=== PATIENT | female | born 1950 | race Hispanic/Latino ===

== ENCOUNTER 2018-03-16 09:41 | Inpatient (IN) | payer OTHER ==
[2018-03-16] MEDS ORDERED: NA CHLORIDE 0.9% 1,000 ML ONE (11:27)
--- NOTE | 2018-03-16 11:36 | RAD REPORT ---
EXAM DESCRIPTION: RAD - Chest Single View - 03/16/2018 11:25 am CLINICAL HISTORY: Chest pain. COMPARISON: 03/10/2017 FINDINGS: Portable technique limits examination quality. The lungs are grossly clear. The heart is upper limit of normal in size. No displaced fractures. IMPRESSION: No acute intrathoracic process suspected.
--- NOTE | 2018-03-16 11:49 | RAD REPORT ---
EXAM DESCRIPTION: SID - MAUREEN - 03/16/2018 11:39 am CLINICAL HISTORY: Headaches, bruit, possible stenosis COMPARISON: None. TECHNIQUE: Real-time sonographic evaluation of both carotid systems was performed. Doppler interroga tion was performed with waveform tracing bilaterally. FINDINGS: Normal high resistance waveforms are noted in both external carotid arteries. The common c arotid arteries and internal carotid arteries show normal low resistance waveforms. Plaquing changes are identifiable in the bilateral carotid bulb and proximal ICA regions. On visual i nspection the plaquing does not significantly narrow vessel lumen. Internal carotid tortuosity is not ed. Peak systolic and end diastolic velocity values and the ICA/CCA ratios are in the non-hemodynamic ally significant range. Antegrade flow seen in both vertebral arteries. Velocity values and ratios were recorded and are retained in the patient's imaging records. IMPRESSION: Calcified and noncalcified plaquing changes are present in the bilateral carotid bulb an d ICA regions. Currently no hemodynamically significant stenosis identifiable.
[2018-03-16 12:07] LABS: Potassium 4.5 mEq/L (3.6-5.0)
[2018-03-16 12:12] LABS: Urine Blood TRACE (NEG); Urine Glucose NEGATIVE (NEG); Urine Protein NEGATIVE (NEG)
[2018-03-16 12:13] LABS: Absolute Lymphocytes (CBC) 1.8 K/uL (0.7-4.9); Absolute Monocytes 0.8 K/uL (0.1-1.3); Absolute Neutrophil 8.6 K/uL (1.8-8.0); Albumin 4.4 g/dL (3.2-5.5); Basophils % 0.3 % (0-1.3); Bilirubin Direct 0.1 mg/dL (0-0.2); Bilirubin Total 0.6 mg/dL (0.3-1.2); Eosinophils % 0.2 % (0-4.4); Hematocrit 43.6 % (36.0-45.0); Lymphocytes % 15.8 % (15.3-44.8); MCH 27.6 pg (27.0-35.0); MCV 85.7 fL (80-100); MPV 10.1 fL (7.6-11.3); Magnesium 1.9 mg/dL (1.8-2.5); RBC Red Blood Cell Count 5.09 M/uL (3.86-4.86)
[2018-03-16 12:17] LABS: CKMB Creatine Kinase MB 0.9 ng/ml (0.3-4.0)
[2018-03-16] MEDS ORDERED: CEFTRIAXONE/SWI 1gm 1 GM/10 ML SYR ONE (12:40)
--- NOTE | 2018-03-16 12:48 | EDPHYS ---
Physician Documentation [facility] Name: Mary Healy Age: 68 yrs Sex: Female : 1950 Arrival Date: 03/16/2018 Time: 09:44 Bed 23 Private MD: ED Physician Will Lockhart HPI: 03/16 10:38 This 68 yrs old Female presents to ER via Ambulatory with complaints of arron Headache, Jaw Pain. 10:38 The patient complains of pain to the forehead, left ear, left buddhism and left jaw. The arron patient describes the headache as constant. Onset: The symptoms/episode began/occurred just prior to arrival, this morning. Associated signs and symptoms: The patient has no apparent associated signs or symptoms. Severity of symptoms: At its worst the pain was mild, moderate, in the emergency department the pain is unchanged. Headache History: Denies prior headaches. The symptoms are alleviated by nothing. the symptoms are aggravated by nothing. The patient has not experienced similar symptoms in the past. Historical: - Allergies: 09:53 PENICILLINS; - Home Meds: 09:53 tramadol 50 mg Oral tab 1 tab every 6 hours [Active]; amlodipine-benazepril 10-20 mg ch oral cap 1 cap once daily [Active]; metoprolol tartrate 50 mg Oral tab 1 tab once daily [Active]; - PMHx: 09:53 High Cholesterol; Hypertension; inflammatory polyarthropy; Osteoporosis; Rheumatoid ch Arthritis; 09:54 "i bleed easily, thin skin"; ch - PSHx: 09:53 ; Tubal ligation; cyst removal; 09:54 possible heart cath; - Immunization history:: Adult Immunizations up to date. - Social history:: Smoking status: Patient/guardian denies using tobacco. - Family history:: not pertinent. ROS: 10:38 Constitutional: Negative for fever, chills, and weight loss, ENT: Negative for injury, arron pain, and discharge, Neck: Negative for injury, pain, and swelling, Cardiovascular: Negative for chest pain, palpitations, and edema, Respiratory: Negative for shortness of breath, cough, wheezing, and pleuritic chest pain, Abdomen/GI: Negative for abdominal pain, nausea, vomiting, diarrhea, and constipation, Back: Negative for injury and pain, : Negative for injury, bleeding, discharge, and swelling, MS/Extremity: Negative for injury and deformity, Skin: Negative for injury, rash, and discoloration, Psych: Negative for depression, anxiety, suicide ideation, homicidal ideation, and hallucinations, Allergy/Immunology: Negative for hives, rash, and allergies, Endocrine: Negative for neck swelling, polydipsia, polyuria, polyphagia, and marked weight changes, Hematologic/Lymphatic: Negative for swollen nodes, abnormal bleeding, and unusual bruising. 10:38 Eyes: Positive for blurry vision, visual disturbance, of the iris of left eye. Exam: 10:38 Constitutional: This is a well developed, well nourished patient who is awake, alert, arron and in no acute distress. Head/Face: Normocephalic, atraumatic. Eyes: Pupils equal round and reactive to light, extra-ocular motions intact. Lids and lashes normal. Conjunctiva and sclera are non-icteric and not injected. Cornea within normal limits. Periorbital areas with no swelling, redness, or edema. ENT: Nares patent. No nasal discharge, no septal abnormalities noted. Tympanic membranes are normal and external auditory canals are clear. Oropharynx with no redness, swelling, or masses, exudates, or evidence of obstruction, uvula midline. Mucous membranes moist. Neck: Trachea midline, no thyromegaly or masses palpated, and no cervical lymphadenopathy. Supple, full range of motion without nuchal rigidity, or vertebral point tenderness. No Meningismus. Chest/axilla: Normal chest wall appearance and motion. Nontender with no deformity. No lesions are appreciated. Cardiovascular: Regular rate and rhythm with a normal S1 and S2. No gallops, murmurs, or rubs. Normal PMI, no JVD. No pulse deficits. Respiratory: Lungs have equal breath sounds bilaterally, clear to auscultation and percussion. No rales, rhonchi or wheezes noted. No increased work of breathing, no retractions or nasal flaring. Abdomen/GI: Soft, non-tender, with normal bowel sounds. No distension or tympany. No guarding or rebound. No evidence of tenderness throughout. Back: No spinal tenderness. No costovertebral tenderness. Full range of motion. Skin: Warm, dry with normal turgor. Normal color with no rashes, no lesions, and no evidence of cellulitis. MS/ Extremity: Pulses equal, no cyanosis. Neurovascular intact. Full, normal range of motion. Neuro: Awake and alert, GCS 15, oriented to person, place, time, and situation. Cranial nerves II-XII grossly intact. Motor strength 5/5 in all extremities. Sensory grossly intact. Cerebellar exam normal. Normal gait. Psych: Awake, alert, with orientation to person, place and time. Behavior, mood, and affect are within normal limits. Vital Signs: 09:54 BP 147 / 68; Pulse 78; Resp 18; Temp 98.1; Pulse Ox 99% on R/A; Weight 45.81 kg; Height ch 4 ft. 10 in. (147.32 cm); Pain 0/10; 12:04 BP 129 / 58; Pulse 61; Resp 18; Pulse Ox 95% on R/A; aj1 13:00 BP 149 / 74; Pulse 65; Resp 18; Pulse Ox 99% ; aj1 14:00 BP 137 / 65; Pulse 65; Resp 18; Pulse Ox 100% ; aj1 16:19 BP 164 / 77; Pulse 68; Resp 14; Temp 98.0; Pulse Ox 97% on R/A; aj1 09:54 Body Mass Index 21.11 (45.81 kg, 147.32 cm) MDM: 10:22 Patient medically screened. arron 10:23 Patient medically screened. [facility] 10:39 Data reviewed: vital signs, nurses notes, lab test result(s), EKG, radiologic studies, [facility] CT scan, plain films. 03/16 10:36 Order name: Urine Dipstick--Ancillary (enter results); Complete Time: 12:34 ag 03/16 10:37 Order name: Basic Metabolic Panel; Complete Time: 12:34 arron 03/16 10:37 Order name: BNP arron 03/16 10:37 Order name: CBC with Diff; Complete Time: 12:34 arron 03/16 10:37 Order name: Ckmb; Complete Time: 12:34 arron 03/16 10:37 Order name: CPK; Complete Time: 12:34 arron 03/16 10:37 Order name: LFT's; Complete Time: 12:34 arron 03/16 10:37 Order name: Magnesium; Complete Time: 12:34 arron 03/16 10:37 Order name: PT-INR; Complete Time: 12:34 arron 03/16 10:37 Order name: Ptt, Activated; Complete Time: 12:34 [facility] 03/16 10:37 Order name: Troponin (emerg Dept Use Only); Complete Time: 12:34 [facility] 03/16 10:37 Order name: Urine Culture [facility] 03/16 11:21 Order name: Sed Rate [facility] 03/16 11:21 Order name: CRP [facility] 03/16 10:37 Order name: XRAY Chest (1 view); Complete Time: 12:00 [facility] 03/16 10:37 Order name: EKG; Complete Time: 10:38 [facility] 03/16 10:37 Order name: Cardiac monitoring; Complete Time: 10:48 [facility] 03/16 10:37 Order name: EKG - Nurse/Tech; Complete Time: 10:49 [facility] 03/16 10:37 Order name: IV Saline Lock; Complete Time: 14:04 [facility] 03/16 10:37 Order name: US Carotid Artery Bilateral; Complete Time: 12:00 [facility] 03/16 10:47 Order name: Head angio [facility] 03/16 11:22 Order name: Sedimentation Rate, Westergren; Complete Time: 12:48 [facility] 03/16 11:22 Order name: C-Reactive Protein; Complete Time: 12:34 [facility] 03/16 12:53 Order name: CONS Physician Consult [facility] 03/16 12:53 Order name: Echo with Doppler [facility] 03/16 10:37 Order name: Labs collected and sent; Complete Time: 14:04 [facility] 03/16 10:37 Order name: O2 Per Protocol; Complete Time: 10:48 [facility] 03/16 10:37 Order name: O2 Sat Monitoring; Complete Time: 10:48 [facility] 03/16 10:37 Order name: Urine Dipstick-Ancillary (obtain specimen); Complete Time: 10:48 [facility] Administered Medications: 11:58 Drug: NS 0.9% 1000 ml Route: IV; Rate: 1 bolus; Site: left antecubital; aj1 17:31 Follow up: IV Status: Completed infusion; IV Intake: 1000ml aj1 13:16 Drug: Rocephin - (cefTRIAXone) 1 grams Route: IVPB; Infused Over: 30 mins; Site: right aj1 antecubital; 17:31 Follow up: IV Status: Completed infusion aj1 14:45 Drug: Aspirin Chewable Tablet 324 mg Route: PO; aj1 17:30 Follow up: Response: No adverse reaction aj1 14:45 Drug: Lovenox 1 mg/kg Route: Sub-Q; Site: right lower abdomen; aj1 17:30 Follow up: Response: No adverse reaction aj1 Disposition: 03/16/18 12:47 Hospitalization ordered by Roc Thomas for Inpatient Admission. Preliminary diagnosis are Non-ST elevation (NSTEMI) myocardial infarction, Headache, Cystitis, Unspecified kidney failure - insufficency. - Bed requested for Telemetry/MedSurg (Inpatient). - Status is Inpatient Admission. aj1 - Condition is Stable. - Problem is new. - Symptoms have improved. UTI on Admission? Yes Signatures: Dispatcher [employer] EDYane Beck, RN RN Laly Guido RN RN aj1 Lorrie Delcid RN RN dw Anderson, Corey, MD MD cha Corrections: (The following items were deleted from the chart) 10:51 10:38 Head Brain Wo Cont+CT.RAD.BRZ ordered. EDMS EDMS
--- NOTE | 2018-03-16 12:48 | ER ---
Nurse's Notes [facility] Name: Mary Healy Age: 68 yrs Sex: Female : 1950 Arrival Date: 03/16/2018 Time: 09:44 Bed 23 Private MD: Diagnosis: Non-ST elevation (NSTEMI) myocardial infarction;Headache;Cystitis;Unspecified kidney failure-insufficency Presentation: 03/16 09:49 Presenting complaint: Patient states: for the past two-three weeks I have been getting ch pain in my chest, and it feels very hot when I wake up in the morning. then at 0900 I got a sharp pain in my L forehead that radiating down into my jaw and into my L ear. then it went numb, and it still feels tingling and odd on the L side of my head and my face. Transition of care: patient was not received from another setting of care. Onset of symptoms was March 16, 2018 at 09:00. Initial Sepsis Screen: Does the patient meet any 2 criteria? No. Patient's initial sepsis screen is negative. Does the patient have a suspected source of infection? No. Patient's initial sepsis screen is negative. Care prior to arrival: None. 09:49 Method Of Arrival: Ambulatory 09:49 Acuity: AASHISH 3 Triage Assessment: 17:29 Headache History: Denies prior headaches. General: Appears in no apparent distress. aj1 comfortable, Behavior is calm, cooperative, appropriate for age. Pain: Also complains of no other associated symptoms. Pain: Pain began today. Historical: - Allergies: 09:53 PENICILLINS; - Home Meds: 09:53 tramadol 50 mg Oral tab 1 tab every 6 hours [Active]; amlodipine-benazepril 10-20 mg ch oral cap 1 cap once daily [Active]; metoprolol tartrate 50 mg Oral tab 1 tab once daily [Active]; - PMHx: 09:53 High Cholesterol; Hypertension; inflammatory polyarthropy; Osteoporosis; Rheumatoid ch Arthritis; 09:54 "i bleed easily, thin skin"; ch - PSHx: 09:53 ; Tubal ligation; cyst removal; 09:54 possible heart cath; - Immunization history:: Adult Immunizations up to date. - Social history:: Smoking status: Patient/guardian denies using tobacco. - Family history:: not pertinent. Screenin:40 Abuse screen: Denies threats or abuse. Denies injuries from another. Nutritional aj1 screening: No deficits noted. Tuberculosis screening: No symptoms or risk factors identified. 17:30 Fall Risk None identified. aj1 Assessment: 10:40 General: Appears in no apparent distress. comfortable, Behavior is calm, cooperative, aj1 appropriate for age. Pain: Complains of pain in forehead Pain radiates to left jaw and left ear Pain currently is 3 out of 10 on a pain scale. at worst was 10 out of 10 on a pain scale. Quality of pain is described as sharp, Is intermittent. Neuro: Level of Consciousness is awake, alert, obeys commands, Oriented to person, place, time, situation, Telehealth Case Manager are equal bilaterally Moves all extremities. Full function Speech is normal, Facial symmetry appears normal, Pupils are PERRLA, Intact Reports blurred vision headache Denies dizziness, paresthesias. Cardiovascular: Reports chest pain, for the past 2 to 3 weeks, that happens mainly at night and feels like heat in her chest Heart tones S1 S2 present Patient's skin is warm and dry. Rhythm is sinus rhythm. Respiratory: Airway is patent Respiratory effort is even, unlabored, Respiratory pattern is regular, symmetrical, Breath sounds are clear bilaterally. GI: No signs and/or symptoms were reported involving the gastrointestinal system. : No signs and/or symptoms were reported regarding the genitourinary system. EENT: No signs and/or symptoms were reported regarding the EENT system. Derm: No signs and/or symptoms reported regarding the dermatologic system. Skin is pink, warm \\T\\ dry. normal. Musculoskeletal: No signs and/or symptoms reported regarding the musculoskeletal system. Circulation, motion, and sensation intact. 10:45 Reassessment: US at bedside. aj1 11:13 Reassessment: Xray at bedside. aj1 11:45 Reassessment: Patient appears in no apparent distress at this time. No changes from aj1 previously documented assessment. Patient and/or family updated on plan of care and expected duration. Pain level reassessed. Patient is alert, oriented x 3, equal unlabored respirations, skin warm/dry/pink. 12:45 Reassessment: Patient appears in no apparent distress at this time. No changes from aj1 previously documented assessment. Patient and/or family updated on plan of care and expected duration. Pain level reassessed. Patient is alert, oriented x 3, equal unlabored respirations, skin warm/dry/pink. 13:45 Reassessment: Patient appears in no apparent distress at this time. No changes from aj1 previously documented assessment. Patient and/or family updated on plan of care and expected duration. Pain level reassessed. Patient is alert, oriented x 3, equal unlabored respirations, skin warm/dry/pink. 14:45 Reassessment: Patient appears in no apparent distress at this time. No changes from aj1 previously documented assessment. Patient and/or family updated on plan of care and expected duration. Pain level reassessed. Patient is alert, oriented x 3, equal unlabored respirations, skin warm/dry/pink. 15:45 General: Appears in no apparent distress. comfortable, Behavior is calm, cooperative, aj1 appropriate for age. Neuro: Level of Consciousness is awake, alert, obeys commands, Oriented to person, place, time, situation, Moves all extremities. Full function Speech is normal, Facial symmetry appears normal. Cardiovascular: Heart tones S1 S2 present Patient's skin is warm and dry. Rhythm is sinus rhythm. Respiratory: Airway is patent Respiratory effort is even, unlabored, Respiratory pattern is regular, symmetrical, Breath sounds are clear bilaterally. Derm: No signs and/or symptoms reported regarding the dermatologic system. Skin is pink, warm \\T\\ dry. normal. Musculoskeletal: No signs and/or symptoms reported regarding the musculoskeletal system. Circulation, motion, and sensation intact. 16:30 Reassessment: Patient appears in no apparent distress at this time. No changes from aj1 previously documented assessment. Patient and/or family updated on plan of care and expected duration. Pain level reassessed. Patient is alert, oriented x 3, equal unlabored respirations, skin warm/dry/pink. Vital Signs: 09:54 BP 147 / 68; Pulse 78; Resp 18; Temp 98.1; Pulse Ox 99% on R/A; Weight 45.81 kg; Height ch 4 ft. 10 in. (147.32 cm); Pain 0/10; 12:04 BP 129 / 58; Pulse 61; Resp 18; Pulse Ox 95% on R/A; aj1 13:00 BP 149 / 74; Pulse 65; Resp 18; Pulse Ox 99% ; aj1 14:00 BP 137 / 65; Pulse 65; Resp 18; Pulse Ox 100% ; aj1 16:19 BP 164 / 77; Pulse 68; Resp 14; Temp 98.0; Pulse Ox 97% on R/A; aj1 09:54 Body Mass Index 21.11 (45.81 kg, 147.32 cm) ED Course: 09:44 Patient arrived in ED. sb2 09:51 Triage completed. 09:54 Arm band placed on left wrist. 10:22 Will Lockhart MD is Attending Physician. arron 10:33 Laly Pate, KARLEE is Primary Nurse. aj1 10:40 Patient has correct armband on for positive identification. Bed in low position. Call aj1 light in reach. Side rails up X 1. monitor technician on. Pulse ox on. NIBP on. 10:40 No provider procedures requiring assistance completed. aj1 11:12 X-ray completed. Portable x-ray completed in exam room. Patient tolerated procedure jb2 well. 11:18 US Carotid Artery Bilateral In Process Unspecified. EDMS 11:19 Ultrasound completed. Patient tolerated well. Note: us done bedside in er/portable. lc3 11:19 EKG done, by instrumentation and controls technician. reviewed by Will Lockhart MD. vh 11:24 XRAY Chest (1 view) In Process Unspecified. EDMS 11:55 Inserted saline lock: 22 gauge in left antecubital area, using aseptic technique. Blood aj1 collected. 12:22 CT completed. Patient tolerated procedure well. Patient moved to CT via wheelchair. sj Patient moved back from CT. 12:32 Head angio In Process Unspecified. EDMS 12:47 Roc Thomas DO is Hospitalizing Provider. arron 17:29 Patient admitted, IV remains in place. aj1 Administered Medications: 11:58 Drug: NS 0.9% 1000 ml Route: IV; Rate: 1 bolus; Site: left antecubital; aj1 17:31 Follow up: IV Status: Completed infusion; IV Intake: 1000ml aj1 13:16 Drug: Rocephin - (cefTRIAXone) 1 grams Route: IVPB; Infused Over: 30 mins; Site: right aj1 antecubital; 17:31 Follow up: IV Status: Completed infusion aj1 14:45 Drug: Aspirin Chewable Tablet 324 mg Route: PO; aj1 17:30 Follow up: Response: No adverse reaction aj1 14:45 Drug: Lovenox 1 mg/kg Route: Sub-Q; Site: right lower abdomen; aj1 17:30 Follow up: Response: No adverse reaction aj1 Intake: 17:31 IV: 1000ml; Total: 1000ml. aj1 Outcome: 12:47 Decision to Hospitalize by Provider. [facility] 17:30 Admitted to Tele accompanied by tech, via wheelchair. aj 17:30 Condition: good 17:30 Discharge instructions given to patient, Instructed on the need for admit, Demonstrated understanding of instructions. 17:31 Patient left the ED. aj1 Signatures: Dispatcher [employer] Yane Zimmerman, Laly Castro RN, ch, RN RN aj1 Will Lockhart MD MD cha Buechter, Jax Javier, Angy Kim, Rivera Sweeney, Maribell guillen2
--- NOTE | 2018-03-16 12:51 | RAD REPORT ---
EXAM DESCRIPTION: CT - Head angio - 03/16/2018 12:31 pm CLINICAL HISTORY: Acute onset head pain, headache COMPARISON: None. TECHNIQUE: During dynamic enhancement using nonionic IV contrast, axial 1 millimeter thick images of the head were obtained. Coronal and sagittal reformatted images were generated and reviewed. FINDINGS: No aneurysm or vascular malformation identifiable. Atherosclerotic calcifications are pres ent within the cavernous portions of each internal carotid artery. No significant luminal narrowing t hrough this region. There is no significant atherosclerotic change identifiable. No major vessel occl usion, vasculitis or other suspicious vascular finding. Major venous sinuses opacified normally. Vert ebrobasilar tortuosity is present without additional abnormality seen. Whole brain 5 millimeter thick images of the head show moderate severity atrophy and chronic ischemic change. No hemorrhage, mass or acute cortical based infarction. No midline shift. Ventricles are in proportion to volume loss. IMPRESSION: No aneurysm or vascular malformation. No vasculitis or significant atherosclerotic change identifiable.
[2018-03-16] MEDS ORDERED: ASPIRIN 81 MG CHEWABLE TABLET ONE ×2 (14:12→14:13)
[2018-03-16] MEDS ORDERED: ENOXAPARIN 40 MG/0.4 ML SQ ONE (14:13)
--- NOTE | 2018-03-16 14:36 | EKG ---
Test Date: 2018-03-16 Test Time: 10:50:21 Configurator: ARABELLA MEASUREMENT RESULTS: Intervals: Rate: 73 [place]: 142 QRSD: 78 QT: 396 QTc: 436 [place]: P: 69 [place]: 142 QRS: 53 T: 72 INTERPRETIVE STATEMENTS: Normal sinus rhythm Cannot rule out Anterior infarct, age undetermined Abnormal ECG Compared to ECG 02/13/2017 07:05:05 No significant changes Electronically Signed On 03-16-18 14:33:49 CDT by José Luis Palmer
[2018-03-16] MEDS ORDERED: TRAMADOL HCL 50 MG TAB PO PRN (15:07)
[2018-03-16] MEDS ORDERED: ACETAMINOPHEN 500 MG TAB PO PRN (15:09)
[2018-03-16] MEDS ORDERED: MORPHINE 4 MG/ML SYR IV PRN (15:09)
[2018-03-16] MEDS ORDERED: NITROGLYCERIN 0.4 MG/TAB SL PRN (15:09)
[2018-03-16] MEDS ORDERED: Morphine 2 MG/2 ML SYR IV PRN (15:31)
--- NOTE | 2018-03-16 18:17 | P.HP ---
Certification for Inpatient With expected LOS: >2 Midnights Patient will require the following post-hospital care: None Practitioner: I am a practitioner with admitting privileges, knowledge of patient current condition, hospital course, and medical plan of care. Services: Services provided to patient in accordance with Admission requirements found in Title 42 Section 412.3 of the Code of Federal Regulations Patient History Date of Service: 03/16/18 Reason for admission: chest pain History of Present Illness: 68 year old female with history of hypertension,RA who presented with acute onset of right sided headache radiating to her right jaw.Pain said to have started around mid day, lasted a few seconds and then went away.No known abrogating or relieving factor.Denies having such pain in the past.She however mentioned that she had some slight chest discomfort last night which she attributed to her RA. otherwise she denies any SOB, cough, diaphoresis, nausea or vomiting. Allergies Penicillins Allergy (Verified 01/11/16 01:09) Itching Home medications list reviewed: Yes Home Medications: Amlodipine Besylate/Benazepril [Amlodipine-Benazepril 10-20 mg] 1 cap PO DAILY 01/11/16 traMADol HCL [Ultram*] 50 mg PO DAILY 01/11/16 Metoprolol Succinate [Toprol Xl] 100 mg PO DAILY #30 tab.er.24h 02/13/17 - Past Medical/Surgical History Has patient received pneumonia vaccine in the past: Yes Diabetic: No -: RA -: HTN -: hyperlipidemia -: osteoporosis -: hysterectomy -: TUBAL LIGATION -: CYST REMOVED - Family History Mother -: Heart disease, Hypertension Notes: alzheimers Father -: Hypertension, Cancer Brother -: Other (see notes) Notes: PARKINSONS SON -: Diabetes DAUGHTER -: Other (see notes) Notes: LUPUS - Social History Smoking Status: Former smoker Alcohol use: No CD- Drugs: No Caffeine use: Yes Place of Residence: Home Review of Systems 10-point ROS is otherwise unremarkable Physical Examination - Vital Signs Temperature: 98.0 F Blood Pressure: 164/77 Pulse: 68 Respirations: 14 Pulse Ox (%): 98 - Physical Exam General: Alert, In no apparent distress, Oriented x3 HEENT: Atraumatic, Normocephalic, PERRLA Neck: Supple, JVD not distended, No Thyromegaly, No LAD Respiratory: Clear to auscultation bilaterally, Normal air movement Cardiovascular: No edema, Normal pulses, Regular rate/rhythm, Normal S1 S2, No gallops, No rubs, No murmurs Gastrointestinal: Normal bowel sounds, Soft and benign, Non-distended, W/out hepatosplenomegaly, No ascites, No tenderness, No masses, No rebound, No guarding Musculoskeletal: No clubbing, No swelling, No contractures, No erythema, No tenderness, No warmth - Studies Laboratory Data (last 24 hrs) 03/16/18 11:40: PT 11.8, INR 1.00, APTT 27.1 03/16/18 11:40: WBC 11.3 H, Hgb 14.0, Hct 43.6, Plt Count 289 03/16/18 11:40: B-Natriuretic Peptide 34 03/16/18 11:40: Sodium 135, Potassium 4.5, BUN 11, Creatinine 1.10 H, Glucose 104, Magnesium 1.9, Total Bilirubin 0.6, AST 22, ALT 17, Alkaline Phosphatase 67 Assessment and Plan - Problems (Diagnosis) (1) Chest pain Onset Date: 02/13/17 Current Visit: No Status: Acute Plan: will admit on telemetry serial enzymes and EKG Start ASA daily nitro,morphine prn Cardiology Dr Vasquez consulted by ED start lovenox Qualifiers: (2) Hypertension Onset Date: 01/11/16 Current Visit: No Status: Acute Plan: restart home medications Qualifiers: (3) Rheumatoid arthritis Current Visit: No Status: Acute Plan: on plaquenil, will continue Qualifiers: Discharge Plan: Home Plan to discharge in: 48 Hours - Advance Directives Does patient have a Living Will: No Does patient have a Durable POA for Healthcare: No Physician Review: Patient Assessed, Agree with Above Assessment and Plan Time Spent Managing Pts Care (In Minutes): 45
[2018-03-16 20:16] LABS: Potassium 3.9 mEq/L (3.6-5.0)
[2018-03-16] MEDS: HYDROXYCHLOROQUINE 200MG TAB PO SCH (21:00)
[2018-03-16] MEDS ORDERED: ENOXAPARIN 60 MG/0.6 ML SQ SCH (21:00)
[2018-03-16] MEDS: FOLIC ACID 1 MG TABLET PO SCH (21:18)
[2018-03-17] MEDS: ENOXAPARIN 60 MG/0.6 ML SQ SCH ×2 (01:15→15:17)
--- NOTE | 2018-03-17 08:00 | ECHO ---
HEIGHT: 4 ft 10 in WEIGHT: 125 lb 3.2 oz DATE OF STUDY: 03/16/[address]: 2-DIMENSIONAL: YES M.MODE: NO DOPPLER: NO COLOR FLOW: NO TDS: NO PORTABLE: NO DEFINITY: NO BUBBLE STUDY: NO DIAGNOSIS: CHEST PAIN CARDIAC HISTORY: CATHERIZATION: YES SURGERY: NO PROSTHETIC VALVE: NO PACEMAKER: NO MEASUREMENTS (cm) DIASTOLIC (NORMALS) SYSTOLIC (NORMALS) IVSd 1.2 (0.6-1.2) LA Diam 2.8 (1.9-4.0) LVEF 64% LVIDd 4.6 (3.5-5.7) LVIDs 3.0 (2.0-3.5) %FS 35% LVPWd 1.1 (0.6-1.2) Ao Diam 2.7 (2.0-3.7) 2 DIMENSIONAL ASSESSMENT: RIGHT ATRIUM: NORMAL LEFT ATRIUM: NORMAL RIGHT VENTRICLE: NORMAL LEFT VENTRICLE: NORMAL TRICUSPID VALVE: NORMAL MITRAL VALVE: NORMAL PULMONIC VALVE: NORMAL AORTIC VALVE: NORMAL PERICARDIAL EFFUSION: NONE AORTIC ROOT: NORMAL LEFT VENTRICULAR WALL MOTION: NORMAL DOPPLER/COLOR FLOW: TRACE MITRAL AND TRICUSPID REGURGITATION. NORMAL RIGHT VENTRICULAR SYSTOLIC PRESSURE. COMMENTS: NORMAL 2D ECHOCARDIOGRAM. TRACE MITRAL AND TRICUSPID REGURGITATION. TECHNOLOGIST: AUDREY CARRENO RDCS
[2018-03-17] MEDS ORDERED: HOME MED 1 EA UNK (Amlodipine Besylate/Benazepril [Amlodipine-Benazepril 10-20 Mg] 1 EACH) PO SCH (09:00)
[2018-03-17] MEDS: METOPROLOL XL 100 MG TAB PO SCH (09:00)
[2018-03-17] MEDS: HYDROXYCHLOROQUINE 200MG TAB PO SCH ×2 (09:00→21:05)
[2018-03-17] MEDS ORDERED: REGADENOSON 0.4 MG/5 ML SYR IV ONE (10:38)
[2018-03-17] MEDS: BENAZEPRIL 20 MG TAB PO SCH (10:45)
[2018-03-17] MEDS: AMLODIPINE 10 MG TAB PO SCH (10:46)
[2018-03-17] MEDS: FOLIC ACID 1 MG TABLET PO SCH ×2 (10:46→21:06)
[2018-03-17] MEDS: ASPIRIN EC 81 MG TAB PO SCH (10:46)
[2018-03-17 12:51] LABS: CKMB Creatine Kinase MB 0.9 ng/ml (0.3-4.0)
--- NOTE | 2018-03-17 15:09 | CON ---
History Of Present Illness: Ms. Healy is 68. She has rheumatoid arthritis. She had numerous hospi talizations for chest pain. She often has elevated troponins, but we have never found any coronary h eart disease. She has never required stents or bypass surgery. She did not actually come to the [facility] with chest pain. She came to the hospital because the left side of her head suddenly hurt and then got better after about 2 or 3 minutes. In order to evaluate that she has had a CT angio of the head CAT scan of the head. There were no significant abnormalities. Her carotid ultrasound is raul l. An echocardiogram is normal. No evidence of a mass or hemorrhage or anything wrong in her brain. She has had rheumatoid arthritis since a very young adult. Her last cardiac cath was 10 years ago. Her last stress test was 2 years ago. They have all been normal. Physical Examination: Vital Signs: 4 feet 10 inches, 125 pounds. Neck: No carotid bruit. Lungs: Clear. Heart: Does not reveal a friction rub. Abdomen: Soft. Extremities: Palpable, but diminished distal pulses. Medications: Outpatient medications are tramadol, amlodipine, metoprolol, but I do not think that is the complete list. I am quite certain she takes some more medications for rheumatoid arthritis. Laboratory Data: Her troponins are all 0.31, 0.30, 0.28, not a pattern that would suggest acute CA. CKs and CK-MBs are normal. Impression: The patient is not having an acute coronary syndrome. There is no chest pain. No EKG c hanges. I will recommend we do a nuclear stress test, pharmacologic, see if there are any signs of i schemia, but I think the thing that brought her to the hospital was pain from cervical nerve root imp ingement causing the left-sided headache. An MRI of the C-spine might make a diagnosis, might provid e some way to get some relief to the pain if it recurs, but she is not having pain now, so we are goi ng to spend the rest of the hospitalization trying to document that the elevated troponins are not a sign of an acute coronary syndrome. I do not think they are. SCOTT/MICHAELA Voice ID: [id number] Report ID: [id number]
--- NOTE | 2018-03-17 16:37 | P.PN ---
Subjective Date of Service: 03/17/18 Chief Complaint: chest pain Subjective: Doing well Review of Systems 10-point ROS is otherwise unremarkable Physical Examination - Vital Signs Temperature: 97.2 F Blood Pressure: 135/66 Pulse: 69 Respirations: 18 Pulse Ox (%): 98 - Physical Exam General: Alert, In no apparent distress, Oriented x3 HEENT: Atraumatic, Normocephalic, PERRLA Neck: Supple, JVD not distended, No Thyromegaly, No LAD Respiratory: Clear to auscultation bilaterally, Normal air movement Cardiovascular: No edema, Normal pulses, Regular rate/rhythm, Normal S1 S2, No gallops, No rubs, No murmurs Gastrointestinal: Normal bowel sounds, Soft and benign, Non-distended, W/out hepatosplenomegaly, No ascites, No tenderness, No masses, No rebound, No guarding Musculoskeletal: No clubbing, No swelling, No contractures, No erythema, No tenderness - Studies Medications List Reviewed: Yes Assessment And Plan - Current Problems (Diagnosis) (1) Chest pain Onset Date: 02/13/17 Current Visit: No Status: Acute Plan: continue on telemetry serial enzymes and EKG negative so far continue ASA daily nitro,morphine prn seen Cardiology Dr Vasquez recommended stress test for am Qualifiers: (2) Hypertension Onset Date: 01/11/16 Current Visit: No Status: Acute Plan: continue home medications Qualifiers: (3) Rheumatoid arthritis Onset Date: 03/17/18 Current Visit: Yes Status: Acute Plan: on plaquenil, will continue Qualifiers: Discharge Plan: Home Plan to discharge in: 24 Hours Physician Review: Patient Assessed, Agree with Above Assessment and Plan Time Spent Managing PTS Care (In Minutes): 25
[2018-03-18] MEDS: ENOXAPARIN 60 MG/0.6 ML SQ SCH ×2 (01:24→14:05)
[2018-03-18] MEDS: FOLIC ACID 1 MG TABLET PO SCH (09:25)
[2018-03-18] MEDS: AMLODIPINE 10 MG TAB PO SCH (09:26)
[2018-03-18] MEDS: METOPROLOL XL 100 MG TAB PO SCH (09:26)
[2018-03-18] MEDS: HYDROXYCHLOROQUINE 200MG TAB PO SCH (09:27)
[2018-03-18] MEDS: ASPIRIN EC 81 MG TAB PO SCH (09:27)
--- NOTE | 2018-03-18 09:43 | RAD REPORT ---
EXAM DESCRIPTION: NM - Rest Stress Cardiac Imaging - 03/18/2018 9:24 am CLINICAL HISTORY: Chest pain. COMPARISON: None. TECHNIQUE: The patient was administered approximately 10mCi of Tc 99m Sestamibi prior to resting SPE CT imaging of the heart. The patient was then administered approximately 30 mCi of Tc 99m Sestamibi f ollowing exercise or pharmacologic stress. Multiplanar SPECT images were reviewed. FINDINGS: No stress induced ischemic defect is seen to suggest stress induced ischemia. No fixed def ect is seen to suggest hibernating myocardium or scarred myocardium. The end diastolic volume is 39 ml, the end systolic volume is 5 ml, and the ejection fraction is 86 % . IMPRESSION: No stress induced ischemia.
[2018-03-18] MEDS: BENAZEPRIL 20 MG TAB PO SCH (09:48)
--- NOTE | 2018-03-18 10:03 | EKG ---
Test Date: 2018-03-18 Test Time: 01:23:32 Quarry Worker: RT Michael MEASUREMENT RESULTS: Intervals: Rate: 93 HI: 138 QRSD: 70 QT: 370 QTc: 460 [employer] [employer]: P: 56 HI: 138 QRS: 11 T: 35 INTERPRETIVE STATEMENTS: Normal sinus rhythm Normal ECG Compared to ECG 03/16/2018 10:50:21 Myocardial infarct finding no longer present Electronically Signed On 03-18-18 10:02:55 CDT by José Luis Palmer
--- NOTE | 2018-03-18 10:57 | TREADPHA ---
DX: CHEST PAIN Date of Study: 03/18/2018 Ht: 4 10 Wt: 125 lb 3.2 oz Consulting Physician: ANCELMO MEDICATIONS: TYLENOL, NORVASC, ASPIRIN, LOTENSIN, LOVENOX, PLAQUENIL, TOPOL XL, NITROSTAT, ULTRAM HISTORY: 68 YEAR OLD FEMALE WITH COMPLAINTS OF CHEST PAIN. MEDICAL HISTORY: HIGH CHOLESTEROL, HYPERTENSION, RHEUMATOID ARTHRITIS, OSTERPOROSSI, INFLAMMATORY POLY ARTHRITIS PHYSICIAL EXAMINATION: RESTING B.P.: 163/72 RESTING H.R.: 90 RESTING EKG: NORMAL PROTOCOL: LEXISCAN EXERCISE TIME: 3:30 B.P. AT PEAK STRESS: 150/68 IMPRESSION: LEXISCAN INJECTED. CARDIOLITE INJECTED PER PROTOCOL. SEE NUCLEAR MEDICINE REPORT. NO SUPRAVENTRICULAR TACHYCARDIA. NO VENTRICULAR TACHYCARDIA. ONE PREMATURE COMPLEX. NINE OUT OF TEN ON PAIN SCALE FOR CHEST TIGHTNESS AFTER ADMINISTATION OF LEXISCAN. IT EASED UP IN RECOVERY.
--- NOTE | 2018-03-18 12:16 | PN ---
The patient was seen by Dr. Vasquez yesterday for elevated troponin. An echocardiogram was done today is normal. Lexiscan is pending. We do not really believe that the troponin elevation is cardiac in nature, but we will see what the Lexiscan shows before the final decisions. ORLANDO/MICHAELA Voice ID: [id number] Report ID: [id number]
--- NOTE | 2018-03-18 15:54 | P.DS ---
Admission Date: 03/16/18 Discharge Date: 03/18/18 Disposition: ROUTINE DISCHARGE Discharge Condition: GOOD Reason for Admission: chest pain Consultations: cardiology Procedures: stress test - Problems (1) Chest pain Onset Date: 02/13/17 Current Visit: No Status: Acute Qualifiers: (2) Hypertension Onset Date: 01/11/16 Current Visit: No Status: Acute Qualifiers: (3) Rheumatoid arthritis Onset Date: 03/17/18 Current Visit: Yes Status: Acute Qualifiers: Brief History of Present Illness: 68 year old female with history of hypertension,RA who presented with acute onset of right sided headache radiating to her right jaw.Pain said to have started around mid day, lasted a few seconds and then went away.No known abrogating or relieving factor.Denies having such pain in the past.She however mentioned that she had some slight chest discomfort last night which she attributed to her RA. otherwise she denies any SOB, cough, diaphoresis, nausea or vomiting. Hospital Course: Patient was placed on telemetry.Serial enzymes were obtained and noted to be down trending.She denied any repeat chest pain or headache while in the hospital.She was evaluated by cardiology and had a stress test done which came back negative.BP medications were adjusted.She was discharged home in a stable condition. Vital Signs/Physical Exam: Temp Pulse Resp BP Pulse Ox 98.4 F 67 16 131/60 95 03/18/18 12:00 03/18/18 12:00 03/18/18 12:00 03/18/18 12:00 03/18/18 12:00 General: Alert, In no apparent distress, Oriented x3 HEENT: Atraumatic, Normocephalic, PERRLA Neck: Supple, JVD not distended, No Thyromegaly, No LAD Respiratory: Clear to auscultation bilaterally, Normal air movement Cardiovascular: No edema, Normal pulses, Regular rate/rhythm Gastrointestinal: Normal bowel sounds, Soft and benign, Non-distended, W/out hepatosplenomegaly Musculoskeletal: No swelling Neurological: Normal strength at 5/5 x4 extr Laboratory Data at Discharge: WBC 11.3 K/uL (4.3-10.9) H 03/16/18 11:40 Hgb 14.0 g/dL (12.0-15.0) 03/16/18 11:40 Hct 43.6 % (36.0-45.0) 03/16/18 11:40 Plt Count 289 K/uL (152-406) 03/16/18 11:40 PT 11.8 SECONDS (9.5-12.5) 03/16/18 11:40 INR 1.00 03/16/18 11:40 APTT 27.1 SECONDS (24.3-36.9) 03/16/18 11:40 Sodium 136 mEq/L (135-145) 03/16/18 19:43 Potassium 3.9 mEq/L (3.6-5.0) 03/16/18 19:43 BUN 10 mg/dL (6-20) 03/16/18 19:43 Creatinine 0.72 mg/dL (0.44-1.00) 03/16/18 19:43 Glucose 126 mg/dL (65-120) H 03/16/18 19:43 Magnesium 1.9 mg/dL (1.8-2.5) 03/16/18 11:40 Total Bilirubin 0.6 mg/dL (0.3-1.2) 03/16/18 11:40 AST 22 IU/L (10-42) 03/16/18 11:40 ALT 17 IU/L (10-60) 03/16/18 11:40 Alkaline Phosphatase 67 IU/L (42-121) 03/16/18 11:40 Troponin I 0.32 ng/mL (<0.03) H 03/17/18 12:00 B-Natriuretic Peptide 34 pg/ml (<=100) 03/16/18 11:40 Triglycerides 145 mg/dL (35-160) 03/17/18 03:36 Cholesterol 203 mg/dL (<200) H 03/17/18 03:36 HDL Cholesterol 43 mg/dL (29-89) 03/17/18 03:36 Cholesterol/HDL Ratio 4.72 03/17/18 03:36 Home Medications: Amlodipine Besylate/Benazepril [Amlodipine-Benazepril 10-20 mg] 1 cap PO DAILY 01/11/16 traMADol HCL [Ultram*] 50 mg PO DAILY 01/11/16 Metoprolol Succinate [Toprol Xl] 100 mg PO DAILY #30 tab.er.24h 02/13/17 Amlodipine [Norvasc*] 10 mg PO DAILY tab 03/18/18 Benazepril HCl [Lotensin*] 20 mg PO DAILY 60 Days #60 tab 03/18/18 Hydroxychloroquine [Plaquenil*] 200 mg PO BID tab 03/18/18 New Medications: Benazepril HCl [Lotensin*] 20 mg PO DAILY 60 Days #60 tab Patient Discharge Instructions: follow up with PCP in 1-2 weeks. Return to ED with new or worsening symptoms Diet: AHA Activity: Ad rito Physician Review: Patient Assessed, Agree with Above Assessment and Plan Time spent managing pt's care (in minutes): 30
== END 2018-03-18 16:32 | disposition home or self-care (01) | DRG 313 ==
LOC: ER 09:41 → ERHOLD 13:01 → 4TH 16:47
PROVIDERS: ADMIT Internal Medicine; ATTEND Internal Medicine
DX: R07.9 Chest pain, unspecified (principal); I10 Essential (primary) hypertension; M06.9 Rheumatoid arthritis, unspecified; R51 Headache; Z88.0 Allergy status to penicillin; Z87.891 Personal history of nicotine dependence
CPT/HCPCS: 36415; 70496; 71045; 78452; 80048; 80061; 80076; 81003; 82550; 82553; 83735; 83880; 84484; 85025; 85610; 85652; 85730; 86140; 87086; 87088; 93005; 93017; 93306; 93880; 94760; 96361; 96365; 96366; 96372; 99285; A9500; J0696; J1650; J2785; J7030; Q9967

== ENCOUNTER 2019-09-13 07:02 | Day surgery (SDC) | payer OTHER ==
--- NOTE | 2019-09-12 10:37 | RAD REPORT ---
EXAM DESCRIPTION: Cristy Rm (2 Views)09/12/2019 10:04 am CLINICAL HISTORY: Preop cardiac catheterization COMPARISON: 2018 FINDINGS: The lungs appear clear of acute infiltrate. The heart is normal size IMPRESSION: No acute abnormalities displayed
[2019-09-12 10:44] LABS: Basophils % 0.7 % (0-1.3); Hematocrit 36.4 % (36.0-45.0); Lymphocytes % 28.1 % (15.3-44.8); MPV 10.3 fL (7.6-11.3); RBC Red Blood Cell Count 4.03 M/uL (3.86-4.86)
[2019-09-12 10:48] LABS: Protime INR 0.95
[2019-09-12 10:59] LABS: BUN Blood Urea Nitrogen 10 mg/dL (7-18); Bicarbonate 29 mmol/L (21-32); Glucose Level 90 mg/dL (74-106); Potassium 4.3 mmol/L (3.5-5.1); Sodium Level 140 mmol/L (136-145)
--- NOTE | 2019-09-12 11:36 | EKG ---
Test Date: 2019-09-12 Test Time: 09:49:11 [employer]: ASHLEY MEASUREMENT RESULTS: Intervals: Rate: 62 RI: 154 QRSD: 76 QT: 414 QTc: 420 [place]: P: 67 RI: 154 QRS: 39 T: 62 INTERPRETIVE STATEMENTS: Normal sinus rhythm Normal ECG Compared to ECG 03/18/2018 01:23:32 No significant changes Electronically Signed On 09-12-19 11:36:07 CDT by Valentin Vasquez
[2019-09-13] MEDS ORDERED: NA CHLORIDE 0.9% 500 ML ONE (07:39)
[2019-09-13] MEDS ORDERED: HEPA 1000U/500MLS 1,000 UNIT/500 ML BAG IV ONE (08:18)
[2019-09-13] MEDS ORDERED: FENTANYL CITR 100 MCG/2 ML ONE ×2 (08:21→13:50)
[2019-09-13] MEDS ORDERED: MIDAZOLAM HCL 2 MG/2 ML INJ ONE ×2 (08:21→09:15)
[2019-09-13] MEDS ORDERED: ATROPINE SULF 1 MG/10 ML SYR IV ONE (08:22)
[2019-09-13] MEDS ORDERED: NA CHLORIDE 0.9% 0 ML ONE (08:22)
[2019-09-13 15:50] VITALS: BP 130/53; TEMP 98.7; O2SAT 98
--- NOTE | 2019-09-13 21:27 | OP ---
Surgeon: José Luis Palmer MD Line Operator: Brie Steele. Patient will have bedrest for 6 hours prior to discharge. I will see her in the office in about 2 we eks. Reason For Admission: Left heart catheterization and selective coronary arteriogram. Procedure: Left heart catheterization, selective coronary arteriogram. Indication: CAD and unstable angina. Description Of Procedure: A 6-Turkmen sheath was introduced in the right common femoral artery succes sfully. We held pressure for hemostasis because of the small blood vessel in the right common femora l artery. The patient had been prepped and draped in the routine sterile fashion, given 2 mg of Vers ed for sedation. Wilman catheter was used to do the diagnostic catheterization. She had a normal l eft main. Her LAD was patent with minimal plaquing. Circumflex was nondominant with minimal plaquin g. There were no focal stenosis in the left system. The RCA had about 40% to 50% mid RCA stenosis a nd was right dominant. Complications: There were no complications. Blood Loss: 5 mL. Postoperative Diagnosis: Moderate coronary artery disease. Plan: Plan is for medical therapy. Total conscious sedation was 30 minutes. [place]LANDO/MICHAELA Voice ID: [id number] Report ID: [id number]
== END 2019-09-13 15:41 | disposition home health service (06) ==
LOC: CCL 07:02
DX: I25.110 Atherosclerotic heart disease of native coronary artery with unstable angina pectoris (principal); I34.0 Nonrheumatic mitral (valve) insufficiency; I65.23 Occlusion and stenosis of bilateral carotid arteries; I10 Essential (primary) hypertension; M06.9 Rheumatoid arthritis, unspecified; Z88.0 Allergy status to penicillin
CPT/HCPCS: 93005; 85025; 80048; 36415; 85610; 85730; 71046; 93454; C1893; J2250; J3010 ×2; J7040; J0583

== ENCOUNTER 2019-10-01 11:14 | Emergency (ER) | payer OTHER ==
--- OUTSIDE RECORDS SUMMARY | 2019-10-01 11:17 | XMS REPORT | Continuity of Care Document ---
:1950 Author Organization [facility] HCIS Care Team Providers Name Role Phone PCP, NO Primary Care Physician Unavailable Allergies, Adverse Reactions, Alerts Allergen Type Severity Reaction Last Updated Verified Status Penicillin Allergy Moderate HIVES (I) August 29, 2019 No Active Medications No known medications. Problems No problem information available. Procedures Procedure Date Performed Status ECG (electrocardiogram) August 29, 2019 active X-ray of chest, single view August 29, 2019 completed Relevant Diagnostic Tests and/or Laboratory Data Laboratory Results Test Date/Time Result Interpretation Reference Result Comment Performing Range Site White Blood August 7.9 4.5-10.0 AJIT Nguyen, Moraima4 Dr Alan Hughes Count 2018 11:32am [place] [id number] Red Blood Count August 4.31 4.20-5.40 AJIT Nguyen, Moraima4 Dr Alan Hughes 2018 11:32am [place] [id number] Hemoglobin August 12.5 12.0-16.0 AJIT Nguyen, Moraima4 Dr Alan Hughes 2018 11:32am [place] [id number] Hematocrit August 39.1 37.0-47.0 AJIT Nguyen, Moraima4 Dr Alan Hughes 2018 11:32am [place] [id number] Mean August 90.7 80.0-99.[address] Corpuscular 2018 Volume 11:32am [place] [id number] Mean August 29.0 27.0-32.0 AJIT Nguyen, [address] Corpuscular 2018 Hemoglobin 11:32[place] [id number] Mean August 32.0 32.0-36.0 CHEUS Chandler Lennon [place], [address] Corpuscular 2018 Hemoglobin 11:32am [place] [address] Concent Red Cell August 13.5 0.0-15.5 AJIT Zarinaluis [facility], [address] Distribution 2018 Width 11:32am [place] [address] Platelet Count August 264 130-400 CHEUS Vitalejuli [place], [address] Hughes 2018 11:32am [place] [address] Mean Platelet August 11.1 9.2-12.2 [facility] [address] Volume 2018 11:32[place] [address] Neutrophils (%) August 68.2 50-80 CHEUS Zarinaluis [facility], [address] Dr Alan Hughes (Auto) 2018 11:32am [place] [address] Immature August 0.30 0.0-0.43 CHEUS Zarinaluis [facility], [address] Granulocyte % 2018 (Auto) 11:32am [place] [address] Lymphocytes (%) August 23.0 20.0-45.0 CHEUS Srinivasanluis [facility], [address] Dr Alan Hughes (Auto) 2018 11:32am [place] [address] Monocytes (%) August 7.1 2-[address] [place], [address] (Auto) 2018 11:32am [place] [address] Eosinophils (%) August 1.0 0-[address] [place], [address] (Auto) 2018 11:32am [place] [address] Basophils (%) August 0.4 0-[address] [place], [address] Dr Alan Hughes (Auto) 2018 11:32am [place] [id number] Nucleated Red August 0.0 0-0.[address] [place], [address] Blood Cells % 2018 11:32am [place] [address] Neutrophils # August 5.4 1.4-7.[address] [place], [address] (Auto) 2018 11:32am [place] [address] Immature October 0.0200 0.0-0.[address] [place], [address] Granulocyte # 2018 (Auto) 11:32am [place] [address] Lymphocytes # October 1.8 1.2-4.[address] [place], [address] (Auto) 2018 11:32am [place] [address] Monocytes # August 0.6 0.1-0.[address] [place], [address] (Auto) 2018 11:32am [place] [address] Eosinophils # August 0.1 0.0-0.[address] [place], [address] (Auto) 2018 11:32am [place] [address] Basophils # October 0.0 0.0-0.[address] [place], [address] (Auto) 2018 11:32am [place] [address] Nucleated Red August 0.000 0-0.[address] [place], [address] Blood Cells # 2018 11:32am [place] [address] Prothrombin August 10.6 10.2-12.[address] [place], [address] Time 2018 11:32am [place] [address] Prothromb Time August 0.9 0.9-1.[address] [place], [address] International 2018 Ratio 11:32[place] [address] Activated August 31.7 25.1-36.5 PTT Critical AJIT Nguyen, Moraima4 Dr Alan Hughes Partial 2018 Values: Thromboplast 11:32am [place] [address] Time : +/> 90 secondstherapeu tic: +/> 180 secondsCONTACT CLINICAL PHARMACIST FOR ASSISTANCE WITH HEPARIN PROTOCOLS. Urine Color October Yellow Yellow [facility] [facility], [address] Hughes 2018 12:45pm [place] [address] Urine October CLEAR Clear [facility], [address] Appearance 2018 12:45pm [place] [address] Urine pH October 6.0 5.0-8.[address] [place], [address] Hughes 2018 12:45pm [place] [address] Urine Specific October <=1.005 1.005-1.[address] [place], [address] Hopkins 2018 0 12:45pm [place] [address] Urine Protein October Negative Negative [facility], [address] Hughes 2018 12:45pm [place] [address] Urine Glucose October Negative Negative [facility], [address] (UA) 2018 12:45pm [place] [address] Urine Ketones October Negative Negative [facility], [address] 2018 12:45pm [place] [address] Urine Occult October Negative Negative [facility], [address] Blood 2018 12:45pm [place] [address] Urine Nitrite October Negative Negative [facility], [address] 2018 12:45pm [place] [address] Urine Bilirubin October Negative Negative [facility], [address] 2018 12:45pm [place] [address] Urine October Normal Normal [facility], [address] Urobilinogen 2018 12:45pm [place] [address] Urine Leukocyte October Trace Negative [facility], [address] Esterase 2018 12:45pm [place] [address] Sodium Level October 142 131-[address] [place], [address] 2018 11:32am [place] [address] Potassium Level August 4.1 3.5-5.[address] [place], [address] 2018 11:32am [place] [address] Chloride Level August 110 98-107 [facility] [address] 2018 11:32am [place] [address] Carbon Dioxide September 10-[address] [place], [address] Level 2018 11:32am [place] [address] Anion Gap August 6.0 3.0-11.[address] [place], [address] 2018 11:32am [place] [address] Blood Urea August 14.0 7.0-18.0 [facility] [address] Nitrogen 2018 11:32am [place] [address] Creatinine August 0.719 0.550-1.[address] [place], [address] 2018 11:32am [place] [address] Estimat August > 60 >[address] [place], [address] Glomerular 2018 Filtration Rate 11:32am [place] [address] Glucose Level August 98 74-106 [facility] [address] 2018 11:32am [place] [address] Calcium Level August 9.2 8.5-10.[address] [place], [address] 2018 11:32am [place] [address] Total Bilirubin August 0.7 0.2-1.0 CHEUS Zarinaluis [facility]on [place], [address] 2018 11:32am [place] [address] Aspartate Amino August 44 15-37 AJIT Lennon [place], [address] Transf 2018 (AST/SGOT) 11:32am [place] [address] Alanine August 53 13-56 [facility] Vitalejuli Lennon [place], [address] Aminotransferas 2018 e (ALT/SGPT) 11:32am [place] [address] Total Protein August 7.8 6.4-8.2 AJIT Arteaga [place], [address] 2018 11:32am [place] [address] Albumin August 4.1 3.4-5.0 AJIT Nguyen, Moraima4 Dr Alan Hughes 2018 11:32am [place] [address] Alkaline August 73 45-[address] [place], Moraima4 Dr Alan Hughes Phosphatase 2018 11:32am [place] [address] Total Creatine August 67 26-192 CHEUS Vtialejuli Lennon [place], Moraima4 Dr Alan Hughes Kinase 2018 11:32am [place] [address] Creatine Kinase October < 1.0 0.3-3.6 DO NOT UTILIZE [facility] MB 2018 MB INDEX IF CK 11:32am IS LESS THAN [facility] [address] 100. Creatine Kinase August 1.5 0-4 AJIT Nguyen, Moraima4 Dr Alan Hughes MB Relative 2018 Index 11:32am [place] [id number] Troponin I August < 0.015 0.00-0.[address] 2018 methodology for 11:32am Troponin has [facility] [address] changed. Please review reference ranges for new methods.Troponi n I Interpretation: 0.00 - 0.045 ng/mL Negative for Myocardial Injury >0.045 ng/mL Consistent with Myocardial Injury B-Type August 43 0.0-100 [facility], Dewey Hughes Natriuretic 2018 Peptide 11:32am [place] [address] Diagnostic Imaging Reports Report Dictated Date/Time Dictated By Status Chest X-Ray August 29, 2019 11:13am SUMMER KAUFMAN MD completed 1 VIEW CHEST HISTORY: Chest pain COMPARISON: There are no prior similar studies available for comparison at this institution. FINDINGS: The lungs are clear without focal consolidation, pulmonary edema or pleural effusions. No pneumothorax. Cardiomediastinal silhouette is unremarkable. No aggressive appearing osseous lesions. IMPRESSION: No acute cardiopulmonary abnormality. DICTATING PHYSICIAN: SUMMER KAUFMAN MD Date Dictated: 08/29/191112 Signed By: SUMMER KAUFMAN MD <Electronically signed by SUMMER KAUFMAN MD in OV> Date Signed: 08/29/19 111 Health Concerns No known health concerns documented Advance Directives Advance Directive Response Recorded Date/Time Does the Patient have an Advance Directive? No August 29, 2019 10:43am Chief Complaint and Reason for Visit Chief Complaint Chest Pain Reason for Visit [id number] Encounters Encounter Location(s) Arrival/Admit Date Discharge/Depart Date Provider(s) Departed [facility] August 29, 2019 August 29, 2019 ENDER GARDNER Emergency Room [facility] 10:43am 1:07pm M Assessments No Assessments Information Available Functional Status No Functional Status information available Goals No Goals Information Available Immunizations No Immunization Information Available Mental Status No Mental Status Information Available Medical Equipment No Medical Equipment Information available Insurance Providers Guarantor Delaney Lroa Address [address] [place] [phone] Contact Info. Home Phone: Payer Policy Id Coverage Id Subscriber's Subscriber Id Effective Expiration Name Date Date Medicare [id number] Lora, [id number] Delaney [employer] Mm [id number] Lora, [id number] Delaney Plan of Treatment Continue your medications as prescribed. Tylenol/Motrin as needed for pain/fever per recommended dosage on bottle Call your doctor to arrange a follow-up appointment in the next 1-3 days for further evaluation of your symptoms. Ask your doctor to review the findings of this ER visit and to assist you in management of your medical concerns. Return to the ER if your condition worsens or if you have new concerns. Future Tests Future scheduled test information is unavailable Pending Tests Test Name Date ordered Urine RBC August 29, 2019 12:45pm Urine WBC August 29, 2019 12:45pm Urine Squamous Epithelial Cells August 29, 2019 12:45pm Urine Bacteria August 29, 2019 12:45pm Urine Culture Indicated August 29, 2019 12:45pm Future Visits Future appointment information is unavailable Referrals to Other Providers Reason for Referral Referral Start Date Provider Provider Contact Provider Address Information PCP, NO Future Procedures Future procedure information is unavailable Future Medications Future medication information is unavailable Patient Instructions Chest Pain (DC) Social History Observation Status Observation Response Date of Response Hx Tobacco Use No August 29, 2019 10:43am Assigned Sex Female Vital Signs Vital Reading Result Reference Range Collection Date/Time Heart Rate 60 /min (60 - 100) August 29, 2019 12:12pm Heart Rate 60 /min August 29, 2019 1:07pm Respiratory rate 18 /min (12 - 24) August 29, 2019 12:12pm Respiratory rate 18 /min August 29, 2019 1:07pm BP Systolic 143 mm[Hg] (100 - 140) August 29, 2019 12:12pm BP Systolic 143 mm[Hg] August 29, 2019 1:07pm BP Diastolic 66 mm[Hg] (60 - 90) August 29, 2019 12:12pm BP Diastolic 66 mm[Hg] August 29, 2019 1:07pm Weight 110 [lb_av] August 29, 2019 10:43am BMI (Body Mass Index) 23.0 kg/m2 August 29, 2019 10:43am
[2019-10-01] MEDS ORDERED: NA CHLORIDE 0.9% 1,000 ML ONE (12:25)
[2019-10-01 12:32] LABS: Absolute Lymphocytes (CBC) 1.3 K/uL (0.7-4.9); Basophils % 0.6 % (0-1.3); Lymphocytes % 14.7 % (15.3-44.8); MPV 9.9 fL (7.6-11.3); RBC Red Blood Cell Count 3.84 M/uL (3.86-4.86)
[2019-10-01 12:49] LABS: Albumin 3.6 g/dL (3.4-5.0); Bilirubin Total 0.8 mg/dL (0.2-1.0); Potassium 3.4 mmol/L (3.5-5.1); Protein, Total 8.1 g/dL (6.4-8.2)
[2019-10-01 13:03] LABS: Urine Bacteria 20-50 /HPF (<20); Urine Culture Reflex Order REFLEXED; Urine RBC <5 /HPF (NONE SEEN)
--- NOTE | 2019-10-01 13:03 | RAD REPORT ---
EXAM DESCRIPTION: RAD - Sacrum And Coccyx - 10/01/2019 12:41 pm CLINICAL HISTORY: PAIN Fall, pain COMPARISON: <Comparisons> FINDINGS: Diffuse osteopenia is seen. A fracture is not identified.
--- NOTE | 2019-10-01 13:06 | RAD REPORT ---
EXAM DESCRIPTION: CT - CTHCSPWOC - 10/01/2019 12:59 pm CLINICAL HISTORY: Trauma, head and neck injury. PAIN COMPARISON: No comparisons TECHNIQUE: Axial 5 mm thick images of the head were obtained. Axial 2 mm thick images of the cervical spine were obtained with sagittal and coronal reconstruction images generated and reviewed. All CT scans are performed using dose optimization technique as appropriate and may include automated exposure control or mA/KV adjustment according to patient size. FINDINGS: CT HEAD WITHOUT CONTRAST: No acute hemorrhage, hydrocephalus or extra-axial collection is identified.Moderate generalized brain atrophy is present with mild periventricular and deep white matter chronic microvascular ischemic ch anges.No areas of brain edema or midline shift. The paranasal sinuses and mastoids are clear.The calvarium is intact. CT CERVICAL SPINE WITHOUT CONTRAST: No fracture or subluxation.No prevertebral soft tissues swelling is identified. IMPRESSION: No acute intracranial or cervical spine findings.
[2019-10-01 13:25] LABS: Urine Blood NEGATIVE (NEG); Urine Glucose NEGATIVE (NEG); Urine Protein NEGATIVE (NEG); Urine pH 5.5 (5.0-7.0)
--- NOTE | 2019-10-01 14:14 | EDPHYS ---
Physician Documentation [facility] Name: Mary Healy Age: 69 yrs Sex: Female : 1950 Arrival Date: 10/01/2019 Time: 11:16 Bed 7 Private MD: Rey Valenzuela ED Physician Will Lockhart HPI: 10/01 12:19 This 69 yrs old Female presents to ER via Ambulatory with complaints of Fall pm1 Injury, Headache, Back Pain. 12:19 Details of fall: The patient fell from an upright position, stepping down from [facility]. pm1 Onset: The symptoms/episode began/occurred 1 week(s) ago. Associated injuries: The patient sustained injury to the head, coccyx. Severity of symptoms: in the emergency department the symptoms are actually worse. The patient has been recently seen by a physician: the patient's primary care provider, Dr. Valenzuela with similar presenting complaints, X-rays were performed, T-spine and C-spine were ordered and negative. Patient presenting today with some altered mental status as defined by hallucinations of her mother and uncle in her house. She has urinary frequency with small amounts for the past few days.. Patient was stepping down from the [facility] 1 week ago and foot slipped on the running board and then hit the middle other back against the running board. No head injury or LOC. Positive for headache. Historical: - Allergies: 11:44 PENICILLINS; aj1 - Home Meds: 11:44 aspirin 81 mg Oral chew 1 tab once daily [Active]; tramadol 50 mg Oral tab 1 tab every aj1 6 hours [Active]; amlodipine-benazepril 10-20 mg Oral cap 1 cap once daily [Active]; metoprolol tartrate 50 mg Oral tab 1 tab once daily [Active]; Methotrexate (Anti-Rheumatic) Oral 25 mg 8 tabs once weekly [Active]; meloxicam 15 mg oral tab 1 tab once daily [Active]; - PMHx: 11:44 "i bleed easily, thin skin"; High Cholesterol; Hypertension; inflammatory polyarthropy; aj1 Osteoporosis; Rheumatoid Arthritis; - Immunization history:: Flu vaccine is up to date. - Social history:: Smoking status: Patient/guardian denies using tobacco. - Ebola Screening: : Patient denies travel to an Ebola-affected area in the 21 days before illness onset. ROS: 12:19 Constitutional: Negative for fever, chills, and weight loss, Eyes: Negative for injury, pm1 pain, redness, and discharge, ENT: Negative for injury, pain, and discharge, Neck: Negative for injury, pain, and swelling, Cardiovascular: Negative for chest pain, palpitations, and edema, Respiratory: Negative for shortness of breath, cough, wheezing, and pleuritic chest pain. 12:19 Abdomen/GI: Negative for abdominal pain, nausea, vomiting, diarrhea, and constipation. 12:19 MS/Extremity: Negative for injury and deformity, Skin: Negative for injury, rash, and discoloration. 12:19 Back: Positive for of the sacrum, pain, Negative for decreased range of motion. 12:19 : Positive for urinary frequency, burning with urination. 12:19 Neuro: Positive for altered mental status, headache, Negative for dizziness, numbness, seizure activity, tingling, visual changes. Exam: 12:19 Constitutional: This is a well developed, well nourished patient who is awake, alert, pm1 and in no acute distress. Head/Face: Normocephalic, atraumatic. Neck: Trachea midline, no thyromegaly or masses palpated, and no cervical lymphadenopathy. Supple, full range of motion without nuchal rigidity, or vertebral point tenderness. No Meningismus. Chest/axilla: Normal chest wall appearance and motion. Nontender with no deformity. No lesions are appreciated. Cardiovascular: Regular rate and rhythm with a normal S1 and S2. No gallops, murmurs, or rubs. Normal PMI, no JVD. No pulse deficits. Respiratory: Lungs have equal breath sounds bilaterally, clear to auscultation and percussion. No rales, rhonchi or wheezes noted. No increased work of breathing, no retractions or nasal flaring. Abdomen/GI: Soft, non-tender, with normal bowel sounds. No distension or tympany. No guarding or rebound. No evidence of tenderness throughout. 12:19 Skin: Warm, dry with normal turgor. Normal color with no rashes, no lesions, and no evidence of cellulitis. MS/ Extremity: Pulses equal, no cyanosis. Neurovascular intact. Full, normal range of motion. 12:19 Back: ROM is normal, painless, vertebral tenderness, is appreciated at sacrum and coccyx. 12:19 Neuro: Orientation: is normal, Motor: is normal, moves all fours. Vital Signs: 11:44 BP 122 / 68; Pulse 64; Resp 18; Temp 97.4; Pulse Ox 100% on R/A; Weight 44.91 kg (R); aj1 Height 4 ft. 9 in. (144.78 cm) (R); Pain 9/10; 11:44 Body Mass Index 21.42 (44.91 kg, 144.78 cm) aj1 MDM: 11:50 Patient medically screened. pm1 12:04 Data reviewed: vital signs. Data interpreted: Pulse oximetry: on room air is 100 %. pm1 Interpretation: normal. 14:09 Counseling: I had a detailed discussion with the patient and/or guardian regarding: the pm1 historical points, exam findings, and any diagnostic results supporting the discharge/admit diagnosis, lab results, radiology results, the need for outpatient follow up, to return to the emergency department if symptoms worsen or persist or if there are any questions or concerns that arise at home. 10/01 12:13 Order name: CBC with Diff; Complete Time: 13:02 pm1 10/01 12:13 Order name: CMP; Complete Time: 13:02 pm1 10/01 12:13 Order name: CT Head C Spine; Complete Time: 13:07 pm1 10/01 12:13 Order name: Urine Microscopic Only; Complete Time: 13:07 pm1 10/01 12:29 Order name: Urine Dipstick--Ancillary (enter results); Complete Time: 13:36 eb 10/01 13:05 Order name: Urine Culture EDMS 10/01 12:13 Order name: Sacrum And Coccyx XRAY; Complete Time: 13:07 pm1 10/01 12:13 Order name: Urine Dipstick-Ancillary (obtain specimen); Complete Time: 12:27 pm1 Administered Medications: 12:27 Drug: NS 0.9% 1000 ml Route: IV; Rate: 1000 ml; Site: right forearm; sv 13:30 Follow up: Response: No adverse reaction; IV Intake: 500ml sv Disposition: 10/01/19 14:12 Discharged to Home. Impression: Urinary tract infection, site not specified, Contusion of lower back and pelvis - sacrum and coccyx , Unspecified injury of head, Fall on and from stairs and steps. - Condition is Stable. - Discharge Instructions: Contusion, Head Injury, Adult, Tailbone Injury, Urinary Tract Infection, Adult, Antibiotic Medicine, Adult. - Prescriptions for Macrobid 100 mg Oral Capsule - take 1 capsule by ORAL route every 12 hours for 7 days; 14 capsule. Tramadol 50 mg Oral Tablet - take 1 tablet by ORAL route every 8 hours as needed; 12 tablet. - Medication Reconciliation Form, Thank You Letter, Antibiotic Education, Prescription Opioid Use form. - Follow up: Emergency Department; When: As needed; Reason: Worsening of condition. Follow up: Private Physician; When: 2 - 3 days; Reason: Recheck today's complaints, Continuance of care, Re-evaluation by your physician. - Problem is new. - Symptoms have improved. Addendum: 10/04/2019 07:12 Co-signature as Attending Physician, Will Lockhart MD I agree with the assessment and c escobedo plan of care. Signatures: Dispatcher [employer] EDLaly Parr RN RN aj1 Ying Pepper RN RN sv Anderson, Corey, MD MD cha Marinas, Patrick, JERRY INTEGRITY DIRECTOR pm1 Corrections: (The following items were deleted from the chart) 10/01 14:49 14:12 10/01/2019 14:12 Discharged to Home. Impression: Urinary tract infection, site sv not specified; Contusion of lower back and pelvis - sacrum and coccyx ; Unspecified injury of head; Fall on and from stairs and steps. Condition is Stable. Forms are Medication Reconciliation Form, Thank You Letter, Antibiotic Education, Prescription Opioid Use. Follow up: Emergency Department; When: As needed; Reason: Worsening of condition. Follow up: Private Physician; When: 2 - 3 days; Reason: Recheck today's complaints, Continuance of care, Re-evaluation by your physician. Problem is new. Symptoms have improved. pm1
--- NOTE | 2019-10-01 14:14 | ER ---
Nurse's Notes [facility] Name: Mary Healy Age: 69 yrs Sex: Female : 1950 Arrival Date: 10/01/2019 Time: 11:16 Bed 7 Private MD: Rey Valenzuela Diagnosis: Urinary tract infection, site not specified;Contusion of lower back and pelvis-sacrum and coccyx ;Unspecified injury of head;Fall on and from stairs and steps Presentation: 10/01 11:37 Presenting complaint: Patient states: "Last week I fell off the couch and hit my back aj1 on the side board, and I bumped my head. Today I had an episode where the pain got worse" Family reports that she seemed confused to them this morning at around 0900, didn't remember her house but she was back to normal by 10:30. Last week she was seeing things that weren't there. Care prior to arrival: None. Mechanism of Injury: Fall sitting position. Trauma event details: Injury occurred in the [facility]. 11:37 Acuity: AASHISH 3 aj1 11:37 Method Of Arrival: Ambulatory aj1 11:42 Transition of care: patient was not received from another setting of care. Onset of aj1 symptoms was October 01, 2019 at 09:00. Risk Assessment: Do you want to hurt yourself or someone else? Patient reports no desire to harm self or others. Initial Sepsis Screen: Does the patient meet any 2 criteria? No. Patient's initial sepsis screen is negative. Does the patient have a suspected source of infection? No. Patient's initial sepsis screen is negative. Triage Assessment: 11:44 General: Appears in no apparent distress. comfortable, Behavior is calm, cooperative, aj1 appropriate for age. Pain: Pain currently is 9 out of 10 on a pain scale. Neuro: Level of Consciousness is awake, alert, obeys commands. Cardiovascular: Patient's skin is warm and dry. Respiratory: Airway is patent Respiratory effort is even, unlabored, Respiratory pattern is regular, symmetrical. Trauma Activation: Not Applicable Physician: ED Physician; Name: ; Notified At: ; Arrived At: Physician: General Surgeon; Name: ; Notified At: ; Arrived At: Physician: Radiology; Name: ; Notified At: ; Arrived At: Physician: Respiratory; Name: ; Notified At: ; Arrived At: Physician: Lab; Name: ; Notified At: ; Arrived At: Historical: - Allergies: 11:44 PENICILLINS; aj1 - Home Meds: 11:44 aspirin 81 mg Oral chew 1 tab once daily [Active]; tramadol 50 mg Oral tab 1 tab every aj1 6 hours [Active]; amlodipine-benazepril 10-20 mg Oral cap 1 cap once daily [Active]; metoprolol tartrate 50 mg Oral tab 1 tab once daily [Active]; Methotrexate (Anti-Rheumatic) Oral 25 mg 8 tabs once weekly [Active]; meloxicam 15 mg oral tab 1 tab once daily [Active]; - PMHx: 11:44 "i bleed easily, thin skin"; High Cholesterol; Hypertension; inflammatory polyarthropy; aj1 Osteoporosis; Rheumatoid Arthritis; - Immunization history:: Flu vaccine is up to date. - Social history:: Smoking status: Patient/guardian denies using tobacco. - Ebola Screening: : Patient denies travel to an Ebola-affected area in the 21 days before illness onset. Screenin:28 Abuse screen: Denies threats or abuse. Denies injuries from another. Nutritional sv screening: No deficits noted. Tuberculosis screening: No symptoms or risk factors identified. Fall Risk No fall in past 12 months (0 pts). No secondary diagnosis (0 pts). IV access (20 points). Ambulatory Aid- None/Bed Rest/Nurse Assist (0 pts). Gait- Normal/Bed Rest/Wheelchair (0 pts) Mental Status- Oriented to own ability (0 pts). Total Malhotra Fall Scale indicates No Risk (0-24 pts). Assessment: 12:15 General: Appears in no apparent distress. comfortable, slender, Behavior is calm, sv cooperative, appropriate for age. Pain: Denies pain. Neuro: Level of Consciousness is awake, alert, obeys commands, Oriented to person, place, time, situation, Moves all extremities. Full function Gait is steady, Speech is normal. Respiratory: Respiratory effort is even, unlabored, Respiratory pattern is regular, symmetrical. Derm: Skin is fragile, is thin, with poor turgor Skin is pink, warm \\T\\ dry. Vital Signs: 11:44 BP 122 / 68; Pulse 64; Resp 18; Temp 97.4; Pulse Ox 100% on R/A; Weight 44.91 kg (R); aj1 Height 4 ft. 9 in. (144.78 cm) (R); Pain 9/10; 11:44 Body Mass Index 21.42 (44.91 kg, 144.78 cm) aj1 ED Course: 11:16 Patient arrived in ED. as 11:16 Rey Valenzuela MD is Private Physician. as 11:42 Triage completed. aj1 11:44 Arm band placed on Patient placed in an exam room. aj1 11:50 Addison Price NP is PHCP. pm1 11:50 Will Lockhart MD is Attending Physician. pm1 12:02 Ying Pepper, KARLEE is Primary Nurse. sv 12:03 Nurse Practitioner and/or Physician Career And Transition Teacher to see patient. sv 12:03 Patient has correct armband on for positive identification. Bed in low position. Call sv light in reach. 12:20 Inserted saline lock: 22 gauge in right forearm, using aseptic technique. ,using sv aseptic technique. diffusics Blood collected. Flushed right forearm with 5 ml normal saline. 12:29 Urine collected: clean catch specimen, cloudy, cuco colored. jb1 12:41 Sacrum And Coccyx XRAY In Process Unspecified. EDMS 12:51 Awaiting radiology results. Awaiting re-evaluation by ER provider. sv 12:58 CT completed. Patient tolerated procedure well. Patient moved back from CT. mw3 13:04 CT Head C Spine In Process Unspecified. EDMS 13:12 Urine Culture Sent. sv 14:49 No provider procedures requiring assistance completed. IV discontinued, intact, sv bleeding controlled, No redness/swelling at site. Pressure dressing applied. Administered Medications: 12:27 Drug: NS 0.9% 1000 ml Route: IV; Rate: 1000 ml; Site: right forearm; sv 13:30 Follow up: Response: No adverse reaction; IV Intake: 500ml sv Intake: 13:30 IV: 500ml; Total: 500ml. sv Outcome: 14:12 Discharge ordered by . pm1 14:49 Patient left the ED. sv 14:49 Discharged to home ambulatory, with family. sv 14:49 Condition: stable 14:49 Discharge instructions given to patient, family, Instructed on discharge instructions, follow up and referral plans. medication usage, Demonstrated understanding of instructions, follow-up care, medications, Prescriptions given X 2. Addendum: 10/04/2019 07:54 Addendum: Culture Results: Positive urine culture. No further action required. Bacteria i w sensitive to prescribed antibiotic. Signatures: Dispatcher [employer] Priyank Holguin jb1 Laly Pate RN RN aj1 Ying Pepper RN RN sv Martinez, Amelia as Williams, Irene, RN RN iw Marinas, Patrick, NP REFRIGERATION SPECIALIST pm1 Rosie Pettit mw3
[2019-10-01 16:51] VITALS: BP 122/68; TEMP 97.4; O2SAT 100
== END 2019-10-01 14:49 | disposition home or self-care (01) ==
LOC: ER 11:14
DX: S30.0XXA Contusion of lower back and pelvis, initial encounter (principal); N39.0 Urinary tract infection, site not specified; W10.8XXA Fall (on) (from) other stairs and steps, initial encounter; Y93.89 Activity, other specified; Y92.9 Unspecified place or not applicable; I10 Essential (primary) hypertension; E78.00 Pure hypercholesterolemia, unspecified; Z79.82 Long term (current) use of aspirin; Z88.0 Allergy status to penicillin
CPT/HCPCS: 87088; 85025; 87086; 36415; 87077; 87186; 80053; 70450; 72125; 72220; 99284; J7030; 81003; 81015

== ENCOUNTER 2020-01-24 04:50 | Emergency (ER) | payer OTHER ==
--- OUTSIDE RECORDS SUMMARY | 2020-01-24 04:52 | XMS REPORT ---
:1950 Author Organization [facility] Address [address] [place] [address] Dr. Peña [address] [place] [address] Care Team Providers Name Role Phone Unavailable Unavailable Unavailable Problems This patient has no known problems. Allergies, Adverse Reactions, Alerts This patient has no known allergies or adverse reactions. Medications This patient has no known medications.
--- OUTSIDE RECORDS SUMMARY | 2020-01-24 04:53 | XMS REPORT | Summary of Care ---
:1950 Author Organization [address] [address] Care Team Providers Name Role Phone Rey Valenzuela Primary Care Provider Reason for Visit Reason Comments Notification Encounter Details Date Type Department Care Team Description 12/16/2019 Telephone [facility] Andrea Wallace MD Notification Neurology-[address] [place] [phone] [address] [address] [place] [address] [phone] Allergies No Known Allergiesdocumented as of this encounter (statuses as of 12/20/2019) Medications Medication Sig Dispensed Refills Start Date End Date Status amlodipine-benazepril TAKE 1 CAPSULE BY 3 09/28/2019 Active 10-20 mg per capsule MOUTH ONCE DAILY methotrexate 2.5 mg Take 2.5 mg by 0 07/28/2019 Active tablet mouth weekly metoprolol succinate XL Take 100 mg by 0 Active 50 mg 24 hr tablet mouth daily. meloxicam 15 mg tablet Take 15 mg by 0 Active mouth once daily as needed for Pain. traMADol 50 mg tablet Take 50 mg by 0 Active mouth every 8 (eight) hours as needed. rivastigmine 9.5 mg/24 Apply 1 Patch to 30 Patch 6 12/12/2019 Active hr patchIndications: skin daily. Late onset Alzheimer's disease without behavioral disturbance documented as of this encounter (statuses as of 12/20/2019) Active Problems Not on filedocumented as of this encounter (statuses as of 12/20/2019) Social History Tobacco Use Types Packs/Day Years Used Date Former Smoker Quit: 1999 Smokeless Tobacco: Never Used Alcohol Use Drinks/Week oz/Week Comments Not Currently Sex Assigned at Date Recorded Not on file Job Start Date Occupation Industry Not on file Not on file Not on file Travel History Travel Start Travel End No recent travel history available. documented as of this encounter Last Filed Vital Signs Not on filedocumented in this encounter Plan of Treatment Date Type Specialty Care Team Description 01/13/2020 Office Visit Neurology Andrea Wallace MD [address] [place] [phone] Health Maintenance Due Date Last Done Comments HEPATITIS C (HCV) SCREEN 1950 DTaP,Tdap,and Td Vaccines (1 - Tdap) 02/23/1959 Breast Cancer Screening (MAMMOGRAM) 1988 COLONOSCOPY 02/23/1998 Zoster Recombinant Vaccine (SHINGRIX) (1 of 2) 02/23/1998 Medicare Wellness Visit 02/23/2013 Osteoporosis Screening 02/23/2013 PNEUMOCOCCAL VACCINES 65+ (1 of 2 - PCV13) 02/23/2013 INFLUENZA VACCINE (#1) 2019 documented as of this encounter Results Not on filedocumented in this encounter Insurance Payer Benefit Plan / Subscriber ID Effective Dates Phone Address Type Group MEDICARE MEDICARE PART A xxxxxxxxxxx 2016-Debra [id number] [place] [address] AETNA AETNA INDEMNITY [id number] 2017-Debra mccray documented as of this encounter
--- OUTSIDE RECORDS SUMMARY | 2020-01-24 04:53 | XMS REPORT | Summary of Care ---
:1950 Author Organization [facility] Address [address] [place] [address] Care Team Providers Name Role Phone Rey Valenzuela Fernanda Primary Care Provider Reason for Visit Reason Comments Follow-up Late onset Alzheimer's disease without behavioral disturbance Encounter Details Date Type Department Care Team Description 12/12/2019 Office Visit [facility] Andrea Wallace Late onset Neurology-Deyanira Nolan MD Alzheimer's disease [address] [place] [address] [place], [place] disturbance ([place] [address] Dx) [phone] Allergies No Known Allergiesdocumented as of this encounter (statuses as of 12/15/2019) Medications Medication Sig Dispensed Refills Start Date End Date Status amlodipine-benazep TAKE 1 3 09/28/2019 Active ril 10-20 mg per CAPSULE BY capsule MOUTH ONCE DAILY methotrexate 2.5 Take 2.5 mg 0 07/28/2019 Active mg tablet by mouth weekly metoprolol Take 100 mg 0 Active succinate XL 50 mg by mouth 24 hr tablet daily. meloxicam 15 mg Take 15 mg by 0 Active tablet mouth once daily as needed for Pain. traMADol 50 mg Take 50 mg by 0 Active tablet mouth every 8 (eight) hours as needed. rivastigmine 9.5 Apply 1 Patch 30 Patch 6 12/12/2019 Active mg/24 hr to skin patchIndications: daily. Late onset Alzheimer's disease without behavioral disturbance rivastigmine 4.6 Apply 1 Patch 30 Patch 1 10/11/2019 Discontinued mg/24 hr patch to skin 0 (Dose adjustment) daily. documented as of this encounter (statuses as of 12/15/2019) Active Problems Not on filedocumented as of this encounter (statuses as of 12/15/2019) Social History Tobacco Use Types Packs/Day Years [...] of this encounter Last Filed Vital Signs Vital Sign Reading Time Taken Comments Blood Pressure 137/72 12/12/2019 9:28 AM AUDIOMETRIC TECHNICIAN Pulse 68 12/12/2019 9:27 AM AUDIOMETRIC TECHNICIAN Temperature - - Respiratory Rate 19 12/12/2019 9:27 AM AUDIOMETRIC TECHNICIAN Oxygen Saturation 99% 12/12/2019 9:27 AM AUDIOMETRIC TECHNICIAN Inhaled Oxygen Concentration - - Weight 47.6 kg (105 lb) 12/12/2019 9:27 AM AUDIOMETRIC TECHNICIAN Height 147.3 cm (4' 10") 12/12/2019 9:27 AM AUDIOMETRIC TECHNICIAN Body Mass Index 21.95 12/12/2019 9:27 AM AUDIOMETRIC TECHNICIAN documented in this encounter Progress Notes Andrea Wallace MD - 12/12/2019 9:20 AM CST HISTORY OF PRESENT ILLNESS: Mary Healy is a 69 year old female. Chief Complaint: Alzheimer's disease , question about medications. History: I had previously seen the patient back in September, and at that time a prescription was made for the Exelon patches 4.6 mg. She has been able to tolerate this medication, but family members have been concerned about her mistaking some family members for other family members and that she doesn't sleep at night. She will for example seem to be more irritated at night, and may. Family members are wondering if she might be able to use a mild sedative agent for treatment. PMH: hypertension, RA. Current Outpatient Medications: rivastigmine 9.5 mg/24 hr patch, Apply 1 Patch to skin daily., Disp: 30 Patch, Rfl: 6 amlodipine-benazepril 10-20 mg per capsule, TAKE 1 CAPSULE BY MOUTH ONCE DAILY, Disp: , Rfl: 3 meloxicam 15 mg tablet, Take 15 mg by mouth once daily as needed for Pain. , Disp: , Rfl: methotrexate 2.5 mg tablet, Take 2.5 mg by mouth weekly , Disp: , Rfl: metoprolol succinate XL 50 mg 24 hr tablet, Take 100 mg by mouth daily., Disp: , Rfl: traMADol 50 mg tablet, Take 50 mg by mouth every 8 (eight) hours as needed. , Disp: , Rfl: Social History Socioeconomic History Marital status: Spouse name: Not on file Number of children: Not on file Years of education: Not on file Highest education level: Not on file Occupational History Not on file Social Needs Financial resource strain: Not on file Food insecurity: Worry: Not on file Inability: Not on file Transportation needs: Medical: Not on file Non-medical: Not on file Tobacco Use Smoking status: Former Smoker Last attempt to quit: 2000 Years since quittin.0 Smokeless tobacco: Never Used Substance and Sexual Activity Alcohol use: Not Currently Drug use: Never Sexual activity: Not on file Lifestyle Physical activity: Days per week: Not on file Minutes per session: Not on file Stress: Not on file Relationships Social connections: Talks on phone: Not on file Gets together: Not on file Attends lutheran service: Not on file Active member of club or organization: Not on file Attends meetings of clubs or organizations: Not on file Relationship status: Not on file Intimate partner violence: Fear of current or ex partner: Not on file Emotionally abused: Not on file Physically abused: Not on file Forced sexual activity: Not on file Other Topics Concern Not on file Social History Narrative Not on file Vital signs: BP 137/72 | Pulse 68 | Resp 19 | Ht 4' 10" (1.473 m) | Wt 105 lb (47.6 kg) | SpO2 99% | BMI 21.95 kg/m Examination: General findings: EOMI/VFFTC/PERRL, no facial asymmetry, no new focal weakness of arms, UE tone unchanged, no new focal weakness of legs, LE tone unchanged, no tremors, normal gait. Patient was alert and will follow 2 step commands, but global memory impaired, and judgement and also insight also impaired. ASSESSMENT AND RECOMMENDATIONS: ICD-10-CM ICD-9-CM 1. Late onset Alzheimer's disease without behavioral disturbance G30.1 331.0 F02.80 294.10 Impression: They did not want to say this information in front of the patient because the patient can become easily irritable and also suspicious. I had suggested at 1st that the increase to the full 9.5 clinical strength of Exelon patches be made, if that does not help, then there are some other medications that could be tried that might help her settle at night, for example mirtazapine would be a good agent. They will otherwise keep me posted concerning her progress. Creation of the note was aided by utilizing a cut/paste operation of text from a Microsoft Word template created with [employer]. The text was dictated into the template via Dragon Naturally Speaking. documented in this encounter Plan of Treatment Date Type Specialty Care Team Description 01/13/2020 Office Visit Neurology Andrea Wallace MD [address] [place] [phone] Health Maintenance Due Date Last Done [...] Results Not on filedocumented in this encounter Visit Diagnoses Diagnosis Late onset Alzheimer's disease without behavioral disturbance - Primary documented in this encounter Insurance Payer Benefit Plan / Subscriber ID Effective Dates Phone Address Type Group MEDICARE MEDICARE PART A xxxxxxxxxxx 2016-Debra [id number] [place] [address] AETNA AETNA INDEMNITY [id number] 2017-Debra Muniz t documented as of this encounter
--- OUTSIDE RECORDS SUMMARY | 2020-01-24 04:53 | XMS REPORT | Summary of Care ---
:1950 Author Organization [facility] Address [address] [place] [address] Care Team Providers Name Role Phone Rey Valenzuela Primary Care Provider Reason for Visit Reason Comments Follow-up patch Encounter Details Date Type Department Care Team Description 01/13/2020 Office Visit [facility] Andrea Wallace Late onset Alzheimer's disease without behavioral disturbance (Primary Dx); Neurology-Deyanira Nolan MD Skin rash [address], [address] [place] [phone] Allergies No Known Allergiesdocumented as of this encounter (statuses as of 01/16/2020) Medications Medication Sig Dispensed Refills Start Date [...] as of this encounter (statuses as of 01/16/2020) Active Problems Not on filedocumented as of this encounter (statuses as of 01/16/2020) Social History Tobacco Use Types Packs/Day Years [...] Sign Reading Time Taken Comments Blood Pressure 137/71 01/13/2020 9:38 AM CREAM BEATER Pulse 69 01/13/2020 9:38 AM CREAM BEATER Temperature 37.2 C (99 F) 01/13/2020 9:38 AM CREAM BEATER Respiratory Rate 14 01/13/2020 9:38 AM CREAM BEATER Oxygen Saturation - - Inhaled Oxygen Concentration - - Weight 47.7 kg (105 lb 2 oz) 01/13/2020 9:38 AM CREAM BEATER Height 147.3 cm (4' 10") 01/13/2020 9:38 AM CREAM BEATER Body Mass Index 21.97 01/13/2020 9:38 AM CREAM BEATER documented in this encounter Progress Notes Andrea Wallace MD - 01/13/2020 9:20 AM CST HISTORY OF PRESENT ILLNESS: Mary Healy is a 69 year old female. History: Patient had been taking the 4.6 mg transdermal patch without any problems, but the family had been concerned because patient had gotten a round erythematous skin irritation at the patch site. This was on her right upper extremity, and they did show it to me. There question is what could be done next about this issue. PMH: Hypertension, and not other medical problems. Current Outpatient Medications: rivastigmine 9.5 mg/24 hr [...] Last attempt to quit: 2000 Years since quittin.1 Smokeless tobacco: Never Used Substance and Sexual Activity Alcohol use: Not Currently Drug use: Never Sexual activity: Not on file Lifestyle Physical activity: Days per week: Not on file Minutes per session: Not on file Stress: Not on file Relationships Social connections: Talks on phone: Not on file Gets together: Not on file Attends yarsanism service: Not on file Active member of [...] Narrative Not on file Vital signs: BP 137/71 | Pulse 69 | Temp 37.2 C (99 F) (Oral) | Resp 14 | Ht 4' 10" ( 1.473 m) | Wt 105 lb 2 oz (47.7 kg) | BMI 21.97 kg/m General findings: EOMI/VFFTC/PERRL, no facial asymmetry, no new focal weakness of arms, UE tone unchanged, no new focal weakness of legs, LE tone unchanged, no tremors, normal gait. Patient was alert and will follow 2 step commands, but global memory impaired, and judgement and also insight also impaired. There was an area of erythema noted right upper arm, blanched. Previous patch location. ASSESSMENT AND RECOMMENDATIONS: ICD-10-CM ICD-9-CM 1. Late onset Alzheimer's disease without behavioral disturbance G30.1 331.0 F02.80 294.10 2. Skin rash R21 782.1 Impression: I did tell them that in the side of the irritation that patient could be utilizing either a diaper rash cream or even preparation H topically. This might really help those areas but if not,then we could consider switching to the pill form although there is an increased likelihood of nausea with this medication. Family will otherwise keep the office posted concerning her progress. Creation of the note was aided by utilizing a cut/paste operation of text from a Microsoft Word template created with [employer]. The text was dictated into the template via Dragon Naturally Speaking. documented in this encounter Plan of Treatment Date Type Specialty Care Team Description 07/16/2020 Office Visit Neurology Rory-Bonnie Trevino, ANP [address] [place] [phone] Health Maintenance Due Date Last Done Comments [...] Alzheimer's disease without behavioral disturbance - Primary Skin rash Rash and other nonspecific skin eruption documented in this encounter Insurance Payer Benefit Plan / Subscriber ID Effective Dates Phone Address Type Group MEDICARE MEDICARE PART A xxxxxxxxxxx 2016-Debra [id number] [place] [address] AETNA AETNA INDEMNITY [id number] 2017-Debra Muniz t documented as of this encounter
--- OUTSIDE RECORDS SUMMARY | 2020-01-24 04:53 | XMS REPORT | Summary of Care ---
:1950 Author Organization [facility] Address [address] [place] [address] Care Team Providers Name Role Phone Rey Valenzuela Fernanda Primary Care Provider Reason for Visit Reason Comments Follow-up Late onset Alzheimer's disease without behavioral disturbance Encounter Details Date Type Department Care Team Description 12/12/2019 Office Visit [facility] [place] [facility] Andrea Wallace Late onset Neurology-Deyanira Nolan MD Alzheimer's disease [address] [place] [address], [address] [place], [place] disturbance ([place] [address] Dx) [phone] Allergies No Known Allergiesdocumented as of this [...] Comments Blood Pressure 137/72 12/12/2019 9:28 AM FORENSIC CHEMIST Pulse 68 12/12/2019 9:27 AM FORENSIC CHEMIST Temperature - - Respiratory Rate 19 12/12/2019 9:27 AM FORENSIC CHEMIST Oxygen Saturation 99% 12/12/2019 9:27 AM FORENSIC CHEMIST Inhaled Oxygen Concentration - - Weight 47.6 kg (105 lb) 12/12/2019 9:27 AM FORENSIC CHEMIST Height 147.3 cm (4' 10") 12/12/2019 9:27 AM FORENSIC CHEMIST Body Mass Index 21.95 12/12/2019 9:27 AM FORENSIC CHEMIST documented in this encounter Progress Notes Andrea [...] file Gets together: Not on file Attends religion service: Not on file Active member of [...] from a Microsoft Word template created with [employer]ai. The text was dictated into the template via Dragon Naturally Speaking. documented in this encounter Plan of Treatment Date Type Specialty Care Team Description 01/13/2020 Office Visit Neurology Andrea Wallace MD [address] [place] [phone] Health Maintenance Due Date Last Done [...] [address] Medicare [id number] [place] [address] A[employer]NA AETNA INDEMNITY [id number] 2017-Debra Muniz t documented as of this encounter
--- OUTSIDE RECORDS SUMMARY | 2020-01-24 04:54 | XMS REPORT | Summary of Care ---
:1950 Author Organization [facility] Address [address] [place] [id number] Care Team Providers Name Role Phone Rey Valenzuela Primary Care Provider Reason for Visit Reason Comments Follow-up patch Encounter Details Date Type Department Care Team Description 01/13/2020 Office Visit [facility] Andrea Wallace Late onset Alzheimer's disease without behavioral disturbance (Primary Dx); Neurology-Deyanira Nolan MD Skin rash [address], [address] [place] [phone] Allergies No Known Allergiesdocumented as of this [...] Comments Blood Pressure 137/71 01/13/2020 9:38 AM ELECTRICAL SYSTEMS ENGINEER Pulse 69 01/13/2020 9:38 AM ELECTRICAL SYSTEMS ENGINEER Temperature 37.2 C (99 F) 01/13/2020 9:38 AM ELECTRICAL SYSTEMS ENGINEER Respiratory Rate 14 01/13/2020 9:38 AM ELECTRICAL SYSTEMS ENGINEER Oxygen Saturation - - Inhaled Oxygen Concentration - - Weight 47.7 kg (105 lb 2 oz) 01/13/2020 9:38 AM ELECTRICAL SYSTEMS ENGINEER Height 147.3 cm (4' 10") 01/13/2020 9:38 AM ELECTRICAL SYSTEMS ENGINEER Body Mass Index 21.97 01/13/2020 9:38 AM ELECTRICAL SYSTEMS ENGINEER documented in this encounter Progress Notes Andrea [...] file Gets together: Not on file Attends gnosticist service: Not on file Active member of [...] from a Microsoft Word template created with [employer]. The text was dictated into the template via Dragon Naturally Speaking. documented in this encounter Plan of Treatment Date Type Specialty Care Team Description 07/16/2020 Office Visit Neurology Rory-Bonnie Trevino, ANP [address] [place] [id number] Health Maintenance Due Date Last Done [...] O. B[address] Medicare & B t 82 [id number] GE[place] [address] [employer] INDEMNITY [id number] 2017-Debra Muniz t documented as of this encounter
[2020-01-24] MEDS ORDERED: TRAMADOL HCL 50 MG TAB ONE (06:00)
--- NOTE | 2020-01-24 07:09 | ER ---
Nurse's Notes [facility] Name: Mary Healy Age: 69 yrs Sex: Female : 1950 Arrival Date: 01/24/2020 Time: 04:54 Bed 20 Private MD: Diagnosis: Contusion of left back wall of thorax;Other fall from one level to another Presentation: 01/23 05:09 Chief complaint: Patient states: Patient was sleeping and turn over falling off the ao bed. Patient denies LOC and and hitting head. Patient hit her back and now has back pain. Patient is not taking any blood thinners. Care prior to arrival: None. Mechanism of Injury: Fall off bed. Trauma event details: Injury occurred in the [facility]. 05:09 Acuity: AASHISH 3 ao 05:09 Method Of Arrival: Ambulatory ao 05:13 Coronavirus screen: The patient has NOT traveled to a country currently being monitored ao by the [facility] within the last 14 days. Proceed with normal triage procedures. The patient has NOT had contact with any known and/or suspected case of coronavirus. Proceed with normal triage procedures. Ebola Screen: Patient negative for fever greater than or equal to 101.5 degrees Fahrenheit, and additional compatible Ebola Virus Disease symptoms Patient denies exposure to infectious person. Patient denies travel to an Ebola-affected area in the 21 days before illness onset. Initial Sepsis Screen: Does the patient meet any 2 criteria? No. Patient's initial sepsis screen is negative. Does the patient have a suspected source of infection? Yes: Skin breakdown/wound. Risk Assessment: Do you want to hurt yourself or someone else? Patient reports no desire to harm self or others. 05:19 Onset of symptoms is unknown. ao Triage Assessment: 05:14 General: Appears in no apparent distress. Behavior is calm, cooperative, appropriate ao for age. Pain: Complains of pain in back Pain does not radiate. Pain currently is 0 out of 10 on a pain scale. at worst was 5 out of 10 on a pain scale. EENT: No signs and/or symptoms were reported regarding the EENT system. Neuro: Level of Consciousness is awake, alert, obeys commands, Oriented to person, place, time, situation, Appropriate for age Moves all extremities. Full function Facial symmetry appears normal. Cardiovascular: Heart tones S1 S2 Capillary refill < 3 seconds Patient's skin is warm and dry. Respiratory: Airway is patent Respiratory effort is even, unlabored, Respiratory pattern is regular, symmetrical. GI: No signs and/or symptoms were reported involving the gastrointestinal system. : No signs and/or symptoms were reported regarding the genitourinary system. Derm: No signs and/or symptoms reported regarding the dermatologic system. Musculoskeletal: Reports pain in back. Trauma Activation: Physician: ED Physician; Name: Nader; Notified At: ; Arrived At: Physician: General Surgeon; Name: ; Notified At: ; Arrived At: Physician: Radiology; Name: ; Notified At: ; Arrived At: Physician: Respiratory; Name: ; Notified At: ; Arrived At: Physician: Lab; Name: ; Notified At: ; Arrived At: Historical: - Allergies: 05:18 PENICILLINS; ao - Home Meds: 05:18 amlodipine-benazepril 10-20 mg Oral cap 1 cap once daily [Active]; metoprolol tartrate ao 50 mg Oral tab 1 tab once daily [Active]; rivastigmine tartrate oral oral [Active]; escitalopram oxalate 10 mg oral tab [Active]; meloxicam 15 mg Oral tab 1 tab once daily [Active]; tramadol 50 mg Oral tab 1 tab every 6 hours [Active]; Folic Acid Oral [Active]; - PMHx: 05:18 "i bleed easily, thin skin"; High Cholesterol; Hypertension; inflammatory polyarthropy; ao Osteoporosis; Rheumatoid Arthritis; - PSHx: 05:18 None; ao - Immunization history:: Adult Immunizations up to date. - Social history:: Smoking status: Patient denies any tobacco usage or history of. Patient/guardian denies using alcohol, street drugs, IV drugs. - Immunization history: Last tetanus immunization: - up to date. Screenin:12 Abuse screen: Denies threats or abuse. Denies injuries from another. Nutritional ao screening: No deficits noted. Tuberculosis screening: No symptoms or risk factors identified. Fall Risk None identified. Primary Survey: 05:12 NO uncontrolled hemorrhage observed. A: The patient is alert. Airway: patent. ao Breathing/Chest: Respiratory pattern: regular, Respiratory effort: spontaneous. Circulation: Cardiac rhythm: sinus rhythm. Disability Alert. Exposure/Environment: There is no evidence of uncontrolled external bleeding. 05:20 Reassessment Airway Airway Patent Breathing/Chest Respiratory pattern Regular ao Circulation Heart rhythm Sinus rhythm Disability Alert. Assessment: 05:20 General: See triage assessment. ao 06:25 Reassessment: Patient appears in no apparent distress at this time. Patient and/or ao family updated on plan of care and expected duration. Pain level reassessed. Patient is alert, oriented x 3, equal unlabored respirations, skin warm/dry/pink. waiting on dispo orders. 07:40 Reassessment: Patient is alert, oriented x 3, equal unlabored respirations, skin aa5 warm/dry/pink. Vital Signs: 05:08 BP 163 / 71 LA Sitting (auto/reg); Pulse 74; Resp 17; Temp 97.7(O); Pulse Ox 100% on oe R/A; Weight 45.36 kg; Height 5 ft. (152.40 cm); Pain 0/10; 06:10 BP 154 / 69; Pulse 64; Resp 16; Pulse Ox 100% ; ao 05:08 Body Mass Index 19.53 (45.36 kg, 152.40 cm) oe Judson Coma Score: 05:13 Eye Response: spontaneous(4). Verbal Response: oriented(5). Motor Response: obeys ao commands(6). Total: 15. Trauma Score (Adult): 05:13 Eye Response: spontaneous(1); Verbal Response: oriented(1); Motor Response: obeys ao commands(2); Systolic BP: > 89 mm Hg(4); Respiratory Rate: 10 to 29 per min(4); Judson Score: 15; Trauma Score: 12 ED Course: 04:54 Patient arrived in ED. cl3 05:03 Pritesh Shields, RN is Primary Nurse. ao 05:12 Triage completed. ao 05:19 Arm band placed on right wrist. Patient placed in an exam room, on a stretcher, on ao pulse oximetry, Patient notified of wait time. 05:19 Patient has correct armband on for positive identification. Pulse ox on. NIBP on. ao 05:19 Patient maintains SpO2 saturation greater than 95% on room air. ao 05:19 Thermoregulation: warm blanket given to patient. ao 05:21 Charles Doe MD is Attending Physician. tw4 06:36 CXR XRAY In Process Unspecified. EDMS 06:36 Lumbar Spine (3 Views) XRAY In Process Unspecified. EDMS 07:06 Report given to KARLEE Sanchez. ao 07:43 No provider procedures requiring assistance completed. Patient did not have IV access aa5 during this emergency room visit. Administered Medications: 05:57 Drug: traMADol 50 mg Route: PO; ao 07:04 Follow up: Response: No adverse reaction; Pain is unchanged, physician notified ao Intake: 07:40 PO: 30ml (Water); Total: 30ml. aa5 Outcome: 07:09 Discharge ordered by . tw4 07:09 Patient's length of stay was not longer than 2 hours. aa5 07:40 Discharged to home via wheelchair, with family. aa5 07:40 Condition: stable 07:40 Discharge instructions given to patient, Instructed on discharge instructions, follow up and referral plans. medication usage, Demonstrated understanding of instructions, follow-up care, medications, Prescriptions given X 1. 07:45 Patient left the ED. aa5 Signatures: Dispatcher [employer] Lesvia Miller RN RN aa5 Pritesh Shields RN RN ao Espinosa, Orlando oe Wadley, Terrence, MD MD tw4 Fermin Quispe cl3
--- NOTE | 2020-01-24 07:09 | EDPHYS ---
Physician Documentation [facility] Name: Mary Healy Age: 69 yrs Sex: Female : 1950 Arrival Date: 01/24/2020 Time: 04:54 Bed 20 Private MD: ED Physician Charles Deo HPI: 01/23 05:48 This 69 yrs old Female presents to ER via Ambulatory with complaints of Fall tw4 Injury. 05:48 Details of fall: The patient fell from seated position, off the edge of a bed. Onset: tw4 The symptoms/episode began/occurred just prior to arrival, today. Associated injuries: The patient sustained injury to the low back, contusion, decreased range of motion, pain, pain with movement. Severity of symptoms: At their worst the symptoms were moderate. The patient has not experienced similar symptoms in the past. Historical: - Allergies: 05:18 PENICILLINS; ao - Home Meds: 05:18 amlodipine-benazepril 10-20 mg Oral cap 1 cap once daily [Active]; metoprolol tartrate ao 50 mg Oral tab 1 tab once daily [Active]; rivastigmine tartrate oral oral [Active]; escitalopram oxalate 10 mg oral tab [Active]; meloxicam 15 mg Oral tab 1 tab once daily [Active]; tramadol 50 mg Oral tab 1 tab every 6 hours [Active]; Folic Acid Oral [Active]; - PMHx: 05:18 "i bleed easily, thin skin"; High Cholesterol; Hypertension; inflammatory polyarthropy; ao Osteoporosis; Rheumatoid Arthritis; - PSHx: 05:18 None; ao - Immunization history:: Adult Immunizations up to date. - Social history:: Smoking status: Patient denies any tobacco usage or history of. Patient/guardian denies using alcohol, street drugs, IV drugs. - Immunization history: Last tetanus immunization: - up to date. ROS: 05:48 Constitutional: Negative for fever, chills, and weight loss, Eyes: Negative for injury, tw4 pain, redness, and discharge, Cardiovascular: Negative for chest pain, palpitations, and edema, Respiratory: Negative for shortness of breath, cough, wheezing, and pleuritic chest pain, Abdomen/GI: Negative for abdominal pain, nausea, vomiting, diarrhea, and constipation, MS/Extremity: Negative for injury and deformity, Skin: Negative for injury, rash, and discoloration, Neuro: Negative for headache, weakness, numbness, tingling, and seizure. 05:48 Back: Positive for injury or acute deformity, decreased range of motion, pain at rest, pain with movement, Negative for radiated pain. Exam: 05:48 Constitutional: This is a well developed, well nourished patient who is awake, alert, tw4 and in no acute distress. Head/Face: Normocephalic, atraumatic. 05:48 Cardiovascular: Regular rate and rhythm with a normal S1 and S2. No gallops, murmurs, or rubs. Normal PMI, no JVD. No pulse deficits. Respiratory: Lungs have equal breath sounds bilaterally, clear to auscultation and percussion. No rales, rhonchi or wheezes noted. No increased work of breathing, no retractions or nasal flaring. Abdomen/GI: Soft, non-tender, with normal bowel sounds. No distension or tympany. No guarding or rebound. No evidence of tenderness throughout. Back: No spinal tenderness. No costovertebral tenderness. Full range of motion. MS/ Extremity: Pulses equal, no cyanosis. Neurovascular intact. Full, normal range of motion. Neuro: Awake and alert, GCS 15, oriented to person, place, time, and situation. Cranial nerves II-XII grossly intact. Motor strength 5/5 in all extremities. Sensory grossly intact. Cerebellar exam normal. Normal gait. 05:48 Chest/axilla: Inspection: normal, Palpation: tenderness, of the right breast, that partially reproduces the patient's complaints. Vital Signs: 05:08 BP 163 / 71 LA Sitting (auto/reg); Pulse 74; Resp 17; Temp 97.7(O); Pulse Ox 100% on oe R/A; Weight 45.36 kg; Height 5 ft. (152.40 cm); Pain 0/10; 06:10 BP 154 / 69; Pulse 64; Resp 16; Pulse Ox 100% ; ao 05:08 Body Mass Index 19.53 (45.36 kg, 152.40 cm) oe Judson Coma Score: 05:13 Eye Response: spontaneous(4). Verbal Response: oriented(5). Motor Response: obeys ao commands(6). Total: 15. Trauma Score (Adult): 05:13 Eye Response: spontaneous(1); Verbal Response: oriented(1); Motor Response: obeys ao commands(2); Systolic BP: > 89 mm Hg(4); Respiratory Rate: 10 to 29 per min(4); Judson Score: 15; Trauma Score: 12 MDM: 05:21 Patient medically screened. tw4 05:48 Differential diagnosis: closed head injury, contusion. Data reviewed: vital signs, tw4 nurses notes. 01/23 05:51 Order name: CXR XRAY tw4 01/23 05:51 Order name: Lumbar Spine (3 Views) XRAY tw4 Administered Medications: 05:57 Drug: traMADol 50 mg Route: PO; ao 07:04 Follow up: Response: No adverse reaction; Pain is unchanged, physician notified ao Disposition: 01/24/20 07:09 Discharged to Home. Impression: Contusion of left back wall of thorax, Other fall from one level to another. - Condition is Stable. - Discharge Instructions: Contusion, Fall Prevention in the Home. - Prescriptions for Tramadol 50 mg Oral Tablet - take 1 tablet by ORAL route every 8 hours as needed; 12 tablet. - Medication Reconciliation Form, Thank You Letter, Antibiotic Education, Prescription Opioid Use form. - Follow up: Private Physician; When: Upon discharge from the Emergency Department; Reason: Recheck today's complaints, Continuance of care, Re-evaluation by your physician. - Problem is new. - Symptoms have improved. Signatures: Dispatcher [employer] EDLesvia Mclaughlin RN RN aa5 Pritesh Shields RN RN ao Wadley, Terrence, MD MD tw4 Corrections: (The following items were deleted from the chart) 07:45 07:09 01/24/2020 07:09 Discharged to Home. Impression: Contusion of left back wall of aa5 thorax; Other fall from one level to another. Condition is Stable. Forms are Medication Reconciliation Form, Thank You Letter, Antibiotic Education, Prescription Opioid Use. Follow up: Private Physician; When: Upon discharge from the Emergency Department; Reason: Recheck today's complaints, Continuance of care, Re-evaluation by your physician. Problem is new. Symptoms have improved. tw4
[2020-01-24 07:51] VITALS: TEMP 97.7; O2SAT 100
[2020-01-24 07:53] VITALS: BP 154/69
--- NOTE | 2020-01-24 08:02 | RAD REPORT ---
EXAM DESCRIPTION: Cristy Single View01/24/2020 6:35 am CLINICAL HISTORY: Chest pain COMPARISON: 2019 FINDINGS: The lungs appear clear of acute infiltrate. The heart is normal size IMPRESSION: No acute abnormalities displayed
--- NOTE | 2020-01-24 08:02 | RAD REPORT ---
EXAM DESCRIPTION: RAD - Lumbar Spine 3 Views - 01/24/2020 6:36 am CLINICAL HISTORY: Back pain FINDINGS: The alignment of the lumbar spine is satisfactory. No fracture or dislocation is seen. The bones are osteoporotic Mild spondylosis involves the lumbar spine
== END 2020-01-24 07:45 | disposition home or self-care (01) ==
LOC: ER 04:50
DX: S20.222A Contusion of left back wall of thorax, initial encounter (principal); W06.XXXA Fall from bed, initial encounter; Y93.89 Activity, other specified; Y92.013 Bedroom of single-family (private) house as the place of occurrence of the external cause; Z88.0 Allergy status to penicillin; I10 Essential (primary) hypertension; E78.5 Hyperlipidemia, unspecified
CPT/HCPCS: 71045; 72100; 99284

== ENCOUNTER 2020-02-16 04:32 | Emergency (ER) | payer OTHER ==
--- OUTSIDE RECORDS SUMMARY | 2020-02-16 04:34 | XMS REPORT ---
:1950 Author [facility] Address [address] [place] [address] [address] [place] [address] Care Team Providers Name Role Phone Unavailable Unavailable Unavailable Problems This patient has no known problems. Allergies, Adverse Reactions, Alerts This patient has no known allergies or adverse reactions. Medications This patient has no known medications.
--- OUTSIDE RECORDS SUMMARY | 2020-02-16 04:35 | XMS REPORT | Summary of Care ---
:1950 Author Organization [address] [address] Care Team Providers Name Role Phone Rey Valenzuela Fernanda Primary Care Provider Reason for Visit Reason Comments Refill Request Encounter Details Date Type Department Care Team Description 02/13/2020 Refill [facility] Andrea Wallace MD Refill Request Neurology-[address] [place] [phone] [facility] [address] [place] [address] [phone] Allergies No Known Allergiesdocumented as of this encounter (statuses as of 02/13/2020) Medications Medication Sig Dispensed Refills Start Date [...] as of this encounter (statuses as of 02/13/2020) Active Problems Not on filedocumented as of this encounter (statuses as of 02/13/2020) Social History Tobacco Use Types Packs/Day Years [...] Care Team Description 07/16/2020 Office Visit Neurology Bonnie Cuellar, TRACIE [address] [place] [phone] Health Maintenance Due Date Last Done [...] [address] Medicare & B t 82 [id number] [place] [phone] [employer] INDEMNITY [id number] 2017-Debra mccray documented as of this encounter
[2020-02-16 05:46] LABS: Absolute Lymphocytes (CBC) 2.4 K/uL (0.7-4.9); Basophils % 0.3 % (0-1.3); Hematocrit 39.4 % (36.0-45.0); MPV 9.3 fL (7.6-11.3); RBC Red Blood Cell Count 4.44 M/uL (3.86-4.86)
[2020-02-16 05:55] LABS: ALT/SGPT 22 U/L (12-78); AST/SGOT 22 U/L (15-37); Albumin 3.7 g/dL (3.4-5.0); Alkaline Phosphatase 83 U/L (45-117); BUN Blood Urea Nitrogen 15 mg/dL (7-18); Bicarbonate 27 mmol/L (21-32); Bilirubin Direct 0.1 mg/dL (0-0.2); Bilirubin Total 0.7 mg/dL (0.2-1.0); Glucose Level 92 mg/dL (74-106); NT PRO-BNP 113 pg/mL (<125); Protein, Total 7.7 g/dL (6.4-8.2); Sodium Level 138 mmol/L (136-145); Troponin (Emerg Dept Use Only) < 0.02 ng/mL (0.0-0.045)
--- NOTE | 2020-02-16 07:06 | ER ---
Nurse's Notes [facility] Name: Mary Healy Age: 69 yrs Sex: Female : 1950 Arrival Date: 02/16/2020 Time: 04:35 Bed 14 Private MD: Diagnosis: Other chest pain;chest wall pain Presentation: 02/15 05:05 Chief complaint: Patient states: pt states " I am having chest pain, in the middle of jv1 my chest which started about 04:00am. My family has been fighting with me.". Coronavirus screen: Patient denies fever greater than 100.4F, cough, shortness of breath, or difficulty breathing. Proceed with normal triage process. Ebola Screen: Patient negative for fever greater than or equal to 101.5 degrees Fahrenheit, and additional compatible Ebola Virus Disease symptoms Patient denies exposure to infectious person. Patient denies travel to an Ebola-affected area in the 21 days before illness onset. No symptoms or risks identified at this time. Initial Sepsis Screen: Does the patient meet any 2 criteria? No. Patient's initial sepsis screen is negative. Does the patient have a suspected source of infection? No. Patient's initial sepsis screen is negative. Risk Assessment: Do you want to hurt yourself or someone else? Patient reports no desire to harm self or others. Onset of symptoms was February 16, 2020 at 04:00. Care prior to arrival: None. 05:05 Method Of Arrival: Ambulatory jv1 05:05 Acuity: AASHISH 3 jv1 Triage Assessment: 05:11 General: Appears in no apparent distress. comfortable, Behavior is calm, cooperative, jv1 appropriate for age. Pain: Complains of pain in chest Pain does not radiate. Pain currently is 3 out of 10 on a pain scale. Quality of pain is described as sharp, Pain began 1 hour ago. Is intermittent. EENT: No signs and/or symptoms were reported regarding the EENT system. Neuro: Level of Consciousness is awake, alert, obeys commands, Oriented to person, place, time, situation, Appropriate for age Manager Of Program are equal bilaterally Moves all extremities. Full function. Cardiovascular: Reports chest pain, Heart tones S1 S2 present Capillary refill < 3 seconds Patient's skin is warm and dry. Pulses are all present. Edema is absent. Rhythm is regular Chest pain quality is sharp. Respiratory: Airway is patent Respiratory effort is even, unlabored, Respiratory pattern is regular, symmetrical, Breath sounds are clear bilaterally. GI: Abdomen is round non-distended, Bowel sounds present X 4 quads. : No signs and/or symptoms were reported regarding the genitourinary system. Derm: No signs and/or symptoms reported regarding the dermatologic system. Musculoskeletal: No signs and/or symptoms reported regarding the musculoskeletal system. Historical: - Home Meds: 05:34 amlodipine-benazepril 10-20 mg Oral cap 1 cap once daily [Active]; metoprolol tartrate jv1 50 mg Oral tab 1 tab 2 times per day [Active]; - PSHx: 05:36 ; jv1 - Immunization history:: Adult Immunizations up to date. - Social history:: Smoking status: Patient/guardian denies using tobacco products. Screenin:09 Abuse screen: Denies threats or abuse. Nutritional screening: No deficits noted. jv1 Tuberculosis screening: No symptoms or risk factors identified. Fall Risk None identified. No fall in past 12 months (0 pts). Assessment: 05:24 General: Appears in no apparent distress. comfortable, well groomed, Behavior is calm, jv1 cooperative. Pain: Complains of pain in chest Pain does not radiate. Pain currently is 3 out of 10 on a pain scale. Quality of pain is described as sharp, Pain began 04:00. Neuro: Level of Consciousness is awake, alert, obeys commands, Oriented to person, place, time, situation, Manager Of Program are equal bilaterally Moves all extremities. Full function. Cardiovascular: Reports chest pain, since 04:00 this morning February. Respiratory: Airway is patent Respiratory effort is even, unlabored, Respiratory pattern is regular, symmetrical, Breath sounds are clear bilaterally. GI: Abdomen is round non-distended, Bowel sounds present X 4 quads. Abd is soft and non tender X 4 quads. : No signs and/or symptoms were reported regarding the genitourinary system. EENT: No signs and/or symptoms were reported regarding the EENT system. Derm: Skin is intact, is healthy with good turgor. 05:28 Reassessment: police came saying they received a call for a missing person and they jv1 went inside and verified it was her. Family members were notified by the police as well. 06:26 Reassessment: Patient appears in no apparent distress at this time. No changes from jv1 previously documented assessment. Patient and/or family updated on plan of care and expected duration. Pain level reassessed. Patient is alert, oriented x 3, equal unlabored respirations, skin warm/dry/pink. Patient denies pain at this time. Patient states feeling better. 06:46 Reassessment: called pt's daughter Ms. Boone Linares and updated her about the pt's jv1 situation. She requested that the pt's urine be checked. Provider informed and instructed pt about th e urine sample. lab called and said the blue tube hemolized and they need a new sample. 07:50 Reassessment: Patient appears in no apparent distress at this time. No changes from tw2 previously documented assessment. Patient and/or family updated on plan of care and expected duration. Pain level reassessed. Patient is alert, oriented x 3, equal unlabored respirations, skin warm/dry/pink. 08:10 Reassessment: called pts antonio at #[phone] to update on POC and discharge at tw2 this time, pts daughter wanted me to ask who she wanted to pick her up, pt states "nik" to pick him up, daughter will let him know and will call when he gets here to pick him up. 08:23 Reassessment: Patient appears in no apparent distress at this time. No changes from tw2 previously documented assessment. Patient and/or family updated on plan of care and expected duration. Pain level reassessed. Patient is alert, oriented x 3, equal unlabored respirations, skin warm/dry/pink. Vital Signs: 05:00 BP 148 / 65; Pulse 77; Resp 18; Temp 98.2; Pulse Ox 99% on R/A; Weight 46.72 kg; Height jv1 4 ft. 10 in. (147.32 cm); Pain 3/10; 05:05 BP 148 / 65; Pulse 77; Resp 18; Temp 98.2; Pulse Ox 99% ; Weight 46.72 kg; Height 4 ft. jv1 11 in. (149.86 cm); Pain 2/10; 06:27 BP 160 / 65; Pulse 64; Resp 18; Temp 98; Pulse Ox 99% ; Pain 0/10; jv1 07:30 BP 131 / 49; Pulse 59; Resp 17; Pulse Ox 98% on R/A; tw2 05:05 Body Mass Index 20.80 (46.72 kg, 149.86 cm) jv1 ED Course: 04:35 Patient arrived in ED. cl3 04:48 Charles Doe MD is Attending Physician. tw4 05:00 Inserted saline lock: 22 gauge in right forearm, using aseptic technique. Blood jv1 collected. 05:00 Arm band placed on right wrist. Patient placed in an exam room, Patient notified of jv1 wait time Patient's private physician notified. EKG completed in triage. Results shown to MD. 05:09 Triage completed. jv1 05:20 XRAY Chest (1 view) In Process Unspecified. EDMS 05:37 Patient has correct armband on for positive identification. Placed in gown. Bed in low jv1 position. Call light in reach. Side rails up X 1. alarm security or surveillance monitor on. Pulse ox on. NIBP on. 06:06 Patient maintains SpO2 saturation greater than 95% on room air. jv1 07:15 Dulce Herrera, RN is Primary Nurse. tw2 08:23 No provider procedures requiring assistance completed. IV discontinued, intact, tw2 bleeding controlled, No redness/swelling at site. Pressure dressing applied. Administered Medications: No medications were administered Outcome: 07:06 Discharge ordered by . tw4 08:23 Patient left the ED. ms 08:23 Discharged to home via wheelchair, with family. tw2 08:23 Condition: stable 08:23 Discharge instructions given to patient, Instructed on discharge instructions, follow up and referral plans. Demonstrated understanding of instructions, follow-up care. Signatures: Dispatcher [employer] EDNE Dulce Herrera, RN KARLEE tw2 [facility] Lavell Fu RN Charles Abraham MD MD tw4 Bhavani Diehl RN RN jv1 Fermin Quispe cl3 Corrections: (The following items were deleted from the chart) 05:40 05:34 Home Meds: tramadol 50 mg Oral tab 1 tab every 6 hours [Inactive]; jv1 fu 05:40 05:34 Home Meds: meloxicam 15 mg Oral tab 1 tab once daily [Inactive]; jv1 fu 05:40 05:34 Home Meds: rivastigmine tartrate oral Oral [Inactive]; 05:40 05:34 Home Meds: escitalopram oxalate 10 mg Oral tab [Inactive]; 05:40 05:34 Home Meds: Folic Acid Oral [Inactive]; 05:40 05:34 PMHx: "i bleed easily, thin skin" [Inactive];
--- NOTE | 2020-02-16 07:06 | EDPHYS ---
Physician Documentation [facility] Name: Mary Healy Age: 69 yrs Sex: Female : 1950 Arrival Date: 02/16/2020 Time: 04:35 Bed 14 Private MD: ED Physician Charles Doe HPI: 02/15 05:04 This 69 yrs old Female presents to ER via Unassigned with complaints of Chest tw4 Pain, High Blood Pressure. 05:04 The patient or guardian reports chest pain that is located primarily in the anterior tw4 chest wall. Onset: just prior to arrival, this morning. The pain does not radiate. Associated signs and symptoms: The patient has no apparent associated signs or symptoms, Pertinent positives: None. Pertinent negatives: None. The chest pain is described as sharp. Duration: The patient or guardian reports a single episode. Severity of pain: At its worst the pain was moderate in the emergency department the pain is unchanged. Historical: - Home Meds: 05:34 amlodipine-benazepril 10-20 mg Oral cap 1 cap once daily [Active]; metoprolol tartrate jv1 50 mg Oral tab 1 tab 2 times per day [Active]; - PSHx: 05:36 ; jv1 - Immunization history:: Adult Immunizations up to date. - Social history:: Smoking status: Patient/guardian denies using tobacco products. ROS: 05:04 Constitutional: Negative for fever, chills, and weight loss, Eyes: Negative for injury, tw4 pain, redness, and discharge, Respiratory: Negative for shortness of breath, cough, wheezing, and pleuritic chest pain, Abdomen/GI: Negative for abdominal pain, nausea, vomiting, diarrhea, and constipation, Back: Negative for injury and pain, MS/Extremity: Negative for injury and deformity, Skin: Negative for injury, rash, and discoloration, Neuro: Negative for headache, weakness, numbness, tingling, and seizure. 05:04 Cardiovascular: Positive for chest pain, Negative for edema, orthopnea, palpitations. Exam: 05:04 Constitutional: This is a well developed, well nourished patient who is awake, alert, tw4 and in no acute distress. Head/Face: Normocephalic, atraumatic. Chest/axilla: Normal chest wall appearance and motion. Nontender with no deformity. No lesions are appreciated. Cardiovascular: Regular rate and rhythm with a normal S1 and S2. No gallops, murmurs, or rubs. Normal PMI, no JVD. No pulse deficits. Respiratory: Lungs have equal breath sounds bilaterally, clear to auscultation and percussion. No rales, rhonchi or wheezes noted. No increased work of breathing, no retractions or nasal flaring. Abdomen/GI: Soft, non-tender, with normal bowel sounds. No distension or tympany. No guarding or rebound. No evidence of tenderness throughout. Back: No spinal tenderness. No costovertebral tenderness. Full range of motion. MS/ Extremity: Pulses equal, no cyanosis. Neurovascular intact. Full, normal range of motion. Neuro: Awake and alert, GCS 15, oriented to person, place, time, and situation. Cranial nerves II-XII grossly intact. Motor strength 5/5 in all extremities. Sensory grossly intact. Cerebellar exam normal. Normal gait. Psych: Awake, alert, with orientation to person, place and time. Behavior, mood, and affect are within normal limits. 06:47 Chest/axilla: Inspection: normal, Palpation: tenderness, that is moderate, that totally tw4 reproduces the patient's complaints. Vital Signs: 05:00 BP 148 / 65; Pulse 77; Resp 18; Temp 98.2; Pulse Ox 99% on R/A; Weight 46.72 kg; Height jv1 4 ft. 10 in. (147.32 cm); Pain 3/10; 05:05 BP 148 / 65; Pulse 77; Resp 18; Temp 98.2; Pulse Ox 99% ; Weight 46.72 kg; Height 4 ft. jv1 11 in. (149.86 cm); Pain 2/10; 06:27 BP 160 / 65; Pulse 64; Resp 18; Temp 98; Pulse Ox 99% ; Pain 0/10; jv1 07:30 BP 131 / 49; Pulse 59; Resp 17; Pulse Ox 98% on R/A; tw2 05:05 Body Mass Index 20.80 (46.72 kg, 149.86 cm) jv1 MDM: 04:48 Patient medically screened. tw4 06:44 Differential diagnosis: acute myocardial infarction, pulmonary embolus, thoracic aortic tw4 disection. The patient was given aspirin in the Emergency Department. Data reviewed: vital signs, nurses notes. Data interpreted: Pulse oximetry: Interpretation: normal. Counseling: I had a detailed discussion with the patient and/or guardian regarding: the historical points, exam findings, and any diagnostic results supporting the discharge/admit diagnosis. ED course: Upon further history from the police that arrived at the hospital, it was found that pt had eloped from her house. Pt has history of dementia and was found wandering the streets in [place]. Pt complained of chest wall pain. 02/15 04:40 Order name: Basic Metabolic Panel; Complete Time: 06:42 02/15 06:43 Interpretation: Normal except: GFR 75. 02/15 04:40 Order name: CBC with Diff; Complete Time: 06:42 02/15 06:43 Interpretation: Normal except: MN% 12.8. 02/15 04:40 Order name: LFT's; Complete Time: 06:42 02/15 06:43 Interpretation: Normal except: GLOB 4.0; A/G 0.9. 02/15 04:40 Order name: Magnesium; Complete Time: 06:42 02/15 06:43 Interpretation: Within normal limits: MG 2.0. 02/15 04:40 Order name: NT PRO-BNP; Complete Time: 06:42 02/15 06:43 Interpretation: Within normal limits: NT PRO-BNP 113. 02/15 04:40 Order name: PT-INR 02/15 04:40 Order name: Troponin (emerg Dept Use Only); Complete Time: 06:42 02/15 06:43 Interpretation: Within normal limits: TROPED < 0.02. 02/15 04:40 Order name: XRAY Chest (1 view) 02/15 04:40 Order name: EKG; Complete Time: 04:41 02/15 04:40 Order name: Cardiac monitoring; Complete Time: 05:23 02/15 04:40 Order name: EKG - Nurse/Tech; Complete Time: 05:23 02/15 04:40 Order name: IV Saline Lock; Complete Time: 05:23 02/15 04:40 Order name: Labs collected and sent; Complete Time: 05:23 tw4 02/15 07:01 Order name: Urine Dipstick--Ancillary (enter results) ar5 02/15 04:40 Order name: O2 Per Protocol; Complete Time: 05:24 tw4 02/15 04:40 Order name: O2 Sat Monitoring; Complete Time: 05:24 tw4 EC:04 Rate is 70 beats/min. Rhythm is regular, Normal Sinus Rhythm. QRS [place] is Normal. [place] tw4 interval is normal. QRS interval is normal. QT interval is normal. No Q waves. T waves are Normal. No ST changes noted. Clinical impression: Normal ECG. Interpreted by me. Reviewed by me. Administered Medications: No medications were administered Disposition: 02/16/20 07:06 Discharged to Home. Impression: Other chest pain, chest wall pain. - Condition is Stable. - Discharge Instructions: Nonspecific Chest Pain, Costochondritis. - Medication Reconciliation Form, Thank You Letter, Antibiotic Education, Prescription Opioid Use form. - Follow up: Private Physician; When: Upon discharge from the Emergency Department; Reason: Recheck today's complaints, Continuance of care, Re-evaluation by your physician. - Problem is new. - Symptoms have improved. Signatures: Dispatcher [employer] EDMS Tiffanie Boyd mt, Felix RN Charles Abraham MD MD tw4 Bhavani Diehl RN RN jv1 Corrections: (The following items were deleted from the chart) 05:40 05:34 Home Meds: tramadol 50 mg Oral tab 1 tab every 6 hours [Inactive]; jv1 05:40 05:34 Home Meds: meloxicam 15 mg Oral tab 1 tab once daily [Inactive]; jv1 05:40 05:34 Home Meds: rivastigmine tartrate oral Oral [Inactive]; jv1 05:40 05:34 Home Meds: escitalopram oxalate 10 mg Oral tab [Inactive]; jv1 05:40 05:34 Home Meds: Folic Acid Oral [Inactive]; jv1 05:40 05:34 PMHx: "i bleed easily, thin skin" [Inactive]; jv1 fu 08:23 07:06 02/16/2020 07:06 Discharged to Home. Impression: Other chest pain; chest wall mt pain. Condition is Stable. Forms are Medication Reconciliation Form, Thank You Letter, Antibiotic Education, Prescription Opioid Use. Follow up: Private Physician; When: Upon discharge from the Emergency Department; Reason: Recheck today's complaints, Continuance of care, Re-evaluation by your physician. Problem is new. Symptoms have improved. tw4
[2020-02-16 07:08] LABS: Protime INR 0.97
--- NOTE | 2020-02-16 07:09 | RAD REPORT ---
EXAM DESCRIPTION: RAD - Chest Single View - 02/16/2020 5:20 am CLINICAL HISTORY: CHEST PAIN COMPARISON: Portable January 24, 2020 TECHNIQUE: AP portable chest image was obtained 02/16/2020 5:20 am . FINDINGS: No focal lung parenchymal process seen. Interstitial pattern is mildly prominent, similar to comparison. Heart and vasculature are normal. No measurable pleural effusion and no pneumothorax. No acute bony abnormality seen. No acute aortic findings suspected. IMPRESSION: No acute cardiopulmonary process. No significant change from comparison.
[2020-02-16 08:33] VITALS: TEMP 98
[2020-02-16 08:34] VITALS: BP 131/49; O2SAT 98
[2020-02-16 08:36] LABS: Urine Blood TRACE (NEG); Urine Glucose NEGATIVE (NEG); Urine Protein NEGATIVE (NEG)
--- NOTE | 2020-02-16 10:59 | EKG ---
Test Date: 2020-02-16 Test Time: 04:57:46 Chief Communications Officer: SASHA MEASUREMENT RESULTS: Intervals: Rate: 70 VA: 140 QRSD: 78 QT: 388 QTc: 419 [place]: P: 67 VA: 140 QRS: 32 T: 63 INTERPRETIVE STATEMENTS: Normal sinus rhythm Normal ECG Compared to ECG 12/18/2019 20:44:07 No significant changes Electronically Signed On 02-16-20 10:58:49 CDT by José Luis Palmer
== END 2020-02-16 08:23 | disposition home or self-care (01) ==
LOC: ER 04:32
DX: R07.89 Other chest pain (principal); F03.90 Unspecified dementia, unspecified severity, without behavioral disturbance, psychotic disturbance, mood disturbance, and anxiety
CPT/HCPCS: 36415; 71045; 80048; 80076; 81003; 83735; 83880; 84484; 85025; 85610; 93005; 99285

== ENCOUNTER 2020-03-08 14:42 | Emergency (ER) | payer OTHER ==
--- OUTSIDE RECORDS SUMMARY | 2020-03-08 14:44 | XMS REPORT ---
:1950 Author Organization [facility] t Address [address] [place] [address] Care Team Providers Name Role Phone Unavailable Unavailable Unavailable Problems This patient has no known problems. Allergies, Adverse Reactions, Alerts This patient has no known allergies or adverse reactions. Medications This patient has no known medications.
[2020-03-08 15:26] LABS: Urine Blood 1+ (NEG); Urine Glucose NEGATIVE (NEG); Urine Protein NEGATIVE (NEG); Urine Specific Gravity >1.030 (1.005-1.030); Urine pH 5.5 (5.0-7.0)
[2020-03-08 15:32] LABS: Urine Bacteria >50 /HPF (<20); Urine Culture Reflex Order REFLEXED; Urine Mucus 1+ /HPF (NONE SEEN); Urine Urothelial Cells <5 /HPF (NONE SEEN)
--- NOTE | 2020-03-08 15:42 | ER ---
Nurse's Notes [facility] Name: Mary Healy Age: 70 yrs Sex: Female : 1950 Arrival Date: 03/08/2020 Time: 14:45 Bed 17 Private MD: Rey Valenzuela Diagnosis: Urinary tract infection, site not specified Presentation: 03/08 14:55 Chief complaint: Patient states: Pt. daughter thinks she has a UTI because she is rb1 having hallucinations and is arguing with people. Coronavirus screen: Proceed with normal triage. Patient denies a cough. Patient denies shortness of breath or difficulty breathing. Patient denies measured and/or subjective temperature greater than 100.4F prior to today's visit. Patient denies travel on a cruise ship or to a country the [facility] currently lists as an affected area. Patient denies contact with known and/or suspected case of COVID-19. Ebola Screen: Patient negative for fever greater than or equal to 101.5 degrees Fahrenheit, and additional compatible Ebola Virus Disease symptoms Patient denies exposure to infectious person. Initial Sepsis Screen: Does the patient meet any 2 criteria? No. Patient's initial sepsis screen is negative. Does the patient have a suspected source of infection? Yes: Dysuria/Frequency/Urgency/UTI. Risk Assessment: Do you want to hurt yourself or someone else? Patient reports no desire to harm self or others. Onset of symptoms is unknown. 14:55 Method Of Arrival: Ambulatory rb1 14:55 Acuity: AASHISH 3 rb1 Triage Assessment: 14:55 General: Appears in no apparent distress. comfortable, Behavior is calm, cooperative, rb1 Denies fever. Pain: Denies pain. Neuro: Level of Consciousness is awake, alert, obeys commands, Oriented to person, place, time, situation. Cardiovascular: Capillary refill < 3 seconds is brisk in bilateral fingers. Respiratory: Airway is patent Respiratory effort is even, unlabored, Respiratory pattern is regular, symmetrical. GI: No signs and/or symptoms were reported involving the gastrointestinal system. : No signs and/or symptoms were reported regarding the genitourinary system. Derm: Skin is pink, warm \T\ dry. Musculoskeletal: Range of motion: intact in all extremities. Historical: - Allergies: 14:55 PENICILLINS; rb1 - Home Meds: 14:55 amlodipine-benazepril 10-20 mg Oral cap 1 cap once daily [Active]; metoprolol tartrate rb1 50 mg Oral tab 1 tab 2 times per day [Active]; - PMHx: 14:55 Hypertension; Alzheimers; rb1 - PSHx: 14:55 ; Hysterectomy; rb1 - Immunization history:: Adult Immunizations up to date. - Social history:: Smoking status: Patient/guardian denies using. Screenin:55 Abuse screen: Denies threats or abuse. Nutritional screening: No deficits noted. rb1 Tuberculosis screening: No symptoms or risk factors identified. Fall Risk None identified. Assessment: 14:55 General: See triage assessment. rb1 15:50 Reassessment: Patient appears in no apparent distress at this time. Patient and/or rb1 family updated on plan of care and expected duration. Pain level reassessed. Patient is alert, oriented x 3, equal unlabored respirations, skin warm/dry/pink. Vital Signs: 14:55 BP 128 / 54; Pulse 68; Resp 16; Temp 98.8(TE); Pulse Ox 99% on R/A; Weight 47.63 kg rb1 (R); Height 4 ft. 10 in. (147.32 cm) (R); Pain 0/10; 15:40 BP 125 / 60; Pulse 60; Resp 18; Pulse Ox 97% on R/A; rb1 16:00 BP 129 / 58; Pulse 60; Resp 16; Pulse Ox 98% ; rb1 14:55 Body Mass Index 21.94 (47.63 kg, 147.32 cm) rb1 ED Course: 14:45 Patient arrived in ED. ag5 14:45 Rey Valenzuela MD is Private Physician. ag5 14:55 Hanna Posada FNP-C is [facility]. kb 14:55 Arm band placed on right wrist. rb1 14:55 Patient has correct armband on for positive identification. Bed in low position. Call rb1 light in reach. Side rails up X 1. Pulse ox on. NIBP on. 14:56 Elia Hess MD is Attending Physician. kb 14:57 Soha Davila, RN is Primary Nurse. rb1 15:06 Triage completed. rb1 16:02 No provider procedures requiring assistance completed. Patient did not have IV access rb1 during this emergency room visit. Administered Medications: 15:40 CANCELLED (Physician Discretion): Macrobid 100 mg PO once; administer with food kb 15:50 Drug: Bactrim (160 mg-800 mg (DS) 1 tablet Route: PO; rb1 15:50 Follow up: Response: Medication administered at discharge. rb1 Outcome: 15:41 Discharge ordered by MD. kb 16:02 Patient left the ED. rb1 16:02 Discharged to home ambulatory. rb1 16:02 Condition: stable 16:02 Discharge instructions given to patient, Instructed on discharge instructions, follow up and referral plans. medication usage, Demonstrated understanding of instructions, follow-up care, medications, Prescriptions given X 1. Signatures: Hanna Posada, SERVICES EXECUTIVE-C SERVICES EXECUTIVE-Soha Landa, RN RN rb1 Ramone Reed ag5
--- NOTE | 2020-03-08 15:42 | EDPHYS ---
Physician Documentation [facility] Name: Mary Healy Age: 70 yrs Sex: Female : 1950 Arrival Date: 03/08/2020 Time: 14:45 Bed 17 Private MD: Rey Valenzuela ED Physician Elia Hess HPI: 03/08 15:13 This 70 yrs old Female presents to ER via Ambulatory with complaints of kb Possible UTI. 15:11 The patient has not experienced similar symptoms in the past. The patient has not kb recently seen a physician. 15:13 The patient presents with wants to be checked for UTI. Onset: The symptoms/episode kb began/occurred 3 day(s) ago. Modifying factors: The symptoms are alleviated by nothing, the symptoms are aggravated by nothing. Associated signs and symptoms: Pertinent positives: confusion. Severity of symptoms: At their worst the symptoms were mild, in the emergency department the symptoms are unchanged. Pt states her daughter made her come get checked for a UTI. Pt is awake, alert and oriented x4. Pt denies any pain or urinary symptoms. Daughter reports pt has been thinking her father is someone else and believes it is due to a UTI. Pt also has a history of alzheimers. . Historical: - Allergies: 14:55 PENICILLINS; rb1 - Home Meds: 14:55 amlodipine-benazepril 10-20 mg Oral cap 1 cap once daily [Active]; metoprolol tartrate rb1 50 mg Oral tab 1 tab 2 times per day [Active]; - PMHx: 14:55 Hypertension; Alzheimers; rb1 - PSHx: 14:55 ; Hysterectomy; rb1 - Immunization history:: Adult Immunizations up to date. - Social history:: Smoking status: Patient/guardian denies using. ROS: 15:12 Constitutional: Negative for fever, chills, and weight loss, ENT: Negative for injury, kb pain, and discharge, Neck: Negative for injury, pain, and swelling, Cardiovascular: Negative for chest pain, palpitations, and edema, Respiratory: Negative for shortness of breath, cough, wheezing, and pleuritic chest pain, Abdomen/GI: Negative for abdominal pain, nausea, vomiting, diarrhea, and constipation, Back: Negative for injury and pain, : Negative for injury, bleeding, discharge, and swelling, MS/Extremity: Negative for injury and deformity, Skin: Negative for injury, rash, and discoloration. 15:12 Neuro: Positive for altered mental status. Exam: 15:13 Constitutional: This is a well developed, well nourished patient who is awake, alert, kb and in no acute distress. Head/Face: Normocephalic, atraumatic. Eyes: Pupils equal round and reactive to light, extra-ocular motions intact. Lids and lashes normal. Conjunctiva and sclera are non-icteric and not injected. Cornea within normal limits. Periorbital areas with no swelling, redness, or edema. ENT: Nares patent. No nasal discharge, no septal abnormalities noted. Tympanic membranes are normal and external auditory canals are clear. Oropharynx with no redness, swelling, or masses, exudates, or evidence of obstruction, uvula midline. Mucous membranes moist. Neck: Trachea midline, no thyromegaly or masses palpated, and no cervical lymphadenopathy. Supple, full range of motion without nuchal rigidity, or vertebral point tenderness. No Meningismus. Chest/axilla: Normal chest wall appearance and motion. Nontender with no deformity. No lesions are appreciated. Cardiovascular: Regular rate and rhythm with a normal S1 and S2. No gallops, murmurs, or rubs. Normal PMI, no JVD. No pulse deficits. Respiratory: Lungs have equal breath sounds bilaterally, clear to auscultation and percussion. No rales, rhonchi or wheezes noted. No increased work of breathing, no retractions or nasal flaring. Abdomen/GI: Soft, non-tender, with normal bowel sounds. No distension or tympany. No guarding or rebound. No evidence of tenderness throughout. Skin: Warm, dry with normal turgor. Normal color with no rashes, no lesions, and no evidence of cellulitis. MS/ Extremity: Pulses equal, no cyanosis. Neurovascular intact. Full, normal range of motion. Neuro: Awake and alert, GCS 15, oriented to person, place, time, and situation. Cranial nerves II-XII grossly intact. Motor strength 5/5 in all extremities. Sensory grossly intact. Cerebellar exam normal. Normal gait. Vital Signs: 14:55 BP 128 / 54; Pulse 68; Resp 16; Temp 98.8(TE); Pulse Ox 99% on R/A; Weight 47.63 kg rb1 (R); Height 4 ft. 10 in. (147.32 cm) (R); Pain 0/10; 15:40 BP 125 / 60; Pulse 60; Resp 18; Pulse Ox 97% on R/A; rb1 16:00 BP 129 / 58; Pulse 60; Resp 16; Pulse Ox 98% ; rb1 14:55 Body Mass Index 21.94 (47.63 kg, 147.32 cm) rb1 MDM: 14:56 Patient medically screened. kb 15:13 Data reviewed: vital signs, nurses notes. Data interpreted: Pulse oximetry: on room air kb is 99 %. Interpretation: normal. 15:38 Counseling: I had a detailed discussion with the patient and/or guardian regarding: the kb historical points, exam findings, and any diagnostic results supporting the discharge/admit diagnosis, lab results, the need for outpatient follow up, a family practitioner, to return to the emergency department if symptoms worsen or persist or if there are any questions or concerns that arise at home. 03/08 14:56 Order name: Urine Microscopic Only; Complete Time: 15:38 kb 03/08 15:07 Order name: Urine Dipstick--Ancillary (enter results) em1 03/08 14:56 Order name: Urine Dipstick-Ancillary (obtain specimen); Complete Time: 15:06 kb 03/08 15:33 Order name: Urine Culture EDMS Administered Medications: 15:40 CANCELLED (Physician Discretion): Macrobid 100 mg PO once; administer with food kb 15:50 Drug: Bactrim (160 mg-800 mg (DS) 1 tablet Route: PO; rb1 15:50 Follow up: Response: Medication administered at discharge. rb1 Disposition: 16:39 Co-signature as Attending Physician, Elia Hess MD I agree with the assessment and kdr plan of care. Disposition: 03/08/20 15:41 Discharged to Home. Impression: Urinary tract infection, site not specified. - Condition is Stable. - Discharge Instructions: Urinary Tract Infection, Adult, [id number]. - Prescriptions for Bactrim DS 800- 160 mg Oral Tablet - take 1 tablet by ORAL route every 12 hours for 7 days; 14 tablet. - Medication Reconciliation Form, Thank You Letter, Antibiotic Education, Prescription Opioid Use form. - Follow up: Emergency Department; When: As needed; Reason: Worsening of condition. Follow up: Private Physician; When: 2 - 3 days; Reason: Recheck today's complaints, Continuance of care, Re-evaluation by your physician. Signatures: Dispatcher [employer] EDHanna Roth, RANCH COOK-C RANCH COOK-CkElia Kwong MD MD kdr Barber, Rebecca, RN RN rb1 Corrections: (The following items were deleted from the chart) 15:40 15:40 Macrobid 100 mg PO once; administer with food ordered. kb kb 16:02 15:41 03/08/2020 15:41 Discharged to Home. Impression: Urinary tract infection, site rb1 not specified. Condition is Stable. Forms are Medication Reconciliation Form, Thank You Letter, Antibiotic Education, Prescription Opioid Use. Follow up: Emergency Department; When: As needed; Reason: Worsening of condition. Follow up: Private Physician; When: 2 - 3 days; Reason: Recheck today's complaints, Continuance of care, Re-evaluation by your physician. kb
[2020-03-08] MEDS ORDERED: SMZ./TMP. 800/160 MG TABLET ONE (15:53)
[2020-03-08 16:21] VITALS: BP 128/54; TEMP 98.8; O2SAT 99
== END 2020-03-08 16:02 | disposition home or self-care (01) ==
LOC: ER 14:42
DX: N39.0 Urinary tract infection, site not specified (principal); I10 Essential (primary) hypertension; G30.9 Alzheimer's disease, unspecified; F02.80 Dementia in other diseases classified elsewhere, unspecified severity, without behavioral disturbance, psychotic disturbance, mood disturbance, and anxiety; Z88.0 Allergy status to penicillin
CPT/HCPCS: 81003; 81015; 87077; 87086; 87088; 87186; 99283

== ENCOUNTER 2020-03-11 07:36 | Emergency (ER) | payer OTHER ==
--- OUTSIDE RECORDS SUMMARY | 2020-03-11 07:40 | XMS REPORT ---
:1950 [address] [facility] t Address [address] [place] [address] Care Team Providers Name Role Phone Unavailable Unavailable Unavailable Problems This patient has no known problems. Allergies, Adverse Reactions, Alerts This patient has no known allergies or adverse reactions. Medications This patient has no known medications.
[2020-03-11 09:14] LABS: Absolute Lymphocytes (CBC) 1.6 K/uL (0.7-4.9); Basophils % 0.6 % (0-1.3); Lymphocytes % 21.4 % (15.3-44.8); MPV 9.5 fL (7.6-11.3); RBC Red Blood Cell Count 4.66 M/uL (3.86-4.86)
--- NOTE | 2020-03-11 09:14 | RAD REPORT ---
EXAM DESCRIPTION: CT - Head Brain Wo Cont - 03/11/2020 8:48 am CLINICAL HISTORY: Weakness;Dizziness COMPARISON: Head angio dated 03/16/2018 TECHNIQUE: Axial 5 mm thick images of the head were obtained without IV contrast. All CT scans are performed using dose optimization technique as appropriate and may include automated exposure control or mA/KV adjustment according to patient size. FINDINGS: No intracranial hemorrhage, mass, edema or shift of mid-line structures. No acute infarcti on changes seen. No cortical edema or sulcal effacement. Mild to moderate atrophy changes are present . Moderate severity chronic ischemic change present as well. Intracranial findings are similar to the 2018 study. Ventricles are in proportion to the volume loss. Mastoid air cells and visualized portions of the paranasal sinuses are clear. No acute bony findings. IMPRESSION: Negative noncontrast CT head examination for acute findings. Atrophy and chronic ischemic changes are present matching 2018. Chronic ischemic changes can mask nonhemorrhagic acute infarction. MR brain followup can be obtained if there is ongoing concern for acute ischemia.
[2020-03-11 09:35] LABS: ALT/SGPT 31 U/L (12-78); AST/SGOT 35 U/L (15-37); Alkaline Phosphatase 77 U/L (45-117); BUN Blood Urea Nitrogen 21 mg/dL (7-18); Bicarbonate 27 mmol/L (21-32); Bilirubin Direct 0.3 mg/dL (0-0.2); Bilirubin Total 1.6 mg/dL (0.2-1.0); Glucose Level 102 mg/dL (74-106); Magnesium 2.2 mg/dL (1.8-2.4); NT PRO-BNP 71 pg/mL (<125); Potassium 4.3 mmol/L (3.5-5.1); Sodium Level 138 mmol/L (136-145); Troponin (Emerg Dept Use Only) < 0.02 ng/mL (0.0-0.045)
--- NOTE | 2020-03-11 09:42 | RAD REPORT ---
EXAM DESCRIPTION: RAD - Chest Single View - 03/11/2020 8:49 am CLINICAL HISTORY: CHEST PAIN COMPARISON: Portable February 15 TECHNIQUE: AP portable chest image was obtained 03/11/2020 8:49 am . FINDINGS: No focal mass or consolidation. Interstitial pattern is prominent but not different from c omparison. Heart and vasculature are normal. No measurable pleural effusion and no pneumothorax. No a cute bony abnormality seen. No acute aortic findings suspected. IMPRESSION: No acute cardiopulmonary process. Chest findings similar to February 15 study.
[2020-03-11 10:33] LABS: Urine Blood NEGATIVE (NEG); Urine Glucose NEGATIVE (NEG); Urine Protein NEGATIVE (NEG)
--- NOTE | 2020-03-11 11:18 | RAD REPORT ---
EXAM DESCRIPTION: CT - Chest For Pe Angio - 03/11/2020 11:04 am CLINICAL HISTORY: DYSPNEA COMPARISON: THORAX W CONTRAST dated 08/05/2006; Chest Single View dated 03/11/2020 TECHNIQUE: Dynamically enhanced 3 mm thick images of the chest were obtained during administration o f approximately 150mL Isovue 370 IV contrast. Coronal and oblique MIP reconstruction images were gene rated and reviewed. Exam utilizes a protocol to evaluate the pulmonary arterial tree. All CT scans are performed using dose optimization technique as appropriate and may include automated exposure control or mA/KV adjustment according to patient size. FINDINGS: No pulmonary emboli are identified. The aorta as imaged shows no acute or suspicious finding. No pericardial thickening or effusion. Lef t vertebral artery arises from the aortic arch is a normal anatomic variant. Minimal emphysema changes are seen in the upper lung vann. No acute lung parenchymal process. Motio n degradation is present. No pleural effusion or pleural thickening. No mediastinal or hilar suspicious masses. No chest wall masses or abnormal axillary lymphadenopathy. IMPRESSION: No pulmonary emboli identified. Prominent interstitial pattern matching prior imaging. No acute findings evident.
--- NOTE | 2020-03-11 11:21 | EDPHYS ---
Physician Documentation [facility] Name: Mary Healy Age: 70 yrs Sex: Female : 1950 Arrival Date: 03/11/2020 Time: 07:40 Bed 7 Private MD: Rey Valenzuela ED Physician Will Lockhart HPI: 03/11 08:32 This 70 yrs old Female presents to ER via Ambulatory with complaints of arron Trouble Walking. 08:33 The patient or guardian reports chest pain that is located primarily in the anterior arron chest wall, right. Onset: 1 day(s) ago. The patient presents with generalized weakness, feeling off balance. Onset: The symptoms/episode began/occurred this morning, today. Context: occurred outdoors, occurred while the patient was walking. Modifying factors: The symptoms are alleviated by nothing, the symptoms are aggravated by nothing. Associated signs and symptoms: The patient has no apparent associated signs or symptoms. Severity of symptoms: At their worst the symptoms were mild in the emergency department the symptoms have improved mildly. Associated signs and symptoms: The patient has no apparent associated signs or symptoms. Historical: - Allergies: 07:59 PENICILLINS; hb - Home Meds: 07:59 amlodipine-benazepril 10-20 mg Oral cap 1 cap once daily [Active]; metoprolol tartrate hb 50 mg Oral tab 1 tab 2 times per day [Active]; - PMHx: 07:59 Alzheimers; Hypertension; hb - PSHx: 07:59 Hysterectomy; ; hb - Immunization history:: Adult Immunizations up to date. - Social history:: Smoking status: Patient denies any tobacco usage or history of. - Family history:: not pertinent. ROS: 08:33 Constitutional: Negative for fever, chills, and weight loss, Eyes: Negative for injury, arron pain, redness, and discharge, ENT: Negative for injury, pain, and discharge, Neck: Negative for injury, pain, and swelling, Respiratory: Negative for shortness of breath, cough, wheezing, and pleuritic chest pain, Abdomen/GI: Negative for abdominal pain, nausea, vomiting, diarrhea, and constipation, Back: Negative for injury and pain, : Negative for injury, bleeding, discharge, and swelling, MS/Extremity: Negative for injury and deformity, Skin: Negative for injury, rash, and discoloration, Psych: Negative for depression, anxiety, suicide ideation, homicidal ideation, and hallucinations, Allergy/Immunology: Negative for hives, rash, and allergies, Endocrine: Negative for neck swelling, polydipsia, polyuria, polyphagia, and marked weight changes, Hematologic/Lymphatic: Negative for swollen nodes, abnormal bleeding, and unusual bruising. 08:33 Cardiovascular: Positive for chest pain, of the anterior aspect of right upper chest and right breast. 08:33 Neuro: Positive for dizziness, gait disturbance. Exam: 08:33 Constitutional: This is a well developed, well nourished patient who is awake, alert, arron and in no acute distress. Head/Face: Normocephalic, atraumatic. Eyes: Pupils equal round and reactive to light, extra-ocular motions intact. Lids and lashes normal. Conjunctiva and sclera are non-icteric and not injected. Cornea within normal limits. Periorbital areas with no swelling, redness, or edema. ENT: Nares patent. No nasal discharge, no septal abnormalities noted. Tympanic membranes are normal and external auditory canals are clear. Oropharynx with no redness, swelling, or masses, exudates, or evidence of obstruction, uvula midline. Mucous membranes moist. Neck: Trachea midline, no thyromegaly or masses palpated, and no cervical lymphadenopathy. Supple, full range of motion without nuchal rigidity, or vertebral point tenderness. No Meningismus. Chest/axilla: Normal chest wall appearance and motion. Nontender with no deformity. No lesions are appreciated. Cardiovascular: Regular rate and rhythm with a normal S1 and S2. No gallops, murmurs, or rubs. Normal PMI, no JVD. No pulse deficits. Respiratory: Lungs have equal breath sounds bilaterally, clear to auscultation and percussion. No rales, rhonchi or wheezes noted. No increased work of breathing, no retractions or nasal flaring. Abdomen/GI: Soft, non-tender, with normal bowel sounds. No distension or tympany. No guarding or rebound. No evidence of tenderness throughout. Back: No spinal tenderness. No costovertebral tenderness. Full range of motion. Skin: Warm, dry with normal turgor. Normal color with no rashes, no lesions, and no evidence of cellulitis. MS/ Extremity: Pulses equal, no cyanosis. Neurovascular intact. Full, normal range of motion. Neuro: Awake and alert, GCS 15, oriented to person, place, time, and situation. Cranial nerves II-XII grossly intact. Motor strength 5/5 in all extremities. Sensory grossly intact. Cerebellar exam normal. Normal gait. Psych: Awake, alert, with orientation to person, place and time. Behavior, mood, and affect are within normal limits. 08:36 Musculoskeletal/extremity: DVT Exam: No signs of deep vein thrombosis. no pain, no arron swelling, no tenderness, negative Homans' sign noted on exam, no appreciated bluish discoloration, no erythema, no increased warmth. 08:39 Neck: External neck: is normal, no acute changes, ROM/movement: is normal, no acute arron changes, Meningeal signs: are not present, Kernig's sign is negative, Brudzinski's sign is negative. 08:39 Cardiovascular: JVD: is not appreciated. 09:17 ECG was reviewed by the Attending Physician. arron 09:19 Chest/axilla: Inspection: normal, Palpation: is normal, no acute changes, Axilla: are arron normal, no acute changes, lymphadenopathy, is not appreciated, Breasts: are normal, no acute changes, Lymph nodes: lymphadenopathy is not appreciated. 09:19 Cardiovascular: no carotid bruits. Vital Signs: 07:55 BP 115 / 56; Pulse 79; Resp 16; Temp 97.9; Pulse Ox 100% ; Weight 53.52 kg; Height 5 hb ft. 3 in. (160.02 cm); Pain 0/10; 10:00 BP 122 / 62; Pulse 76; Resp 18; Pulse Ox 98% on R/A; ph 11:30 BP 118 / 70; Pulse 75; Resp 16; Temp 97.5; Pulse Ox 99% on R/A; ph 07:55 Body Mass Index 20.90 (53.52 kg, 160.02 cm) hb NIH Stroke Scale Scores: 08:33 NIHSS Score: 0 arron 09:08 NIHSS Score: 0 ph MDM: 08:16 Patient medically screened. arron 08:36 Data reviewed: vital signs, nurses notes, lab test result(s), EKG, radiologic studies, arron CT scan, plain films. 08:37 Differential diagnosis: abnormal EKG, acute myocardial infarction, coronary artery arron disease chest wall pain, pulmonary embolus, unstable angina. HEART Score: History: Slightly Suspicious (0), Age: > or = 65 years (2), Risk Factors: 1 or 2 risk factors (1). Differential diagnosis: cardiac arrhythmia, generalized weakness. The patient's deep vein thrombosis risk score was calculated as follows: Total Score: 0. This patient was found to be at low risk for a deep vein thrombosis by using the Well's assessment criteria. The patient's pulmonary embolism risk score was calculated as follows: Total Score: 0-2 points. This patient was found to be at low risk for a pulmonary embolism by using the Well's assessment criteria. 09:04 ED course: pt complaint of right sided cp. [facility] 03/11 08:32 Order name: Basic Metabolic Panel; Complete Time: 09:40 [facility] 03/11 08:32 Order name: CBC with Diff; Complete Time: 09:21 [facility] 03/11 08:32 Order name: LFT's; Complete Time: 09:40 [facility] 03/11 08:32 Order name: Magnesium; Complete Time: 09:40 [facility] 03/11 08:32 Order name: NT PRO-BNP; Complete Time: 09:40 [facility] 03/11 08:32 Order name: Troponin (emerg Dept Use Only); Complete Time: 09:40 [facility] 03/11 08:32 Order name: XRAY Chest (1 view); Complete Time: 09:56 [facility] 03/11 08:32 Order name: EKG; Complete Time: 08:33 [facility] 03/11 08:32 Order name: CT Head Brain wo Cont: dizzy, difficulty walking; Complete Time: 09:19 [facility] 03/11 08:39 Order name: D-Dimer; Complete Time: 09:40 [facility] 03/11 09:41 Order name: CT Chest For PE Angio: elevated d-dimer, right side chst pain, ro dvt; [facility] Complete Time: 11:21 03/11 10:13 Order name: Urine Dipstick--Ancillary (enter results); Complete Time: 10:45 03/11 08:32 Order name: Cardiac monitoring; Complete Time: 09:08 [facility] 03/11 08:32 Order name: EKG - Nurse/Tech; Complete Time: 09:08 [facility] 03/11 08:32 Order name: IV Saline Lock; Complete Time: 09:08 [facility] 03/11 08:32 Order name: Labs collected and sent; Complete Time: 09:08 [facility] 03/11 08:32 Order name: O2 Per Protocol; Complete Time: 09:08 [facility] 03/11 08:32 Order name: O2 Sat Monitoring; Complete Time: 09: [facility] 03/11 08:32 Order name: Urine Dipstick-Ancillary (obtain specimen); Complete Time: 10:05 [facility] EC:17 Rate is 60 beats/min. Rhythm is regular. QRS [place] is Normal. [place] interval is normal. QRS arron interval is normal. QT interval is normal. No Q waves. T waves are Normal. No ST changes noted. Clinical impression: Normal ECG. Administered Medications: 11:59 Not Given (Patient Refused): NS 0.9% 500 ml IV at bolus once ph 11:59 Not Given (Other Intervention Used): Aspirin Chewable Tablet 162 mg PO once ph Disposition: 03/11/20 11:21 Discharged to Home. Impression: Dementia in other diseases classified elsewhere, Chest pain, unspecified - right sided, non cardiac, Dizziness and giddiness, Alzheimer's disease, Chronic obstructive pulmonary disease, unspecified. - Condition is Stable. - Discharge Instructions: Nonspecific Chest Pain, Chronic Obstructive Pulmonary Disease, Dizziness, Fall Prevention in the Home, Chronic Obstructive Pulmonary Disease, [id number]-[id number], Nonspecific Chest Pain, [id number], Fall Prevention in the Home, [id number], Aspirin and Your Heart, Dizziness, Izux-fl-Abro. - Medication Reconciliation Form, Thank You Letter, Antibiotic Education, Prescription Opioid Use form. - Follow up: Rey Valenzuela; When: 2 - 3 days; Reason: Recheck today's complaints, Continuance of care, Re-evaluation by your physician. - Problem is new. - Symptoms have improved. NIH Stroke Scale - NIH Stroke Score Date: 03/11/2020 Time: 08:33 Total Score = 0 1a. Level of Consciousness (LOC) - 0(Alert) 1b. Level of Consciousness (LOC) (Year \T\ Age) - 0(Both) 1c. LOC Commands (Open \T\ Closes Eyes/Automotive Professional) - 0(Both) 2. Best Gaze (Lateral Gaze Paresis) - 0(Normal) 3. Visual Field Loss - 0(No visual loss) 4. Facial Palsy - 0(Normal) 5a. Left Arm: Motor (10-second hold) - 0(No drift) 5b. Right Arm: Motor (10-second hold) - 0(No drift) 6a. Left Leg: Motor (5-second hold - always test supine) - 0(No drift) 6b. Right Leg: Motor (5-second hold - always test supine) - 0(No drift) 7. Limb Ataxia (finger/nose \T\ heel/serna - test with eyes open) - 0(Absent) 8. Sensory Loss (pinprick arms/legs/face) - 0(Normal) 9. Best Language: Aphasia (description/naming/reading) - 0(No aphasia) 10. Dysarthria (speech clarity - read or repeat words) - 0(Normal) 11. Extinction and Inattention (visual/tactile/auditory/spatial/personal) - 0(No abnormality) Initials: [facility] NIH Stroke Scale - NIH Stroke Score Date: 03/11/2020 Time: 09:08 Total Score = 0 1a. Level of Consciousness (LOC) - 0(Alert) 1b. Level of Consciousness (LOC) (Year \T\ Age) - 0(Both) 1c. LOC Commands (Open \T\ Closes Eyes/Automotive Professional) - 0(Both) 2. Best Gaze (Lateral Gaze Paresis) - 0(Normal) 3. Visual Field Loss - 0(No visual loss) 4. Facial Palsy - 0(Normal) 5a. Left Arm: Motor (10-second hold) - 0(No drift) 5b. Right Arm: Motor (10-second hold) - 0(No drift) 6a. Left Leg: Motor (5-second hold - always test supine) - 0(No drift) 6b. Right Leg: Motor (5-second hold - always test supine) - 0(No drift) 7. Limb Ataxia (finger/nose \T\ heel/serna - test with eyes open) - 0(Absent) 8. Sensory Loss (pinprick arms/legs/face) - 0(Normal) 9. Best Language: Aphasia (description/naming/reading) - 0(No aphasia) 10. Dysarthria (speech clarity - read or repeat words) - 0(Normal) 11. Extinction and Inattention (visual/tactile/auditory/spatial/personal) - 0(No abnormality) Initials: ph Signatures: Dispatcher [employer] Will Greer MD MD cha Hall, Patricia, KARLEE RN Bonnie Sarabia RN RN Corrections: (The following items were deleted from the chart) 12:00 11:21 03/11/2020 11:21 Discharged to Home. Impression: Dementia in other ph diseases classified elsewhere; Chest pain, unspecified - right sided, non cardiac; Dizziness and giddiness; Alzheimer's disease; Chronic obstructive pulmonary disease, unspecified. Condition is Stable. Discharge Instructions: Nonspecific Chest Pain, Nonspecific Chest Pain, Wxsy-pr-Iime, Dizziness, Fall Prevention in the Home, Fall Prevention in the Home, [id number], Aspirin and Your Heart, Dizziness, [id number]. Forms are Medication Reconciliation Form, Thank You Letter, Antibiotic Education, Prescription Opioid Use. Follow up: Rey Valenzuela; When: 2 - 3 days; Reason: Recheck today's complaints, Continuance of care, Re-evaluation by your physician. Problem is new. Symptoms have improved. arron
--- NOTE | 2020-03-11 11:21 | ER ---
Nurse's Notes [facility] Name: Mary Healy Age: 70 yrs Sex: Female : 1950 Arrival Date: 03/11/2020 Time: 07:40 Bed 7 Private MD: Rey Valenzuela Diagnosis: Dementia in other diseases classified elsewhere;Chest pain, unspecified-right sided, non cardiac;Dizziness and giddiness;Alzheimer's disease;Chronic obstructive pulmonary disease, unspecified Presentation: 03/11 07:55 Chief complaint: "I walked here from my house because I did not have a ride, and I am hb feeling like I am unsteady on my feet." Ambulated to triage with steady gait. VAN Negative. reports last known normal was 10pm last night. Coronavirus screen: Proceed with normal triage. Ebola Screen: No symptoms or risks identified at this time. Initial Sepsis Screen: Does the patient meet any 2 criteria? No. Patient's initial sepsis screen is negative. Does the patient have a suspected source of infection? No. Patient's initial sepsis screen is negative. Risk Assessment: Do you want to hurt yourself or someone else? Patient reports no desire to harm self or others. Onset of symptoms was March 11, 2020. 07:55 Method Of Arrival: Ambulatory hb 07:55 Acuity: AASHISH 3 hb 09:11 No acute neurological deficit is noted. Pre-hospital glucose is not applicable to this ph patient. Stroke Activation: Symptom onset > 6 hours Physician: Stroke Attending; Name: ; Notified At: ; Arrived At: Physician: Chief Stroke Resident; Name: ; Notified At: ; Arrived At: Physician: Stroke Resident; Name: ; Notified At: ; Arrived At: Physician: ED Attending; Name: ; Notified At: ; Arrived At: Physician: ED Resident; Name: ; Notified At: ; Arrived At: Historical: - Allergies: 07:59 PENICILLINS; hb - Home Meds: 07:59 amlodipine-benazepril 10-20 mg Oral cap 1 cap once daily [Active]; metoprolol tartrate hb 50 mg Oral tab 1 tab 2 times per day [Active]; - PMHx: 07:59 Alzheimers; Hypertension; hb - PSHx: 07:59 Hysterectomy; ; hb - Immunization history:: Adult Immunizations up to date. - Social history:: Smoking status: Patient denies any tobacco usage or history of. - Family history:: not pertinent. Screenin:10 Abuse screen: Denies threats or abuse. Denies injuries from another. Nutritional ph screening: No deficits noted. Tuberculosis screening: No symptoms or risk factors identified. Fall Risk None identified. Assessment: 09:08 VAN Scoring: Arm Drift: Patients demonstrates NO arm weakness. Patient is VAN Negative. ph Patient has been NPO before screening. The patient is alert, and able to follow commands. The patient does not exhibit slurred or garbled speech. The patient is not exhibiting difficulty speaking. The patient does not exhibit difficulty understanding words. The patient is able to swallow own secretions with no drooling or need for suction. Patient tolerated one teaspoon of water. No drooling, immediate coughing, gurgling, or clearing of the throat was noted. The patient tolerated 90mL of water. No drooling, immediate coughing, gurgling, or clearing of the throat was noted. The patient passed the bedside swallow screening. Oral medications may be given as ordered. Contact Physician for further diet orders. Provider notified of bedside swallow screening results: Will Lockhart MD. General: Appears in no apparent distress. comfortable, slender, well groomed, Behavior is calm, cooperative, appropriate for age, Denies fever, feeling ill. Pain: Complains of pain in anterior aspect of right upper chest. Neuro: Level of Consciousness is awake, alert, obeys commands, Oriented to person, place, time, situation. Cardiovascular: Reports chest pain, fatigue, Denies nausea, shortness of breath, Capillary refill < 3 seconds in bilateral fingers Patient's skin is warm and dry. Rhythm is sinus rhythm. Respiratory: Airway is patent Respiratory effort is even, unlabored. GI: No signs and/or symptoms were reported involving the gastrointestinal system. : No signs and/or symptoms were reported regarding the genitourinary system. Derm: Skin is intact, Skin is pink, warm \\T\\ dry. Musculoskeletal: Circulation, motion, and sensation intact. Range of motion: intact in all extremities. 10:23 Reassessment: Patient appears in no apparent distress at this time. Pt taken to CT for ph scan, c/o pain to IV, IV flushes well and has good blood return, offered to start a new IV for CT, pt refused, states, " I don't want to do this if it is going to hurt." Explained to pt the importance of the CT scan to check for blood clot in lungs, pt continues to refuse scan, states, " I'm going to call my and see what he wants me to do" ERP notified of refusal. 10:30 Reassessment: Spoke w/ daughter on phone who reports that pt has been "off the past few ph days" states, " My step dad and I have had to sleep out in the car because she doesn't recognize us, she called the police a few days ago and told them that someone had stolen all of her clothes." States that pt was seen recently in ED and dx w/ UTI, reports that pt has been taking antibiotics as prescribed. 11:00 Reassessment: Patient appears in no apparent distress at this time. Patient and/or ph family updated on plan of care and expected duration. Pain level reassessed. Pt's allowed to join pt in room, spoke w/ pt and encouraged her to have CT scan done, pt agrees, taken to CT via wheelchair. Vital Signs: 07:55 BP 115 / 56; Pulse 79; Resp 16; Temp 97.9; Pulse Ox 100% ; Weight 53.52 kg; Height 5 hb ft. 3 in. (160.02 cm); Pain 0/10; 10:00 BP 122 / 62; Pulse 76; Resp 18; Pulse Ox 98% on R/A; ph 11:30 BP 118 / 70; Pulse 75; Resp 16; Temp 97.5; Pulse Ox 99% on R/A; ph 07:55 Body Mass Index 20.90 (53.52 kg, 160.02 cm) hb NIH Stroke Scale Scores: 08:33 NIHSS Score: 0 arron 09:08 NIHSS Score: 0 ph ED Course: 07:40 Patient arrived in ED. mr 07:40 Rey Valenzuela MD is Private Physician. mr 07:45 Will Lockhart MD is Attending Physician. arron 07:58 Triage completed. hb 08:00 Arm band placed on. hb 08:48 CT completed. Patient tolerated procedure well. Patient moved back from CT. bq 08:48 CT Head Brain wo Cont: dizzy, difficulty walking In Process Unspecified. EDMS 08:49 XRAY Chest (1 view) In Process Unspecified. EDMS 08:51 [place] Abel, RN is Primary Nurse. ph 09:06 Inserted saline lock: 22 gauge in right forearm, using aseptic technique. Blood ph collected. 09:11 Patient has correct armband on for positive identification. Placed in gown. Bed in low ph position. Call light in reach. Side rails up X2. box stamper on. Pulse ox on. NIBP on. Door closed. Noise minimized. Warm blanket given. 11:01 CT completed. pts with pt during ct scan. Patient moved back from CT. bq 11:05 CT Chest For PE Angio: elevated d-dimer, right side chst pain, ro dvt In Process EDMS Unspecified. 11:20 Rey Valenzuela MD is Referral Physician. arron 12:00 No provider procedures requiring assistance completed. IV discontinued, intact, ph bleeding controlled, No redness/swelling at site. Pressure dressing applied. Administered Medications: 11:59 Not Given (Patient Refused): NS 0.9% 500 ml IV at bolus once ph 11:59 Not Given (Other Intervention Used): Aspirin Chewable Tablet 162 mg PO once ph Outcome: 11:21 Discharge ordered by . arron 12:00 Patient left the ED. ph 12:00 Discharged to home ambulatory, with significant other. ph 12:00 Condition: good 12:00 Discharge instructions given to patient, significant other, Instructed on discharge instructions, follow up and referral plans. Demonstrated understanding of instructions, follow-up care. NIH Stroke Scale - NIH Stroke Score Date: 03/11/2020 Time: 08:33 Total Score = 0 1a. Level of Consciousness (LOC) - 0(Alert) 1b. Level of Consciousness (LOC) (Year \\T\\ Age) - 0(Both) 1c. LOC Commands (Open \\T\\ Closes Eyes/[employer]) - 0(Both) 2. Best Gaze (Lateral Gaze Paresis) - 0(Normal) 3. Visual Field Loss - 0(No visual loss) 4. Facial Palsy - 0(Normal) 5a. Left Arm: Motor (10-second hold) - 0(No drift) 5b. Right Arm: Motor (10-second hold) - 0(No drift) 6a. Left Leg: Motor (5-second hold - always test supine) - 0(No drift) 6b. Right Leg: Motor (5-second hold - always test supine) - 0(No drift) 7. Limb Ataxia (finger/nose \\T\\ heel/serna - test with eyes open) - 0(Absent) 8. Sensory Loss (pinprick arms/legs/face) - 0(Normal) 9. Best Language: Aphasia (description/naming/reading) - 0(No aphasia) 10. Dysarthria (speech clarity - read or repeat words) - 0(Normal) 11. Extinction and Inattention (visual/tactile/auditory/spatial/personal) - 0(No abnormality) Initials: [facility] NIH Stroke Scale - NIH Stroke Score Date: 03/11/2020 Time: 09:08 Total Score = 0 1a. Level of Consciousness (LOC) - 0(Alert) 1b. Level of Consciousness (LOC) (Year \\T\\ Age) - 0(Both) 1c. LOC Commands (Open \\T\\ Closes Eyes/[employer]) - 0(Both) 2. Best Gaze (Lateral Gaze Paresis) - 0(Normal) 3. Visual Field Loss - 0(No visual loss) 4. Facial Palsy - 0(Normal) 5a. Left Arm: Motor (10-second hold) - 0(No drift) 5b. Right Arm: Motor (10-second hold) - 0(No drift) 6a. Left Leg: Motor (5-second hold - always test supine) - 0(No drift) 6b. Right Leg: Motor (5-second hold - always test supine) - 0(No drift) 7. Limb Ataxia (finger/nose \\T\\ heel/serna - test with eyes open) - 0(Absent) 8. Sensory Loss (pinprick arms/legs/face) - 0(Normal) 9. Best Language: Aphasia (description/naming/reading) - 0(No aphasia) 10. Dysarthria (speech clarity - read or repeat words) - 0(Normal) 11. Extinction and Inattention (visual/tactile/auditory/spatial/personal) - 0(No abnormality) Initials: ph Signatures: Dispatcher [employer] Will Greer MD MD cha Rivera, Patti mr Zaira Jordan Patricia, RN RN ph Baxter, Heather, RN RN
[2020-03-11 12:07] VITALS: BP 115/56; TEMP 97.9; O2SAT 100
--- NOTE | 2020-03-12 20:15 | EKG ---
Test Date: 2020-03-11 Test Time: 09:02:36 Overlock Sewing Machine Operator: REED MEASUREMENT RESULTS: Intervals: Rate: 60 NE: 138 QRSD: 70 QT: 428 QTc: 428 [place]: P: 61 NE: 138 QRS: 47 T: 68 INTERPRETIVE STATEMENTS: Normal sinus rhythm Normal ECG Compared to ECG 02/16/2020 04:57:46 No significant changes Electronically Signed On 03-12-20 20:11:19 CDT by José Luis Palmer
== END 2020-03-11 12:00 | disposition home or self-care (01) ==
LOC: ER 07:36
DX: J44.9 Chronic obstructive pulmonary disease, unspecified (principal); R42 Dizziness and giddiness; G30.9 Alzheimer's disease, unspecified; F02.80 Dementia in other diseases classified elsewhere, unspecified severity, without behavioral disturbance, psychotic disturbance, mood disturbance, and anxiety; I10 Essential (primary) hypertension; Z88.0 Allergy status to penicillin
CPT/HCPCS: 93005; 85025; 80048; 36415; 83735; 85379; 80076; 81003; 84484; 83880; 70450; 71275; 71045; 99285; Q9967

== ENCOUNTER 2020-03-19 13:52 | Emergency (ER) | payer OTHER ==
--- OUTSIDE RECORDS SUMMARY | 2020-03-19 13:53 | XMS REPORT ---
:1950 Author Organization [facility] t Address [address] [place] [address] Care Team Providers Name Role Phone Unavailable Unavailable Unavailable Problems This patient has no known problems. Allergies, Adverse Reactions, Alerts This patient has no known allergies or adverse reactions. Medications This patient has no known medications.
--- NOTE | 2020-03-19 14:35 | ER ---
Nurse's Notes [facility] Name: Mary Healy Age: 70 yrs Sex: Female : 1950 Arrival Date: 03/19/2020 Time: 13:54 Bed 25 Private MD: Rey Valenzuela Diagnosis: vaginitis Presentation: 03/19 14:04 Chief complaint: Patient states: Rash to vaginal/perineal area since yesterday morning ll1 after using pamper wipes. Reports pain with wiping. States skin is sloughing off and its painful. Coronavirus screen: Proceed with normal triage. Patient denies a cough. Patient denies shortness of breath or difficulty breathing. Patient denies measured and/or subjective temperature greater than 100.4F prior to today's visit. Patient denies travel on a cruise ship or to a country the [facility] currently lists as an affected area. Patient denies contact with known and/or suspected case of COVID-19. Ebola Screen: Patient denies travel to an Ebola-affected area in the 21 days before illness onset. Initial Sepsis Screen: Does the patient meet any 2 criteria? No. Patient's initial sepsis screen is negative. Does the patient have a suspected source of infection? No. Patient's initial sepsis screen is negative. Risk Assessment: Do you want to hurt yourself or someone else? Patient reports no desire to harm self or others. 14:04 Method Of Arrival: Ambulatory [facility] 14:04 Acuity: AASHISH 4 ll1 14:06 Onset of symptoms was March 18, 2020. 1 Triage Assessment: 14:15 General: Appears in no apparent distress. Behavior is cooperative, restless. Pain: vc Complains of pain in left labia minora and right labia minora and left labia majora and right labia majora Pain does not radiate. Historical: - Allergies: 14:06 PENICILLINS; ll1 - PMHx: 14:06 Alzheimers; Hypertension; ll1 - PSHx: 14:06 Hysterectomy; ; ll1 - Immunization history:: Adult Immunizations up to date. - Social history:: Smoking status: Patient denies any tobacco usage or history of. Patient/guardian denies using alcohol, street drugs, tobacco products. Screenin:15 Abuse screen: Denies threats or abuse. Nutritional screening: No deficits noted. vc Tuberculosis screening: No symptoms or risk factors identified. Fall Risk None identified. Assessment: 14:15 General: Appears in no apparent distress. uncomfortable, Behavior is calm, cooperative, vc appropriate for age. Pain: Complains of pain in left labia minora and right labia minora and left labia majora and right labia majora Quality of pain is described as burning, tender, Pain began 1 day ago. Is intermittent, Aggravated by wiping. Neuro: Level of Consciousness is awake, alert, obeys commands, Oriented to person, place, time, situation. Cardiovascular: Patient's skin is warm and dry. Respiratory: Respiratory effort is even, unlabored, Respiratory pattern is regular, symmetrical. : Reports pain when wiping. Derm: No deficits noted. 15:00 Reassessment: Patient appears in no apparent distress at this time. Patient and/or vc family updated on plan of care and expected duration. Pain level reassessed. Patient states symptoms have not improved. Vital Signs: 14:04 BP 132 / 63; Pulse 68; Resp 18; Temp 97.7; Pulse Ox 96% ; Pain 9/10; ll1 ED Course: 13:54 Patient arrived in ED. mr 13:55 Rey Valenzuela MD is Private Physician. mr 14:06 Triage completed. ll1 14:07 Arm band placed on Patient placed in an exam room, on a stretcher. ll1 14:10 Sherine Malave FNP-C is [facility]. snw 14:10 Andrae Jimenez MD is Attending Physician. snw 14:15 Patient has correct armband on for positive identification. Bed in low position. Call vc light in reach. 14:34 Rey Valenzuela MD is Referral Physician. snw 15:10 No provider procedures requiring assistance completed. Patient did not have IV access vc during this emergency room visit. 15:12 Christina Nowak RN is Primary Nurse. vc Administered Medications: 15:11 Drug: DiFLUcan 200 mg Route: PO; vc 15:11 Follow up: Response: No adverse reaction; Medication administered at discharge. vc Outcome: 14:35 Discharge ordered by MD. snw 15:10 Discharged to home ambulatory. vc 15:10 Condition: good 15:10 Discharge instructions given to patient, Instructed on discharge instructions, follow up and referral plans. medication usage, Demonstrated understanding of instructions, follow-up care, medications, Prescriptions given X 1. 15:12 Patient left the ED. vc Signatures: Sherine Malave, FABIOLA NOTCH MACHINE OPERATOR-Patti Stephens mr Christina Nowak, RN RN vc Rhina Quispe RN RN ll1
--- NOTE | 2020-03-19 14:35 | EDPHYS ---
Physician Documentation [facility] Name: Mary Healy Age: 70 yrs Sex: Female : 1950 Arrival Date: 03/19/2020 Time: 13:54 Bed 25 Private MD: Rey Valenzuela ED Physician Andrae Jimenez HPI: 03/19 15:02 This 70 yrs old Female presents to ER via Ambulatory with complaints of Rash. snw 15:02 The patient's rash thought to be caused by Dermatitis. The rash is located on the right snw labia majora, left labia majora, right labia minora and left labia minora. The rash can be described as minimally red, mild excoriation. Onset: The symptoms/episode began/occurred suddenly, post using pampers wipes. Associated signs and symptoms: Pertinent positives: burning sensation, Pain. Severity of symptoms: At their worst the symptoms were very mild in the emergency department the symptoms are unchanged. The patient has not experienced similar symptoms in the past. The patient has not recently seen a physician. Historical: - Allergies: 14:06 PENICILLINS; ll1 - PMHx: 14:06 Alzheimers; Hypertension; ll1 - PSHx: 14:06 Hysterectomy; ; ll1 - Immunization history:: Adult Immunizations up to date. - Social history:: Smoking status: Patient denies any tobacco usage or history of. Patient/guardian denies using alcohol, street drugs, tobacco products. ROS: 14:58 Constitutional: Negative for fever, chills, and weight loss, Eyes: Negative for injury, snw pain, redness, and discharge, ENT: Negative for injury, pain, and discharge, Neck: Negative for injury, pain, and swelling, Cardiovascular: Negative for chest pain, palpitations, and edema, Respiratory: Negative for shortness of breath, cough, wheezing, and pleuritic chest pain, Abdomen/GI: Negative for abdominal pain, nausea, vomiting, diarrhea, and constipation, Back: Negative for injury and pain, MS/Extremity: Negative for injury and deformity, Skin: Negative for injury, rash, and discoloration, Neuro: Negative for headache, weakness, numbness, tingling, and seizure, Psych: Negative for depression, anxiety, suicide ideation, homicidal ideation, and hallucinations. 14:58 : Positive for vaginal itching, burning pain post using pampers wipes. Exam: 14:57 Constitutional: This is a well developed, well nourished patient who is awake, alert, snw and in no acute distress. Head/Face: Normocephalic, atraumatic. Eyes: Pupils equal round and reactive to light, extra-ocular motions intact. Lids and lashes normal. Conjunctiva and sclera are non-icteric and not injected. Cornea within normal limits. Periorbital areas with no swelling, redness, or edema. ENT: Nares patent. No nasal discharge, no septal abnormalities noted. Tympanic membranes are normal and external auditory canals are clear. Oropharynx with no redness, swelling, or masses, exudates, or evidence of obstruction, uvula midline. Mucous membranes moist. Neck: Trachea midline, no thyromegaly or masses palpated, and no cervical lymphadenopathy. Supple, full range of motion without nuchal rigidity, or vertebral point tenderness. No Meningismus. Chest/axilla: Normal chest wall appearance and motion. Nontender with no deformity. No lesions are appreciated. Cardiovascular: Regular rate and rhythm with a normal S1 and S2. No gallops, murmurs, or rubs. Normal PMI, no JVD. No pulse deficits. Respiratory: Lungs have equal breath sounds bilaterally, clear to auscultation and percussion. No rales, rhonchi or wheezes noted. No increased work of breathing, no retractions or nasal flaring. Abdomen/GI: Soft, non-tender, with normal bowel sounds. No distension or tympany. No guarding or rebound. No evidence of tenderness throughout. Back: No spinal tenderness. No costovertebral tenderness. Full range of motion. Skin: Warm, dry with normal turgor. Normal color with no rashes, no lesions, and no evidence of cellulitis. MS/ Extremity: Pulses equal, no cyanosis. Neurovascular intact. Full, normal range of motion. Neuro: Awake and alert, GCS 15, oriented to person, place, time, and situation. Cranial nerves II-XII grossly intact. Motor strength 5/5 in all extremities. Sensory grossly intact. Cerebellar exam normal. Normal gait. Psych: Awake, alert, with orientation to person, place and time. Behavior, mood, and affect are within normal limits. 14:57 : CVA tenderness, that is mild, Pelvic Exam: External exam: erythema is noted, mild, the nurse was present for the exam. Vital Signs: 14:04 BP 132 / 63; Pulse 68; Resp 18; Temp 97.7; Pulse Ox 96% ; Pain 9/10; ll1 MDM: 14:24 Patient medically screened. snw 15:01 Data reviewed: vital signs, nurses notes. Data interpreted: Pulse oximetry: on room air snw is 96 %. Interpretation: normal. Counseling: I had a detailed discussion with the patient and/or guardian regarding: the historical points, exam findings, and any diagnostic results supporting the discharge/admit diagnosis, lab results, the need for outpatient follow up, for definitive care, to return to the emergency department if symptoms worsen or persist or if there are any questions or concerns that arise at home. Special discussion: Based on the history and exam findings, there is no indication for further emergent testing or inpatient evaluation. I discussed with the patient/guardian the need to see the OB Gyne specialist for further evaluation of the symptoms. I discussed with the patient/guardian the need to see the primary care provider for further evaluation of the symptoms. 03/19 14:38 Order name: Urine Dipstick--Ancillary (enter results) ss 03/19 14:34 Order name: Urine Dipstick-Ancillary (obtain specimen); Complete Time: 14:36 snw Administered Medications: 15:11 Drug: DiFLUcan 200 mg Route: PO; vc 15:11 Follow up: Response: No adverse reaction; Medication administered at discharge. vc Disposition: 15:29 Co-signature as Attending Physician, Andrae Jimenez MD. rn Disposition: 03/19/20 14:35 Discharged to Home. Impression: vaginitis. - Condition is Stable. - Discharge Instructions: Rash, How to Take a Sitz Bath, Vaginal Yeast Infection, Adult, Vulvar Pain. - Prescriptions for Lotrimin AF 1 % Topical cream - apply 1 application by TOPICAL route 2 times per day apply to external vaginal area as directed; 50 gram. - Medication Reconciliation Form, Thank You Letter, Antibiotic Education, Prescription Opioid Use form. - Follow up: Rey Valenzuela MD; When: 1 week; Reason: Recheck today's complaints, Continuance of care, Re-evaluation by your physician. Follow up: Emergency Department; When: As needed; Reason: Worsening of condition. Signatures: Dispatcher [employer] EDMS Sherine Malave, CITY SUPERVISOR-C CITY SUPERVISOR-Csnw Andrae Jimenez MD MD rn Calcote, Vanessa, RN RN vc Lewis, Lynsay, RN RN ll1 Corrections: (The following items were deleted from the chart) 15:12 14:35 03/19/2020 14:35 Discharged to Home. Impression: vaginitis. Condition is Stable. vc Forms are Medication Reconciliation Form, Thank You Letter, Antibiotic Education, Prescription Opioid Use. Follow up: Rey Valenzuela; When: 1 week; Reason: Recheck today's complaints, Continuance of care, Re-evaluation by your physician. Follow up: Emergency Department; When: As needed; Reason: Worsening of condition. snw
[2020-03-19] MEDS ORDERED: FLUCONAZOLE 100 MG TAB ONE (15:12)
[2020-03-19 15:14] LABS: Urine Blood 1+ (NEG); Urine Glucose NEGATIVE (NEG); Urine Protein TRACE (NEG); Urine Specific Gravity >1.030 (1.005-1.030); Urine pH 5.5 (5.0-7.0)
[2020-03-19 15:35] VITALS: BP 132/63; TEMP 97.7; O2SAT 96
== END 2020-03-19 15:12 | disposition home or self-care (01) ==
LOC: ER 13:52
DX: N76.0 Acute vaginitis (principal); I10 Essential (primary) hypertension; G30.9 Alzheimer's disease, unspecified; F02.80 Dementia in other diseases classified elsewhere, unspecified severity, without behavioral disturbance, psychotic disturbance, mood disturbance, and anxiety; Z88.0 Allergy status to penicillin
CPT/HCPCS: 81003; 99283

== ENCOUNTER 2020-04-14 00:45 | Emergency (ER) | payer OTHER ==
--- OUTSIDE RECORDS SUMMARY | 2020-04-14 00:51 | XMS REPORT ---
:1950 Author Organization [facility] t Address [address] [place] [address] [address] [place] [address] Care Team Providers Name Role Phone PCP Primary Care Physician Unavailable Rodrigo VENTURA, Gene Attending Clinician Advance Directives Directive Decision Effective Date Termination Date Comments Sour ce Yes N/A [facility] Problems Condition Condition Condition Status Onset Resolution Last Treating Co mments Source Name Details Category Date Date Treatment Clinician Date Problem Condition [facility] Allergies, Adverse Reactions, Alerts Allergy Allergy Status Severity Reaction(s) Onset Inactive Treating Comm ents Source Name Type Date Date Clinician Penicill Allergy Active Hives 2018-11 [facility] Social History Social Habit Start Date Stop Date Quantity Comments Source Sex Assigned At 1950 [address] [facility] Smoking Status Start Date Stop Date Source Unknown if ever smoked [facility] Medications This patient has no known medications. Vital Signs Vital Name Observation Time Observation Value Comments Source Heart Rate 2019-08-29 13:07:00 60 /min [facility] Respiratory rate 2019-08-29 13:07:00 18 /min [facility] BP Systolic 2019-08-29 13:07:00 143 mm[Hg] [facility] BP Diastolic 2019-08-29 13:07:00 66 mm[Hg] [facility] Heart Rate 2019-08-29 12:12:00 60 /min [facility] Respiratory rate 2019-08-29 12:12:00 18 /min [facility] BP Systolic 2019-08-29 12:12:00 143 mm[Hg] [facility] l BP Diastolic 2019-08-29 12:12:00 66 mm[Hg] [facility] Weight 2019-08-29 10:43:00 110 [lb_av] [facility] BMI (Body Mass Index) 2019-08-29 10:43:00 23.0 kg/m2 [facility] Procedures Procedure Date / Time Performed Performing Clinician [facility] e ECG 2019-08-29 00:00:00 [facility] (electrocardiogram) [facility] X-ray of chest, single 2019-08-29 00:00:[address] [facility] Plan of Care Planned Activity Planned Date Details Comments Source Future Scheduled Test Urine sediment [facility] erythrocyte count by [facility] microscopy (number/high power field) [code = 89655-1] Future Scheduled Test Urine sediment [facility] leukocyte count by [facility] (number/high power field) [code = 5821-4] Future Scheduled Test Urine sediment [facility] squamous epithelial [facility] cell count by microscopy (number/lowpower field) [code = 30897-6] Future Scheduled Test Urine sediment [facility] bacteria count by [facility] microscopy (number/high power field) [code = 5769-5] Future Scheduled Test Service comment [address] [facility] [address] [code = 8264-4] [facility] ital Goal Patient referral [code [facility] = [id number] ] [facility] Instructions Chest Pain (DC) [facility] Encounters Start End Encounter Admission Attending Care Care Encounter Source Date/Time Date/Time Type Type Clinicians Facility Department ID 2020-02-13 2020-02-13 LYNDON Koo [id number] 00:00:00 00:00:00 Andrea Mcmillan [id number] [place] [id number] Professio [id number] nal 092 [facility] 2020-01-13 2020-01-13 Office LYNDON Wallace [id number] 09:09:08 10:04:39 Visit Andrea Mcmillan [id number] [place] [id number] Professio [id number] nal 092 [facility] 2019-08-29 2019-08-29 Departed BERNADETTE FONG [id number] CHRISTU 10:43:00 13:07:00 Emergency TPAT [facility] [address] [facility] Results Test Description Test Time Test Comments Results Result Comments Source Urine color determination 2019-08-29 12:45:00 Test Item Value Reference Range Interpretation Comme nts Urine Color (test code = 5778-6) Yellow [facility] appearance [id number] 12:45:00 Test Item Value Reference Range Interpretation Comments Urine Appearance (test code = 5767-9) CLEAR [facility] pH measurement by test [id number] 12:45:00 Test Item Value Reference Range Interpretation Comments Urine pH (test code = 5803-2) 6.0 [facility] Test [id number] 12:45:00 Test Item Value Reference Range Interpretation Comments Urine Specific Tracy (test code = <= 1.005 5811-5) [facility] protein assay by test strip, itwn-[id number] 12:45:00 Test Item Value Reference Range Interpretation Comments Urine Protein (test code = 31951-0) Negative [facility] glucose measurement by test strip (mass/volume)2019-08-29 12:45:00 Test Item Value Reference Range Interpretation Comments Urine Glucose (UA) (test code = Negative 5792-7) [facility] ketones detection by test [id number] 12:45:00 Test Item Value Reference Range Interpretation Comments Urine Ketones (test code = 2514-8) Negative [facility] erythrocytes count by test strip (number/volume)2019-08-29 12:45:00 Test Item Value Reference Range Interpretation Comments Urine Occult Blood (test code = Negative 53097-9) [facility] nitrite detection by automated test strip 2019-08-29 12:45:00 Test Item Value Reference Range Interpretation Comments Urine Nitrite (test code = 08819-3) Negative [facility] total bilirubin detection by test strip 2019-08-29 12:45:00 Test Item Value Reference Range Interpretation Comments Urine Bilirubin (test code = 5770-3) Negative [facility] urobilinogen measurement by automated test strip (mass/volume)2019-08-29 12:45:00 Test Item Value Reference Range Interpretation Comments Urine Urobilinogen (test code = Normal 89527-9) [facility] leukocyte esterase detection by dipstick 2019-08-29 12:45:00 Test Item Value Reference Range Interpretation Comments Urine Leukocyte Esterase (test code = Trace 5799-2) [facility] leukocyte count (number/volume) 2019-08-29 11:32:00 Test Item Value Reference Range Interpretation Comments White Blood Count (test code = 6690-2) 7.9 [facility] erythrocytes automated count (number/volume) 2019-08-29 11:32:00 Test Item Value Reference Range Interpretation Comments Red Blood Count (test code = 789-8) 4.31 [facility] hemoglobin measurement (mass/volume) 2019-08-29 11:32:00 Test Item Value Reference Range Interpretation Comments Hemoglobin (test code = 718-7) 12.5 [facility] hematocrit (volume fraction) 2019-08-29 11:32:00 Test Item Value Reference Range Interpretation Comments Hematocrit (test code = 4544-3) 39.1 [facility] mean corpuscular volume (MCV) [id number] 11:32:00 Test Item Value Reference Range Interpretation Comments Mean Corpuscular Volume (test code = 90.7 787-2) [facility] mean corpuscular hemoglobin (mass per erythrocyte)2019-08-29 11:32:00 Test Item Value Reference Range Interpretation Comments Mean Corpuscular Hemoglobin (test code 29.0 = 785-6) [facility] mean corpuscular hemoglobin concentration (MCHC) measurement ([id number] 11:32:00 Test Item Value Reference Range Interpretation Comments Mean Corpuscular Hemoglobin Concent 32.0 (test code = 786-4) [facility] distribution width ratio 2019-08-29 11:32:00 Test Item Value Reference Range Interpretation Comments Red Cell Distribution Width (test code 13.5 = 788-0) [facility] platelet count (count/volume) 2019-08-29 11:32:00 Test Item Value Reference Range Interpretation Comments Platelet Count (test code = 777-3) 264 [facility] platelet mean volume measurement 2019-08-29 11:32:00 Test Item Value Reference Range Interpretation Comments Mean Platelet Volume (test code = 11.1 48619-0) [facility] neutrophil count as percentage of total pelesagyxw4984-64-04 11:32:00 Test Item Value Reference Range Interpretation Comments Neutrophils (%) (Auto) (test code = 68.2 770-8) [facility] immature granulocyte count as percentage of total debchlpzei2097-18-30 11:32:00 Test Item Value Reference Range Interpretation Comments Immature Granulocyte % (Auto) (test 0.30 code = 94873-1) [facility] lymphocyte count as percentage of total feslbdhrhu7644-74-06 11:32:00 Test Item Value Reference Range Interpretation Comments Lymphocytes (%) (Auto) (test code = 23.0 736-9) [facility] monocyte count as percentage of total pubihofhxc6677-13-98 11:32:00 Test Item Value Reference Range Interpretation Comments Monocytes (%) (Auto) (test code = 7.1 5905-5) [facility] eosinophil count as percentage of total gzdjygflwk3775-51-34 11:32:00 Test Item Value Reference Range Interpretation Comments Eosinophils (%) (Auto) (test code = 1.0 713-8) [facility] basophil count as percentage of total mshqafuilq1310-47-03 11:32:00 Test Item Value Reference Range Interpretation Comments Basophils (%) (Auto) (test code = 0.4 706-2) [facility] erythrocyte count as percentage of total qkvwkfgnfe2459-47-27 11:32:00 Test Item Value Reference Range Interpretation Comments Nucleated Red Blood Cells % (test code 0.0 = 80276-2) [facility] neutrophil count (number/volume) 2019-08-29 11:32:00 Test Item Value Reference Range Interpretation Comments Neutrophils # (Auto) (test code = 5.4 751-8) [facility] immature granulocyte count as percentage of total xfgiyddqak0009-73-05 11:32:00 Test Item Value Reference Range Interpretation Comments Immature Granulocyte # (Auto) (test 0.0200 code = 07459-5) [facility] lymphocyte count (number/volume) 2019-08-29 11:32:00 Test Item Value Reference Range Interpretation Comments Lymphocytes # (Auto) (test code = 1.8 731-0) [facility] monocytes automated count (number/volume) 2019-08-29 11:32:00 Test Item Value Reference Range Interpretation Comments Monocytes # (Auto) (test code = 742-7) 0.6 [facility] eosinophil [id number] 11:32:00 Test Item Value Reference Range Interpretation Comments Eosinophils # (Auto) (test code = 0.1 711-2) [facility] basophil count (number/volume) 2019-08-29 11:32:00 Test Item Value Reference Range Interpretation Comments Basophils # (Auto) (test code = 704-7) 0.0 [facility] count corrected for nucleated svygwahxccxb9282-67-34 11:32:00 Test Item Value Reference Range Interpretation Comments Nucleated Red Blood Cells # (test code 0.000 = 91697-4) [facility] blood prothrombin [id number] 11:32:00 Test Item Value Reference Range Interpretation Comments Prothrombin Time (test code = 5964-2) 10.6 [facility] Plate[facility] poor plasma by Coagulation assay 2019-08-29 11:32:00 Test Item Value Reference Range Interpretation Comments Prothromb Time International Ratio 0.9 (test code = 6301-6) [facility] (PTT) in platelet poor ysoqag7389-92-74 11:32:00 Test Item Value Reference Range Interpretation Comments Activated Partial Thromboplast Time 31.7 (test code = 18476-8) [facility] (moles/volume)2019-08-29 11:32:00 Test Item Value Reference Range Interpretation Comments Sodium Level (test code = 45838-0) 142 [facility] or plasma potassium measurement (moles/volume)2019-08-29 11:32:00 Test Item Value Reference Range Interpretation Comments Potassium Level (test code = 2823-3) 4.1 [facility] plasma chloride measurement (moles/volume) 2019-08-29 11:32:00 Test Item Value Reference Range Interpretation Comments Chloride Level (test code = 2075-0) 110 [facility] plasma carbon dioxide measurement (moles/volume)2019-08-29 11:32:00 Test Item Value Reference Range Interpretation Comments Carbon Dioxide Level (test code = 26 2028-9) [facility] or plasma anion [id number] 11:32:00 Test Item Value Reference Range Interpretation Comments Anion Gap (test code = 48615-1) 6.0 [facility] plasma urea nitrogen measurement (mass/volume)2019-08-29 11:32:00 Test Item Value Reference Range Interpretation Comments Blood Urea Nitrogen (test code = 14.0 3094-0) [facility] or plasma creatinine measurement (mass/volume)2019-08-29 11:32:00 Test Item Value Reference Range Interpretation Comments Creatinine (test code = 2160-0) 0.719 [facility] estimate [id number] 11:32:00 Test Item Value Reference Range Interpretation Comments Estimat Glomerular Filtration Rate > 60 (test code = 15433-4) [facility] plasma glucose measurement (mass/volume) 2019-08-29 11:32:00 Test Item Value Reference Range Interpretation Comments Glucose Level (test code = 2345-7) 98 [facility] plasma calcium measurement (mass/volume) 2019-08-29 11:32:00 Test Item Value Reference Range Interpretation Comments Calcium Level (test code = 46483-0) 9.2 [facility] plasma total bilirubin measurement (mass/volume)2019-08-29 11:32:00 Test Item Value Reference Range Interpretation Comments Total Bilirubin (test code = 1975-2) 0.7 [facility] or plasma aspartate aminotransferase measurement (enzymatic activity/volume)2019-08-29 11:32:00 Test Item Value Reference Range Interpretation Comments Aspartate Amino Transf (AST/SGOT) (test 44 code = 1920-8) [facility] plasma alanine aminotransferase measurement (enzymatic activity/volume)2019-08-29 11:32:00 Test Item Value Reference Range Interpretation Comments Alanine Aminotransferase (ALT/SGPT) 53 (test code = 1742-6) [facility] plasma protein measurement (mass/volume) 2019-08-29 11:32:00 Test Item Value Reference Range Interpretation Comments Total Protein (test code = 2885-2) 7.8 [facility] plasma albumin measurement (mass/volume) 2019-08-29 11:32:00 Test Item Value Reference Range Interpretation Comments Albumin (test code = 1751-7) 4.1 [facility] plasma alkaline phosphatase measurement (enzymatic activity/volume)2019-08-29 11:32:00 Test Item Value Reference Range Interpretation Comments Alkaline Phosphatase (test code = 73 6768-6) [facility] or plasma creatine kinase measurement (enzymatic activity/volume)2019-08-29 11:32:00 Test Item Value Reference Range Interpretation Comments Total Creatine Kinase (test code = 67 2157-6) [facility] or plasma creatine kinase MB measurement (mass/volume)2019-08-29 11:32:00 Test Item Value Reference Range Interpretation Comments Creatine Kinase MB (test code = < 1.0 83846-1) [facility] or plasma total creatine kinase/creatine kinase MB isoenzyme activity [id number] 11:32:00 Test Item Value Reference Range Interpretation Comments Creatine Kinase MB Relative Index (test 1.5 code = 2158-4) [facility] Center[facility]onin I [id number] 11:32:00 Test Item Value Reference Range Interpretation Comments Troponin I (test code = 72661-7) < 0.015 [facility] or plasma brain natriuretic peptide (BNP) yfvvecxptnn1718-07-68 11:32:00 Test Item Value Reference Range Interpretation Comments B-Type Natriuretic Peptide (test code = 43 36824-9) [facility]
[2020-04-14 01:43] LABS: Urine Blood TRACE (NEG); Urine Glucose NEGATIVE (NEG); Urine Protein NEGATIVE (NEG); Urine Specific Gravity 1.015 (1.005-1.030)
[2020-04-14 01:46] LABS: Barbiturates NEGATIVE (NEGATIVE); Benzodiazepines NEGATIVE (NEGATIVE); Cocaine NEGATIVE (NEGATIVE); METHAMPHETAM NEGATIVE (NEGATIVE); Methadone NEGATIVE (NEGATIVE); Opiates NEGATIVE (NEGATIVE); Phencyclidine NEGATIVE (NEGATIVE); THC Cannibis NEGATIVE (NEGATIVE)
[2020-04-14 01:49] LABS: Urine Bacteria <20 /HPF (<20); Urine Culture Reflex Order NOT NEEDED
[2020-04-14 02:00] LABS: Absolute Lymphocytes (CBC) 2.3 K/uL (0.7-4.9); Basophils % 1.1 % (0-1.3); Hematocrit 36.1 % (36.0-45.0); Lymphocytes % 28.9 % (15.3-44.8); MPV 9.9 fL (7.6-11.3); RBC Red Blood Cell Count 4.09 M/uL (3.86-4.86)
[2020-04-14 02:18] LABS: ALT/SGPT 19 U/L (12-78); AST/SGOT 25 U/L (15-37); Albumin 3.4 g/dL (3.4-5.0); Alkaline Phosphatase 64 U/L (45-117); BUN Blood Urea Nitrogen 11 mg/dL (7-18); Bicarbonate 25 mmol/L (21-32); Bilirubin Direct 0.1 mg/dL (0-0.2); Bilirubin Total 0.5 mg/dL (0.2-1.0); Glucose Level 92 mg/dL (74-106); Sodium Level 140 mmol/L (136-145); Troponin (Emerg Dept Use Only) < 0.02 ng/mL (0.0-0.045)
[2020-04-14] MEDS ORDERED: NITROFURAN MACRO 100 MG CAP PO ONE (04:07)
[2020-04-14 04:21] VITALS: TEMP 98.1
[2020-04-14 04:26] VITALS: BP 128/64; O2SAT 98
--- NOTE | 2020-04-14 12:09 | RAD REPORT ---
EXAM DESCRIPTION: RAD - Chest Single View - 04/14/2020 1:34 am CLINICAL HISTORY: AMS Chest pain. COMPARISON: Chest Single View dated 03/11/2020; Chest Single View dated 02/16/2020; Chest Single View d ated 01/24/2020; Chest Pa And Lat (2 Views) dated 09/12/2019 FINDINGS: Portable technique limits examination quality. The lungs are grossly clear. The heart is normal in size. No displaced fractures. IMPRESSION: No acute intrathoracic process suspected.
--- NOTE | 2020-04-14 15:57 | RAD REPORT ---
EXAM DESCRIPTION: CT HEAD WITHOUT CONTRAST CLINICAL HISTORY: Altered mental status, anxiety. COMPARISON: CT head without contrast 03/11/2020 TECHNIQUE: Axial unenhanced CT imaging of the brain. Reformatted coronal and sagittal images obtaine d. This examination was performed according to our departmental dose optimization program, which include s automated exposure control, adjustment of the mA and/or kV according to patient size and/or use of iterative reconstruction technique. FINDINGS: Mild generalized cortical atrophy. There is moderate decreased white matter attenuation du e to chronic microvascular ischemic change. There is no acute major territorial infarction, edema, he morrhage, mass or midline shift. Normal cerebellum. Normal vermis. Fourth ventricle is midline. Prepo ntine cisterns are not effaced. Normal sella contents. Intraorbital contents appear normal. Clear paranasal sinuses. Mastoid air cells are well aerated. Int act skull base and calvarium. Unremarkable scalp soft tissues. IMPRESSION: 1. Mild to moderate senescent brain changes. No intracranial acute finding. Electronically signed by: Carmen Yost DO 04/14/2020 2:55 AM CDT Due to temporary technical issues with the PACS/Fluency reporting system, reports are being signed by the in house radiologist without review asa courtesy to ensure prompt reporting. The interpreting ra diologist is fully responsible for the content of the report.
--- NOTE | 2020-04-16 17:36 | EDPHYS ---
Physician Documentation [facility] Name: Mary Healy Age: 70 yrs Sex: Female : 1950 Arrival Date: 04/14/2020 Time: 00:57 Bed 4 Private MD: ED Physician Davon Valle HPI: 04/14 01:19 This 70 yrs old Female presents to ER via EMS with complaints of Altered mh7 Mental Status. 01:19 The patient presents with confusion. Onset: The symptoms/episode began/occurred just mh7 prior to arrival, today. Possible causes: unknown. Associated signs and symptoms: Pertinent positives: confusion, Pertinent negatives: abdominal pain, agitation, ataxia, blurred vision, chest pain, combativeness, diaphoresis, diarrhea, dizziness, headache, lightheadedness, nausea, numbness, palpitations, seizure, shortness of breath, tingling, vertigo, vomiting, weakness. Current symptoms: In the emergency department the patient's symptoms have resolved, the patient is alert and fully oriented, has normal speech, has normal responsiveness, has no confusion. Patient's baseline: The patient has a previous history of Dementia. According to patient's , she did not recognize him and thought he was someone else. She became anxious and went to sit in her car.. Historical: - Allergies: 01:03 PENICILLINS; lp1 - Home Meds: 01:03 amlodipine-benazepril 10-20 mg Oral cap 1 cap once daily [Active]; metoprolol tartrate lp1 50 mg Oral tab 1 tab 2 times per day [Active]; tramadol 50 mg Oral tab every 8 hours [Active]; clonazepam 0.5 mg Oral tab 1 tab 2 times per day [Active]; rivastigmine 9.5 mg/24 hr transdermal pt24 1 patch once daily [Active]; methocarbamol 500 mg Oral tab 1 tabs twice a day [Active]; methotrexate sodium 2.5 mg Oral tab 1 tab once wkly [Active]; escitalopram oxalate 10 mg oral tab 1 tab once daily [Active]; meloxicam 15 mg oral tab 1 tab once daily [Active]; folic acid 1 mg Oral tab 1 tab once daily [Active]; hydroxychloroquine 200 mg oral tab 1 tab once daily [Active]; - PMHx: 01:03 Alzheimers; Hypertension; lp1 - PSHx: 01:03 ; lp1 - Immunization history:: Adult Immunizations up to date. - Social history:: Smoking status: Patient/guardian denies using tobacco, the patient reports quitting approximately 20 years ago. ROS: 01:19 Constitutional: Negative for fever, chills, and weight loss, Eyes: Negative for injury, mh7 pain, redness, and discharge, ENT: Negative for injury, pain, and discharge, Neck: Negative for injury, pain, and swelling, Cardiovascular: Negative for chest pain, palpitations, and edema, Respiratory: Negative for shortness of breath, cough, wheezing, and pleuritic chest pain, Abdomen/GI: Negative for abdominal pain, nausea, vomiting, diarrhea, and constipation, Back: Negative for injury and pain, : Negative for injury, bleeding, discharge, and swelling, MS/Extremity: Negative for injury and deformity, Skin: Negative for injury, rash, and discoloration, Neuro: Negative for headache, weakness, numbness, tingling, and seizure, Allergy/Immunology: Negative for hives, rash, and allergies, Endocrine: Negative for neck swelling, polydipsia, polyuria, polyphagia, and marked weight changes, Hematologic/Lymphatic: Negative for swollen nodes, abnormal bleeding, and unusual bruising. Exam: :19 Constitutional: This is a well developed, well nourished patient who is awake, alert, mh7 and in no acute distress. Head/Face: Normocephalic, atraumatic. Eyes: Pupils equal round and reactive to light, extra-ocular motions intact. Lids and lashes normal. Conjunctiva and sclera are non-icteric and not injected. Cornea within normal limits. Periorbital areas with no swelling, redness, or edema. Neck: Trachea midline, no thyromegaly or masses palpated, and no cervical lymphadenopathy. Supple, full range of motion without nuchal rigidity, or vertebral point tenderness. No Meningismus. Chest/axilla: Normal chest wall appearance and motion. Nontender with no deformity. No lesions are appreciated. Cardiovascular: Regular rate and rhythm with a normal S1 and S2. No gallops, murmurs, or rubs. Normal PMI, no JVD. No pulse deficits. Respiratory: Lungs have equal breath sounds bilaterally, clear to auscultation and percussion. No rales, rhonchi or wheezes noted. No increased work of breathing, no retractions or nasal flaring. Abdomen/GI: Soft, non-tender, with normal bowel sounds. No distension or tympany. No guarding or rebound. No evidence of tenderness throughout. Back: No spinal tenderness. No costovertebral tenderness. Full range of motion. Skin: Warm, dry with normal turgor. Normal color with no rashes, no lesions, and no evidence of cellulitis. MS/ Extremity: Pulses equal, no cyanosis. Neurovascular intact. Full, normal range of motion. Neuro: Awake and alert, GCS 15, oriented to person, place, time, and situation. Cranial nerves II-XII grossly intact. Motor strength 5/5 in all extremities. Sensory grossly intact. Cerebellar exam normal. Normal gait. Psych: Awake, alert, with orientation to person, place and time. Behavior, mood, and affect are within normal limits. 01:53 ECG was reviewed by the Attending Physician. [facility] Vital Signs: 00:57 BP 139 / 63; Pulse 68; Resp 18; Temp 98.1(O); Pulse Ox 99% on R/A; Weight 58.97 kg (R); lp1 Pain 0/10; 01:30 BP 151 / 68; Pulse 67; Resp 18; Pulse Ox 99% on R/A; lp1 02:15 BP 147 / 69; Pulse 57; Resp 16; Pulse Ox 98% on R/A; lp1 03:15 BP 134 / 73; Pulse 55; Resp 16; Pulse Ox 96% on R/A; lp1 04:12 BP 128 / 64; Pulse 52; Resp 16; Pulse Ox 98% on R/A; Pain 0/10; lp1 MDM: 01:09 Patient medically screened. [facility] 03:56 Differential Diagnosis: electrolyte abnormality, alcohol intoxication, hypoglycemia, 7 intracranial bleed, pneumonia, sepsis, UTI, volume depletion. Data reviewed: vital signs, nurses notes, EMS record, lab test result(s), CBC, electrolytes, urinalysis, EKG, radiologic studies, CT scan, plain films. Data interpreted: technical systems architect: rate is 61 beats/min, rhythm is normal sinus rhythm, regular, Interpretation: normal rate, normal rhythm, Pulse oximetry: on room air is 98 %. Interpretation: normal. Counseling: I had a detailed discussion with the patient and/or guardian regarding: the historical points, exam findings, and any diagnostic results supporting the discharge/admit diagnosis, the presence of at least one elevated blood pressure reading (>120/80) during this emergency department visit, lab results, radiology results, the need for outpatient follow up, to return to the emergency department if symptoms worsen or persist or if there are any questions or concerns that arise at home. 04/14 01:19 Order name: CBC with Diff [facility] 04/14 01:19 Order name: Basic Metabolic Panel [facility] 04/14 01:19 Order name: LFT's [facility] 04/14 01:19 Order name: Alcohol Level; Complete Time: 02:43 [facility] 04/14 01:19 Order name: Urine Drug Screen; Complete Time: 02:43 [facility] 04/14 01:19 Order name: Urine Microscopic Only; Complete Time: 02:43 [facility] 04/14 01:19 Order name: Troponin (emerg Dept Use Only); Complete Time: 02:43 [facility] 04/14 01:19 Order name: Chest Single View XRAY [facility] 04/14 01:19 Order name: CT Head Brain wo Cont [facility] 04/14 01:21 Order name: CBC with Automated Diff; Complete Time: 02:43 [facility] 04/14 01:21 Order name: Basic Metabolic Panel; Complete Time: 02:43 [facility] 04/14 01:21 Order name: Liver (Hepatic) Function; Complete Time: 02:43 [facility] 04/14 01:33 Order name: Urine Dipstick--Ancillary (enter results); Complete Time: 02:43 tx 04/14 01:19 Order name: Urine Dipstick-Ancillary (obtain specimen); Complete Time: 01:25 [facility] 04/14 01:19 Order name: EKG - Nurse/Tech; Complete Time: :58 [facility] 04/14 01:19 Order name: Saline Lock; Complete Time: :58 EC:53 Rate is 61 beats/min. Rhythm is regular. QRS [place] is Normal. MS interval is normal. QRS mh7 interval is normal. QT interval is normal. No Q waves. T waves are Normal. No ST changes noted. Clinical impression: Normal ECG. Administered Medications: 04:11 Drug: Macrobid 100 mg Route: PO; lp1 04:11 Follow up: Response: Medication administered at discharge. lp1 Disposition: 04/14/20 03:59 Discharged to Home. Impression: Dementia, Anxiety disorder, unspecified, Urinary tract infection, site not specified. - Condition is Stable. - Discharge Instructions: Urinary Tract Infection, Adult, Generalized Anxiety Disorder, Dementia, [id number]. - Prescriptions for Macrobid 100 mg Oral Capsule - take 1 capsule by ORAL route every 12 hours for 7 days; 14 capsule. - Medication Reconciliation Form, Thank You Letter, Antibiotic Education, Prescription Opioid Use form. - Follow up: Private Physician; When: 1 - 2 days; Reason: Worsening of condition, Re-evaluation by your physician. - Problem is an acute exacerbation. - Symptoms have improved. Signatures: Dispatcher [employer] [facility] Radha Dueñas RN RN lp1 Davon Valle MD MD mh7 Corrections: (The following items were deleted from the chart) 04:14 03:59 04/14/2020 03:59 Discharged to Home. Impression: Dementia; Anxiety disorder, lp1 unspecified; Urinary tract infection, site not specified. Condition is Stable. Forms are Medication Reconciliation Form, Thank You Letter, Antibiotic Education, Prescription Opioid Use. Follow up: Private Physician; When: 1 - 2 days; Reason: Worsening of condition, Re-evaluation by your physician. Problem is an acute exacerbation. Symptoms have improved. mh7
--- NOTE | 2020-04-16 17:36 | ER ---
Nurse's Notes [facility] Name: Mary Healy Age: 70 yrs Sex: Female : 1950 Arrival Date: 04/14/2020 Time: 00:57 Bed 4 Private MD: Diagnosis: Dementia;Anxiety disorder, unspecified;Urinary tract infection, site not specified Presentation: 04/14 00:57 Chief complaint: EMS states: Called for patient having anxiety related to forgetting lp1 her 's name; Per EMS, patient's states this happens sometimes; Patient calm, oriented on arrival to ED. Coronavirus screen: Proceed with normal triage. Ebola Screen: No symptoms or risks identified at this time. Initial Sepsis Screen: Does the patient meet any 2 criteria? No. Patient's initial sepsis screen is negative. Does the patient have a suspected source of infection? No. Patient's initial sepsis screen is negative. Risk Assessment: Do you want to hurt yourself or someone else? Patient reports no desire to harm self or others. Onset of symptoms was April 14, 2020. 00:57 Method Of Arrival: EMS: [facility] lp1 00:57 Acuity: AASHISH 3 lp1 Historical: - Allergies: 01:03 PENICILLINS; lp1 - Home Meds: 01:03 amlodipine-benazepril 10-20 mg Oral cap 1 cap once daily [Active]; metoprolol tartrate lp1 50 mg Oral tab 1 tab 2 times per day [Active]; tramadol 50 mg Oral tab every 8 hours [Active]; clonazepam 0.5 mg Oral tab 1 tab 2 times per day [Active]; rivastigmine 9.5 mg/24 hr transdermal pt24 1 patch once daily [Active]; methocarbamol 500 mg Oral tab 1 tabs twice a day [Active]; methotrexate sodium 2.5 mg Oral tab 1 tab once wkly [Active]; escitalopram oxalate 10 mg oral tab 1 tab once daily [Active]; meloxicam 15 mg oral tab 1 tab once daily [Active]; folic acid 1 mg Oral tab 1 tab once daily [Active]; hydroxychloroquine 200 mg oral tab 1 tab once daily [Active]; - PMHx: 01:03 Alzheimers; Hypertension; lp1 - PSHx: 01:03 ; lp1 - Immunization history:: Adult Immunizations up to date. - Social history:: Smoking status: Patient/guardian denies using tobacco, the patient reports quitting approximately 20 years ago. Screenin:03 Abuse screen: Denies threats or abuse. Denies injuries from another. Nutritional lp1 screening: No deficits noted. Tuberculosis screening: No symptoms or risk factors identified. Fall Risk None identified. Assessment: 01:03 General: Appears in no apparent distress. Behavior is calm, cooperative, appropriate lp1 for age. Pain: Denies pain. Neuro: Level of Consciousness is awake, alert, obeys commands, Oriented to person, place. Cardiovascular: Patient's skin is warm and dry. Respiratory: Respiratory effort is even, unlabored. GI: No signs and/or symptoms were reported involving the gastrointestinal system. : No signs and/or symptoms were reported regarding the genitourinary system. EENT: No signs and/or symptoms were reported regarding the EENT system. Derm: Skin is pink, warm \\T\\ dry. Musculoskeletal: No deficits noted. 01:04 Reassessment: Patient states "there are people that get into my home and try on clothes lp1 and shoes and leave them all over the place". 01:10 Reassessment: Spoke with patient's , Parth, and states patient couldn't lp1 recognize him and became upset thinking he was a stranger; juvenile justice officer showed up to talk with patient and called EMS for evaluation of patient; states similar episodes when patient has has UTI in the past; Phone number [phone]. 02:00 Reassessment: Patient is alert, oriented x 3, equal unlabored respirations, skin lp1 warm/dry/pink. Assisted patient to bathroom at this time via . 02:46 Reassessment: Spoke with patient's , updated on patient status and waiting for lp1 CT results; states patient sees Dr. Green, recently had MRI and EEG for episodes of memory loss and unable to recognize . 03:30 Reassessment: Patient appears in no apparent distress at this time. Patient resting, lp1 eyes closed, respirations unlabored. 04:13 Reassessment: Discussed discharge instructions with patient's , demonstrates lp1 understanding; Patient A/O x3. Vital Signs: 00:57 BP 139 / 63; Pulse 68; Resp 18; Temp 98.1(O); Pulse Ox 99% on R/A; Weight 58.97 kg (R); lp1 Pain 0/10; 01:30 BP 151 / 68; Pulse 67; Resp 18; Pulse Ox 99% on R/A; lp1 02:15 BP 147 / 69; Pulse 57; Resp 16; Pulse Ox 98% on R/A; lp1 03:15 BP 134 / 73; Pulse 55; Resp 16; Pulse Ox 96% on R/A; lp1 04:12 BP 128 / 64; Pulse 52; Resp 16; Pulse Ox 98% on R/A; Pain 0/10; lp1 ED Course: 00:57 Patient arrived in ED. lp1 01:00 Triage completed. lp1 01:00 Arm band placed on. lp1 01:01 Davon Valle MD is Attending Physician. mh7 01:03 Patient has correct armband on for positive identification. lp1 01:21 Pritesh Shields, RN is Primary Nurse. ao 01:33 Radiology exam delayed due to Having IV started and labs drawn at this time. Will kw1 advise when patient is ready to come to CT for exam. 01:35 Chest Single View XRAY In Process Unspecified. EDMS 01:52 Inserted saline lock: 20 gauge in right forearm, using aseptic technique. Missed tt3 attempt(s): 20 gauge in right forearm. 02:07 Radiology exam delayed due to Checked on patient. Not ready to go to CT for exam. kw1 02:14 Primary Nurse role handed off by Pritesh Shields, RN lp1 02:14 Radha Dueñas, KARLEE is Primary Nurse. lp1 02:38 CT Head Brain wo Cont In Process Unspecified. EDMS 04:12 No provider procedures requiring assistance completed. IV discontinued, No lp1 redness/swelling at site. Pressure dressing applied. Administered Medications: 04:11 Drug: Macrobid 100 mg Route: PO; lp1 04:11 Follow up: Response: Medication administered at discharge. lp1 Outcome: 03:59 Discharge ordered by . mh7 04:13 Discharged to home via wheelchair, with family. lp1 04:13 Condition: good 04:13 Discharge instructions given to patient, significant other, Instructed on discharge instructions, follow up and referral plans. medication usage, Demonstrated understanding of instructions, follow-up care, medications, Prescriptions given X 1. 04:14 Patient left the ED. lp1 Signatures: Dispatcher [employer] EDMS Radha Dueñas RN RN lp1 Pritesh Shields RN RN ao Wilhelm, Kimberly 1 Davon Valle MD MD mh7 [place] 3
== END 2020-04-14 04:14 | disposition home or self-care (01) ==
LOC: ER 00:45
DX: F41.9 Anxiety disorder, unspecified (principal); N39.0 Urinary tract infection, site not specified; I10 Essential (primary) hypertension; G30.9 Alzheimer's disease, unspecified; F02.80 Dementia in other diseases classified elsewhere, unspecified severity, without behavioral disturbance, psychotic disturbance, mood disturbance, and anxiety
CPT/HCPCS: 36415; 70450; 71045; 80048; 80076; 80307; 80320; 81003; 81015; 84484; 85025; 93005; 99284

== ENCOUNTER 2020-04-19 23:01 | Emergency (ER) | payer OTHER ==
--- OUTSIDE RECORDS SUMMARY | 2020-04-19 23:04 | XMS REPORT | Continuity of Care Document ---
:1950 Author Organization [facility] t Address [address] [place] [address] Care Team Providers Name Role Phone PCP Primary Care Physician Unavailable Rodrigo VENTURA, Gene Attending Clinician Advance Directives Directive Decision Effective Date Termination Date Comments Sour ce Yes N/A [facility] Problems Condition Condition Condition Status Onset Resolution Last Treating Co mments Source Name Details Category Date Date Treatment Clinician Date Problem Condition [facility] Allergies, Adverse Reactions, Alerts Allergy Allergy Status Severity Reaction(s) Onset Inactive Treating Comm ents Source Name Type Date Date Clinician Penicill Allergy Active Hives 2018-11 [facility] Social History Social Habit Start Date Stop Date Quantity Comments Source Sex Assigned At 1950 [address] 00:[facility]00 [facility] Smoking Status Start Date Stop Date Source Unknown if ever smoked [facility] Medications This patient has no known medications. Vital Signs Vital Name Observation Time Observation Value Comments Source Heart Rate 2019-08-29 13:07:00 60 /min [facility] Respiratory rate 2019-08-29 13:07:00 18 /min [facility] BP Systolic 2019-08-29 13:07:00 143 mm[Hg] [facility] BP Diastolic 2019-08-29 13:07:00 66 mm[Hg] [facility] Heart Rate 2019-08-29 12:12:00 60 /min [facility] Respiratory rate 2019-08-29 12:12:00 18 /min MOLLYI JEN [facility] l BP Systolic 2019-08-29 12:12:00 143 mm[Hg] [facility] BP Diastolic 2019-08-29 12:12:00 66 mm[Hg] [facility] Weight 2019-08-29 10:43:00 110 [lb_av] [facility] BMI (Body Mass Index) 2019-08-29 10:43:00 23.0 kg/m2 [facility] Procedures Procedure Date / Time Performed Performing Clinician [facility] e ECG 2019-08-29 00:00:[address] [facility] (electrocardiogram) [facility] X-ray of chest, single 2019-08-29 00:00:00 [facility] Plan of Care Planned Activity Planned Date Details Comments Source Future Scheduled Test Urine sediment [facility] erythrocyte count by [facility] microscopy (number/high power field) [code = 45049-3] Future Scheduled Test Urine sediment [facility] leukocyte count by [facility] ospital microscopy (number/high power field) [code = 5821-4] Future Scheduled Test Urine sediment [facility] squamous epithelial [facility] cell count by microscopy (number/lowpower field) [code = 76811-6] Future Scheduled Test Urine sediment [facility] bacteria count by [facility] microscopy (number/high power field) [code = 5769-5] Future Scheduled Test Service comment [address] [facility] [address] [code = 8264-4] [facility] ital Goal Patient referral [code [facility] = [id number] ] [facility] Instructions Chest Pain (DC) [facility] Encounters Start End Encounter Admission Attending Care Care Encounter Source Date/Time Date/Time Type Type Clinicians Facility Department ID 2020-02-13 2020-02-13 LYNDON Koo [id number] 00:00:00 00:00:00 Andrea Mcmillan [id number] [place] [id number] Professio [id number] nal 092 [facility] 2020-01-13 2020-01-13 Office LYNDON Wallace [id number] 09:09:08 10:04:39 Visit Andrea Mcmillan [id number] [place] [id number] Professio [id number] nal 092 [facility] 2019-08-29 2019-08-29 Departed BERNADETTE FONG [id number] CHRISTU 10:43:00 13:07:00 Emergency TPAT [facility] [address] [facility] Results Test Description Test Time Test Comments Results Result Comments Source Urine color determination 2019-08-29 12:45:00 Test Item Value Reference Range Interpretation Comme nts Urine Color (test code = 5778-6) Yellow [facility] appearance [id number] 12:45:00 Test Item Value Reference Range Interpretation Comments Urine Appearance (test code = 5767-9) CLEAR [facility] pH measurement by test [id number] 12:45:00 Test Item Value Reference Range Interpretation Comments Urine pH (test code = 5803-2) 6.0 [facility] by Test [id number] 12:45:00 Test Item Value Reference Range Interpretation Comments Urine Specific [place] (test code = <= 1.005 5811-5) [facility] protein assay by test strip, [id number] 12:45:00 Test Item Value Reference Range Interpretation Comments Urine Protein (test code = 07417-3) Negative [facility] glucose measurement by test strip (mass/volume)2019-08-29 12:45:00 Test Item Value Reference Range Interpretation Comments Urine Glucose (UA) (test code = Negative 5792-7) [facility] ketones detection by test [id number] 12:45:00 Test Item Value Reference Range Interpretation Comments Urine Ketones (test code = 2514-8) Negative [facility] erythrocytes count by test strip (number/volume)2019-08-29 12:45:00 Test Item Value Reference Range Interpretation Comments Urine Occult Blood (test code = Negative 72396-8) [facility] nitrite detection by automated test strip 2019-08-29 12:45:00 Test Item Value Reference Range Interpretation Comments Urine Nitrite (test code = 97229-6) Negative [facility] total bilirubin detection by test strip 2019-08-29 12:45:00 Test Item Value Reference Range Interpretation Comments Urine Bilirubin (test code = 5770-3) Negative [facility] urobilinogen measurement by automated test strip (mass/volume)2019-08-29 12:45:00 Test Item Value Reference Range Interpretation Comments Urine Urobilinogen (test code = Normal 08902-7) [facility] leukocyte esterase detection by dipstick 2019-08-29 12:45:00 Test Item Value Reference Range Interpretation Comments Urine Leukocyte Esterase (test code = Trace 5799-2) [facility] count (number/volume) 2019-08-29 11:32:00 Test Item Value Reference Range Interpretation Comments White Blood Count (test code = 6690-2) 7.9 [facility] erythrocytes automated count (number/volume) 2019-08-29 11:32:00 Test Item Value Reference Range Interpretation Comments Red Blood Count (test code = 789-8) 4.31 [facility] hemoglobin measurement (mass/volume) 2019-08-29 11:32:00 Test Item Value Reference Range Interpretation Comments Hemoglobin (test code = 718-7) 12.5 [facility] hematocrit (volume fraction) 2019-08-29 11:32:00 Test Item Value Reference Range Interpretation Comments Hematocrit (test code = 4544-3) 39.[address] [facility] [address] [facility] mean corpuscular volume (MCV) [id number] 11:32:00 Test Item Value Reference Range Interpretation Comments Mean Corpuscular Volume (test code = 90.7 787-2) [facility] mean corpuscular hemoglobin (mass per erythrocyte)2019-08-29 11:32:00 Test Item Value Reference Range Interpretation Comments Mean Corpuscular Hemoglobin (test code 29.0 = 785-6) [facility] mean corpuscular hemoglobin concentration (MCHC) measurement ([id number] 11:32:00 Test Item Value Reference Range Interpretation Comments Mean Corpuscular Hemoglobin Concent 32.0 (test code = 786-4) [facility] distribution width ratio 2019-08-29 11:32:00 Test Item Value Reference Range Interpretation Comments Red Cell Distribution Width (test code 13.5 = 788-0) [facility] platelet count (count/volume) 2019-08-29 11:32:00 Test Item Value Reference Range Interpretation Comments Platelet Count (test code = 777-3) 264 [facility] platelet mean volume measurement 2019-08-29 11:32:00 Test Item Value Reference Range Interpretation Comments Mean Platelet Volume (test code = 11.1 81243-0) [facility] neutrophil count as percentage of total [id number] 11:32:00 Test Item Value Reference Range Interpretation Comments Neutrophils (%) (Auto) (test code = 68.2 770-8) [facility] immature granulocyte count as percentage of total [id number] 11:32:00 Test Item Value Reference Range Interpretation Comments Immature Granulocyte % (Auto) (test 0.30 code = 06102-9) [facility] lymphocyte count as percentage of total [id number] 11:32:00 Test Item Value Reference Range Interpretation Comments Lymphocytes (%) (Auto) (test code = 23.0 736-9) [facility] monocyte count as percentage of total [id number] 11:32:00 Test Item Value Reference Range Interpretation Comments Monocytes (%) (Auto) (test code = 7.1 5905-5) [facility] eosinophil count as percentage of total [id number] 11:32:00 Test Item Value Reference Range Interpretation Comments Eosinophils (%) (Auto) (test code = 1.0 713-8) [facility] basophil count as percentage of total [id number] 11:32:00 Test Item Value Reference Range Interpretation Comments Basophils (%) (Auto) (test code = 0.4 706-2) [facility]ated erythrocyte count as percentage of total [id number] 11:32:00 Test Item Value Reference Range Interpretation Comments Nucleated Red Blood Cells % (test code 0.0 = 24689-8) [facility] neutrophil count (number/volume) 2019-08-29 11:32:00 Test Item Value Reference Range Interpretation Comments Neutrophils # (Auto) (test code = 5.4 751-8) [facility] immature granulocyte count as percentage of total [id number] 11:32:00 Test Item Value Reference Range Interpretation Comments Immature Granulocyte # (Auto) (test 0.0200 code = 80811-1) [facility] lymphocyte count (number/volume) 2019-08-29 11:32:00 Test Item Value Reference Range Interpretation Comments Lymphocytes # (Auto) (test code = 1.8 731-0) [facility] monocytes automated count (number/volume) 2019-08-29 11:32:00 Test Item Value Reference Range Interpretation Comments Monocytes # (Auto) (test code = 742-7) 0.6 [facility] eosinophil [id number] 11:32:00 Test Item Value Reference Range Interpretation Comments Eosinophils # (Auto) (test code = 0.1 711-2) [facility] basophil count (number/volume) 2019-08-29 11:32:00 Test Item Value Reference Range Interpretation Comments Basophils # (Auto) (test code = 704-7) 0.0 [facility] leukocyte count corrected for nucleated [id number] 11:32:00 Test Item Value Reference Range Interpretation Comments Nucleated Red Blood Cells # (test code 0.000 = 98701-6) [facility] blood prothrombin [id number] 11:32:00 Test Item Value Reference Range Interpretation Comments Prothrombin Time (test code = 5964-2) 10.6 [facility] Platelet poor plasma by Coagulation assay 2019-08-29 11:32:00 Test Item Value Reference Range Interpretation Comments Prothromb Time International Ratio 0.9 (test code = 6301-6) [facility] thromb[facility] (PTT) in platelet poor [id number] 11:32:00 Test Item Value Reference Range Interpretation Comments Activated Partial Thromboplast Time 31.7 (test code = 36235-4) [facility] Hospital[facility] measurement (moles/volume)2019-08-29 11:32:00 Test Item Value Reference Range Interpretation Comments Sodium Level (test code = 67071-0) 142 [facility] potassium measurement (moles/volume)2019-08-29 11:32:00 Test Item Value Reference Range Interpretation Comments Potassium Level (test code = 2823-3) 4.1 [facility] plasma chloride measurement (moles/volume) 2019-08-29 11:32:00 Test Item Value Reference Range Interpretation Comments Chloride Level (test code = 2075-0) 110 [facility] plasma carbon dioxide measurement (moles/volume)2019-08-29 11:32:00 Test Item Value Reference Range Interpretation Comments Carbon Dioxide Level (test code = 26 8-9) [facility] or plasma anion [id number] 11:32:00 Test Item Value Reference Range Interpretation Comments Anion Gap (test code = 90798-4) 6.0 [facility] or plasma urea nitrogen measurement (mass/volume)2019-08-29 11:32:00 Test Item Value Reference Range Interpretation Comments Blood Urea Nitrogen (test code = 14.0 3094-0) [facility] or plasma creatinine measurement (mass/volume)2019-08-29 11:32:00 Test Item Value Reference Range Interpretation Comments Creatinine (test code = 2160-0) 0.719 [facility] estimate [id number] 11:32:00 Test Item Value Reference Range Interpretation Comments Estimat Glomerular Filtration Rate > 60 (test code = 11295-7) [facility] glucose measurement (mass/volume) 2019-08-29 11:32:00 Test Item Value Reference Range Interpretation Comments Glucose Level (test code = 2345-7) 98 [facility] plasma calcium measurement (mass/volume) 2019-08-29 11:32:00 Test Item Value Reference Range Interpretation Comments Calcium Level (test code = 24448-3) 9.2 [facility] plasma total bilirubin measurement (mass/volume)2019-08-29 11:32:00 Test Item Value Reference Range Interpretation Comments Total Bilirubin (test code = 1975-2) 0.7 [facility] or plasma aspartate aminotransferase measurement (enzymatic activity/volume)2019-08-29 11:32:00 Test Item Value Reference Range Interpretation Comments Aspartate Amino Transf (AST/SGOT) (test 44 code = 1920-8) [facility] plasma alanine aminotransferase measurement (enzymatic activity/volume)2019-08-29 11:32:00 Test Item Value Reference Range Interpretation Comments Alanine Aminotransferase (ALT/SGPT) 53 (test code = 1742-6) [facility] plasma protein measurement (mass/volume) 2019-08-29 11:32:00 Test Item Value Reference Range Interpretation Comments Total Protein (test code = 2885-2) 7.8 [facility] or plasma albumin measurement (mass/volume) 2019-08-29 11:32:00 Test Item Value Reference Range Interpretation Comments Albumin (test code = 1751-7) 4.1 [facility] plasma alkaline phosphatase measurement (enzymatic activity/volume)2019-08-29 11:32:00 Test Item Value Reference Range Interpretation Comments Alkaline Phosphatase (test code = 73 6768-6) [facility] or plasma creatine kinase measurement (enzymatic activity/volume)2019-08-29 11:32:00 Test Item Value Reference Range Interpretation Comments Total Creatine Kinase (test code = 67 2157-6) [facility] or plasma creatine kinase MB measurement (mass/volume)2019-08-29 11:32:00 Test Item Value Reference Range Interpretation Comments Creatine Kinase MB (test code = < 1.0 86871-9) [facility] or plasma total creatine kinase/creatine kinase MB isoenzyme activity [id number] 11:32:00 Test Item Value Reference Range Interpretation Comments Creatine Kinase MB Relative Index (test 1.5 code = 2158-4) [facility] Center[facility]rop[facility] I [id number] 11:32:00 Test Item Value Reference Range Interpretation Comments Troponin I (test code = 41046-1) < 0.015 [facility] or plasma brain natriuretic peptide (BNP) [id number] 11:32:00 Test Item Value Reference Range Interpretation Comments B-Type Natriuretic Peptide (test code = 43 56643-5) [facility]
[2020-04-20] MEDS ORDERED: LORAZEPAM 1 MG TABLET ONE (00:21)
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
[2020-04-20 01:10] VITALS: BP 131/61; TEMP 97.7; O2SAT 99
== END 2020-04-20 00:28 | disposition left against medical advice (07) ==
LOC: ER 23:01
DX: M79.641 Pain in right hand (principal); Y04.2XXA Assault by strike against or bumped into by another person, initial encounter; Y93.9 Activity, unspecified; Y92.9 Unspecified place or not applicable
CPT/HCPCS: 99281

== ENCOUNTER 2020-04-21 18:10 | Emergency (ER) | payer OTHER ==
--- OUTSIDE RECORDS SUMMARY | 2020-04-21 18:14 | XMS REPORT | Continuity of Care Document ---
:1950 Author Organization [facility] t Address [address] [place] [address] Care Team Providers Name Role Phone PCP Primary Care Physician Unavailable Rodrigo VENTURA, Gene Attending Clinician Advance Directives Directive Decision Effective Date Termination Date Comments Sour ce Yes N/A [facility] Problems Condition Condition Condition Status Onset Resolution Last Treating Co mments Source Name Details Category Date Date Treatment Clinician Date Problem Condition [facility] Allergies, Adverse Reactions, Alerts Allergy Allergy Status Severity Reaction(s) Onset Inactive Treating Comm ents Source Name Type Date Date Clinician Penicill Allergy Active Hives 2018-11 [facility] Social History Social Habit Start Date Stop Date Quantity Comments Source Sex Assigned At 1950 [address] [address] [facility] Smoking Status Start Date Stop Date Source Unknown if ever smoked [facility] Medications This patient has no known medications. Vital Signs Vital Name Observation Time Observation Value Comments Source Heart Rate 2019-08-29 13:07:00 60 /[facility] Respiratory rate 2019-08-29 13:07:00 18 /min [facility] BP Systolic 2019-08-29 13:07:00 143 mm[Hg] [facility] BP Diastolic 2019-08-29 13:07:00 66 mm[Hg] [facility] Heart Rate 2019-08-29 12:12:00 60 /min [facility] Respiratory rate 2019-08-29 12:12:00 18 /min JOSE [facility] l BP Systolic 2019-08-29 12:12:00 143 mm[Hg] [facility] BP Diastolic 2019-08-29 12:12:00 66 mm[Hg] [facility] Weight 2019-08-29 10:43:00 110 [lb_av] [facility] BMI (Body Mass Index) 2019-08-29 10:43:00 23.0 kg/m2 [facility] Procedures Procedure Date / Time Performed Performing Clinician [facility] e ECG 2019-08-29 00:00:00 [facility] (electrocardiogram) [facility] X-ray of chest, single 2019-08-29 00:00:00 [facility] Plan of Care Planned Activity Planned Date Details Comments Source Future Scheduled Test Urine sediment [facility] erythrocyte count by [facility] microscopy (number/high power field) [code = 75713-0] Future Scheduled Test Urine sediment [facility] leukocyte count by [facility] (number/high power field) [code = 5821-4] Future Scheduled Test Urine sediment [facility] squamous epithelial [facility] cell count by microscopy (number/lowpower field) [code = 76341-1] Future Scheduled Test Urine sediment [facility] bacteria count by [facility] microscopy (number/high power field) [code = 5769-5] Future Scheduled Test Service comment [address] [code = 8264-4] [facility] ital Goal Patient referral [code [facility] = [id number] ] [facility] Instructions Chest Pain (DC) [facility] Encounters Start End Encounter Admission Attending Care Care Encounter Source Date/Time Date/Time Type Type Clinicians Facility Department ID 2020-02-13 2020-02-13 LYNDON Koo [id number] 00:00:00 00:00:00 Andrea Mmcillan [id number] [place] [id number] Professio [id number] nal 092 [facility] 2020-01-13 2020-01-13 Office Rdorigo MOANTHONY [id number] 09:09:08 10:04:39 Visit Andrea Mcmillan [id number] [place] [id number] Professio [id number] nal 092 [facility] 2019-08-29 2019-08-29 Departed BERNADETTE FONG [id number] CHRISTU 10:43:00 13:07:00 Emergency [facility] [address] Results Test Description Test Time Test Comments Results Result Comments Source Urine color determination 2019-08-29 12:45:00 Test Item Value Reference Range Interpretation Comme nts Urine Color (test code = 5778-6) Yellow [facility] appearance [id number] 12:45:00 Test Item Value Reference Range Interpretation Comments Urine Appearance (test code = 5767-9) CLEAR [facility] pH measurement by test [id number] 12:45:00 Test Item Value Reference Range Interpretation Comments Urine pH (test code = 5803-2) 6.0 [facility] Test [id number] 12:45:00 Test Item Value Reference Range Interpretation Comments Urine Specific [place] (test code = <= 1.005 5811-5) [facility] protein assay by test strip, [id number] 12:45:00 Test Item Value Reference Range Interpretation Comments Urine Protein (test code = 34748-4) Negative [facility] glucose measurement by test strip (mass/volume)2019-08-29 12:45:00 Test Item Value Reference Range Interpretation Comments Urine Glucose (UA) (test code = Negative 5792-7) [facility] ketones detection by test [id number] 12:45:00 Test Item Value Reference Range Interpretation Comments Urine Ketones (test code = 2514-8) Negative [facility] erythrocytes count by test strip (number/volume)2019-08-29 12:45:00 Test Item Value Reference Range Interpretation Comments Urine Occult Blood (test code = Negative 82930-9) [facility] nitrite detection by automated test strip 2019-08-29 12:45:00 Test Item Value Reference Range Interpretation Comments Urine Nitrite (test code = 01477-0) Negative [facility] total bilirubin detection by test strip 2019-08-29 12:45:00 Test Item Value Reference Range Interpretation Comments Urine Bilirubin (test code = 5770-3) Negative [facility] urobilinogen measurement by automated test strip (mass/volume)2019-08-29 12:45:00 Test Item Value Reference Range Interpretation Comments Urine Urobilinogen (test code = Normal 03829-7) [facility] leukocyte esterase detection by dipstick 2019-08-29 12:45:00 Test Item Value Reference Range Interpretation Comments Urine Leukocyte Esterase (test code = Trace 5799-2) [facility] leukocyte count (number/volume) 2019-08-29 11:32:00 Test Item Value Reference Range Interpretation Comments White Blood Count (test code = 6690-2) 7.9 [facility] erythrocytes automated count (number/volume) 2019-08-29 11:32:00 Test Item Value Reference Range Interpretation Comments Red Blood Count (test code = 789-8) 4.31 [facility] hemoglobin measurement (mass/volume) 2019-08-29 11:32:00 Test Item Value Reference Range Interpretation Comments Hemoglobin (test code = 718-7) 12.5 [facility] hematocrit (volume fraction) 2019-08-29 11:32:00 Test Item Value Reference Range Interpretation Comments Hematocrit (test code = 4544-3) 39.1 [facility] mean corpuscular volume (MCV) [id number] 11:32:00 Test Item Value Reference Range Interpretation Comments Mean Corpuscular Volume (test code = 90.7 787-2) [facility] mean corpuscular hemoglobin (mass per erythrocyte)2019-08-29 11:32:00 Test Item Value Reference Range Interpretation Comments Mean Corpuscular Hemoglobin (test code 29.0 = 785-6) [facility] mean corpuscular hemoglobin concentration (MCHC) measurement ([id number] 11:32:00 Test Item Value Reference Range Interpretation Comments Mean Corpuscular Hemoglobin Concent 32.0 (test code = 786-4) [facility] distribution width ratio 2019-08-29 11:32:00 Test Item Value Reference Range Interpretation Comments Red Cell Distribution Width (test code 13.5 = 788-0) [facility] platelet count (count/volume) 2019-08-29 11:32:00 Test Item Value Reference Range Interpretation Comments Platelet Count (test code = 777-3) 264 [facility] mean volume measurement 2019-08-29 11:32:00 Test Item Value Reference Range Interpretation Comments Mean Platelet Volume (test code = 11.1 70111-6) [facility] neutrophil count as percentage of total [id number] 11:32:00 Test Item Value Reference Range Interpretation Comments Neutrophils (%) (Auto) (test code = 68.2 770-8) [facility] immature granulocyte count as percentage of total [id number] 11:32:00 Test Item Value Reference Range Interpretation Comments Immature Granulocyte % (Auto) (test 0.30 code = 87092-4) [facility] lymphocyte count as percentage of total qnazrpdmqg0371-69-12 11:32:00 Test Item Value Reference Range Interpretation Comments Lymphocytes (%) (Auto) (test code = 23.0 736-9) [facility] monocyte count as percentage of total [id number] 11:32:00 Test Item Value Reference Range Interpretation Comments Monocytes (%) (Auto) (test code = 7.1 5905-5) [facility] eosinophil count as percentage of total uyqrdbmfqi5616-85-95 11:32:00 Test Item Value Reference Range Interpretation Comments Eosinophils (%) (Auto) (test code = 1.0 713-8) [facility] basophil count as percentage of total xmsnmyrxwi7894-09-68 11:32:00 Test Item Value Reference Range Interpretation Comments Basophils (%) (Auto) (test code = 0.4 706-2) [facility] nucleated erythrocyte count as percentage of total zmkhihcduj1737-01-45 11:32:00 Test Item Value Reference Range Interpretation Comments Nucleated Red Blood Cells % (test code 0.0 = 60500-7) [facility] neutrophil count (number/volume) 2019-08-29 11:32:00 Test Item Value Reference Range Interpretation Comments Neutrophils # (Auto) (test code = 5.4 751-8) [facility] immature granulocyte count as percentage of total [id number] 11:32:00 Test Item Value Reference Range Interpretation Comments Immature Granulocyte # (Auto) (test 0.0200 code = 56650-2) [facility] lymphocyte count (number/volume) 2019-08-29 11:32:00 Test Item Value Reference Range Interpretation Comments Lymphocytes # (Auto) (test code = 1.8 731-0) [facility] monocytes automated count (number/volume) 2019-08-29 11:32:00 Test Item Value Reference Range Interpretation Comments Monocytes # (Auto) (test code = 742-7) 0.6 [facility] eosinophil [id number] 11:32:00 Test Item Value Reference Range Interpretation Comments Eosinophils # (Auto) (test code = 0.1 711-2) [facility] basophil count (number/volume) 2019-08-29 11:32:00 Test Item Value Reference Range Interpretation Comments Basophils # (Auto) (test code = 704-7) 0.0 [facility] leukocyte count corrected for nucleated nqthljibfygy0220-85-75 11:32:00 Test Item Value Reference Range Interpretation Comments Nucleated Red Blood Cells # (test code 0.000 = 40943-1) [facility] blood prothrombin [id number] 11:32:00 Test Item Value Reference Range Interpretation Comments Prothrombin Time (test code = 5964-2) 10.6 [facility] Platelet poor plasma by Coagulation assay 2019-08-29 11:32:00 Test Item Value Reference Range Interpretation Comments Prothromb Time International Ratio 0.9 (test code = 6301-6) [facility] (PTT) in platelet poor [id number] 11:32:00 Test Item Value Reference Range Interpretation Comments Activated Partial Thromboplast Time 31.7 (test code = 58745-6) [facility] (moles/volume)2019-08-29 11:32:00 Test Item Value Reference Range Interpretation Comments Sodium Level (test code = 91223-1) 142 [facility] plasma potassium measurement (moles/volume)2019-08-29 11:32:00 Test Item Value Reference Range Interpretation Comments Potassium Level (test code = 2823-3) 4.1 [facility] plasma chloride measurement (moles/volume) 2019-08-29 11:32:00 Test Item Value Reference Range Interpretation Comments Chloride Level (test code = 2075-0) 110 [facility] plasma carbon dioxide measurement (moles/volume)2019-08-29 11:32:00 Test Item Value Reference Range Interpretation Comments Carbon Dioxide Level (test code = 26 8-9) [facility] plasma anion [id number] 11:32:00 Test Item Value Reference Range Interpretation Comments Anion Gap (test code = 63165-1) 6.0 [facility] or plasma urea nitrogen measurement (mass/volume)2019-08-29 11:32:00 Test Item Value Reference Range Interpretation Comments Blood Urea Nitrogen (test code = 14.0 3094-0) [facility] or plasma creatinine measurement (mass/volume)2019-08-29 11:32:00 Test Item Value Reference Range Interpretation Comments Creatinine (test code = 2160-0) 0.719 [facility] [id number] 11:32:00 Test Item Value Reference Range Interpretation Comments Estimat Glomerular Filtration Rate > 60 (test code = 58395-5) [facility] plasma glucose measurement (mass/volume) 2019-08-29 11:32:00 Test Item Value Reference Range Interpretation Comments Glucose Level (test code = 2345-7) 98 [facility] or plasma calcium measurement (mass/volume) 2019-08-29 11:32:00 Test Item Value Reference Range Interpretation Comments Calcium Level (test code = 56749-9) 9.2 [facility] total bilirubin measurement (mass/volume)2019-08-29 11:32:00 Test Item Value Reference Range Interpretation Comments Total Bilirubin (test code = 1975-2) 0.7 [facility] plasma aspartate aminotransferase measurement (enzymatic activity/volume)2019-08-29 11:32:00 Test Item Value Reference Range Interpretation Comments Aspartate Amino Transf (AST/SGOT) (test 44 code = 1920-8) [facility] plasma alanine aminotransferase measurement (enzymatic activity/volume)2019-08-29 11:32:00 Test Item Value Reference Range Interpretation Comments Alanine Aminotransferase (ALT/SGPT) 53 (test code = 1742-6) [facility] plasma protein measurement (mass/volume) 2019-08-29 11:32:00 Test Item Value Reference Range Interpretation Comments Total Protein (test code = 2885-2) 7.8 [facility] plasma albumin measurement (mass/volume) 2019-08-29 11:32:00 Test Item Value Reference Range Interpretation Comments Albumin (test code = 1751-7) 4.1 [facility] plasma alkaline phosphatase measurement (enzymatic activity/volume)2019-08-29 11:32:00 Test Item Value Reference Range Interpretation Comments Alkaline Phosphatase (test code = 73 6768-6) [facility] plasma creatine kinase measurement (enzymatic activity/volume)2019-08-29 11:32:00 Test Item Value Reference Range Interpretation Comments Total Creatine Kinase (test code = 67 2157-6) [facility] plasma creatine kinase MB measurement (mass/volume)2019-08-29 11:32:00 Test Item Value Reference Range Interpretation Comments Creatine Kinase MB (test code = < 1.0 96376-7) [facility] plasma total creatine kinase/creatine kinase MB isoenzyme activity [id number] 11:32:00 Test Item Value Reference Range Interpretation Comments Creatine Kinase MB Relative Index (test 1.5 code = 2158-4) [facility] [id number] 11:32:00 Test Item Value Reference Range Interpretation Comments Troponin I (test code = 64945-3) < 0.015 [facility] or plasma brain natriuretic peptide (BNP) [id number] 11:32:00 Test Item Value Reference Range Interpretation Comments B-Type Natriuretic Peptide (test code = 43 89422-9) [facility]
[2020-04-21 19:21] LABS: Absolute Lymphocytes (CBC) 2.5 K/uL (0.7-4.9); Basophils % 0.2 % (0-1.3); Hematocrit 36.1 % (36.0-45.0); Lymphocytes % 32.9 % (15.3-44.8); MPV 9.3 fL (7.6-11.3); RBC Red Blood Cell Count 4.08 M/uL (3.86-4.86)
[2020-04-21 19:26] LABS: Protime INR 0.96
[2020-04-21] MEDS ORDERED: ASPIRIN 81 MG CHEWABLE TABLET ONE (19:40)
[2020-04-21 19:43] LABS: ALT/SGPT 20 U/L (12-78); AST/SGOT 30 U/L (15-37); Albumin 3.7 g/dL (3.4-5.0); Alkaline Phosphatase 67 U/L (45-117); BUN Blood Urea Nitrogen 19 mg/dL (7-18); Bicarbonate 25 mmol/L (21-32); Bilirubin Direct 0.1 mg/dL (0-0.2); Bilirubin Total 0.6 mg/dL (0.2-1.0); Glucose Level 93 mg/dL (74-106); Magnesium 1.7 mg/dL (1.8-2.4); NT PRO-BNP 209 pg/mL (<125); Potassium 3.7 mmol/L (3.5-5.1); Protein, Total 7.4 g/dL (6.4-8.2); Sodium Level 141 mmol/L (136-145); Troponin (Emerg Dept Use Only) < 0.02 ng/mL (0.0-0.045)
--- NOTE | 2020-04-21 20:20 | RAD REPORT ---
EXAM DESCRIPTION: RAD - Hand Right 3 View - 04/21/2020 7:14 pm CLINICAL HISTORY: PAIN COMPARISON: No comparisons FINDINGS: No fracture is identified. There is no dislocation or periosteal reaction noted. No forei gn body or significant soft tissue abnormality. IMPRESSION: Negative right hand examination.
--- NOTE | 2020-04-21 20:28 | ER ---
Nurse's Notes [facility] Name: Mary Healy Age: 70 yrs Sex: Female : 1950 Arrival Date: 04/21/2020 Time: 18:14 Bed 6 Private MD: Rey aVlenzuela Diagnosis: Altered mental status, unspecified-chronic, progressive dementia Presentation: 04/21 18:23 Chief complaint: Patient's son or daughter states: Still confused since last visit here ll1 approximately 3 days ago. On antibiotics for UTI. 4 visits for similar episodes the past two weeks to several different hospitals. Recent change in medication, but her daughter believes she doesn't take them as prescribed. Coronavirus screen: Proceed with normal triage. Patient denies a cough. Patient denies shortness of breath or difficulty breathing. Patient denies measured and/or subjective temperature greater than 100.4F prior to today's visit. Patient denies travel on a cruise ship or to a country the [facility] currently lists as an affected area. Patient denies contact with known and/or suspected case of COVID-19. Ebola Screen: Patient denies travel to an Ebola-affected area in the 21 days before illness onset. Initial Sepsis Screen: Does the patient meet any 2 criteria? No. Patient's initial sepsis screen is negative. Risk Assessment: Do you want to hurt yourself or someone else? Patient reports no desire to harm self or others. Onset of symptoms was April 09, 2020. 18:23 Method Of Arrival: Ambulatory ll1 18:23 Acuity: AASHISH 3 ll1 18:55 Initial Sepsis Screen: Does the patient have a suspected source of infection? No. ph Patient's initial sepsis screen is negative. Historical: - Allergies: 18:27 PENICILLINS; ll1 - PMHx: 18:27 Rheumatoid Arthritis; Hypertension; Alzheimers; vascular dementia; ll1 - PSHx: 18:27 Hysterectomy; ; ll1 - Immunization history:: Adult Immunizations up to date. - Social history:: Smoking status: Patient/guardian denies using tobacco, the patient reports quitting approximately 20 years ago, Patient uses alcohol, only on a social basis. Patient/guardian denies using street drugs, IV drugs. Screenin:55 Abuse screen: Denies threats or abuse. Denies injuries from another. Nutritional ph screening: No deficits noted. Tuberculosis screening: No symptoms or risk factors identified. Fall Risk None identified. Assessment: 18:48 General: Appears in no apparent distress. comfortable, well groomed, Behavior is ph cooperative, appropriate for age, anxious, Denies fever. Pain: Complains of pain in right hand. Neuro: Level of Consciousness is awake, alert, obeys commands, Oriented to person, place, time, Pt's daughter reports hx of vascular dementia, states, " She gets really confused and has hallucinations, she sometimes thinks that her is someone else, Last night she called me screaming and crying that he had killed her mother an her mother has been for 3 years." . 18:52 Cardiovascular: Reports chest pain, Denies nausea, shortness of breath. Respiratory: ph Airway is patent Respiratory effort is even, unlabored, Respiratory pattern is regular, symmetrical. GI: No signs and/or symptoms were reported involving the gastrointestinal system. Derm: Skin is fragile, is thin, Skin is pink, warm \\T\\ dry. Bruising that is dark purple, on right hand and right arm. Musculoskeletal: Circulation, motion, and sensation intact. Range of motion: intact in all extremities. 19:00 Reassessment: Patient appears in no apparent distress at this time. Patient and/or jb4 family updated on plan of care and expected duration. Pain level reassessed. Patient is alert, oriented x 3, equal unlabored respirations, skin warm/dry/pink. 20:06 Reassessment: Patient appears in no apparent distress at this time. Patient and/or jb4 family updated on plan of care and expected duration. Pain level reassessed. Pt is upset and crying stating " I want to go home." daughter reports that it is okay and that this occurs when the patient is home with the daughter. 20:30 Reassessment: Patient appears in no apparent distress at this time. Patient and/or jb4 family updated on plan of care and expected duration. Pain level reassessed. Patient is alert, oriented x 3, equal unlabored respirations, skin warm/dry/pink. Vital Signs: 18:23 BP 136 / 61; Pulse 80; Resp 17; Temp 98.3; Pulse Ox 99% ; Pain 0/10; ll1 20:00 BP 166 / 91; Pulse 88; Resp 18; Pulse Ox 100% on R/A; jb4 ED Course: 18:14 Patient arrived in ED. dp 18:14 Rey Valenzuela MD is Private Physician. dp 18:26 Triage completed. ll1 18:27 Florida Abel RN is Primary Nurse. ph 18:27 Arm band placed on Patient placed in an exam room, on a stretcher. ll1 18:38 [facility]C [facility]. kb 18:38 Andrae Jimenez MD is Attending Physician. kb 18:55 Patient has correct armband on for positive identification. Bed in low position. Call ph light in reach. Side rails up X 1. Pulse ox on. NIBP on. Door closed. Noise minimized. Warm blanket given. Verbal reassurance given. 19:08 Initial lab(s) drawn, by me, sent to lab. EKG done, by ED staff. Inserted saline lock: ph 22 gauge in left antecubital area, using aseptic technique. Blood collected. 19:12 Primary Nurse role handed off by Florida Abel RN jb4 19:12 Moisés Serrano, RN is Primary Nurse. jb4 19:12 Basic Metabolic Panel Sent. jb4 19:12 CBC with Diff Sent. jb4 19:12 LFT's Sent. jb4 19:12 NT PRO-BNP Sent. jb4 19:12 Magnesium Sent. jb4 19:13 PT-INR Sent. jb4 19:13 Troponin (emerg Dept Use Only) Sent. jb4 19:14 Hand Right 3 View XRAY In Process Unspecified. EDMS 20:40 No provider procedures requiring assistance completed. Patient did not have IV access jb4 during this emergency room visit. Administered Medications: 19:39 Drug: Aspirin Chewable Tablet 81 mg Route: PO; jb4 20:00 Follow up: Response: No adverse reaction jb4 Outcome: 20:28 Discharge ordered by . kb 20:40 Discharged to home ambulatory, with family. jb4 20:40 Condition: stable 20:40 Discharge instructions given to patient, family, Instructed on discharge instructions, follow up and referral plans. Demonstrated understanding of instructions, follow-up care. 20:42 Patient left the ED. jb4 Signatures: Dispatcher [employer] EDSD Hanna Posada FNP-C ACTIVE DIRECTORY ENGINEER-Ckb Florida Abel RN RN ph Moisés Serrano RN RN jb4 Gumaro Dueñas Lynsay, RN RN ll1 Corrections: (The following items were deleted from the chart) 18:55 18:48 Neuro: Level of Consciousness is awake, alert, obeys commands, Oriented to ph person, place, time, Pt's daughter reports hx of vascular de. ph
--- NOTE | 2020-04-21 20:28 | EDPHYS ---
Physician Documentation [facility] Name: Mary Healy Age: 70 yrs Sex: Female : 1950 Arrival Date: 04/21/2020 Time: 18:14 Bed 6 Private MD: Rey Valenzuela ED Physician Andrae Jimenez HPI: 04/21 19:34 This 70 yrs old Female presents to ER via Ambulatory with complaints of kb Altered Mental Status. 19:05 Pt reports she walked over here because her and her got into an argument. kb Daughter states pt's dementia has been progressing. States she sees Dr Green for this and was supposed to start a new medication last night, but didn't. Pt awake, alert and oriented x4. Pt telling stories about trying to leave her that daughter states aren't true. No acute changes per daughter. . 19:34 The patient presents with confusion. Onset: The symptoms/episode began/occurred kb longstanding. Possible causes: vascular dementia. Associated signs and symptoms: The patient has no apparent associated signs or symptoms. Current symptoms: In the emergency department the patient's symptoms are unchanged from the initial presentation. Patient's baseline: Neuro: alert and fully oriented, Motor: no deficits, Ambulation: walks without assistance, Speech: normal, The patient has a previous history of dementia. The patient has experienced similar episodes in the past, chronically. The patient has been recently seen by a physician: the ER physician, out of Town, with similar presenting complaints. Historical: - Allergies: 18:27 PENICILLINS; ll1 - PMHx: 18:27 Rheumatoid Arthritis; Hypertension; Alzheimers; vascular dementia; ll1 - PSHx: 18:27 Hysterectomy; ; ll1 - Immunization history:: Adult Immunizations up to date. - Social history:: Smoking status: Patient/guardian denies using tobacco, the patient reports quitting approximately 20 years ago, Patient uses alcohol, only on a social basis. Patient/guardian denies using street drugs, IV drugs. ROS: 19:02 Constitutional: Negative for fever, chills, and weight loss, Cardiovascular: Negative kb for chest pain, palpitations, and edema, Respiratory: Negative for shortness of breath, cough, wheezing, and pleuritic chest pain, Abdomen/GI: Negative for abdominal pain, nausea, vomiting, diarrhea, and constipation, Back: Negative for injury and pain, : Negative for injury, bleeding, discharge, and swelling, Skin: Negative for injury, rash, and discoloration, Neuro: Negative for headache, weakness, numbness, tingling, and seizure. 19:05 MS/extremity: Positive for pain, of the right hand. kb Exam: 19:04 Constitutional: This is a well developed, well nourished patient who is awake, alert, kb and in no acute distress. Head/Face: Normocephalic, atraumatic. Chest/axilla: Normal chest wall appearance and motion. Nontender with no deformity. No lesions are appreciated. Cardiovascular: Regular rate and rhythm with a normal S1 and S2. No gallops, murmurs, or rubs. Normal PMI, no JVD. No pulse deficits. Respiratory: Lungs have equal breath sounds bilaterally, clear to auscultation and percussion. No rales, rhonchi or wheezes noted. No increased work of breathing, no retractions or nasal flaring. Abdomen/GI: Soft, non-tender, with normal bowel sounds. No distension or tympany. No guarding or rebound. No evidence of tenderness throughout. Back: No spinal tenderness. No costovertebral tenderness. Full range of motion. MS/ Extremity: Pulses equal, no cyanosis. Neurovascular intact. Full, normal range of motion. Neuro: Awake and alert, GCS 15, oriented to person, place, time, and situation. Cranial nerves II-XII grossly intact. Motor strength 5/5 in all extremities. Sensory grossly intact. Cerebellar exam normal. Normal gait. 19:04 Skin: injury, contusion(s), that are superficial, of the right hand. kb Vital Signs: 18:23 BP 136 / 61; Pulse 80; Resp 17; Temp 98.3; Pulse Ox 99% ; Pain 0/10; ll1 20:00 BP 166 / 91; Pulse 88; Resp 18; Pulse Ox 100% on R/A; jb4 MDM: 18:40 Patient medically screened. kb 19:01 Data reviewed: vital signs, nurses notes. Data interpreted: Pulse oximetry: on room air kb is 99 %. Interpretation: normal. 19:34 Data reviewed: diagnostic data from outside facility, CT head and labs reviewed from ER kb visit to [facility] last night. CT shows no acute findings. . 20:25 Counseling: I had a detailed discussion with the patient and/or guardian regarding: the kb historical points, exam findings, and any diagnostic results supporting the discharge/admit diagnosis, lab results, radiology results, the need for outpatient follow up, a neurologist, to return to the emergency department if symptoms worsen or persist or if there are any questions or concerns that arise at home. 20:29 ED course: Diagnostics explained to pt and daughter. Pt wants to go home. Both educated kb on need to follow up with Norma for management and plan of care for progressive vascular dementia. 04/21 18:49 Order name: Basic Metabolic Panel; Complete Time: 20:25 kb 04/21 18:49 Order name: CBC with Diff; Complete Time: 19:27 kb 04/21 18:49 Order name: LFT's; Complete Time: 20:25 kb 04/21 18:49 Order name: Magnesium; Complete Time: 20:25 kb 04/21 18:49 Order name: NT PRO-BNP; Complete Time: 20:25 kb 04/21 18:49 Order name: PT-INR; Complete Time: 19:33 kb 04/21 18:49 Order name: Troponin (emerg Dept Use Only); Complete Time: 20:25 kb 04/21 18:49 Order name: EKG; Complete Time: 18:50 kb 04/21 18:49 Order name: Cardiac monitoring; Complete Time: 19:12 kb 04/21 18:49 Order name: EKG - Nurse/Tech; Complete Time: 19:12 kb 04/21 18:49 Order name: IV Saline Lock; Complete Time: 19:12 kb 04/21 18:49 Order name: Labs collected and sent; Complete Time: 19:12 kb 04/21 18:52 Order name: Hand Right 3 View XRAY; Complete Time: 20:22 kb 04/21 18:49 Order name: O2 Per Protocol; Complete Time: 19:12 kb 04/21 18:49 Order name: O2 Sat Monitoring; Complete Time: 19:12 kb Administered Medications: 19:39 Drug: Aspirin Chewable Tablet 81 mg Route: PO; jb4 20:00 Follow up: Response: No adverse reaction jb4 Disposition: 04/22 07:03 Co-signature as Attending Physician, Andrae Jimenez MD. rn Disposition: 04/21/20 20:28 Discharged to Home. Impression: Altered mental status, unspecified - chronic, progressive dementia. - Condition is Stable. - Discharge Instructions: Vascular Dementia, Dementia, [id number]. - Medication Reconciliation Form, Thank You Letter, Antibiotic Education, Prescription Opioid Use form. - Follow up: Emergency Department; When: As needed; Reason: Worsening of condition. Follow up: Private Physician; When: 2 - 3 days; Reason: Recheck today's complaints, Continuance of care, Re-evaluation by your physician. Signatures: Dispatcher [employer] EDMS Hanna Posada, TABLE OPERATOR-C TABLE OPERATOR-CkAndrae Jamison MD MD rn Bryson, James RN RN jb4 Rhina Quispe RN RN ll1 Corrections: (The following items were deleted from the chart) 04/21 19:05 19:02 Constitutional: Negative for fever, chills, and weight loss, Cardiovascular: kb Negative for chest pain, palpitations, and edema, Respiratory: Negative for shortness of breath, cough, wheezing, and pleuritic chest pain, Abdomen/GI: Negative for abdominal pain, nausea, vomiting, diarrhea, and constipation, Back: Negative for injury and pain, : Negative for injury, bleeding, discharge, and swelling, MS/Extremity: Negative for injury and deformity, Skin: Negative for injury, rash, and discoloration, Neuro: Negative for headache, weakness, numbness, tingling, and seizure, kb 19:05 19:04 Constitutional: This is a well developed, well nourished patient who is awake, kb alert, and in no acute distress. Head/Face: Normocephalic, atraumatic. Chest/axilla: Normal chest wall appearance and motion. Nontender with no deformity. No lesions are appreciated. Cardiovascular: Regular rate and rhythm with a normal S1 and S2. No gallops, murmurs, or rubs. Normal PMI, no JVD. No pulse deficits. Respiratory: Lungs have equal breath sounds bilaterally, clear to auscultation and percussion. No rales, rhonchi or wheezes noted. No increased work of breathing, no retractions or nasal flaring. Abdomen/GI: Soft, non-tender, with normal bowel sounds. No distension or tympany. No guarding or rebound. No evidence of tenderness throughout. Back: No spinal tenderness. No costovertebral tenderness. Full range of motion. Skin: Warm, dry with normal turgor. Normal color with no rashes, no lesions, and no evidence of cellulitis. MS/ Extremity: Pulses equal, no cyanosis. Neurovascular intact. Full, normal range of motion. Neuro: Awake and alert, GCS 15, oriented to person, place, time, and situation. Cranial nerves II-XII grossly intact. Motor strength 5/5 in all extremities. Sensory grossly intact. Cerebellar exam normal. Normal gait. kb 20:42 20:28 04/21/2020 20:28 Discharged to Home. Impression: Altered mental status, jb4 unspecified - chronic, progressive dementia. Condition is Stable. Forms are Medication Reconciliation Form, Thank You Letter, Antibiotic Education, Prescription Opioid Use. Follow up: Emergency Department; When: As needed; Reason: Worsening of condition. Follow up: Private Physician; When: 2 - 3 days; Reason: Recheck today's complaints, Continuance of care, Re-evaluation by your physician. kb
[2020-04-21 20:48] VITALS: TEMP 98.3
[2020-04-21 20:49] VITALS: BP 166/91; O2SAT 100
--- NOTE | 2020-04-23 07:48 | EKG ---
Test Date: 2020-04-21 Test Time: 18:58:57 Quad Stayer: VILMA MEASUREMENT RESULTS: Intervals: Rate: 73 NV: 142 QRSD: 78 QT: 390 QTc: 429 Commerce: P: 69 NV: 142 QRS: 22 T: 57 INTERPRETIVE STATEMENTS: Normal sinus rhythm Cannot rule out Anterior infarct, age undetermined Abnormal ECG Compared to ECG 04/14/2020 01:40:37 Myocardial infarct finding now present Electronically Signed On 04-23-20 07:44:53 CDT by José Luis Palmer
== END 2020-04-21 20:42 | disposition home or self-care (01) ==
LOC: ER 18:10
DX: G30.9 Alzheimer's disease, unspecified (principal); F02.80 Dementia in other diseases classified elsewhere, unspecified severity, without behavioral disturbance, psychotic disturbance, mood disturbance, and anxiety; I10 Essential (primary) hypertension; Z88.0 Allergy status to penicillin
CPT/HCPCS: 36415; 80048; 80076; 83735; 83880; 84484; 85025; 85610; 93005; 99284

== ENCOUNTER 2020-04-29 13:49 | Emergency (ER) | payer OTHER ==
--- OUTSIDE RECORDS SUMMARY | 2020-04-29 13:52 | XMS REPORT | Continuity of Care Document ---
:1950 Author Organization [facility] t Address [address] [place] [address] Care Team Providers Name Role Phone PCP Primary Care Physician Unavailable Rodrigo VENTURA, Gene Attending Clinician Advance Directives Directive Decision Effective Date Termination Date Comments Sour ce Yes N/A [facility] Problems Condition Condition Condition Status Onset Resolution Last Treating Co mments Source Name Details Category Date Date Treatment Clinician Date Problem Condition [facility] Allergies, Adverse Reactions, Alerts Allergy [...] Stop Date Source Unknown if ever smoked [facility] Medications This patient has no known medications. Vital Signs Vital Name Observation Time Observation Value Comments Source Heart Rate 2019-08-29 13:07:00 60 /min [facility] Respiratory rate 2019-08-29 13:07:00 18 /min [facility] BP Systolic 2019-08-29 13:07:00 143 mm[Hg] [facility] BP Diastolic 2019-08-29 13:07:00 66 mm[Hg] [facility] Heart Rate 2019-08-29 12:12:00 60 /min [facility] Respiratory rate 2019-08-29 12:12:00 18 /min JOSE [facility] BP Systolic 2019-08-29 12:12:00 143 mm[facility]Hg[facility] BP Diastolic 2019-08-29 12:12:00 66 mm[Hg] [facility] Weight 2019-08-29 10:43:00 110 [lb_av] [facility] BMI (Body Mass Index) 2019-08-29 10:43:00 23.0 kg/m2 [facility] Procedures Procedure Date / Time Performed Performing Clinician [facility] e ECG 2019-08-29 00:00:00 [facility] (electrocardiogram) [facility] X-ray of chest, single 2019-08-29 00:00:00 [facility] Plan of Care Planned Activity Planned Date Details Comments Source Future Scheduled Test Urine sediment [facility] erythrocyte count by [facility] microscopy (number/high power field) [code = 35393-0] Future Scheduled Test Urine sediment [facility] leukocyte count by [facility] (number/high power field) [code = 5821-4] Future Scheduled Test Urine sediment [facility] squamous epithelial [facility] cell count by microscopy (number/lowpower field) [code = 64967-2] Future Scheduled Test Urine sediment [facility] bacteria count by [facility] microscopy (number/high power field) [code = 5769-5] Future Scheduled Test Service comment [address] [facility] [code = 8264-4] [facility] ital Goal Patient referral [code [facility] = [id number] ] [facility] Instructions Chest Pain (DC) [facility] Encounters Start End Encounter Admission Attending Care Care Encounter Source Date/Time Date/Time Type Type Clinicians Facility Department ID 2020-02-13 2020-02-13 LYNDON Koo [id number] 00:00:00 00:00:00 Andrea Mcmillan [id number] [place] [id number] Professio [id number] nal 092 [facility] 2020-01-13 2020-01-13 Office Rodrigo ORANTHONY [id number] 09:09:08 10:04:39 Visit Andrea Mcmillan [id number] [place] [id number] Professio [id number] nal 092 [facility] 2019-08-29 2019-08-29 Departed BERNADETTE FONG [id number] CHRISTU 10:43:00 13:07:00 Emergency [facility] [address] Results Test Description Test Time Test Comments Results Result Comments Source Urine color determination 2019-08-29 12:45:00 Test Item Value Reference Range Interpretation Comme nts Urine Color (test code = 5778-6) Yellow [facility] appearance [id number] 12:45:00 Test Item Value Reference Range Interpretation Comments Urine Appearance (test code = 5767-9) CLEAR [facility] pH measurement by test [id number] 12:45:00 Test Item Value Reference Range Interpretation Comments Urine pH (test code = 5803-2) 6.0 [facility] by Test [id number] 12:45:00 Test Item Value Reference Range Interpretation Comments Urine Specific [place] (test code = <= 1.005 5811-5) [facility] protein assay by test strip, [id number] 12:45:00 Test Item Value Reference Range Interpretation Comments Urine Protein (test code = 44311-0) Negative [facility] glucose measurement by test strip (mass/volume)2019-08-29 12:45:00 Test Item Value Reference Range Interpretation Comments Urine Glucose (UA) (test code = Negative 5792-7) [facility] ketones detection by test [id number] 12:45:00 Test Item Value Reference Range Interpretation Comments Urine Ketones (test code = 2514-8) Negative [facility] erythrocytes count by test strip (number/volume)2019-08-29 12:45:00 Test Item Value Reference Range Interpretation Comments Urine Occult Blood (test code = Negative 97200-0) [facility] nitrite detection by automated test strip 2019-08-29 12:45:00 Test Item Value Reference Range Interpretation Comments Urine Nitrite (test code = 71759-2) Negative [facility] total bilirubin detection by test strip 2019-08-29 12:45:00 Test Item Value Reference Range Interpretation Comments Urine Bilirubin (test code = 5770-3) Negative [facility] urobilinogen measurement by automated test strip (mass/volume)2019-08-29 12:45:00 Test Item Value Reference Range Interpretation Comments Urine Urobilinogen (test code = Normal 55685-8) [facility] leukocyte esterase detection by dipstick 2019-08-29 12:45:00 Test Item Value Reference Range Interpretation Comments Urine Leukocyte Esterase (test code = Trace 5799-2) [facility] leukocyte count (number/volume) 2019-08-29 11:32:00 Test Item Value Reference Range Interpretation Comments White Blood Count (test code = 6690-2) 7.9 [facility] erythrocytes automated count (number/volume) 2019-08-29 11:32:00 Test Item Value Reference Range Interpretation Comments Red Blood Count (test code = 789-8) 4.31 [facility] hemoglobin measurement (mass/volume) 2019-08-29 11:32:00 Test Item Value Reference Range Interpretation Comments Hemoglobin (test code = 718-7) 12.5 [facility] hematocrit (volume fraction) 2019-08-29 11:32:00 Test Item Value Reference Range Interpretation Comments Hematocrit (test code = 4544-3) 39.1 [facility] mean corpuscular volume (MCV) [id number] 11:32:00 Test Item Value Reference Range Interpretation Comments Mean Corpuscular Volume (test code = 90.7 787-2) [facility] mean corpuscular hemoglobin (mass per erythrocyte)2019-08-29 11:32:00 Test Item Value Reference Range Interpretation Comments Mean Corpuscular Hemoglobin (test code 29.0 = 785-6) [facility] mean corpuscular hemoglobin concentration (MCHC) measurement ([id number] 11:32:00 Test Item Value Reference Range Interpretation Comments Mean Corpuscular Hemoglobin Concent 32.0 (test code = 786-4) [facility] distribution width ratio 2019-08-29 11:32:00 Test Item Value Reference Range Interpretation Comments Red Cell Distribution Width (test code 13.5 = 788-0) [facility] platelet count (count/volume) 2019-08-29 11:32:00 Test Item Value Reference Range Interpretation Comments Platelet Count (test code = 777-3) 264 [facility] platelet mean volume measurement 2019-08-29 11:32:00 Test Item Value Reference Range Interpretation Comments Mean Platelet Volume (test code = 11.1 24145-1) [facility] neutrophil count as percentage of total chsbfnjnok5853-37-95 11:32:00 Test Item Value Reference Range Interpretation Comments Neutrophils (%) (Auto) (test code = 68.2 770-8) [facility] immature granulocyte count as percentage of total tianykqkiv6963-31-61 11:32:00 Test Item Value Reference Range Interpretation Comments Immature Granulocyte % (Auto) (test 0.30 code = 26863-6) [facility] lymphocyte count as percentage of total [id number] 11:32:00 Test Item Value Reference Range Interpretation Comments Lymphocytes (%) (Auto) (test code = 23.0 736-9) [facility] monocyte count as percentage of total relboevzqf3344-71-27 11:32:00 Test Item Value Reference Range Interpretation Comments Monocytes (%) (Auto) (test code = 7.1 5905-5) [facility] eosinophil count as percentage of total nhbgehhfem1000-57-75 11:32:00 Test Item Value Reference Range Interpretation Comments Eosinophils (%) (Auto) (test code = 1.0 713-8) [facility] basophil count as percentage of total aplesftrkn2047-22-12 11:32:00 Test Item Value Reference Range Interpretation Comments Basophils (%) (Auto) (test code = 0.4 706-2) [facility] nucleated erythrocyte count as percentage of total ihxoggqwzj2557-14-45 11:32:00 Test Item Value Reference Range Interpretation Comments Nucleated Red Blood Cells % (test code 0.0 = 71021-7) [facility] neutrophil count (number/volume) 2019-08-29 11:32:00 Test Item Value Reference Range Interpretation Comments Neutrophils # (Auto) (test code = 5.4 751-8) [facility] immature granulocyte count as percentage of total hdpqcqliwd7310-54-64 11:32:00 Test Item Value Reference Range Interpretation Comments Immature Granulocyte # (Auto) (test 0.0200 code = 59709-5) [facility] lymphocyte count (number/volume) 2019-08-29 11:32:00 Test Item Value Reference Range Interpretation Comments Lymphocytes # (Auto) (test code = 1.8 731-0) [facility] monocytes automated count (number/volume) 2019-08-29 11:32:00 Test Item Value Reference Range Interpretation Comments Monocytes # (Auto) (test code = 742-7) 0.6 [facility] eosinophil [id number] 11:32:00 Test Item Value Reference Range Interpretation Comments Eosinophils # (Auto) (test code = 0.1 711-2) [facility] basophil count (number/volume) 2019-08-29 11:32:00 Test Item Value Reference Range Interpretation Comments Basophils # (Auto) (test code = 704-7) 0.0 [facility] leukocyte count corrected for nucleated fatawripkltu9052-48-34 11:32:00 Test Item Value Reference Range Interpretation Comments Nucleated Red Blood Cells # (test code 0.000 = 00929-1) [facility] blood prothrombin [id number] 11:32:00 Test Item Value Reference Range Interpretation Comments Prothrombin Time (test code = 5964-2) 10.6 [facility] in Platelet poor plasma by Coagulation assay 2019-08-29 11:32:00 Test Item Value Reference Range Interpretation Comments Prothromb Time International Ratio 0.9 (test code = 6301-6) [facility] thromb[facility] time (PTT) in platelet poor [id number] 11:32:00 Test Item Value Reference Range Interpretation Comments Activated Partial Thromboplast Time 31.7 (test code = 81417-5) [facility] (moles/volume)2019-08-29 11:32:00 Test Item Value Reference Range Interpretation Comments Sodium Level (test code = 50469-1) 142 [facility]rum or plasma potassium measurement (moles/volume)2019-08-29 11:32:00 Test Item Value Reference Range Interpretation Comments Potassium Level (test code = 2823-3) 4.1 [facility] or plasma chloride measurement (moles/volume) 2019-08-29 11:32:00 Test Item Value Reference Range Interpretation Comments Chloride Level (test code = 2075-0) 110 [facility] or plasma carbon dioxide measurement (moles/volume)2019-08-29 11:32:00 Test Item Value Reference Range Interpretation Comments Carbon Dioxide Level (test code = 26 8-9) [facility] or plasma anion [id number] 11:32:00 Test Item Value Reference Range Interpretation Comments Anion Gap (test code = 39181-2) 6.0 [facility] or plasma urea nitrogen measurement (mass/volume)2019-08-29 11:32:00 Test Item Value Reference Range Interpretation Comments Blood Urea Nitrogen (test code = 14.0 3094-0) [facility] or plasma creatinine measurement (mass/volume)2019-08-29 11:32:00 Test Item Value Reference Range Interpretation Comments Creatinine (test code = 2160-0) 0.719 [facility] estimate [id number] 11:32:00 Test Item Value Reference Range Interpretation Comments Estimat Glomerular Filtration Rate > 60 (test code = 20252-0) [facility] or plasma glucose measurement (mass/volume) 2019-08-29 11:32:00 Test Item Value Reference Range Interpretation Comments Glucose Level (test code = 2345-7) 98 [facility] HospitalSerum or plasma calcium measurement (mass/volume) 2019-08-29 11:32:00 Test Item Value Reference Range Interpretation Comments Calcium Level (test code = 06512-9) 9.2 [facility] total bilirubin measurement (mass/volume)2019-08-29 11:32:00 Test Item Value Reference Range Interpretation Comments Total Bilirubin (test code = 1975-2) 0.7 [facility]rum or plasma aspartate aminotransferase measurement (enzymatic activity/volume)2019-08-29 11:32:00 Test Item Value Reference Range Interpretation Comments Aspartate Amino Transf (AST/SGOT) (test 44 code = 1920-8) [facility] or plasma alanine aminotransferase measurement (enzymatic activity/volume)2019-08-29 11:32:00 Test Item Value Reference Range Interpretation Comments Alanine Aminotransferase (ALT/SGPT) 53 (test code = 1742-6) [facility] or plasma protein measurement (mass/volume) 2019-08-29 11:32:00 Test Item Value Reference Range Interpretation Comments Total Protein (test code = 2885-2) 7.8 [facility] or plasma albumin measurement (mass/volume) 2019-08-29 11:32:00 Test Item Value Reference Range Interpretation Comments Albumin (test code = 1751-7) 4.1 [facility] or plasma alkaline phosphatase measurement (enzymatic activity/volume)2019-08-29 11:32:00 Test Item Value Reference Range Interpretation Comments Alkaline Phosphatase (test code = 73 6768-6) [facility] or plasma creatine kinase measurement (enzymatic activity/volume)2019-08-29 11:32:00 Test Item Value Reference Range Interpretation Comments Total Creatine Kinase (test code = 67 2157-6) [facility] or plasma creatine kinase MB measurement (mass/volume)2019-08-29 11:32:00 Test Item Value Reference Range Interpretation Comments Creatine Kinase MB (test code = < 1.0 20687-2) [facility] or plasma total creatine kinase/creatine kinase MB isoenzyme activity [id number] 11:32:00 Test Item Value Reference Range Interpretation Comments Creatine Kinase MB Relative Index (test 1.5 code = 2158-4) [facility] [id number] 11:32:00 Test Item Value Reference Range Interpretation Comments Troponin I (test code = 13828-6) < 0.015 [facility] or plasma brain natriuretic peptide (BNP) [id number] 11:32:00 Test Item Value Reference Range Interpretation Comments B-Type Natriuretic Peptide (test code = 43 18039-4) [facility]
--- NOTE | 2020-04-29 14:50 | EDPHYS ---
Physician Documentation [facility] Name: Mary Healy Age: 70 yrs Sex: Female : 1950 Arrival Date: 04/29/2020 Time: 13:52 Bed 5 Private MD: ED Physician Will Lockhart HPI: 04/29 14:35 This 70 yrs old Female presents to ER via Ambulatory with complaints of AMS. jr8 14:35 Patient was found wondering outside of hospital by workers and brought to ED. Patient jr8 stated that she was running from her Ex-. Family called ED to see if she had made it here. Stated that she has Alzheimers history and has been getting aggressive and disappearing more lately. Stated that she gets her Ex- and her current confused. Has been getting more aggressive with them and herself lately. Trying to get her into psych facility via voluntary admission. Patient currently A\T\O x4 and does not want to go to [facility]. . Severity of symptoms: At their worst the symptoms were moderate in the emergency department the symptoms are unchanged. The patient has experienced similar episodes in the past, a few times. It is unknown whether or not the patient has recently seen a physician. Historical: - Allergies: 14:07 PENICILLINS; jl7 - PMHx: 14:07 Alzheimers; Hypertension; Rheumatoid Arthritis; VASCULAR DEMENTIA; jl7 - PSHx: 14:07 Hysterectomy; ; jl7 - Immunization history:: Adult Immunizations unknown. - Social history:: Smoking status: unknown. ROS: 14:35 Eyes: Negative for injury, pain, redness, and discharge, ENT: Negative for injury, jr8 pain, and discharge, Neck: Negative for injury, pain, and swelling, Cardiovascular: Negative for chest pain, palpitations, and edema, Respiratory: Negative for shortness of breath, cough, wheezing, and pleuritic chest pain, Abdomen/GI: Negative for abdominal pain, nausea, vomiting, diarrhea, and constipation, Back: Negative for injury and pain, Skin: Negative for injury, rash, and discoloration, Neuro: Negative for headache, weakness, numbness, tingling, and seizure. 14:35 MS/extremity: Positive for ecchymosis, of the right arm and left arm. Exam: 14:35 Eyes: Pupils equal round and reactive to light, extra-ocular motions intact. Lids and jr8 lashes normal. Conjunctiva and sclera are non-icteric and not injected. Cornea within normal limits. Periorbital areas with no swelling, redness, or edema. ENT: Nares patent. No nasal discharge, no septal abnormalities noted. Tympanic membranes are normal and external auditory canals are clear. Oropharynx with no redness, swelling, or masses, exudates, or evidence of obstruction, uvula midline. Mucous membranes moist. Neck: Trachea midline, no thyromegaly or masses palpated, and no cervical lymphadenopathy. Supple, full range of motion without nuchal rigidity, or vertebral point tenderness. No Meningismus. Chest/axilla: Normal chest wall appearance and motion. Nontender with no deformity. No lesions are appreciated. Cardiovascular: Regular rate and rhythm with a normal S1 and S2. No gallops, murmurs, or rubs. Normal PMI, no JVD. No pulse deficits. Respiratory: Lungs have equal breath sounds bilaterally, clear to auscultation and percussion. No rales, rhonchi or wheezes noted. No increased work of breathing, no retractions or nasal flaring. Abdomen/GI: Soft, non-tender, with normal bowel sounds. No distension or tympany. No guarding or rebound. No evidence of tenderness throughout. Back: No spinal tenderness. No costovertebral tenderness. Full range of motion. Neuro: Awake and alert, GCS 15, oriented to person, place, time, and situation. Cranial nerves II-XII grossly intact. Motor strength 5/5 in all extremities. Sensory grossly intact. Cerebellar exam normal. Normal gait. 14:35 Head/Face: Normocephalic, atraumatic. 14:35 Skin: Patient has various stages of healing bruising on arms and back . Vital Signs: 14:04 BP 117 / 50; Pulse 68; Resp 17; Temp 97.5; Pulse Ox 96% ; jl7 14:45 BP 113 / 61; Pulse 72; Resp 17; Temp 97.8; Pulse Ox 97% ; bp MDM: 14:29 Patient medically screened. jr8 14:35 Data reviewed: vital signs, nurses notes, and as a result, I will discharge patient. jr8 Data interpreted: Pulse oximetry: on room air is 96 %. Interpretation: normal. Counseling: I had a detailed discussion with the patient and/or guardian regarding: the historical points, exam findings, and any diagnostic results supporting the discharge/admit diagnosis, the need for outpatient follow up, a psychiatrist, to return to the emergency department if symptoms worsen or persist or if there are any questions or concerns that arise at home. ED course: After orienting patient to what is going on. Patient is good with going home with Daughter in law. When asked if she feels safe patient stated that she does. Daughter in law came in and got patient. Patient seemed very happy to see her. I feel that it is safe to DC patient without further workup given past history and without acute change. . Administered Medications: No medications were administered Disposition: 17:00 Co-signature as Attending Physician, Will Lockhart MD I agree with the assessment and arron plan of care. Disposition: 04/29/20 14:50 Discharged to Home. Impression: Dementia in other diseases classified elsewhere with behavioral disturbance. - Condition is Stable. - Medication Reconciliation Form, Thank You Letter, Antibiotic Education, Prescription Opioid Use form. - Follow up: Private Physician; When: 2 - 3 days; Reason: Recheck today's complaints, Continuance of care, Re-evaluation by your physician. - Problem is new. - Symptoms have improved. Signatures: Will Lockhart MD MD cha Roszak, Josh, PA PA jr8 Matt Gonzales, KARLEE RN jl7 Rey Diallo RN RN bp Corrections: (The following items were deleted from the chart) 14:52 14:50 04/29/2020 14:50 Discharged to Home. Impression: Dementia in other diseases bp classified elsewhere with behavioral disturbance. Condition is Stable. Forms are Medication Reconciliation Form, Thank You Letter, Antibiotic Education, Prescription Opioid Use. Follow up: Private Physician; When: 2 - 3 days; Reason: Recheck today's complaints, Continuance of care, Re-evaluation by your physician. Problem is new. Symptoms have improved. jr8
--- NOTE | 2020-04-29 14:50 | ER ---
Nurse's Notes [facility] Name: Mary Healy Age: 70 yrs Sex: Female : 1950 Arrival Date: 04/29/2020 Time: 13:52 Bed 5 Private MD: Diagnosis: Dementia in other diseases classified elsewhere with behavioral disturbance Presentation: 04/29 14:04 Chief complaint: Pt standing at back door of ER, bystander reported she was wondering jl7 around, pt reported she was running from her . Pt's daughter in law called ER looking for pt and reports pt has Alzheimer's and wondered off. Coronavirus screen: Proceed with normal triage. Ebola Screen: No symptoms or risks identified at this time. Initial Sepsis Screen: Does the patient meet any 2 criteria? No. Patient's initial sepsis screen is negative. Does the patient have a suspected source of infection? No. Patient's initial sepsis screen is negative. Risk Assessment: Do you want to hurt yourself or someone else? Patient reports no desire to harm self or others. Onset of symptoms is unknown. Care prior to arrival: None. 14:04 Method Of Arrival: Ambulatory [facility] 14:04 Acuity: AASHISH 3 jl7 Triage Assessment: 14:07 General: Appears in no apparent distress. uncomfortable, Behavior is cooperative, jl7 anxious. Pain: Denies pain. 14:10 EENT: No deficits noted. Neuro: Level of Consciousness is awake, obeys commands, bp confused, Oriented to person, situation. Cardiovascular: Rhythm is sinus rhythm. Respiratory: No deficits noted. GI: No signs and/or symptoms were reported involving the gastrointestinal system. : No signs and/or symptoms were reported regarding the genitourinary system. Derm: No deficits noted. Musculoskeletal: No deficits noted. Injury Description: NONE NOTED. Historical: - Allergies: 14:07 PENICILLINS; jl7 - PMHx: 14:07 Alzheimers; Hypertension; Rheumatoid Arthritis; VASCULAR DEMENTIA; jl7 - PSHx: 14:07 Hysterectomy; ; jl7 - Immunization history:: Adult Immunizations unknown. - Social history:: Smoking status: unknown. Screenin:10 Abuse screen: Denies threats or abuse. Denies injuries from another. Nutritional bp screening: No deficits noted. Tuberculosis screening: No symptoms or risk factors identified. Fall Risk None identified. Assessment: 14:07 General: Appears in no apparent distress. comfortable, Behavior is anxious, CONFUSED. bp General: PT MENTATION AT BASELINE. AWAITING CONTACT WITH FAMILY. PT HAS NO ACUTE MEDICAL COMPLAINT. Pain: Denies pain. 14:15 Reassessment: SPOKE WITH DAUGHTER IN LAW, EN ROUTE TO HOSPITAL. PT HAS H/O ALZ AND bp WANDERS AWAY FROM HOME ON PREVIOUS OCCASIONS. 14:44 Reassessment: PT NOW STATING SHE IS READY TO GO HOME. PT HANDED TO FAMILY IN WAITING bp ROOM FOR TRANSPORT HOME. Vital Signs: 14:04 BP 117 / 50; Pulse 68; Resp 17; Temp 97.5; Pulse Ox 96% ; jl7 14:45 BP 113 / 61; Pulse 72; Resp 17; Temp 97.8; Pulse Ox 97% ; bp ED Course: 13:52 Patient arrived in ED. jl7 14:04 Matt Gonzales, RN is Primary Nurse. jl7 14:06 Triage completed. jl7 14:07 Arm band placed on right wrist. jl7 14:10 Patient has correct armband on for positive identification. Bed in low position. Call bp light in reach. Side rails up X2. 14:29 Daniele Hart PA is PHCP. jr8 14:29 Will Lockhart MD is Attending Physician. jr8 14:49 No provider procedures requiring assistance completed. Patient did not have IV access bp during this emergency room visit. Administered Medications: No medications were administered Outcome: 14:50 Discharge ordered by . jr8 14:50 Discharged to home ambulatory, with family. bp 14:50 Condition: stable 14:50 Discharge instructions given to patient, family, Instructed on discharge instructions, follow up and referral plans. Demonstrated understanding of instructions, follow-up care. 14:52 Patient left the ED. bp Signatures: Daniele Hart PA PA jr8 Matt Gonzales, RN RN jl7 Rey Diallo RN RN bp
[2020-04-29 14:59] VITALS: BP 113/61; TEMP 97.8; O2SAT 97
== END 2020-04-29 14:52 | disposition home or self-care (01) ==
LOC: ER 13:49
DX: G30.9 Alzheimer's disease, unspecified (principal); F02.81 Dementia in other diseases classified elsewhere, unspecified severity, with behavioral disturbance; I10 Essential (primary) hypertension; Z88.0 Allergy status to penicillin
CPT/HCPCS: 99284

== ENCOUNTER 2020-12-31 14:04 | Emergency (ER) | payer OTHER ==
--- NOTE | 2020-12-31 20:21 | ER ---
Nurse's Notes [facility] Name: Mary Healy Age: 70 yrs Sex: Female : 1950 Arrival Date: 12/31/2020 Time: 14:07 Bed Waiting Private MD: Diagnosis: Presentation: 12/31 14:15 Chief complaint: Patient states: Squeezing pain to L breast area that began 20 minutes ss ago, lasting for seconds- minutes. Pt states at this time, she has no pain. Coronavirus screen: Client denies travel out of the [place] in the last 14 days. Ebola Screen: Patient denies exposure to infectious person. Patient denies travel to an Ebola-affected area in the 21 days before illness onset. Initial Sepsis Screen: Does the patient meet any 2 criteria? No. Patient's initial sepsis screen is negative. Does the patient have a suspected source of infection? No. Patient's initial sepsis screen is negative. Risk Assessment: Do you want to hurt yourself or someone else? Patient reports no desire to harm self or others. Onset of symptoms was December 31, 2020. 14:15 Method Of Arrival: Ambulatory ss 14:15 Acuity: AASHISH 3 ss Historical: - Allergies: 14:19 No Known Allergies; ss - PMHx: 14:19 Alzheimers; Hypertension; Rheumatoid Arthritis; VASCULAR DEMENTIA; Osteoporosis; ss - PSHx: 14:19 Hysterectomy; ; ss - Immunization history:: Adult Immunizations up to date. - Social history:: Smoking status: Patient/guardian denies using tobacco, the patient reports quitting approximately 21 years ago. Vital Signs: 14:15 BP 153 / 74; Pulse 66; Resp 16; Temp 97.6(TE); Pulse Ox 99% on R/A; Weight 52.16 kg; ss Height 4 ft. 10 in. (147.32 cm); Pain 0/10; 14:15 Body Mass Index 24.03 (52.16 kg, 147.32 cm) ss ED Course: 14:07 Patient arrived in ED. rg4 14:18 Triage completed. ss 14:19 Arm band placed on right wrist. ss Administered Medications: No medications were administered Outcome: 20:19 Patient left the ED. em Signatures: Wali Lizama RN RN em Smirch, Kezia, RN RN ss Mic, Mili rg4
[2020-12-31 20:24] VITALS: BP 153/74; TEMP 97.6; O2SAT 99
--- NOTE | 2021-01-01 10:01 | EKG ---
Test Date: 2020-12-31 Test Time: 14:23:35 Medical Education Manager: JAY MEASUREMENT RESULTS: Intervals: Rate: 65 ND: 138 QRSD: 68 QT: 388 QTc: 403 [place]: P: 69 ND: 138 QRS: 40 T: 65 INTERPRETIVE STATEMENTS: Normal sinus rhythm Possible Left atrial enlargement Borderline ECG Compared to ECG 04/21/2020 18:58:57 Myocardial infarct finding no longer present Electronically Signed On 01-01-21 09:59:32 [employer] by José Luis Palmer
== END 2020-12-31 20:19 | disposition left against medical advice (07) ==
LOC: ER 14:04
DX: Z53.21 Procedure and treatment not carried out due to patient leaving prior to being seen by health care provider (principal)
CPT/HCPCS: 93005; 99281

== ENCOUNTER 2021-02-21 13:47 | Emergency (ER) | payer OTHER ==
--- OUTSIDE RECORDS SUMMARY | 2021-02-21 13:49 | XMS REPORT | Continuity of Care Document ---
:1950 Author Organization [facility] t Address [address] [place] [address] Care Team Providers Name Role Phone PCP Primary Care Physician Unavailable Rodrigo VENTURA, Gene Attending Clinician Advance Directives Directive Decision Effective Date Termination Date Comments Sour ce Yes N/A [facility] Problems Condition Condition Condition Status Onset Resolution Last Treating Co mments Source Name Details Category Date Date Treatment Clinician Date Problem Condition [facility] Allergies, Adverse Reactions, Alerts Allergy Allergy Status Severity Reaction(s) Onset Inactive Treating Comm ents Source Name Type Date Date Clinician Penicill Allergy Active Hives 2018-[facility] Social History Social Habit Start Date Stop Date Quantity Comments Source Sex Assigned At [address] [facility] Smoking Status Start Date Stop Date Source Unknown if ever smoked [facility] Medications This patient has no known medications. Vital Signs Vital Name Observation Time Observation Value Comments Source Heart Rate 2019-08-29 13:07:00 60 /min [facility] Respiratory rate 2019-08-29 13:07:00 18 /min CHRI [facility] BP Systolic 2019-08-29 13:07:00 143 mm[Hg] [facility] BP Diastolic 2019-08-29 13:07:00 66 mm[Hg] [facility] Heart Rate 2019-08-29 12:12:00 60 /min [facility] l Respiratory rate 2019-08-29 12:12:00 18 /min JOSE LI [facility] l BP Systolic 2019-08-29 12:12:00 143 mm[Hg] [facility] l BP Diastolic 2019-08-29 12:12:00 66 mm[Hg] [facility] Weight 2019-08-29 10:43:00 110 [lb_av] [facility] l BMI (Body Mass Index) 2019-08-29 10:43:00 23.0 kg/m2 [facility] Procedures Procedure Date / Time Performed Performing Clinician [facility] e ECG 2019-08-29 00:00:00 [facility] (electrocardiogram) [facility] X-ray of chest, single 2019-08-29 00:00:00 [facility] Plan of Care Planned Activity Planned Date Details Comments Source Future Scheduled Test Urine sediment [facility] erythrocyte count by [facility] microscopy (number/high power field) [code = 66743-4] Future Scheduled Test Urine sediment [facility] leukocyte count by [facility] (number/high power field) [code = 5821-4] Future Scheduled Test Urine sediment [facility] squamous epithelial [facility] cell count by microscopy (number/lowpower field) [code = 44954-4] Future Scheduled Test Urine sediment [facility] bacteria count by [facility] microscopy (number/high power field) [code = 5769-5] Future Scheduled Test Service comment [address] [facility] [address] [code = 8264-4] [facility] ital Goal Patient referral [code [facility] = [id number] ] [facility] Instructions Chest Pain (DC) [facility] Encounters Start End Encounter Admission Attending Care Care Encounter Source Date/Time Date/Time Type Type Clinicians Facility Department ID 2020-02-13 2020-02-13 LYNDON Koo [id number] 00:00:00 00:00:00 Andrea Mcmillan [id number] [place] [id number] Professio [id number] nal 092 [facility] 2020-01-13 2020-01-13 Office LYNDON Wallace [id number] 09:09:08 10:04:39 Visit Andrea Mcmillan [id number] [place] [id number] Professio [id number] nal 092 [facility] 2019-08-29 2019-08-29 Departed BERNADETTE FONG [id number] CHRISTU 10:43:00 13:07:00 Emergency TPAT [facility] [address] [facility] Results Test Description Test Time Test Comments Results Result Comments Source Urine color determination 2019-08-29 12:45:00 Test Item Value Reference Range Interpretation Comme nts Urine Color (test code = 5778-6) Yellow [facility] appearance [id number] 12:45:00 Test Item Value Reference Range Interpretation Comments Urine Appearance (test code = 5767-9) CLEAR [facility] pH measurement by test [id number] 12:45:00 Test Item Value Reference Range Interpretation Comments Urine pH (test code = 5803-2) 6.[facility] Test [id number] 12:45:00 Test Item Value Reference Range Interpretation Comments Urine Specific [place] (test code = <= 1.005 5811-5) [facility] protein assay by test strip, [id number] 12:45:00 Test Item Value Reference Range Interpretation Comments Urine Protein (test code = 04314-6) Negative [facility] glucose measurement by test strip (mass/volume)2019-08-29 12:45:00 Test Item Value Reference Range Interpretation Comments Urine Glucose (UA) (test code = Negative 5792-7) [facility] ketones detection by test [id number] 12:45:00 Test Item Value Reference Range Interpretation Comments Urine Ketones (test code = 2514-8) Negative [facility] erythrocytes count by test strip (number/volume)2019-08-29 12:45:00 Test Item Value Reference Range Interpretation Comments Urine Occult Blood (test code = Negative 02350-9) [facility] nitrite detection by automated test strip 2019-08-29 12:45:00 Test Item Value Reference Range Interpretation Comments Urine Nitrite (test code = 82248-3) Negative [facility] total bilirubin detection by test strip 2019-08-29 12:45:00 Test Item Value Reference Range Interpretation Comments Urine Bilirubin (test code = 5770-3) Negative [facility] urobilinogen measurement by automated test strip (mass/volume)2019-08-29 12:45:00 Test Item Value Reference Range Interpretation Comments Urine Urobilinogen (test code = Normal 94473-4) [facility] leukocyte esterase detection by dipstick 2019-08-29 12:45:00 Test Item Value Reference Range Interpretation Comments Urine Leukocyte Esterase (test code = Trace 5799-2) [facility] leukocyte count (number/volume) 2019-08-29 11:32:00 Test Item Value Reference Range Interpretation Comments White Blood Count (test code = 6690-2) 7.9 [facility] erythrocytes automated count (number/volume) 2019-08-29 11:32:00 Test Item Value Reference Range Interpretation Comments Red Blood Count (test code = 789-8) 4.31 [facility] hemoglobin measurement (mass/volume) 2019-08-29 11:32:00 Test Item Value Reference Range Interpretation Comments Hemoglobin (test code = 718-7) 12.5 [facility] hematocrit (volume fraction) 2019-08-29 11:32:00 Test Item Value Reference Range Interpretation Comments Hematocrit (test code = 4544-3) 39.1 [facility] mean corpuscular volume (MCV) [id number] 11:32:00 Test Item Value Reference Range Interpretation Comments Mean Corpuscular Volume (test code = 90.7 787-2) [facility] mean corpuscular hemoglobin (mass per erythrocyte)2019-08-29 11:32:00 Test Item Value Reference Range Interpretation Comments Mean Corpuscular Hemoglobin (test code 29.0 = 785-6) [facility] mean corpuscular hemoglobin concentration (MCHC) measurement ([id number] 11:32:00 Test Item Value Reference Range Interpretation Comments Mean Corpuscular Hemoglobin Concent 32.0 (test code = 786-4) [facility] distribution width ratio 2019-08-29 11:32:00 Test Item Value Reference Range Interpretation Comments Red Cell Distribution Width (test code 13.5 = 788-0) [facility] platelet count (count/volume) 2019-08-29 11:32:00 Test Item Value Reference Range Interpretation Comments Platelet Count (test code = 777-3) 264 [facility] platelet mean volume measurement 2019-08-29 11:32:00 Test Item Value Reference Range Interpretation Comments Mean Platelet Volume (test code = 11.1 40354-6) [facility] neutrophil count as percentage of total [id number] 11:32:00 Test Item Value Reference Range Interpretation Comments Neutrophils (%) (Auto) (test code = 68.2 770-8) [facility] immature granulocyte count as percentage of total [id number] 11:32:00 Test Item Value Reference Range Interpretation Comments Immature Granulocyte % (Auto) (test 0.30 code = 02237-3) [facility] lymphocyte count as percentage of total gjljizyjck7607-62-71 11:32:00 Test Item Value Reference Range Interpretation Comments Lymphocytes (%) (Auto) (test code = 23.0 736-9) [facility] monocyte count as percentage of total laydxokpdw4934-14-93 11:32:00 Test Item Value Reference Range Interpretation Comments Monocytes (%) (Auto) (test code = 7.1 5905-5) [facility] eosinophil count as percentage of total paojurltvt9064-90-55 11:32:00 Test Item Value Reference Range Interpretation Comments Eosinophils (%) (Auto) (test code = 1.0 713-8) [facility] basophil count as percentage of total duepdmympc3939-44-69 11:32:00 Test Item Value Reference Range Interpretation Comments Basophils (%) (Auto) (test code = 0.4 706-2) [facility] blood nucleated erythrocyte count as percentage of total cxmwsqrwst0782-68-37 11:32:00 Test Item Value Reference Range Interpretation Comments Nucleated Red Blood Cells % (test code 0.0 = 49375-1) [facility] neutrophil count (number/volume) 2019-08-29 11:32:00 Test Item Value Reference Range Interpretation Comments Neutrophils # (Auto) (test code = 5.4 751-8) [facility] blood immature granulocyte count as percentage of total hasnkotofc9194-90-95 11:32:00 Test Item Value Reference Range Interpretation Comments Immature Granulocyte # (Auto) (test 0.0200 code = 65467-2) [facility] lymphocyte count (number/volume) 2019-08-29 11:32:00 Test Item Value Reference Range Interpretation Comments Lymphocytes # (Auto) (test code = 1.8 731-0) [facility] monocytes automated count (number/volume) 2019-08-29 11:32:00 Test Item Value Reference Range Interpretation Comments Monocytes # (Auto) (test code = 742-7) 0.6 [facility] blood eosinophil [id number] 11:32:00 Test Item Value Reference Range Interpretation Comments Eosinophils # (Auto) (test code = 0.1 711-2) [facility] blood basophil count (number/volume) 2019-08-29 11:32:00 Test Item Value Reference Range Interpretation Comments Basophils # (Auto) (test code = 704-7) 0.0 [facility] leukocyte count corrected for nucleated ujywewsskfmz3093-78-38 11:32:00 Test Item Value Reference Range Interpretation Comments Nucleated Red Blood Cells # (test code 0.000 = 39553-6) [facility] blood prothrombin [id number] 11:32:00 Test Item Value Reference Range Interpretation Comments Prothrombin Time (test code = 5964-2) 10.[address] [facility] Platelet poor plasma by Coagulation assay 2019-08-29 11:32:00 Test Item Value Reference Range Interpretation Comments Prothromb Time International Ratio 0.9 (test code = 6301-6) [facility] (PTT) in platelet poor [id number] 11:32:00 Test Item Value Reference Range Interpretation Comments Activated Partial Thromboplast Time 31.7 (test code = 05664-7) [facility] (moles/volume)2019-08-29 11:32:00 Test Item Value Reference Range Interpretation Comments Sodium Level (test code = 91429-9) 142 [facility] plasma potassium measurement (moles/volume)2019-08-29 11:32:00 Test Item Value Reference Range Interpretation Comments Potassium Level (test code = 2823-3) 4.1 [facility] plasma chloride measurement (moles/volume) 2019-08-29 11:32:00 Test Item Value Reference Range Interpretation Comments Chloride Level (test code = 2075-0) 110 [facility] plasma carbon dioxide measurement (moles/volume)2019-08-29 11:32:00 Test Item Value Reference Range Interpretation Comments Carbon Dioxide Level (test code = 26 2028-9) [facility] plasma anion [id number] 11:32:00 Test Item Value Reference Range Interpretation Comments Anion Gap (test code = 10565-7) 6.0 [facility] plasma urea nitrogen measurement (mass/volume)2019-08-29 11:32:00 Test Item Value Reference Range Interpretation Comments Blood Urea Nitrogen (test code = 14.0 3094-0) [facility] or plasma creatinine measurement (mass/volume)2019-08-29 11:32:00 Test Item Value Reference Range Interpretation Comments Creatinine (test code = 2160-0) 0.719 [facility] [id number] 11:32:00 Test Item Value Reference Range Interpretation Comments Estimat Glomerular Filtration Rate > 60 (test code = 20385-1) [facility] glucose measurement (mass/volume) 2019-08-29 11:32:00 Test Item Value Reference Range Interpretation Comments Glucose Level (test code = 2345-7) 98 [facility] plasma calcium measurement (mass/volume) 2019-08-29 11:32:00 Test Item Value Reference Range Interpretation Comments Calcium Level (test code = 03587-1) 9.2 [facility] plasma total bilirubin measurement (mass/volume)2019-08-29 11:32:00 Test Item Value Reference Range Interpretation Comments Total Bilirubin (test code = 1975-2) 0.7 [facility] plasma aspartate aminotransferase measurement (enzymatic activity/volume)2019-08-29 11:32:00 Test Item Value Reference Range Interpretation Comments Aspartate Amino Transf (AST/SGOT) (test 44 code = 1920-8) [facility] plasma alanine aminotransferase measurement (enzymatic activity/volume)2019-08-29 11:32:00 Test Item Value Reference Range Interpretation Comments Alanine Aminotransferase (ALT/SGPT) 53 (test code = 1742-6) [facility] protein measurement (mass/volume) 2019-08-29 11:32:00 Test Item Value Reference Range Interpretation Comments Total Protein (test code = 2885-2) 7.8 [facility] albumin measurement (mass/volume) 2019-08-29 11:32:00 Test Item Value Reference Range Interpretation Comments Albumin (test code = 1751-7) 4.1 [facility] plasma alkaline phosphatase measurement (enzymatic activity/volume)2019-08-29 11:32:00 Test Item Value Reference Range Interpretation Comments Alkaline Phosphatase (test code = 73 6768-6) [facility] or plasma creatine kinase measurement (enzymatic activity/volume)2019-08-29 11:32:00 Test Item Value Reference Range Interpretation Comments Total Creatine Kinase (test code = 67 2157-6) [facility] or plasma creatine kinase MB measurement (mass/volume)2019-08-29 11:32:00 Test Item Value Reference Range Interpretation Comments Creatine Kinase MB (test code = < 1.0 46901-5) [facility] or plasma total creatine kinase/creatine kinase MB isoenzyme activity [id number] 11:32:00 Test Item Value Reference Range Interpretation Comments Creatine Kinase MB Relative Index (test 1.5 code = 2158-4) [facility] I [id number] 11:32:00 Test Item Value Reference Range Interpretation Comments Troponin I (test code = 56854-1) < 0.015 [facility] or plasma brain natriuretic peptide (BNP) [id number] 11:32:00 Test Item Value Reference Range Interpretation Comments B-Type Natriuretic Peptide (test code = 43 41125-8) [facility]
--- NOTE | 2021-02-21 19:18 | ER ---
Nurse's Notes [facility] Name: Mary Healy Age: 70 yrs Sex: Female : 1950 Arrival Date: 02/21/2021 Time: 13:52 Bed Waiting Private MD: Diagnosis: Presentation: 02/21 14:59 Chief complaint: Patient states: during the week started having stomach cramps and iw having black stools, and can't hold anything down. Coronavirus screen: At this time, the client does not indicate any symptoms associated with coronavirus-19. Ebola Screen: Patient negative for fever greater than or equal to 101.5 degrees Fahrenheit, and additional compatible Ebola Virus Disease symptoms Patient denies exposure to infectious person. Patient denies travel to an Ebola-affected area in the 21 days before illness onset. No symptoms or risks identified at this time. Initial Sepsis Screen: Does the patient meet any 2 criteria? No. Patient's initial sepsis screen is negative. Does the patient have a suspected source of infection? No. Patient's initial sepsis screen is negative. Risk Assessment: Do you want to hurt yourself or someone else? Patient reports no desire to harm self or others. Onset of symptoms was February 16, 2021. 14:59 Method Of Arrival: Ambulatory iw 14:59 Acuity: AASHISH 3 iw Historical: - Allergies: 15:02 No Known Allergies; iw - PMHx: 15:02 Alzheimers; Hypertension; Osteoporosis; Rheumatoid Arthritis; VASCULAR DEMENTIA; iw - Immunization history:: Adult Immunizations up to date. - Social history:: Smoking status: Patient denies any tobacco usage or history of. Smoking status: Patient/guardian denies using tobacco, the patient reports quitting approximately 20 years ago. Vital Signs: 14:59 BP 146 / 69; Pulse 73; Resp 16; Temp 97.8; Pulse Ox 99% on R/A; Weight 49.9 kg; Height iw 4 ft. 11 in. (149.86 cm); 14:59 Body Mass Index 22.22 (49.90 kg, 149.86 cm) iw ED Course: 13:52 Patient arrived in ED. am2 15:01 Triage completed. iw 15:02 Arm band placed on. iw Administered Medications: No medications were administered Outcome: 19:17 Eloped from waiting room, before seeing physician iw 19:17 Patient left the ED. iw Signatures: Viri Cheng, RN RN Daniela Cervantes
[2021-02-22 07:49] VITALS: BP 146/69; TEMP 97.8; O2SAT 99
== END 2021-02-21 19:17 | disposition left against medical advice (07) ==
LOC: ER 13:47
DX: Z53.21 Procedure and treatment not carried out due to patient leaving prior to being seen by health care provider (principal)
CPT/HCPCS: 99281

== ENCOUNTER 2022-10-30 08:14 | Emergency (ER) | payer OTHER ==
--- OUTSIDE RECORDS SUMMARY | 2022-10-30 08:19 | XMS REPORT | Continuity of Care Document ---
:1950 Author Organization [facility] t Address [facility] [place] [address] Care Team Providers Name Role Phone PCP, NO Primary Care Physician Unavailable Andrea Wallace MD Attending Clinician ANDREA WALLACE Attending Clinician Unavailable ANDREA WALLACE Attending Clinician Unavailable Payers Payer Name Policy Type Policy Number Effective Date Expiration Date S baudilio MEDICARE PART A [id number] 2016 \T\ B 00:00:00 [employer] INDEMNITY [id number] 2017 00:00:00 Problems Condition Condition Condition Status Onset Resolution Last Treating Co mments Source Name Details Category Date Date Treatment Clinician Date Problem Condition [facility] Allergies, Adverse Reactions, Alerts Allergy Allergy Status Severity Reaction(s) Onset Inactive Treating Comm ents Source Name Type Date Date Clinician Penicill Allergy Active Moderate 2018-11 ABRIL BURTON in to 0-14 S substanc 00:00: Health e 00 NO KNOWN Drug Active [facility] ALLERGIE Class [facility] Social History Social Habit Start Date Stop Date Quantity Comments Source Sex Assigned At [birth year] Female [facility] Health 00:00:00 00:00:00 Smoking Status Start Date Stop Date Source Unknown if ever smoked [facility] Medications This patient has no known medications. Vital Signs Vital Name Observation Time Observation Value Comments Source Heart Rate 2019-08-29 13:07:00 60 /min [facility] [facility] Respiratory rate 2019-08-29 13:07:00 18 /min [employer] [facility] BP Systolic 2019-08-29 13:07:00 143 mm[Hg] [facility] [employer] [facility] BP Diastolic 2019-08-29 13:07:00 66 mm[Hg] [facility] [employer] [facility] Heart Rate 2019-08-29 12:12:00 60 /min [facility] [employer] [facility] Respiratory rate 2019-08-29 12:12:00 18 /min [employer] [facility] BP Systolic 2019-08-29 12:12:00 143 mm[Hg] [facility] BP Diastolic 2019-08-29 12:12:00 66 mm[Hg] [facility] Weight 2019-08-29 10:43:00 110 [lb_av] [facility] BMI (Body Mass Index) 2019-08-29 10:43:00 23.0 kg/m2 [facility] Procedures Procedure Date / Time Performed Performing Clinician [facility] e ECG (electrocardiogram) 2019-08-29 00:00:00 [employer] X-ray of chest, single 2019-08-29 00:00:00 [facility] view Plan of Care Planned Activity Planned Date Details Comments Source Future Scheduled Test Urine sediment [facility] erythrocyte count by [facility] microscopy (number/high power field) [code = 69927-0] Future Scheduled Test Urine sediment [facility] leukocyte count by [facility] ospital microscopy (number/high power field) [code = 5821-4] Future Scheduled Test Urine sediment [facility] squamous epithelial [facility] cell count by microscopy (number/lowpower field) [code = 55847-7] Future Scheduled Test Urine sediment [facility] bacteria count by [facility] microscopy (number/high power field) [code = 5769-5] Future Scheduled Test Service comment [address] [code = 8264-4] [facility] [code [facility] St[facility] = [id number] ] [facility] Chest Pain (DC) [facility] Encounters Start End Encounter Admission Attending Care Care Encounter Source Date/Time Date/Time Type Type Clinicians Facility Department ID 2020-02-13 2020-02-13 LYNDON Koo [id number] 00:00:00 00:00:00 Andrea Mcmillan [id number] [place] [id number] Profchandrakantio [id number] nal 2 [facility] 2020-01-13 2020-01-13 Office Rodrigo [facility] [id number] 09:09:08 10:04:39 Visit Andrea Mcmillan [id number] [place] [id number] Profsudha [id number] [facility] 2020-01-13 2020-01-13 Outpatient R ANDREA WALLACE [facility] [id number] [facility] 09:20:00 09:20:00 ANDREA WALLACE [facility] 2019-08-29 2019-08-29 Departed BERNADETTE FONG [id number] [facility] 10:43:00 13:07:00 [facility] [address] 2019-08-29 2019-08-29 Departed BERNADETTE FONG [id number] [facility] 10:43:00 13:07:00 Emergency [facility] [address] Results Test Description Test Time Test Comments Results Result Comments Source Urine appearance determination 2019-08-29 12:45:00 Test Item Value Reference Range Interpretation Comme nts Urine Appearance (test code = 5767-9) CLEAR Clear [facility] pH measurement by test [id number] 12:45:00 Test Item Value Reference Range Interpretation Comments Urine pH (test code = 5803-2) 6.0 5.0-8.0 [facility] gravity of Urine by Test [id number] 12:45:00 Test Item Value Reference Range Interpretation Comments Urine Specific [place] (test code = <= 1.005 1.005-1.030 5811-5) [facility] HealthUrine protein assay by test strip, sivq-rvkutokrplcv7787-00-14 12:45:00 Test Item Value Reference Range Interpretation Comments Urine Protein (test code = 72451-7) Negative Negative [facility] glucose measurement by test strip (mass/volume)2019-08-29 12:45:00 Test Item Value Reference Range Interpretation Comments Urine Glucose (UA) (test code = Negative Negative 5792-7) [facility]rine ketones detection by test [id number] 12:45:00 Test Item Value Reference Range Interpretation Comments Urine Ketones (test code = 2514-8) Negative Negative [facility] erythrocytes count by test strip (number/volume)2019-08-29 12:45:00 Test Item Value Reference Range Interpretation Comments Urine Occult Blood (test code = Negative Negative 15467-5) [facility]rine nitrite detection by automated test mzoeo2636-03-02 12:45:00 Test Item Value Reference Range Interpretation Comments Urine Nitrite (test code = 38440-3) Negative Negative [facility] total bilirubin detection by test ltmbs7350-63-75 12:45:00 Test Item Value Reference Range Interpretation Comments Urine Bilirubin (test code = 5770-3) Negative Negative [facility]rine urobilinogen measurement by automated test strip (mass/volume)2019-08-29 12:45:00 Test Item Value Reference Range Interpretation Comments Urine Urobilinogen (test code = Normal Normal 34478-8) [facility] leukocyte esterase detection by otoknpvu9453-66-80 12:45:00 Test Item Value Reference Range Interpretation Comments Urine Leukocyte Esterase (test code = Trace Negative 5799-2) [facility] HealthUrine color nwwuwidochzxc3694-94-68 12:45:00 Test Item Value Reference Range Interpretation Comments Urine Color (test code = 5778-6) Yellow Yellow [facility] total bilirubin detection by test [id number] 12:45:00 Test Item Value Reference Range Interpretation Comments Urine Bilirubin (test code = 5770-3) Negative Urine urobilinogen measurement by automated test strip (mass/volume)2019-08-29 12:45:00 Test Item Value Reference Range Interpretation Comments Urine Urobilinogen (test code = Normal 13884-6) Urine leukocyte esterase detection by xpqtisms3713-50-05 12:45:00 Test Item Value Reference Range Interpretation Comments Urine Leukocyte Esterase (test code = Trace 5799-2) Urine color jyzdbnkdedkob8971-03-29 12:45:00 Test Item Value Reference Range Interpretation Comments Urine Color (test code = 5778-6) Yellow Urine appearance bvxsgovovfbpl4371-19-53 12:45:00 Test Item Value Reference Range Interpretation Comments Urine Appearance (test code = 5767-9) CLEAR Urine pH measurement by test [id number] 12:45:00 Test Item Value Reference Range Interpretation Comments Urine pH (test code = 5803-2) 6.0 Specific gravity of Urine by Test [id number] 12:45:00 Test Item Value Reference Range Interpretation Comments Urine Specific [place] (test code = <= 1.005 5811-5) Urine protein assay by test strip, zhdf-yqnzmfdzaebs5761-04-14 12:45:00 Test Item Value Reference Range Interpretation Comments Urine Protein (test code = 40873-2) Negative Urine glucose measurement by test strip (mass/volume)2019-08-29 12:45:00 Test Item Value Reference Range Interpretation Comments Urine Glucose (UA) (test code = Negative 5792-7) Urine ketones detection by test ritzs0675-78-18 12:45:00 Test Item Value Reference Range Interpretation Comments Urine Ketones (test code = 2514-8) Negative Urine erythrocytes count by test strip (number/volume)2019-08-29 12:45:00 Test Item Value Reference Range Interpretation Comments Urine Occult Blood (test code = Negative 64557-3) Urine nitrite detection by automated test zwqti8374-59-37 12:45:00 Test Item Value Reference Range Interpretation Comments Urine Nitrite (test code = 84643-9) Negative Sodium measurement (moles/volume)2019-08-29 11:32:00 Test Item Value Reference Range Interpretation Comments Sodium Level (test code = 19547-6) 142 131-143 [facility]um or plasma potassium measurement (moles/volume)2019-08-29 11:32:00 Test Item Value Reference Range Interpretation Comments Potassium Level (test code = 2823-3) 4.1 3.5-5.1 [facility] Health[facility]um or plasma chloride measurement (moles/volume)2019-08-29 11:32:00 Test Item Value Reference Range Interpretation Comments Chloride Level (test code = 2075-0) 110 98-107 [facility]um or plasma carbon dioxide measurement (moles/volume) 2019-08-29 11:32:00 Test Item Value Reference Range Interpretation Comments Carbon Dioxide Level (test code = 26 -32 2027-9) [facility] HealthSerum or plasma anion [id number] 11:32:00 Test Item Value Reference Range Interpretation Comments Anion Gap (test code = 63748-5) 6.0 3.0-11.0 [facility]Serum or plasma urea nitrogen measurement (mass/volume)2019-08-29 11:32:00 Test Item Value Reference Range Interpretation Comments Blood Urea Nitrogen (test code = 14.0 7.0-18.0 3094-0) [facility]um or plasma creatinine measurement (mass/volume)2019-08-29 11:32:00 Test Item Value Reference Range Interpretation Comments Creatinine (test code = 2160-0) 0.719 0.550-1.02 [facility] HealthGFR estimate [id number] 11:32:00 Test Item Value Reference Range Interpretation Comments Estimat Glomerular Filtration Rate > 60 >60 (test code = 92472-8) [facility] HealthSerum or plasma glucose measurement (mass/volume)2019-08-29 11:32:00 Test Item Value Reference Range Interpretation Comments Glucose Level (test code = 2345-7) 98 74-106 [facility]um or plasma calcium measurement (mass/volume)2019-08-29 11:32:00 Test Item Value Reference Range Interpretation Comments Calcium Level (test code = 43505-0) 9.2 8.5-10.1 [facility]um or plasma total bilirubin measurement (mass/volume) 2019-08-29 11:32:00 Test Item Value Reference Range Interpretation Comments Total Bilirubin (test code = 1975-2) 0.7 0.2-1.0 [facility] HealthSerum or plasma aspartate aminotransferase measurement (enzymatic activity/volume)2019-08-29 11:32:00 Test Item Value Reference Range Interpretation Comments Aspartate Amino Transf (AST/SGOT) (test 44 15-37 code = 1920-8) [facility] HealthSerum or plasma alanine aminotransferase measurement (enzymatic activity/volume)2019-08-29 11:32:00 Test Item Value Reference Range Interpretation Comments Alanine Aminotransferase (ALT/SGPT) 53 13-56 (test code = 1742-6) [facility]um or plasma protein measurement (mass/volume)2019-08-29 11:32:00 Test Item Value Reference Range Interpretation Comments Total Protein (test code = 2885-2) 7.8 6.4-8.2 [facility]Serum or plasma albumin measurement (mass/volume)2019-08-29 11:32:00 Test Item Value Reference Range Interpretation Comments Albumin (test code = 1751-7) 4.1 3.4-5.0 [facility]Serum or plasma alkaline phosphatase measurement (enzymatic activity/volume)2019-08-29 11:32:00 Test Item Value Reference Range Interpretation Comments Alkaline Phosphatase (test code = 73 45-117 6768-6) [facility] HealthSerum or plasma creatine kinase measurement (enzymatic activity/volume)2019-08-29 11:32:00 Test Item Value Reference Range Interpretation Comments Total Creatine Kinase (test code = 67 26-192 2157-6) [facility] HealthSerum or plasma creatine kinase MB measurement (mass/volume) 2019-08-29 11:32:00 Test Item Value Reference Range Interpretation Comments Creatine Kinase MB (test code = < 1.0 0.3-3.6 09646-2) [facility] HealthSerum or plasma total creatine kinase/creatine kinase MB isoenzyme activity [id number] 11:32:00 Test Item Value Reference Range Interpretation Comments Creatine Kinase MB Relative Index (test 1.5 0-4 code = 2158-4) [facility] HealthTroponin I zvbqwsrto3239-74-10 11:32:00 Test Item Value Reference Range Interpretation Comments Troponin I (test code = 84815-0) < 0.015 0.00-0.045 [facility] HealthSerum or plasma brain natriuretic peptide (BNP) measurement 2019-08-29 11:32:00 Test Item Value Reference Range Interpretation Comments B-Type Natriuretic Peptide (test code = 43 0.0-100 21411-6) [facility] HealthAutomated blood leukocyte count (number/volume)2019-08-29 11:32:00 Test Item Value Reference Range Interpretation Comments White Blood Count (test code = 6690-2) 7.9 4.5-10.0 [facility] HealthcareBlood erythrocytes automated count (number/volume)2019-08-29 11:32:00 Test Item Value Reference Range Interpretation Comments Red Blood Count (test code = 789-8) 4.31 4.20-5.40 [facility] HealthBlood hemoglobin measurement (mass/volume)2019-08-29 11:32:00 Test Item Value Reference Range Interpretation Comments Hemoglobin (test code = 718-7) 12.5 12.0-16.0 [facility] HealthAutomated blood hematocrit (volume fraction)2019-08-29 11:32:00 Test Item Value Reference Range Interpretation Comments Hematocrit (test code = 4544-3) 39.1 37.0-47.0 [facility] HealthAutomated erythrocyte mean corpuscular volume (MCV) measurement 2019-08-29 11:32:00 Test Item Value Reference Range Interpretation Comments Mean Corpuscular Volume (test code = 90.7 80.0-99.0 787-2) [facility] HealthAutomated erythrocyte mean corpuscular hemoglobin (mass per erythrocyte)2019-08-29 11:32:00 Test Item Value Reference Range Interpretation Comments Mean Corpuscular Hemoglobin (test code 29.0 27.0-32.0 = 785-6) [facility] HealthAutomated erythrocyte mean corpuscular hemoglobin concentration (MCHC) measurement ([id number] 11:32:00 Test Item Value Reference Range Interpretation Comments Mean Corpuscular Hemoglobin Concent 32.0 32.0-36.0 (test code = 786-4) [facility] HealthAutomated erythrocyte distribution width [id number] 11:32:00 Test Item Value Reference Range Interpretation Comments Red Cell Distribution Width (test code 13.5 0.0-15.5 = 788-0) [facility] HealthAutomated blood platelet count (count/volume)2019-08-29 11:32:00 Test Item Value Reference Range Interpretation Comments Platelet Count (test code = 777-3) 264 130-400 [facility] HealthAutomated blood platelet mean volume eojmsdjllhf0631-25-14 11:32:00 Test Item Value Reference Range Interpretation Comments Mean Platelet Volume (test code = 11.1 9.2-12.2 20903-2) [facility] HealthAutomated blood neutrophil count as percentage of total ctyxojgqqt8297-60-36 11:32:00 Test Item Value Reference Range Interpretation Comments Neutrophils (%) (Auto) (test code = 68.2 50-80 770-8) [facility] HealthAutomated blood immature granulocyte count as percentage of total gtvoplodns4301-23-76 11:32:00 Test Item Value Reference Range Interpretation Comments Immature Granulocyte % (Auto) (test 0.30 0.0-0.43 code = 64169-8) [facility] HealthAutomated blood lymphocyte count as percentage of total zedjksjsia1461-74-15 11:32:00 Test Item Value Reference Range Interpretation Comments Lymphocytes (%) (Auto) (test code = 23.0 20.0-45.0 736-9) [facility] HealthAutomated blood monocyte count as percentage of total leukocytes 2019-08-29 11:32:00 Test Item Value Reference Range Interpretation Comments Monocytes (%) (Auto) (test code = 7.1 2-10 5905-5) [facility] HealthAutomated blood eosinophil count as percentage of total floptfxtkd8433-63-33 11:32:00 Test Item Value Reference Range Interpretation Comments Eosinophils (%) (Auto) (test code = 1.0 0-6 713-8) [facility] HealthAutomated blood basophil count as percentage of total leukocytes 2019-08-29 11:32:00 Test Item Value Reference Range Interpretation Comments Basophils (%) (Auto) (test code = 0.4 0-3 706-2) [facility] HealthAutomated blood nucleated erythrocyte count as percentage of total ejvomaenmr5064-94-97 11:32:00 Test Item Value Reference Range Interpretation Comments Nucleated Red Blood Cells % (test code 0.0 0-0.2 = 54573-4) [facility] HealthAutomated blood neutrophil count (number/volume)2019-08-29 11:32:00 Test Item Value Reference Range Interpretation Comments Neutrophils # (Auto) (test code = 5.4 1.4-7.0 751-8) [facility] HealthAutomated blood immature granulocyte count as percentage of total syhlxitxgx6797-22-56 11:32:00 Test Item Value Reference Range Interpretation Comments Immature Granulocyte # (Auto) (test 0.0200 0.0-0.0310 code = 12631-2) [facility] HealthAutomated blood lymphocyte count (number/volume)2019-08-29 11:32:00 Test Item Value Reference Range Interpretation Comments Lymphocytes # (Auto) (test code = 1.8 1.2-4.0 731-0) [facility] HealthBlood monocytes automated count (number/volume)2019-08-29 11:32:00 Test Item Value Reference Range Interpretation Comments Monocytes # (Auto) (test code = 742-7) 0.6 0.1-0.8 [facility] HealthAutomated blood eosinophil ubfyd2283-48-34 11:32:00 Test Item Value Reference Range Interpretation Comments Eosinophils # (Auto) (test code = 0.1 0.0-0.6 711-2) [facility] HealthAutomated blood basophil count (number/volume)2019-08-29 11:32:00 Test Item Value Reference Range Interpretation Comments Basophils # (Auto) (test code = 704-7) 0.0 0.0-0.3 [facility] HealthAutomated blood leukocyte count corrected for nucleated qbshugpsurak9289-01-21 11:32:00 Test Item Value Reference Range Interpretation Comments Nucleated Red Blood Cells # (test code 0.000 0-0.012 = 33653-0) [facility] HealthcareWhole blood prothrombin [id number] 11:32:00 Test Item Value Reference Range Interpretation Comments Prothrombin Time (test code = 5964-2) 10.6 10.2-12.9 [facility] HealthINR in Platelet poor plasma by Coagulation ipgct1319-02-91 11:32:00 Test Item Value Reference Range Interpretation Comments Prothromb Time International Ratio 0.9 0.9-1.1 (test code = 6301-6) [facility] HealthcarePartial thromboplastin time (PTT) in platelet poor plasma 2019-08-29 11:32:00 Test Item Value Reference Range Interpretation Comments Activated Partial Thromboplast Time 31.7 25.1-36.5 (test code = 95931-3) [facility] HealthSodium measurement (moles/volume)2019-08-29 11:32:00 Test Item Value Reference Range Interpretation Comments Sodium Level (test code = 19915-2) 142 Serum or plasma potassium measurement (moles/volume)2019-08-29 11:32:00 Test Item Value Reference Range Interpretation Comments Potassium Level (test code = 2823-3) 4.1 Serum or plasma chloride measurement (moles/volume)2019-08-29 11:32:00 Test Item Value Reference Range Interpretation Comments Chloride Level (test code = 2075-0) 110 Serum or plasma carbon dioxide measurement (moles/volume)2019-08-29 11:32:00 Test Item Value Reference Range Interpretation Comments Carbon Dioxide Level (test code = 26 8-9) Automated blood leukocyte count (number/volume)2019-08-29 11:32:00 Test Item Value Reference Range Interpretation Comments White Blood Count (test code = 6690-2) 7.9 Serum or plasma anion [id number] 11:32:00 Test Item Value Reference Range Interpretation Comments Anion Gap (test code = 82517-0) 6.0 Serum or plasma urea nitrogen measurement (mass/volume)2019-08-29 11:32:00 Test Item Value Reference Range Interpretation Comments Blood Urea Nitrogen (test code = 14.0 3094-0) Serum or plasma creatinine measurement (mass/volume)2019-08-29 11:32:00 Test Item Value Reference Range Interpretation Comments Creatinine (test code = 2160-0) 0.719 GFR estimate [id number] 11:32:00 Test Item Value Reference Range Interpretation Comments Estimat Glomerular Filtration Rate > 60 (test code = 98321-8) Serum or plasma glucose measurement (mass/volume)2019-08-29 11:32:00 Test Item Value Reference Range Interpretation Comments Glucose Level (test code = 2345-7) 98 Serum or plasma calcium measurement (mass/volume)2019-08-29 11:32:00 Test Item Value Reference Range Interpretation Comments Calcium Level (test code = 37074-0) 9.2 Serum or plasma total bilirubin measurement (mass/volume)2019-08-29 11:32:00 Test Item Value Reference Range Interpretation Comments Total Bilirubin (test code = 1975-2) 0.7 Serum or plasma aspartate aminotransferase measurement (enzymatic activity/volume)2019-08-29 11:32:00 Test Item Value Reference Range Interpretation Comments Aspartate Amino Transf (AST/SGOT) (test 44 code = 1920-8) Serum or plasma alanine aminotransferase measurement (enzymatic activity/volume) 2019-08-29 11:32:00 Test Item Value Reference Range Interpretation Comments Alanine Aminotransferase (ALT/SGPT) 53 (test code = 1742-6) Serum or plasma protein measurement (mass/volume)2019-08-29 11:32:00 Test Item Value Reference Range Interpretation Comments Total Protein (test code = 2885-2) 7.8 Serum or plasma albumin measurement (mass/volume)2019-08-29 11:32:00 Test Item Value Reference Range Interpretation Comments Albumin (test code = 1751-7) 4.1 Serum or plasma alkaline phosphatase measurement (enzymatic activity/volume) 2019-08-29 11:32:00 Test Item Value Reference Range Interpretation Comments Alkaline Phosphatase (test code = 73 6768-6) Serum or plasma creatine kinase measurement (enzymatic activity/volume) 2019-08-29 11:32:00 Test Item Value Reference Range Interpretation Comments Total Creatine Kinase (test code = 67 2157-6) Serum or plasma creatine kinase MB measurement (mass/volume)2019-08-29 11:32:00 Test Item Value Reference Range Interpretation Comments Creatine Kinase MB (test code = < 1.0 86988-7) Serum or plasma total creatine kinase/creatine kinase MB isoenzyme activity [id number] 11:32:00 Test Item Value Reference Range Interpretation Comments Creatine Kinase MB Relative Index (test 1.5 code = 2158-4) Troponin I dzlsmaxdb9513-76-00 11:32:00 Test Item Value Reference Range Interpretation Comments Troponin I (test code = 32809-2) < 0.015 Serum or plasma brain natriuretic peptide (BNP) nfluckqrhmw8973-00-54 11:32:00 Test Item Value Reference Range Interpretation Comments B-Type Natriuretic Peptide (test code = 43 75060-4) Blood erythrocytes automated count (number/volume)2019-08-29 11:32:00 Test Item Value Reference Range Interpretation Comments Red Blood Count (test code = 789-8) 4.31 Blood hemoglobin measurement (mass/volume)2019-08-29 11:32:00 Test Item Value Reference Range Interpretation Comments Hemoglobin (test code = 718-7) 12.5 Automated blood hematocrit (volume fraction)2019-08-29 11:32:00 Test Item Value Reference Range Interpretation Comments Hematocrit (test code = 4544-3) 39.1 Automated erythrocyte mean corpuscular volume (MCV) urjkutcbqfl8058-53-71 11:32:00 Test Item Value Reference Range Interpretation Comments Mean Corpuscular Volume (test code = 90.7 787-2) Automated erythrocyte mean corpuscular hemoglobin (mass per erythrocyte) 2019-08-29 11:32:00 Test Item Value Reference Range Interpretation Comments Mean Corpuscular Hemoglobin (test code 29.0 = 785-6) Automated erythrocyte mean corpuscular hemoglobin concentration (MCHC) measurement ([id number] 11:32:00 Test Item Value Reference Range Interpretation Comments Mean Corpuscular Hemoglobin Concent 32.0 (test code = 786-4) Automated erythrocyte distribution width bdmvc2586-60-11 11:32:00 Test Item Value Reference Range Interpretation Comments Red Cell Distribution Width (test code 13.5 = 788-0) Automated blood platelet count (count/volume)2019-08-29 11:32:00 Test Item Value Reference Range Interpretation Comments Platelet Count (test code = 777-3) 264 Automated blood platelet mean volume vvomfkmibvs9041-49-17 11:32:00 Test Item Value Reference Range Interpretation Comments Mean Platelet Volume (test code = 11.1 80101-4) Automated blood neutrophil count as percentage of total [id number] 11:32:00 Test Item Value Reference Range Interpretation Comments Neutrophils (%) (Auto) (test code = 68.2 770-8) Automated blood immature granulocyte count as percentage of total leukocytes 2019-08-29 11:32:00 Test Item Value Reference Range Interpretation Comments Immature Granulocyte % (Auto) (test 0.30 code = 82209-6) Automated blood lymphocyte count as percentage of total [id number] 11:32:00 Test Item Value Reference Range Interpretation Comments Lymphocytes (%) (Auto) (test code = 23.0 736-9) Automated blood monocyte count as percentage of total [id number] 11:32:00 Test Item Value Reference Range Interpretation Comments Monocytes (%) (Auto) (test code = 7.1 5905-5) Automated blood eosinophil count as percentage of total [id number] 11:32:00 Test Item Value Reference Range Interpretation Comments Eosinophils (%) (Auto) (test code = 1.0 713-8) Automated blood basophil count as percentage of total [id number] 11:32:00 Test Item Value Reference Range Interpretation Comments Basophils (%) (Auto) (test code = 0.4 706-2) Automated blood nucleated erythrocyte count as percentage of total leukocytes 2019-08-29 11:32:00 Test Item Value Reference Range Interpretation Comments Nucleated Red Blood Cells % (test code 0.0 = 70028-8) Automated blood neutrophil count (number/volume)2019-08-29 11:32:00 Test Item Value Reference Range Interpretation Comments Neutrophils # (Auto) (test code = 5.4 751-8) Automated blood immature granulocyte count as percentage of total leukocytes 2019-08-29 11:32:00 Test Item Value Reference Range Interpretation Comments Immature Granulocyte # (Auto) (test 0.0200 code = 64873-5) Automated blood lymphocyte count (number/volume)2019-08-29 11:32:00 Test Item Value Reference Range Interpretation Comments Lymphocytes # (Auto) (test code = 1.8 731-0) Blood monocytes automated count (number/volume)2019-08-29 11:32:00 Test Item Value Reference Range Interpretation Comments Monocytes # (Auto) (test code = 742-7) 0.6 Automated blood eosinophil [id number] 11:32:00 Test Item Value Reference Range Interpretation Comments Eosinophils # (Auto) (test code = 0.1 711-2) Automated blood basophil count (number/volume)2019-08-29 11:32:00 Test Item Value Reference Range Interpretation Comments Basophils # (Auto) (test code = 704-7) 0.0 Automated blood leukocyte count corrected for nucleated [id number] 11:32:00 Test Item Value Reference Range Interpretation Comments Nucleated Red Blood Cells # (test code 0.000 = 71260-4) Whole blood prothrombin [id number] 11:32:00 Test Item Value Reference Range Interpretation Comments Prothrombin Time (test code = 5964-2) 10.6 INR in Platelet poor plasma by Coagulation [id number] 11:32:00 Test Item Value Reference Range Interpretation Comments Prothromb Time International Ratio 0.9 (test code = 6301-6) Partial thromboplastin time (PTT) in platelet poor [id number] 11:32:00 Test Item Value Reference Range Interpretation Comments Activated Partial Thromboplast Time 31.7 (test code = 53866-4)
--- NOTE | 2022-10-30 08:57 | RAD REPORT ---
EXAM DESCRIPTION: CT - Head Brain Wo Cont - 10/30/2022 8:35 am CLINICAL HISTORY: altered mental status COMPARISON: <Comparisons>CT head 04/14/2020 TECHNIQUE: Axial 5 mm thick images of the head were obtained without IV contrast. All CT scans are performed using dose optimization technique as appropriate and may include automated exposure control or mA/KV adjustment according to patient size. FINDINGS: No intracranial hemorrhage, mass, edema or shift of mid-line structures. No cortical edema or sulcal effacement. Moderate severity atrophy is present not substantially different from the 2020 comparison. Decreased attenuation is seen in the cerebral white matter most prominent in each fronta l lobe. There is no associated mass effect. This is a typical chronic ischemic pattern. Internal caps ules, thalami and brainstem show chronic ischemic changes as well. No abnormal extra-axial fluid mauricio ections. Ventricles are in proportion to the volume loss. Mastoid air cells and visualized portions of the paranasal sinuses are clear. No acute bony findings. IMPRESSION: No hemorrhage, mass or acute intracranial finding identified. Patient has atrophy and prominent chronic ischemic pattern that is not grossly different from 2020 co mparison.
[2022-10-30 09:02] LABS: Absolute Lymphocytes (CBC) 1.4 K/uL (0.7-4.9); Hematocrit 37.1 % (36.0-45.0); Lymphocytes % 13.2 % (15.3-44.8); MCV 84.4 fL (80-100); MPV 9.2 fL (7.6-11.3); RBC Red Blood Cell Count 4.39 M/uL (3.86-4.86)
[2022-10-30 09:22] LABS: Urine Blood Negative (Negative); Urine Glucose Negative (Negative); Urine Protein Negative (Negative); Urine Specific Gravity >=1.030 (1.005-1.030); Urine pH 5.5 (5.0-7.0)
[2022-10-30 09:25] LABS: Albumin 3.1 g/dL (3.4-5.0); Bilirubin Total 0.2 mg/dL (0.2-1.0); Potassium 5.2 mmol/L (3.5-5.1); Protein, Total 7.4 g/dL (6.4-8.2); Troponin High Sensitivity 6.3 pg/mL (<58.9)
[2022-10-30 09:30] LABS: Urine Bacteria None Seen /HPF (<20); Urine Mucus Slight /HPF (None Seen); Urine RBC <5 /HPF (None Seen)
[2022-10-30] MEDS ORDERED: NA CHLORIDE 0.9% 1,000 ML ONE (09:56)
--- NOTE | 2022-10-30 11:32 | EDPHYS ---
Physician Documentation [facility] Name: Mary Healy Age: 72 yrs Sex: Female : 1950 Arrival Date: 10/30/2022 Time: 08:17 Bed 7 Private MD: ED Physician Alyssa Estrada HPI: 10/30 08:23 This 72 yrs old Female presents to ER via EMS with complaints of UTI and sp3 slurred speech (now resolved). 08:23 72-year-old female with history of hypertension, Alzheimer's dementia, rheumatoid sp3 arthritis presents by EMS with chief complaint a resolved slurred speech and now patient states that she has mild lower abdominal pain consistent with prior UTIs. Patient's foster parent also states that she thinks she has a UTI. There is no fever, trauma, headache, neck pain, chest pain, shortness of breath, syncope, known fall, or any other reported incidents or symptoms at this time.. Historical: - Allergies: 08:21 No Known Allergies; ap3 - PMHx: 08:21 Alzheimers; Hypertension; Osteoporosis; Rheumatoid Arthritis; VASCULAR DEMENTIA; ap3 - Immunization history:: Client reports receiving the 2nd dose of the Covid vaccine. - Social history:: Smoking status: Patient denies any tobacco usage or history of. ROS: 08:25 Unable to obtain ROS due to baseline dementia. sp3 Exam: 08:25 Constitutional: This is a well developed, well nourished patient who is awake, alert, sp3 and in no acute distress. Head/Face: Normocephalic, atraumatic. Eyes: Pupils equal round and reactive to light, extra-ocular motions intact. Lids and lashes normal. Conjunctiva and sclera are non-icteric and not injected. Cornea within normal limits. Periorbital areas with no swelling, redness, or edema. ENT: Nares patent. No nasal discharge, no septal abnormalities noted. External auditory canals are clear. Oropharynx with no redness, swelling, or masses, exudates, or evidence of obstruction, uvula midline. Mucous membranes moist. Neck: Trachea midline, no thyromegaly or masses palpated, and no cervical lymphadenopathy. Supple, full range of motion without nuchal rigidity, or vertebral point tenderness. No Meningismus. Chest/axilla: Normal chest wall appearance and motion. Nontender with no deformity. No lesions are appreciated. Cardiovascular: Regular rate and rhythm with a normal S1 and S2. No gallops, murmurs, or rubs. Normal PMI, no JVD. No pulse deficits. Respiratory: Lungs have equal breath sounds bilaterally, clear to auscultation and percussion. No rales, rhonchi or wheezes noted. No increased work of breathing, no retractions or nasal flaring. Skin: Warm, dry with normal turgor. Normal color with no rashes, no lesions, and no evidence of cellulitis. MS/ Extremity: Pulses equal, no cyanosis. Neurovascular intact. Full, normal range of motion. Psych: Awake, alert, with orientation to person, place and time. Behavior, mood, and affect are within normal limits. 08:25 Neuro: Neurological exam grossly normal with no focal deficits. Speech is normal. Gait not assessed. Cranial nerve abnormalities 2 through 12.. Vital Signs: 08:19 BP 141 / 68; Pulse 73; Resp 18; Temp 98.5(O); Pulse Ox 100% on R/A; Weight 48.72 kg; ap3 Height 4 ft. 10 in. (147.32 cm); 09:24 BP 125 / 67; Pulse 72; Pulse Ox 99% on R/A; ap3 10:30 BP 137 / 51; Pulse 79; Resp 16; Pulse Ox 100% on R/A; kr3 11:30 BP 134 / 64; Pulse 75; Resp 17; Pulse Ox 100% on R/A; kr3 08:19 Body Mass Index 22.45 (48.72 kg, 147.32 cm) ap3 MDM: 08:18 Patient medically screened. sp3 08:25 Data reviewed: vital signs, nurses notes, EMS record. ED course: 72-year-old female sp3 with now resolved reported slurred speech. I do not believe patient has had a TIA or CVA event and is likely her baseline dementia. Patient does have mild abdominal pain we will obtain urine analysis and lab work as well as a CT scan of her head to fully evaluate all reported symptoms. UTI will be treated if present patient likely will be discharged home unless admission criteria are met. Patient did see primary care physician yesterday who reported that she was "dehydrated" but denied order any lab work or initiate any intervention.. 09:43 ED course: CT is negative for any significant abnormality. Laboratory values reviewed. sp3 CBC is normal however chemistries demonstrate prerenal azotemia with mild hyponatremia, low CO2, and creatinine of 1.7 consistent with dehydration diagnosis given by PCP yesterday. Mild ketones in the urine. We will give 1 L normal saline IV and reassess and likely discharge patient home as she does not meet admission criteria.. 11:30 ED course: She received full 1 L normal saline and has had urine output. She is sp3 ambulatory without any difficulty. We will discharge her home at this time. All questions answered and family at the bedside and agree with the plan.. 10/30 08:19 Order name: CBC with Diff; Complete Time: 09:39 sp3 10/30 08:19 Order name: CMP; Complete Time: 09:39 sp3 10/30 08:19 Order name: Lipase; Complete Time: 09:39 sp3 10/30 08:19 Order name: Urine Microscopic Only; Complete Time: 09:39 sp3 10/30 08:19 Order name: Troponin High Sensitivity; Complete Time: 09:39 sp3 10/30 09:22 Order name: Urine Dipstick-Ancillary; Complete Time: 09:39 EDMS 10/30 08:19 Order name: IV Saline Lock; Complete Time: 08:55 sp3 10/30 08:19 Order name: Labs collected and sent; Complete Time: 08:55 sp3 10/30 08:19 Order name: Urine Dipstick-Ancillary (obtain specimen); Complete Time: 09:23 sp3 10/30 08:19 Order name: CT Head Brain wo Cont sp3 10/30 08:19 Order name: EKG - Nurse/Tech; Complete Time: 09:53 sp3 10/30 08:23 Order name: Head Brain Wo Cont; Complete Time: 09:39 EDMS Administered Medications: 10:00 Drug: NS 0.9% 1000 ml Route: IV; Rate: 1 bolus; Site: right forearm; kr3 11:33 Follow up: Response: No adverse reaction; IV Status: Completed infusion; IV Intake: kr3 1000ml Disposition Summary: 10/30/22 11:31 Discharge Ordered Location: Home sp3 Condition: Stable sp3 Diagnosis - Dehydration sp3 Followup: sp3 - With: Private Physician - When: Upon discharge from the Emergency Department - Reason: Recheck today's complaints Discharge Instructions: - Discharge Summary Sheet sp3 - Dehydration, Elderly sp3 Forms: - Medication Reconciliation Form sp3 - Thank You Letter sp3 - Antibiotic Education sp3 - Prescription Opioid Use sp3 Signatures: Dispatcher [employer] Daniela Quach RN RN ap3 Alyssa Estrada MD MD sp3 Tiara Bowers RN RN kr3
--- NOTE | 2022-10-30 11:32 | ER ---
Nurse's Notes [facility] Name: Mary Healy Age: 72 yrs Sex: Female : 1950 Arrival Date: 10/30/2022 Time: 08:17 Bed 7 Private MD: Diagnosis: Dehydration Presentation: 10/30 08:19 Chief complaint: EMS states: they were called out for complaints of the patient being ap3 weak, and unable to ambulate as her baseline when she woke up this morning. It is reported the patient was seen by her PCP yesterday and was Dx with a UTI. Coronavirus screen: At this time, the client does not indicate any symptoms associated with coronavirus-19. Ebola Screen: No symptoms or risks identified at this time. Initial Sepsis Screen: Does the patient meet any 2 criteria? No. Patient's initial sepsis screen is negative. Does the patient have a suspected source of infection? Yes: Dysuria/Frequency/Urgency/UTI. Risk Assessment: Do you want to hurt yourself or someone else? Patient reports no desire to harm self or others. Onset of symptoms is unknown. 08:19 Method Of Arrival: EMS: [facility] ap3 08:19 Acuity: AASHISH 3 ap3 Triage Assessment: 08:22 General: Appears in no apparent distress. Behavior is calm. Pain: Complains of pain in ap3 groin Also complains of patient has a reported recent UTI dx. Neuro: Level of Consciousness is awake, alert, obeys commands, Oriented to person, place, Facial symmetry appears normal. Cardiovascular: Patient's skin is warm and dry. Respiratory: Airway is patent Respiratory effort is even, unlabored, Respiratory pattern is regular, symmetrical. : Reports pain in right in suprapubic area. Historical: - Allergies: 08:21 No Known Allergies; ap3 - PMHx: 08:21 Alzheimers; Hypertension; Osteoporosis; Rheumatoid Arthritis; VASCULAR DEMENTIA; ap3 - Immunization history:: Client reports receiving the 2nd dose of the Covid vaccine. - Social history:: Smoking status: Patient denies any tobacco usage or history of. Screenin:23 Humpty Dumpty Scale Fall Assessment Tool (age< 18yrs) Age 13 years and above (1 pt). ap3 Abuse screen: Denies threats or abuse. Nutritional screening: On. Tuberculosis screening: No symptoms or risk factors identified. 08:55 [facility] ED Fall Risk Assessment (Adult) History of falling in the last 3 months, ap3 including since admission Yes- single mechanical fall (1 pt) Confusion or Disorientation Yes (5 pts) Intoxicated or Sedated No (0 pts) Impaired Gait Yes (1 pt) Mobility Assist Device Used No (0 pt) Altered Elimination No (0 pt) Score/Fall Risk Level 3 or more points = High Risk Oriented to surroundings, Maintained a safe environment, Educated pt \T\ family on fall prevention, incl call for assistance when getting out of bed, Assessed \T\ reinforced patient's understanding of fall precautions, Provided non-skid footwear, Hourly rounding (assess needs \T\ fall precautionary measures) done, Used ambulatory aids as needed (educated on \T\ assisted with), Used gait belt as appropriate Implemented a Fall Risk Plan of Care, Apply high fall risk patient identification: yellow non skid footwear/ fall signage, Placed fall mat w/ non beveled edge next to bed. 08:56 Fall Risk Fall in past 12 months (25 points). ap3 Assessment: 10:02 General: Appears comfortable, Behavior is calm, cooperative. Neuro: Level of kr3 Consciousness is awake, alert, obeys commands, Oriented to person, place. Cardiovascular: Patient's skin is warm and dry. Respiratory: Airway is patent Respiratory effort is even, unlabored, Respiratory pattern is regular, symmetrical. GI: No signs and/or symptoms were reported involving the gastrointestinal system. : Urine is clear. EENT: No signs and/or symptoms were reported regarding the EENT system. Derm: Skin is dry, Skin is pink, warm \T\ dry. Musculoskeletal: Reports. 11:29 Reassessment: No changes from previously documented assessment. Patient and/or family kr3 updated on plan of care and expected duration. Pain level reassessed. patient was able to ambulate 30 ft unassisted, tolerated well, caregiver stated this was an improvement from this morning. . Vital Signs: 08:19 BP 141 / 68; Pulse 73; Resp 18; Temp 98.5(O); Pulse Ox 100% on R/A; Weight 48.72 kg; ap3 Height 4 ft. 10 in. (147.32 cm); 09:24 BP 125 / 67; Pulse 72; Pulse Ox 99% on R/A; ap3 10:30 BP 137 / 51; Pulse 79; Resp 16; Pulse Ox 100% on R/A; kr3 11:30 BP 134 / 64; Pulse 75; Resp 17; Pulse Ox 100% on R/A; kr3 08:19 Body Mass Index 22.45 (48.72 kg, 147.32 cm) ap3 ED Course: 08:17 Patient arrived in ED. em1 08:17 Alyssa Estrada MD is Attending Physician. sp3 08:19 Daniela Mejia, RN is Primary Nurse. ap3 08:21 Triage completed. ap3 08:23 Arm band placed on right wrist. ap3 08:24 Patient has correct armband on for positive identification. Bed in low position. Call ap3 light in reach. Side rails up X2. Adult w/ patient. Pulse ox on. NIBP on. Door closed. Noise minimized. 08:36 Head Brain Wo Cont In Process Unspecified. EDMS 08:55 Maintain EMS IV. Dressing intact. Good blood return noted. Site clean \T\ dry. Gauge \T\ ap 3 site: 22 right forearm. 09:23 Straight cath inserted, using sterile technique, 14 Fr. Specimen obtained. Returned ap3 clear yellow urine. Patient tolerated well. Administered Medications: 10:00 Drug: NS 0.9% 1000 ml Route: IV; Rate: 1 bolus; Site: right forearm; kr3 11:33 Follow up: Response: No adverse reaction; IV Status: Completed infusion; IV Intake: kr3 1000ml Medication: 08:24 VIS not applicable for this client. ap3 Intake: 11:33 IV: 1000ml; Total: 1000ml. kr3 Outcome: 11:31 Discharge ordered by . sp3 11:45 Patient left the ED. kr3 Signatures: Dispatcher [employer] EDYogesh Solis em1 Daniela Mejia, RN KARLEE ap3 Alyssa Estrada MD MD sp3 Tiara Bowers RN RN kr3
[2022-10-30 11:49] VITALS: TEMP 98.5
[2022-10-30 11:51] VITALS: O2SAT 100
[2022-10-30 11:52] VITALS: BP 134/64
--- NOTE | 2022-10-31 12:55 | EKG ---
Test Date: 2022-10-30 Test Time: 09:48:29 [employer]: TOMER MEASUREMENT RESULTS: Intervals: Rate: 78 OH: 146 QRSD: 68 QT: 380 QTc: 433 [place]: P: 77 OH: 146 QRS: 46 T: 64 INTERPRETIVE STATEMENTS: Normal sinus rhythm Normal ECG Compared to ECG 12/31/2020 14:23:35 No significant changes Electronically Signed On 10-31-22 12:52:21 HAMMER ADJUSTER by Valentin Franco
== END 2022-10-30 11:45 | disposition home or self-care (01) ==
LOC: ER 08:14
DX: E86.0 Dehydration (principal); G30.9 Alzheimer's disease, unspecified; I10 Essential (primary) hypertension; F02.80 Dementia in other diseases classified elsewhere, unspecified severity, without behavioral disturbance, psychotic disturbance, mood disturbance, and anxiety; F01.50 Vascular dementia, unspecified severity, without behavioral disturbance, psychotic disturbance, mood disturbance, and anxiety
CPT/HCPCS: 96361; 93005; 85025; 36415; 84484; 83690; 80053; 70450; 51702; 96360; 99284; J7030; 81003; 81015

== ENCOUNTER 2022-11-10 12:20 | Observation (INO) | payer OTHER ==
--- OUTSIDE RECORDS SUMMARY | 2022-11-10 12:25 | XMS REPORT | Continuity of Care Document ---
:1950 Author Organization [facility] t Address [facility] [place] [address] Care Team Providers Name Role Phone PCP, NO Primary Care Physician Unavailable Andrea Wallace MD Attending Clinician ANDREA WALLACE Attending Clinician Unavailable ANDREA WALLACE Attending Clinician Unavailable Payers Payer Name Policy Type Policy Number Effective Date Expiration Date S baudilio MEDICARE PART A [id number] 2016 \T\ B 00:00:00 [employer] INDEMNITY [id number] 2017 00:00:00 Problems Condition Condition Condition Status Onset Resolution Last Treating Co mments Source Name Details Category Date Date Treatment Clinician Date Problem Condition [facility] Allergies, Adverse Reactions, Alerts Allergy Allergy Status Severity Reaction(s) Onset Inactive Treating Comm ents Source Name Type Date Date Clinician Penicill Allergy Active Moderate 2018-11 ABRIL BURTON in to 0-14 S substanc 00:00: Health e 00 NO KNOWN Drug Active Univers ALLERGIE Class ity of S [facility] Social History Social Habit Start Date Stop Date Quantity Comments Source Sex Assigned At [birth year] Female [facility] Health 00:00:00 00:00:00 Smoking Status Start Date Stop Date Source Unknown if ever smoked [facility] Medications This patient has no known medications. Vital Signs Vital Name Observation Time Observation Value Comments Source Heart Rate 2019-08-29 13:07:00 60 /min [facility] [employer] ([place] Respiratory rate 2019-08-29 13:07:00 18 /min [facility] BP Systolic 2019-08-29 13:07:00 143 mm[Hg] [facility] [employer] ([place] [employer] BP Diastolic 2019-08-29 13:07:00 66 mm[Hg] [facility] [employer] ([place] [employer] Heart Rate 2019-08-29 12:12:00 60 /min [facility] [employer] ([place] [employer]) Respiratory rate 2019-08-29 12:12:00 18 /min [facility] BP Systolic 2019-08-29 12:12:00 143 mm[Hg] [facility] BP Diastolic 2019-08-29 12:12:00 66 mm[Hg] [facility] Weight 2019-08-29 10:43:00 110 [lb_av] [facility] [employer] ([place] [employer] BMI (Body Mass Index) 2019-08-29 10:43:00 23.0 kg/m2 [facility] [employer] ([place] [employer]) Procedures Procedure Date / Time Performed Performing Clinician [facility] e ECG (electrocardiogram) 2019-08-29 00:00:00 [employer] X-ray of chest, single 2019-08-29 00:00:00 [facility] view Plan of Care Planned Activity Planned Date Details Comments Source Future Scheduled Test Urine sediment [facility] erythrocyte count by [facility] microscopy (number/high power field) [code = 94541-3] Future Scheduled Test Urine sediment [facility] leukocyte count by [facility] ospital microscopy (number/high power field) [code = 5821-4] Future Scheduled Test Urine sediment [facility] squamous epithelial [facility] cell count by microscopy (number/lowpower field) [code = 66880-0] Future Scheduled Test Urine sediment [facility] bacteria count by [facility] microscopy (number/high power field) [code = 5769-5] Future Scheduled Test Service comment [address] [code = 8264-4] [facility] referral [code [facility] St[facility] = [id number] ] [facility] Inst[facility] Chest Pain (DC) [facility] Encounters Start End Encounter Admission Attending Care Care Encounter Source Date/Time Date/Time Type Type Clinicians Facility Department ID 2020-02-13 2020-02-13 LYNDON Koo [id number] 00:00:00 00:00:00 Andrea Mcmillan [id number] [place] [id number] Profchandrakantio [id number] nal 092 [facility] 2020-01-13 2020-01-13 Office Rodrigo [facility] [id number] 09:09:08 10:04:39 Visit Andrea Mcmillan [id number] [place] [id number] Profsudha [id number] [facility] 2020-01-13 2020-01-13 Outpatient R ANDREA WALLACE [facility] [id number] Univers 09:20:00 09:20:00 ANDREA WALLACE [facility] 2019-08-29 2019-08-29 Departed [place] F[place] [id number] [facility] 10:43:00 13:07:00 [facility] [address] 2019-08-29 2019-08-29 Departed BERNADETTE FONG [id number] [facility] 10:43:00 13:07:00 Emergency [facility] [address] Results Test Description Test Time Test Comments Results Result Comments Source Urine color determination 2019-08-29 12:45:00 Test Item Value Reference Range Interpretation Comme nts Urine Color (test code = 5778-6) Yellow Yellow [facility] appearance azgbcbjvhgxbe1742-17-84 12:45:00 Test Item Value Reference Range Interpretation Comments Urine Appearance (test code = 5767-9) CLEAR Clear [facility] pH measurement by test [id number] 12:45:00 Test Item Value Reference Range Interpretation Comments Urine pH (test code = 5803-2) 6.0 5.0-8.0 [facility] HealthSpecific gravity of Urine by Test [id number] 12:45:00 Test Item Value Reference Range Interpretation Comments Urine Specific [place] (test code = <= 1.005 1.005-1.030 5811-5) [facility]Urine protein assay by test strip, vbbj-cigcdzvuhtya2792-75-14 12:45:00 Test Item Value Reference Range Interpretation Comments Urine Protein (test code = 81531-2) Negative Negative [facility] glucose measurement by test strip (mass/volume)2019-08-29 12:45:00 Test Item Value Reference Range Interpretation Comments Urine Glucose (UA) (test code = Negative Negative 5792-7) [facility] HealthUrine ketones detection by test wtzqf3648-88-09 12:45:00 Test Item Value Reference Range Interpretation Comments Urine Ketones (test code = 2514-8) Negative Negative [facility] erythrocytes count by test strip (number/volume)2019-08-29 12:45:00 Test Item Value Reference Range Interpretation Comments Urine Occult Blood (test code = Negative Negative 10640-4) [facility]Urine nitrite detection by automated test [id number] 12:45:00 Test Item Value Reference Range Interpretation Comments Urine Nitrite (test code = 73345-3) Negative Negative [facility] total bilirubin detection by test qfiaz3678-70-94 12:45:00 Test Item Value Reference Range Interpretation Comments Urine Bilirubin (test code = 5770-3) Negative Negative [facility]Urine urobilinogen measurement by automated test strip (mass/volume)2019-08-29 12:45:00 Test Item Value Reference Range Interpretation Comments Urine Urobilinogen (test code = Normal Normal 79147-9) [facility]Urine leukocyte esterase detection by hkettyzw8617-86-96 12:45:00 Test Item Value Reference Range Interpretation Comments Urine Leukocyte Esterase (test code = Trace Negative 5799-2) [facility] HealthUrine color cbgmxfidaqjpx7057-07-69 12:45:00 Test Item Value Reference Range Interpretation Comments Urine Color (test code = 5778-6) Yellow Urine appearance wvyupmpxkdqgh3705-57-74 12:45:00 Test Item Value Reference Range Interpretation Comments Urine Appearance (test code = 5767-9) CLEAR Urine pH measurement by test [id number] 12:45:00 Test Item Value Reference Range Interpretation Comments Urine pH (test code = 5803-2) 6.0 Specific gravity of Urine by Test [id number] 12:45:00 Test Item Value Reference Range Interpretation Comments Urine Specific [place] (test code = <= 1.005 5811-5) Urine protein assay by test strip, ttvw-mekpidmhcszk5004-69-14 12:45:00 Test Item Value Reference Range Interpretation Comments Urine Protein (test code = 91421-7) Negative Urine glucose measurement by test strip (mass/volume)2019-08-29 12:45:00 Test Item Value Reference Range Interpretation Comments Urine Glucose (UA) (test code = Negative 5792-7) Urine ketones detection by test [id number] 12:45:00 Test Item Value Reference Range Interpretation Comments Urine Ketones (test code = 2514-8) Negative Urine erythrocytes count by test strip (number/volume)2019-08-29 12:45:00 Test Item Value Reference Range Interpretation Comments Urine Occult Blood (test code = Negative 55802-2) Urine nitrite detection by automated test [id number] 12:45:00 Test Item Value Reference Range Interpretation Comments Urine Nitrite (test code = 64896-6) Negative Urine total bilirubin detection by test [id number] 12:45:00 Test Item Value Reference Range Interpretation Comments Urine Bilirubin (test code = 5770-3) Negative Urine urobilinogen measurement by automated test strip (mass/volume)2019-08-29 12:45:00 Test Item Value Reference Range Interpretation Comments Urine Urobilinogen (test code = Normal 70237-6) Urine leukocyte esterase detection by nekkkfdz1315-66-60 12:45:00 Test Item Value Reference Range Interpretation Comments Urine Leukocyte Esterase (test code = Trace 5799-2) Serum or plasma potassium measurement (moles/volume)2019-08-29 11:32:00 [...] Carbon Dioxide Level (test code = 26 21-32 8-9) [facility] HealthSerum or plasma anion [id number] 11:32:00 Test Item Value Reference Range Interpretation Comments Anion Gap (test code = 27255-3) 6.0 3.0-11.0 [facility] HealthSerum or plasma urea nitrogen measurement (mass/volume)2019-08-29 11:32:00 Test Item Value Reference Range Interpretation Comments Blood Urea Nitrogen (test code = 14.0 7.0-18.0 3094-0) [facility] HealthSerum or plasma creatinine measurement (mass/volume)2019-08-29 11:32:00 Test Item Value Reference Range Interpretation Comments Creatinine (test code = 2160-0) 0.719 0.550-1.02 [facility] HealthGFR estimate [id number] 11:32:00 Test Item Value Reference Range Interpretation Comments Estimat Glomerular Filtration Rate > 60 >60 (test code = 45855-8) [facility] HealthSerum or plasma glucose measurement (mass/volume)2019-08-29 11:32:00 Test Item Value Reference Range Interpretation Comments Glucose Level (test code = 2345-7) 98 74-106 [facility] HealthSerum or plasma calcium measurement (mass/volume)2019-08-29 11:32:00 Test Item Value Reference Range Interpretation Comments Calcium Level (test code = 06458-3) 9.2 8.5-10.1 [facility] HealthSerum or plasma total [...] MB (test code = < 1.0 0.3-3.6 77983-6) [facility] HealthSerum or plasma total creatine kinase/creatine kinase MB isoenzyme activity [id number] 11:32:00 Test Item Value Reference Range Interpretation Comments Creatine Kinase MB Relative Index (test 1.5 0-4 code = 2158-4) [facility] HealthTroponin I gaorlkvqg6284-78-44 11:32:00 Test Item Value Reference Range Interpretation Comments Troponin I (test code = 46367-1) < 0.015 0.00-0.045 [facility] HealthSerum or plasma brain natriuretic peptide (BNP) measurement 2019-08-29 11:32:00 Test Item Value Reference Range Interpretation Comments B-Type Natriuretic Peptide (test code = 43 0.0-100 41956-7) [facility] HealthAutomated blood leukocyte count (number/volume)2019-08-29 11:32:00 Test Item Value Reference Range Interpretation Comments White Blood Count (test code = 6690-2) 7.9 4.5-10.0 [facility] automated count (number/volume)2019-08-29 11:32:00 Test Item Value Reference Range Interpretation Comments Red Blood Count (test code = 789-8) 4.31 4.20-5.40 [facility] HealthBlood hemoglobin measurement (mass/volume)2019-08-29 11:32:00 Test Item [...] erythrocyte mean corpuscular hemoglobin concentration (MCHC) measurement ([id number] 11:32:00 Test Item Value Reference Range Interpretation Comments Mean Corpuscular Hemoglobin Concent 32.0 32.0-36.0 (test code = 786-4) [facility] HealthAutomated erythrocyte distribution width yrtvl1110-60-13 11:32:00 Test Item Value Reference Range Interpretation Comments Red Cell Distribution Width (test code 13.5 0.0-15.5 = 788-0) [facility] HealthAutomated blood platelet count (count/volume)2019-08-29 11:32:00 Test Item Value Reference Range Interpretation Comments Platelet Count (test code = 777-3) 264 130-400 [facility] HealthAutomated blood platelet mean volume krmldykmxzw3879-32-01 11:32:00 Test Item Value Reference Range Interpretation Comments Mean Platelet Volume (test code = 11.1 9.2-12.2 64262-0) [facility] HealthAutomated blood neutrophil count as percentage of total wgttnedquu2171-88-07 11:32:00 Test Item Value Reference Range Interpretation Comments Neutrophils (%) (Auto) (test code = 68.2 50-80 770-8) [facility] HealthAutomated blood immature granulocyte count as percentage of total tykjjkhpuk2995-69-61 11:32:00 Test Item Value Reference Range Interpretation Comments Immature Granulocyte % (Auto) (test 0.30 0.0-0.43 code = 24483-5) [facility] HealthAutomated blood lymphocyte count as percentage of total zkdpxnqxmd2498-19-03 11:32:00 Test Item Value Reference Range Interpretation Comments Lymphocytes (%) (Auto) (test code = 23.0 20.0-45.0 736-9) [facility] HealthAutomated blood monocyte count as percentage of total leukocytes 2019-08-29 11:32:00 Test Item Value Reference Range Interpretation Comments Monocytes (%) (Auto) (test code = 7.1 2-10 5905-5) [facility] HealthAutomated blood eosinophil count as percentage of total rxubukljxs3368-53-32 11:32:00 Test Item Value Reference Range Interpretation Comments Eosinophils (%) (Auto) (test code = 1.0 0-6 713-8) [facility] HealthAutomated blood basophil count as percentage of total leukocytes 2019-08-29 11:32:00 Test Item Value Reference Range Interpretation Comments Basophils (%) (Auto) (test code = 0.4 0-3 706-2) [facility] HealthAutomated blood nucleated erythrocyte count as percentage of total xhknuxyjbi9857-62-02 11:32:00 Test Item Value Reference Range Interpretation Comments Nucleated Red Blood Cells % (test code 0.0 0-0.2 = 06482-2) [facility] HealthAutomated blood neutrophil count (number/volume)2019-08-29 11:32:00 Test Item Value Reference Range Interpretation Comments Neutrophils # (Auto) (test code = 5.4 1.4-7.0 751-8) [facility] HealthAutomated blood immature granulocyte count as percentage of total sjmyaterhd9664-26-70 11:32:00 Test Item Value Reference Range Interpretation Comments Immature Granulocyte # (Auto) (test 0.0200 0.0-0.0310 code = 84956-5) [facility] HealthAutomated blood lymphocyte count (number/volume)2019-08-29 11:32:00 Test Item Value Reference Range Interpretation Comments Lymphocytes # (Auto) (test code = 1.8 1.2-4.0 731-0) [facility] monocytes automated count (number/volume)2019-08-29 11:32:00 Test Item Value Reference Range Interpretation Comments Monocytes # (Auto) (test code = 742-7) 0.6 0.1-0.8 [facility] HealthAutomated blood eosinophil gmtue0224-79-50 11:32:00 Test Item Value Reference Range Interpretation Comments Eosinophils # (Auto) (test code = 0.1 0.0-0.6 711-2) [facility] HealthAutomated blood basophil count (number/volume)2019-08-29 11:32:00 Test Item Value Reference Range Interpretation Comments Basophils # (Auto) (test code = 704-7) 0.0 0.0-0.3 [facility] HealthAutomated blood leukocyte count corrected for nucleated cnvoqsogcnvf2706-48-27 11:32:00 Test Item Value Reference Range Interpretation Comments Nucleated Red Blood Cells # (test code 0.000 0-0.012 = 76894-9) [facility] HealthWhole blood prothrombin jdly6865-42-87 11:32:00 Test Item Value Reference Range Interpretation Comments Prothrombin Time (test code = 5964-2) 10.6 10.2-12.9 [facility] HealthINR in Platelet poor plasma by Coagulation hqkat1647-80-70 11:32:00 Test Item Value Reference Range Interpretation Comments Prothromb Time International Ratio 0.9 0.9-1.1 (test code = 6301-6) [facility] HealthPartial thromboplastin time (PTT) in platelet poor plasma 2019-08-29 11:32:00 Test Item Value Reference Range Interpretation Comments Activated Partial Thromboplast Time 31.7 25.1-36.5 (test code = 79355-0) [facility] HealthSodium measurement (moles/volume)2019-08-29 11:32:00 Test Item Value Reference Range Interpretation Comments Sodium Level (test code = 09265-5) 142 131-143 [facility] HealthINR in Platelet poor plasma by Coagulation rhwyb5487-83-93 11:32:00 Test Item Value Reference Range Interpretation Comments Prothromb Time International Ratio 0.9 (test code = 6301-6) Partial thromboplastin time (PTT) in platelet poor cyzjab5055-28-12 11:32:00 Test Item Value Reference Range Interpretation Comments Activated Partial Thromboplast Time 31.7 (test code = 35853-5) Sodium measurement (moles/volume)2019-08-29 11:32:00 Test Item Value Reference Range Interpretation Comments Sodium Level (test code = 78148-4) 142 Serum or plasma potassium measurement (moles/volume)2019-08-29 [...] Dioxide Level (test code = 26 8-9) Serum or plasma anion [id number] 11:32:00 Test Item Value Reference Range Interpretation Comments Anion Gap (test code = 62833-6) 6.0 Serum or plasma urea nitrogen measurement (mass/volume)2019-08-29 11:32:00 Test Item Value Reference Range Interpretation Comments Blood Urea Nitrogen (test code = 14.0 3094-0) Serum or plasma creatinine measurement (mass/volume)2019-08-29 11:32:00 Test Item Value Reference Range Interpretation Comments Creatinine (test code = 2160-0) 0.719 GFR estimate [id number] 11:32:00 Test Item Value Reference Range Interpretation Comments Estimat Glomerular Filtration Rate > 60 (test code = 30533-3) Serum or plasma glucose measurement (mass/volume)2019-08-29 11:32:00 Test Item Value Reference Range Interpretation Comments Glucose Level (test code = 2345-7) 98 Serum or plasma calcium measurement (mass/volume)2019-08-29 11:32:00 Test Item Value Reference Range Interpretation Comments Calcium Level (test code = 24098-2) 9.2 Serum or plasma total bilirubin measurement [...] Kinase MB (test code = < 1.0 80661-0) Serum or plasma total creatine kinase/creatine kinase MB isoenzyme activity gulxn4723-09-36 11:32:00 Test Item Value Reference Range Interpretation Comments Creatine Kinase MB Relative Index (test 1.5 code = 2158-4) Troponin I dpiydsbyb0916-69-00 11:32:00 Test Item Value Reference Range Interpretation Comments Troponin I (test code = 54036-0) < 0.015 Serum or plasma brain natriuretic peptide (BNP) ltjnfuuapon8602-77-76 11:32:00 Test Item Value Reference Range Interpretation Comments B-Type Natriuretic Peptide (test code = 43 56940-6) Automated blood leukocyte count (number/volume)2019-08-29 11:32:00 Test Item Value Reference Range Interpretation Comments White Blood Count (test code = 6690-2) 7.9 Blood erythrocytes automated count (number/volume)2019-08-29 11:32:00 Test [...] 39.1 Automated erythrocyte mean corpuscular volume (MCV) lqlpxgmoant1378-62-01 11:32:00 Test Item Value Reference Range Interpretation Comments Mean Corpuscular Volume (test code = 90.7 787-2) Automated erythrocyte mean corpuscular hemoglobin (mass per erythrocyte) 2019-08-29 11:32:00 Test Item Value Reference Range Interpretation Comments Mean Corpuscular Hemoglobin (test code 29.0 = 785-6) Automated erythrocyte mean corpuscular hemoglobin concentration (MCHC) measurement ([id number] 11:32:00 Test Item Value Reference Range Interpretation Comments Mean Corpuscular Hemoglobin Concent 32.0 (test code = 786-4) Automated erythrocyte distribution width hpzfz6247-50-17 11:32:00 Test Item Value Reference Range Interpretation Comments Red Cell Distribution Width (test code 13.5 = 788-0) Automated blood platelet count (count/volume)2019-08-29 11:32:00 Test Item Value Reference Range Interpretation Comments Platelet Count (test code = 777-3) 264 Automated blood platelet mean volume rbffqxhqpfy0850-89-81 11:32:00 Test Item Value Reference Range Interpretation Comments Mean Platelet Volume (test code = 11.1 25053-0) Automated blood neutrophil count as percentage of total kiclztngdq5024-78-84 11:32:00 Test Item Value Reference Range Interpretation Comments Neutrophils (%) (Auto) (test code = 68.2 770-8) Automated blood immature granulocyte count as percentage of total leukocytes 2019-08-29 11:32:00 Test Item Value Reference Range Interpretation Comments Immature Granulocyte % (Auto) (test 0.30 code = 20086-0) Automated blood lymphocyte count as percentage of total iaxpfnzmiw4232-47-48 11:32:00 Test Item Value Reference Range Interpretation Comments Lymphocytes (%) (Auto) (test code = 23.0 736-9) Automated blood monocyte count as percentage of total hojsubcmpi1983-85-53 11:32:00 Test Item Value Reference Range Interpretation Comments Monocytes (%) (Auto) (test code = 7.1 5905-5) Automated blood eosinophil count as percentage of total cjsllcwcgj5119-77-83 11:32:00 Test Item Value Reference Range Interpretation Comments Eosinophils (%) (Auto) (test code = 1.0 713-8) Automated blood basophil count as percentage of total cqknqrmqzg2483-24-94 11:32:00 Test Item Value Reference Range Interpretation Comments Basophils (%) (Auto) (test code = 0.4 706-2) Automated blood nucleated erythrocyte count as percentage of total leukocytes 2019-08-29 11:32:00 Test Item Value Reference Range Interpretation Comments Nucleated Red Blood Cells % (test code 0.0 = 58291-1) Automated blood neutrophil count (number/volume)2019-08-29 11:32:00 Test Item Value Reference Range Interpretation Comments Neutrophils # (Auto) (test code = 5.4 751-8) Automated blood immature granulocyte count as percentage of total leukocytes 2019-08-29 11:32:00 Test Item Value Reference Range Interpretation Comments Immature Granulocyte # (Auto) (test 0.0200 code = 96353-6) Automated blood lymphocyte count (number/volume)2019-08-29 11:32:00 Test Item Value Reference Range Interpretation Comments Lymphocytes # (Auto) (test code = 1.8 731-0) Blood monocytes automated count (number/volume)2019-08-29 11:32:00 Test Item Value Reference Range Interpretation Comments Monocytes # (Auto) (test code = 742-7) 0.6 Automated blood eosinophil nfrkx9098-98-65 11:32:00 Test Item Value Reference Range Interpretation Comments Eosinophils # (Auto) (test code = 0.1 711-2) Automated blood basophil count (number/volume)2019-08-29 11:32:00 Test Item Value Reference Range Interpretation Comments Basophils # (Auto) (test code = 704-7) 0.0 Automated blood leukocyte count corrected for nucleated evgcmsogjulc5912-79-95 11:32:00 Test Item Value Reference Range Interpretation Comments Nucleated Red Blood Cells # (test code 0.000 = 43559-8) Whole blood prothrombin yjup1679-39-07 11:32:00 Test Item Value Reference Range Interpretation Comments Prothrombin Time (test code = 5964-2) 10.6
--- NOTE | 2022-11-10 12:54 | ER ---
Nurse's Notes [facility] [place] Name: Mary Healy Age: 72 yrs Sex: Female : 1950 Arrival Date: 11/10/2022 Time: 12:24 Bed 25 Private MD: Diagnosis: COPD/ Chronic obstructive pulmonary disease with acute lower respiratory infection-FAILED OUT PATIENTTREATMENT;Dyspnea;Hypoxemia;Weakness;Hypomagnesemia Presentation: 11/10 13:10 Chief complaint: Patient states: Cough/congestion X 1 week. Coronavirus screen: Client ld1 presents with at least one sign or symptom that may indicate coronavirus-19. Standard/surgical mask placed on the client. Ebola Screen: No symptoms or risks identified at this time. No acute neurological deficit is noted. Pre-hospital glucose is not applicable to this patient. Initial Sepsis Screen: Does the patient meet any 2 criteria? No. Patient's initial sepsis screen is negative. Does the patient have a suspected source of infection? No. Patient's initial sepsis screen is negative. Risk Assessment: Do you want to hurt yourself or someone else? Patient reports no desire to harm self or others. Onset of symptoms. 13:10 Method Of Arrival: Wheelchair ld1 13:10 Acuity: AASHISH 3 ld1 Triage Assessment: 13:11 The onset of the patients symptoms was November 10, 2022 at 13:11. General: Appears in ld1 no apparent distress. comfortable, Behavior is calm, cooperative, appropriate for age. Pain: Denies pain. EENT: No signs and/or symptoms were reported regarding the EENT system. Neuro: Level of Consciousness is awake, alert, obeys commands, Oriented to person, place, time, situation. Cardiovascular: Capillary refill < 3 seconds Patient's skin is warm and dry. Respiratory: Airway is patent Respiratory effort is even, labored. GI: Abdomen is flat, non-distended. : No signs and/or symptoms were reported regarding the genitourinary system. Derm: No signs and/or symptoms reported regarding the dermatologic system. Musculoskeletal: No signs and/or symptoms reported regarding the musculoskeletal system. Stroke Activation: Symptom onset > 6 hours Physician: Stroke Attending; Name: ; Notified At: ; Arrived At: Physician: Chief Stroke Resident; Name: ; Notified At: ; Arrived At: Physician: Stroke Resident; Name: ; Notified At: ; Arrived At: Physician: ED Attending; Name: ; Notified At: ; Arrived At: Physician: ED Resident; Name: ; Notified At: ; Arrived At: Historical: - Allergies: 13:02 PENICILLINS; ll1 - PMHx: 13:02 VASCULAR DEMENTIA; Osteoporosis; Hypertension; Alzheimers; Rheumatoid Arthritis; ll1 - Immunization history:: Adult Immunizations up to date, Client reports receiving the 2nd dose of the Covid vaccine. - Social history:: Smoking status: Patient denies any tobacco usage or history of. Patient/guardian denies using alcohol. Screenin:[address] [facility] ED Fall Risk Assessment (Adult) Confusion or Disorientation Yes (5 pts) ll1 Impaired Gait Yes (1 pt) Mobility Assist Device Used Yes (1 pt) Score/Fall Risk Level 3 or more points = High Risk Oriented to surroundings, Maintained a safe environment, Educated pt \T\ family on fall prevention, incl call for assistance when getting out of bed, Provided non-skid footwear, Hourly rounding (assess needs \T\ fall precautionary measures) done, Remained w/in arm's length of patient and in sight while toileting, Offered frequent toileting (1:1 observation), Remained with patient while ambulating, Utilized family, sitter, or virtual legal office administrator as indicated. Abuse screen: Denies threats or abuse. Nutritional screening: No deficits noted. Tuberculosis screening: No symptoms or risk factors identified. Assessment: 14:00 Reassessment: No changes from previously documented assessment. Patient and/or family ll1 updated on plan of care and expected duration. Pain level reassessed. Patient is alert, oriented x 3, equal unlabored respirations, skin warm/dry/pink. 15:00 Reassessment: No changes from previously documented assessment. Patient and/or family ll1 updated on plan of care and expected duration. Pain level reassessed. Patient is alert, oriented x 3, equal unlabored respirations, skin warm/dry/pink. 17:03 VAN Scoring: Arm Drift: Patients demonstrates NO arm weakness. Patient is VAN Negative. ll1 The patient passed the bedside swallow screening. Oral medications may be given as ordered. Contact Physician for further diet orders. TNKase (Tenecteplase) Screening: Contraindications: Patient reports onset of signs and symptoms of stroke greater than 6 hours ago:. 17:04 Patient has been NPO before screening. The patient is not alert and/or unable to follow ll1 commands. The patient does not exhibit slurred or garbled speech. The patient is not exhibiting difficulty speaking. The patient does not exhibit difficulty understanding words. The patient is able to swallow own secretions with no drooling or need for suction. Patient tolerated one teaspoon of water. No drooling, immediate coughing, gurgling, or clearing of the throat was noted. The patient tolerated 90mL of water. No drooling, immediate coughing, gurgling, or clearing of the throat was noted. The patient passed the bedside swallow screening. Oral medications may be given as ordered. Contact Physician for further diet orders. Provider notified of bedside swallow screening results: Will Lockhart MD. 17:30 Reassessment: No changes from previously documented assessment. Patient and/or family ll1 updated on plan of care and expected duration. Pain level reassessed. Patient is alert, oriented x 3, equal unlabored respirations, skin warm/dry/pink. 18:15 Reassessment: No changes from previously documented assessment. Patient and/or family ll1 updated on plan of care and expected duration. Pain level reassessed. cleaned of urine. Brief put on. Tolerated well. Vital Signs: 12:35 BP 123 / 61; Pulse 79; Resp 24; Temp 97.8; Pulse Ox 95% on 3 lpm NC; ll1 12:50 Pulse Ox 89% on R/A; ld1 13:11 Pulse Ox 100% on 3 lpm NC; ld1 13:26 Weight 48.53 kg; Height 4 ft. 10 in. (147.32 cm); ll1 15:51 BP 112 / 61; Pulse 77; Resp 20; Pulse Ox 100% ; ll1 18:24 BP 94 / 65; Pulse 81; Resp 20; Pulse Ox 99% on 3 lpm NC; ll1 18:59 BP 105 / 63; Pulse 75; Resp 20; Pulse Ox 99% on 3 lpm NC; ll1 20:30 BP 126 / 64; Pulse 86; Resp 20; Pulse Ox 99% on 3 lpm NC; ll3 21:37 BP 122 / 70; Pulse 88; Resp 16; Pulse Ox 96% on 3 lpm NC; ll3 13:26 Body Mass Index 22.36 (48.53 kg, 147.32 cm) ll1 NIH Stroke Scale Scores: 17:03 NIHSS Score: 0 ll1 ED Course: 12:24 Patient arrived in ED. rg4 12:31 Edward Olivares PA is PHCP. jmm 12:31 Will Lockhart MD is Attending Physician. jmm 12:36 Arm band placed on Patient placed in an exam room, on a stretcher. ll1 12:59 Rhina Quispe, KARLEE is Primary Nurse. ll1 13:05 Inserted saline lock: 22 gauge in left antecubital area, using aseptic technique. Blood zm collected. 13:11 Triage completed. ld1 13:57 XRAY Chest (1 view) In Process Unspecified. EDMS 13:59 Ar Saeed MD is Hospitalizing Provider. [facility] 16:00 Blood Culture Adult (2) Sent. ll1 17:04 Patient has correct armband on for positive identification. Bed in low position. Call ll1 light in reach. Side rails up X2. Client placed on continuous cardiac and pulse oximetry monitoring. NIBP monitoring applied. monitoring and evaluation advisor on. 17:05 No provider procedures requiring assistance completed. ll1 21:37 Patient admitted, IV remains in place. ll3 Administered Medications: 14:00 Drug: AtroVENT (ipratropium) Aerosol 0.5 mg Route: Inhalation; ll1 17:01 Follow up: Response: No adverse reaction ll1 14:01 Drug: NS 0.9% 1000 ml Route: IV; Rate: 125 ml/hr; Site: left antecubital; ll1 14:01 Drug: Pepcid (famotidine) 20 mg Route: IVP; Site: left antecubital; ll1 17:01 Follow up: Response: No adverse reaction ll1 14:01 Drug: SOLU-Medrol (methylPrednisoLONE) 2 mg/kg Route: IVP; Site: left antecubital; ll1 17:01 Follow up: Response: No adverse reaction ll1 14:01 Drug: Xopenex (levalbuterol) 3.75 mg Route: Inhalation; ll1 17:01 Follow up: Response: No adverse reaction ll1 15:55 Drug: levofloxacin 500 mg Volume: 100 ml; Route: IVPB; Infused Over: 60 mins; Site: ll1 left antecubital; 17:00 Follow up: Response: No adverse reaction; IV Status: Completed infusion; IV Intake: ll1 100ml 17:00 Drug: Ativan (LORazepam) 1 mg Route: IVP; Site: left antecubital; ll1 17:01 Drug: Magnesium Sulfate 1 grams Route: IVPB; Infused Over: 1 hrs; Site: left ll1 antecubital; 18:53 Follow up: Response: No adverse reaction; IV Status: Completed infusion; IV Intake: jl7 100ml Medication: 17:03 VIS not applicable for this client. ll1 Point of Care Testin:04 unknown ll1 Ranges: Intake: 17:00 IV: 100ml; Total: 100ml. ll1 18:53 IV: 100ml; Total: 200ml. jl7 Outcome: 14:07 Decision to Hospitalize by Provider. arron 21:37 Admitted to Med/surg accompanied by shira, via stretcher, room 218, with oxygen, with ll3 chart, Report called to KARLEE Burrell 21:37 Condition: stable 21:37 Instructed on the need for admit, Demonstrated understanding of instructions. 21:40 Patient left the ED. ll3 NIH Stroke Scale - NIH Stroke Score Date: 11/10/2022 Time: 17:03 Total Score = 0 1a. Level of Consciousness (LOC) - 0(Alert) 1b. Level of Consciousness (LOC) (Month \T\ Age) - 0(Both) 1c. LOC Commands (Open \T\ Closes Eyes/Bung Dropper) - 0(Both) 2. Best Gaze (Lateral Gaze Paresis) - 0(Normal) 3. Visual Field Loss - 0(No visual loss) 4. Facial Palsy - 0(Normal) 5a. Left Arm: Motor (10-second hold) - 0(No drift) 5b. Right Arm: Motor (10-second hold) - 0(No drift) 6a. Left Leg: Motor (5-second hold - always test supine) - 0(No drift) 6b. Right Leg: Motor (5-second hold - always test supine) - 0(No drift) 7. Limb Ataxia (finger/nose \T\ heel/serna - test with eyes open) - 0(Absent) 8. Sensory Loss (pinprick arms/legs/face) - 0(Normal) 9. Best Language: Aphasia (description/naming/reading) - 0(No aphasia) 10. Dysarthria (speech clarity - read or repeat words) - 0(Normal) 11. Extinction and Inattention (visual/tactile/auditory/spatial/personal) - 0(No abnormality) Initials: ll1 Signatures: Dispatcher [employer] EDMS Will Lockhart MD MD cha Mickail, Joel, PA PA jmm Garcia, Rubi rg4 Matt Gonzales RN RN jl7 Rhina Quispe RN RN ll1 Bethany Payne RN RN ld1 Meir Cueva RN RN ll3 Isamar Odom Corrections: (The following items were deleted from the chart) 12:58 12:53 Patient left the ED. ld1 ll1 15:51 12:35 BP 123 / 61; Pulse 79bpm; Resp 24bpm; Pulse Ox 95% 3 lpm Nasal Cannula; ll1 ll1
[2022-11-10 13:49] LABS: Absolute Lymphocytes (CBC) 1.3 K/uL (0.7-4.9); Hematocrit 32.4 % (36.0-45.0); Lymphocytes % 19.2 % (15.3-44.8); MCV 83.2 fL (80-100); MPV 8.6 fL (7.6-11.3)
[2022-11-10] MEDS ORDERED: NA CHLORIDE 0.9% 1,000 ML ONE (13:52)
[2022-11-10] MEDS ORDERED: HYDROCORTISONE SUC 100 MG INJ ONE (13:52)
[2022-11-10] MEDS ORDERED: IPRATROPIUM BROM 0.5MG/2.5ML ONE ×2 (13:52→19:46)
[2022-11-10] MEDS ORDERED: LEVALBUTEROL 1.25 MG/3 ML NEB ONE (13:52)
[2022-11-10] MEDS ORDERED: Levofloxacin500mg IV 500 MG/100 ML BAG IV ONE (13:52)
[2022-11-10] MEDS ORDERED: FAMOTIDINE 20 MG/2 ML VIAL IV ONE (13:52)
[2022-11-10 13:58] LABS: Protime INR 1.11
--- NOTE | 2022-11-10 14:08 | EDPHYS ---
Physician Documentation [facility] Name: Mary Healy Age: 72 yrs Sex: Female : 1950 Arrival Date: 11/10/2022 Time: 12:24 Bed 25 Private MD: [place] Physician Will Lockhart HPI: 11/10 13:51 This 72 yrs old Female presents to ER via Wheelchair with complaints of arron Weakness, Breathing Difficulty. 13:51 The patient has shortness of breath at rest, with light activity. Onset: The arron symptoms/episode began/occurred 5 day(s) ago. Duration: The symptoms are continuous, and are steadily getting worse. The patient's shortness of breath is aggravated by coughing, supine position, talking, walking, is alleviated by rest, sitting up, application of supplemental oxygen. The patient or guardian reports chest pain that is located primarily in the right nipple, right breast and left breast. Onset: 5 day(s) ago. The patient or guardian reports cough, difficulty breathing, flu symptoms, arthralgias, low-grade fever, myalgias. Modifying factors: The symptoms are alleviated by elevating head, remaining still, rest, the symptoms are aggravated by cold environment, lying flat, talking. The pain does not radiate. Severity of symptoms: At their worst the symptoms were moderate in the emergency department the symptoms are unchanged. Modifying factors: The symptoms are alleviated by application of supplemental oxygen, remaining still, rest, the symptoms are aggravated by cough, deep breath, movement. Severity of pain: At its worst the pain was very mild in the emergency department the pain is unchanged. Historical: - Allergies: 13:02 PENICILLINS; ll1 - PMHx: 13:02 VASCULAR DEMENTIA; Osteoporosis; Hypertension; Alzheimers; Rheumatoid Arthritis; ll1 - Immunization history:: Adult Immunizations up to date, Client reports receiving the 2nd dose of the Covid vaccine. - Social history:: Smoking status: Patient denies any tobacco usage or history of. Patient/guardian denies using alcohol. ROS: 13:53 Constitutional: Negative for fever, chills, and weight loss, Eyes: Negative for injury, arron pain, redness, and discharge, ENT: Negative for injury, pain, and discharge, Neck: Negative for injury, pain, and swelling, Cardiovascular: Negative for chest pain, palpitations, and edema, Abdomen/GI: Negative for abdominal pain, nausea, vomiting, diarrhea, and constipation, Back: Negative for injury and pain, : Negative for injury, bleeding, discharge, and swelling, MS/Extremity: Negative for injury and deformity, Skin: Negative for injury, rash, and discoloration, Neuro: Negative for headache, weakness, numbness, tingling, and seizure, Psych: Negative for depression, anxiety, suicide ideation, homicidal ideation, and hallucinations, Allergy/Immunology: Negative for hives, rash, and allergies, Endocrine: Negative for neck swelling, polydipsia, polyuria, polyphagia, and marked weight changes, Hematologic/Lymphatic: Negative for swollen nodes, abnormal bleeding, and unusual bruising. 13:53 Respiratory: Positive for cough, shortness of breath, wheezing, inspiratory, expiratory. Exam: 13:53 Constitutional: This is a well developed, well nourished patient who is awake, alert, arron and in no acute distress. Head/Face: Normocephalic, atraumatic. Eyes: Pupils equal round and reactive to light, extra-ocular motions intact. Lids and lashes normal. Conjunctiva and sclera are non-icteric and not injected. Cornea within normal limits. Periorbital areas with no swelling, redness, or edema. ENT: Nares patent. No nasal discharge, no septal abnormalities noted. Tympanic membranes are normal and external auditory canals are clear. Oropharynx with no redness, swelling, or masses, exudates, or evidence of obstruction, uvula midline. Mucous membranes moist. Neck: Trachea midline, no thyromegaly or masses palpated, and no cervical lymphadenopathy. Supple, full range of motion without nuchal rigidity, or vertebral point tenderness. No Meningismus. Chest/axilla: Normal chest wall appearance and motion. Nontender with no deformity. No lesions are appreciated. Cardiovascular: Regular rate and rhythm with a normal S1 and S2. No gallops, murmurs, or rubs. Normal PMI, no JVD. No pulse deficits. Abdomen/GI: Soft, non-tender, with normal bowel sounds. No distension or tympany. No guarding or rebound. No evidence of tenderness throughout. Back: No spinal tenderness. No costovertebral tenderness. Full range of motion. Female : Normal external genitalia. Skin: Warm, dry with normal turgor. Normal color with no rashes, no lesions, and no evidence of cellulitis. MS/ Extremity: Pulses equal, no cyanosis. Neurovascular intact. Full, normal range of motion. Neuro: Awake and alert, GCS 15, oriented to person, place, time, and situation. Cranial nerves II-XII grossly intact. Motor strength 5/5 in all extremities. Sensory grossly intact. Cerebellar exam normal. Normal gait. Psych: Awake, alert, with orientation to person, place and time. Behavior, mood, and affect are within normal limits. 13:53 Respiratory: the patient does not display signs of respiratory distress, Respirations: labored breathing, that is mild, Breath sounds: bronchial sounds, that are moderate, decreased breath sounds, that are mild, are located in both bases, rhonchi, that are moderate, are scattered, stridor, is not appreciated, + upper airway congestion. wheezing: inspiratory expiratory that is moderate. Vital Signs: 12:35 BP 123 / 61; Pulse 79; Resp 24; Temp 97.8; Pulse Ox 95% on 3 lpm NC; ll1 12:50 Pulse Ox 89% on R/A; ld1 13:11 Pulse Ox 100% on 3 lpm NC; ld1 13:26 Weight 48.53 kg; Height 4 ft. 10 in. (147.32 cm); ll1 15:51 BP 112 / 61; Pulse 77; Resp 20; Pulse Ox 100% ; ll1 18:24 BP 94 / 65; Pulse 81; Resp 20; Pulse Ox 99% on 3 lpm NC; ll1 18:59 BP 105 / 63; Pulse 75; Resp 20; Pulse Ox 99% on 3 lpm NC; ll1 20:30 BP 126 / 64; Pulse 86; Resp 20; Pulse Ox 99% on 3 lpm NC; ll3 21:37 BP 122 / 70; Pulse 88; Resp 16; Pulse Ox 96% on 3 lpm NC; ll3 13:26 Body Mass Index 22.36 (48.53 kg, 147.32 cm) ll1 NIH Stroke Scale Scores: 17:03 NIHSS Score: 0 ll1 MDM: 13:07 Patient medically screened. arron 13:55 Differential diagnosis: Anemia Anxiety Reaction asthma, Bronchitis CHF exacerbation, arron Chronic Obstructive Pulmonary Disease obstructed airway, bronchitis, flu, URI, abnormal EKG, acute myocardial infarction, acute pericarditis, pneumonia, Pneumothorax pulmonary edema, reactive airway disease, Unstable Angina. Antibiotic administration: Levaquin given. HEART Score: History: Moderately Suspicious (1), ECG: Non specific repolarization disturbance / LBTB / PM (1), Age: > or = 65 years (2), Risk Factors: > or = 3 Risk factors for atherosclerotic disease (2), [Hypercholesterolemia] [Hypertension] [+ Family HX] Troponin: < or = 1 x Normal Limit (0). The patient was not given aspirin in the Emergency Department. The patient's Wells Deep Vein Thrombosis Score was calculated as follows: Total Score: 0. This patient was found to be at low risk for a deep vein thrombosis by using the Well's assessment criteria Total Score: 0-2 Pts- Low Risk. The patient's pulmonary embolism risk score was calculated as follows: Total Score: 3-6 points. This patient was found to be at moderate risk for a pulmonary embolism by using the Well's assessment criteria Total Score: 0-2 points. This patient was found to be at low risk for a pulmonary embolism by using the Well's assessment criteria. ALESHIA Risk Score: 1 - patient's age is greater or equal to 65 years, 1 - Three or more CAD risk factors, 1- Known CAD, TOTAL SCORE = 3. Immunization status: Pneumococcal vaccine: Influenza vaccine: Data reviewed: vital signs, nurses notes, lab test result(s), EKG, radiologic studies, CT scan, plain films. Data interpreted: nurse monitoring: rate is 79 beats/min, rhythm is regular, Pulse oximetry: on room air is 100 %. Test interpretation: by ED physician or midlevel provider: ECG, plain radiologic studies. 11/10 13:22 Order name: Basic Metabolic Panel; Complete Time: 15:11 [facility] 11/10 13:22 Order name: CBC with Diff; Complete Time: 14:30 [facility] 11/10 13:22 Order name: LFT's; Complete Time: 15:11 [facility] 11/10 13:22 Order name: Magnesium; Complete Time: 15:11 [facility] 11/10 13:22 Order name: NT PRO-BNP; Complete Time: 15:11 [facility] 11/10 13:22 Order name: PT-INR; Complete Time: 14:30 [facility] 11/10 13:22 Order name: Troponin HS; Complete Time: 15:11 [facility] 11/10 13:22 Order name: Blood Culture Adult (2) [facility] 11/10 13:22 Order name: Lactate w/ 2H reflex if indic.; Complete Time: 14:30 [facility] 11/10 13:22 Order name: COVID-19/FLU A+B; Complete Time: 19:40 [facility] 11/10 13:22 Order name: ABG; Complete Time: 19:40 [facility] 11/10 15:30 Order name: CBC with Automated Diff EDMS 11/10 15:30 Order name: CBC with Automated Diff EDMS 11/10 15:30 Order name: Comprehensive Metabolic Panel [facility] 11/10 13:22 Order name: XRAY Chest (1 view); Complete Time: 14:30 [facility] 11/10 13:22 Order name: EKG; Complete Time: 13:23 [facility] 11/10 13:22 Order name: Cardiac monitoring; Complete Time: 17:02 [facility] 11/10 15:30 Order name: Regular EDMS 11/10 15:30 Order name: Comprehensive Metabolic Panel [facility] 11/10 21:10 Order name: Urine Dipstick-Ancillary [facility] 11/10 21:15 Order name: Urine Culture [facility] 11/10 21:15 Order name: Urine Microscopic Only [facility] 11/10 13:22 Order name: EKG - Nurse/Tech; Complete Time: 17:02 [facility] 11/10 13:22 Order name: IV Saline Lock; Complete Time: 13:27 [facility] 11/10 13:22 Order name: Labs collected and sent; Complete Time: 13:27 [facility] 11/10 13:22 Order name: O2 Per Protocol; Complete Time: 13:23 [facility] 11/10 13:22 Order name: O2 Sat Monitoring; Complete Time: 13:23 [facility] 11/10 13:22 Order name: Urine Dipstick-Ancillary (obtain specimen); Complete Time: 21:21 [facility] Administered Medications: 14:00 Drug: AtroVENT (ipratropium) Aerosol 0.5 mg Route: Inhalation; ll1 17:01 Follow up: Response: No adverse reaction ll1 14:01 Drug: NS 0.9% 1000 ml Route: IV; Rate: 125 ml/hr; Site: left antecubital; ll1 14:01 Drug: Pepcid (famotidine) 20 mg Route: IVP; Site: left antecubital; ll1 17:01 Follow up: Response: No adverse reaction ll1 14:01 Drug: SOLU-Medrol (methylPrednisoLONE) 2 mg/kg Route: IVP; Site: left antecubital; ll1 17:01 Follow up: Response: No adverse reaction ll1 14:01 Drug: Xopenex (levalbuterol) 3.75 mg Route: Inhalation; ll1 17:01 Follow up: Response: No adverse reaction ll1 15:55 Drug: levofloxacin 500 mg Volume: 100 ml; Route: IVPB; Infused Over: 60 mins; Site: ll1 left antecubital; 17:00 Follow up: Response: No adverse reaction; IV Status: Completed infusion; IV Intake: ll1 100ml 17:00 Drug: Ativan (LORazepam) 1 mg Route: IVP; Site: left antecubital; ll1 17:01 Drug: Magnesium Sulfate 1 grams Route: IVPB; Infused Over: 1 hrs; Site: left ll1 antecubital; 18:53 Follow up: Response: No adverse reaction; IV Status: Completed infusion; IV Intake: jl7 100ml Point of Care Testin:04 unknown ll1 Ranges: Critical Glucose Levels:Adult <50 mg/dl or >400 mg/dl <40 mg/dl or >180 mg/dl Disposition Summary: 11/10/22 14:07 Hospitalization Ordered Provider: Ar Saeed cha Condition: Fair arron Problem: new arron Symptoms: have improved arron Bed/Room Type: Standard arron Hospitalization Status: Observation(11/10/22 14:30) arron Location: Telemetry/MedSurg (observation)(11/10/22 20:24) Room Assignment: [facility](11/10/22 20:24) Diagnosis - COPD/ Chronic obstructive pulmonary disease with acute lower respiratory infection arron - FAILED OUT PATIENTTREATMENT - Dyspnea arron - Hypoxemia arron - Weakness arron - Hypomagnesemia arron Forms: - Medication Reconciliation Form arron - SBAR form arron NIH Stroke Scale - NIH Stroke Score Date: 11/10/2022 Time: 17:03 Total Score = 0 1a. Level of Consciousness (LOC) - 0(Alert) 1b. Level of Consciousness (LOC) (Month \T\ Age) - 0(Both) 1c. LOC Commands (Open \T\ Closes Eyes/V[employer] [employer] Animal Care) - 0(Both) 2. Best Gaze (Lateral Gaze Paresis) - 0(Normal) 3. Visual Field Loss - 0(No visual loss) 4. Facial Palsy - 0(Normal) 5a. Left Arm: Motor (10-second hold) - 0(No drift) 5b. Right Arm: Motor (10-second hold) - 0(No drift) 6a. Left Leg: Motor (5-second hold - always test supine) - 0(No drift) 6b. Right Leg: Motor (5-second hold - always test supine) - 0(No drift) 7. Limb Ataxia (finger/nose \T\ heel/serna - test with eyes open) - 0(Absent) 8. Sensory Loss (pinprick arms/legs/face) - 0(Normal) 9. Best Language: Aphasia (description/naming/reading) - 0(No aphasia) 10. Dysarthria (speech clarity - read or repeat words) - 0(Normal) 11. Extinction and Inattention (visual/tactile/auditory/spatial/personal) - 0(No abnormality) Initials: ll1 Signatures: Dispatcher [employer] EDWill Franz MD MD cha Nieto, Roman, MD MD rn Garcia, Cindy RN RN Matt Fan RN RN jl7 Rhina Quispe RN RN ll1 Bethany Payne RN RN ld1 Corrections: (The following items were deleted from the chart) 13:01 12:53 Before Triage ld1 jl7 13:01 12:53 unknown ld1 jl7 14:30 14:07 Inpatient Admission arron arron 14:30 14:07 Telemetry/MedSurg (Inpatient) arron arron 14:30 14:07 arron arron 16:20 14:30 Telemetry/MedSurg (observation) arron jl7 16:20 14:30 arron jl7 20:24 16:20 [facility] ER HOLD jl7 cg 20:24 16:20 ERHOLD- jl7 cg
--- NOTE | 2022-11-10 14:13 | RAD REPORT ---
EXAM DESCRIPTION: RAD - Chest Single View - 11/10/2022 1:55 pm CLINICAL HISTORY: Cough COMPARISON: Chest Pa And Lat (2 Views) dated 05/21/2022; Chest Single View dated 04/14/2020; Chest Sing le View dated 03/11/2020; Chest Single View dated 02/16/2020 FINDINGS: Lines: None. Lungs: No evidence of edema or pneumonia. Pleural: No significant pleural effusions or pneumothorax. Cardiac: Similar size and configuration. Mediastinum: Within normal limits. Bones: No acute fractures. Other: None IMPRESSION: No acute cardiopulmonary disease.
[2022-11-10 14:27] LABS: Arterial Blood Carboxyhemoglob 0.7 % (0-1.5); Blood Gas Oxyhemoglobin 95.1 % (94-97); Blood O2 Saturation 96.4 % (92-98.5)
[2022-11-10 14:28] LABS: ALT/SGPT 19 U/L (13-56); AST/SGOT 25 U/L (15-37); Albumin 3.1 g/dL (3.4-5.0); Alkaline Phosphatase 70 U/L (45-117); BUN Blood Urea Nitrogen 21 mg/dL (7-18); Bicarbonate 25 mmol/L (21-32); Bilirubin Total 0.3 mg/dL (0.2-1.0); Glomerular Filtration Rate 64 ml/min (=/>90); Glucose Level 105 mg/dL (74-106); NT PRO-BNP 173 pg/mL (<125); Protein, Total 7.2 g/dL (6.4-8.2); Sodium Level 131 mmol/L (136-145); Troponin High Sensitivity 8.7 pg/mL (<58.9)
[2022-11-10 14:31] LABS: Bilirubin Direct < 0.1 mg/dL (0-0.2)
[2022-11-10 14:33] LABS: Magnesium 1.4 mg/dL (1.6-2.4)
[2022-11-10 15:19] LABS: SARS-COV-2 RT PCR NEGATIVE (NEGATIVE)
[2022-11-10] MEDS ORDERED: ALBUTEROL 2.5 MG/3 ML NEB SOL NEB PRN (15:26)
[2022-11-10] MEDS ORDERED: ACETAMINOPHEN 500 MG TAB PO PRN (15:26)
[2022-11-10] MEDS: METHYLPREDNISOLONE 40 MG INJ IV SCH ×2 (15:38→23:28)
--- NOTE | 2022-11-10 15:40 | P.HP ---
Certification for Inpatient Patient admitted to: Observation With expected LOS: <2 Midnights Practitioner: I am a practitioner with admitting privileges, knowledge of patient current condition, hospital course, and medical plan of care. Services: Services provided to patient in accordance with Admission requirements found in Title 42 Section 412.3 of the Code of Federal Regulations Patient History Date of Service: 11/10/22 Reason for admission: Cough and shortness of breath History of Present Illness: Patient is 72 years of age with a history of dementia and rheumatoid arthritis daughter at the bedside has been complaining of worsening cough and shortness of breath for the past week when she has gotten progressively worse since shortly after Thanksgiving denies any fever or chills she does not currently smoke able to speak without coughing and was treated with outpatient Cipro with no relief by her primary care doctor Allergies Penicillins Allergy (Verified 09/12/19 09:41) Itching Home Medications: Amlodipine Besylate/Benazepril [Amlodipine-Benazepril 10-20 mg] 1 cap PO DAILY 01/11/16 traMADol HCL [Ultram*] 50 mg PO DAILY 01/11/16 Metoprolol Succinate [Toprol Xl] 100 mg PO DAILY #30 tab.er.24h 02/13/17 Amlodipine [Norvasc*] 10 mg PO DAILY tab 03/18/18 Benazepril HCl [Lotensin*] 20 mg PO DAILY 60 Days #60 tab 03/18/18 Hydroxychloroquine [Plaquenil*] 200 mg PO BID tab 03/18/18 - Past Medical/Surgical History Diabetic: No -: RA -: HTN -: hyperlipidemia -: osteoporosis -: hysterectomy -: TUBAL LIGATION -: CYST REMOVED - Family History Mother -: Heart disease, Hypertension Notes: alzheimers Father -: Hypertension, Cancer Brother -: Other (see notes) Notes: PARKINSONS SON -: Diabetes DAUGHTER -: Other (see notes) Notes: LUPUS - Social History Alcohol use: No CD- Drugs: No Caffeine use: Yes Review of Systems 10-point ROS is otherwise unremarkable General: Weakness Respiratory: Cough, Shortness of Breath Physical Examination - Vital Signs Blood Pressure: 123/61 Pulse: 79 Respirations: 24 Pulse Ox (%): 95 - Physical Exam General: Alert, Oriented x3 - Studies Laboratory Data (last 24 hrs) 11/10/22 13:20: PT 12.2, INR 1.11 11/10/22 13:20: WBC 6.70, Hgb 10.8 L, Hct 32.4 L, Plt Count 220 11/10/22 13:20: Sodium 131 L, Potassium 4.0, BUN 21 H, Creatinine 0.94, Glucose 105, Magnesium 1.4 L*, Total Bilirubin 0.3, AST 25, ALT 19, Alkaline Phosphatase 70 Assessment and Plan - Problems (Diagnosis) (1) Cough Current Visit: Yes Status: Acute Plan: Patient is 72 years of age admitted with acute onset of cough shortness of breath and outpatient therapy with Cipro has gotten worse over the past week patient is mildly anemic hyponatremic mildly hypokalemic chest x-ray is negative stable viral pneumonia or any infection admit with bronchodilators steroids Zithromax IV fluid stable discharge tomorrow Qualifiers: Cough type: acute Qualified Code(s): R05.1 - Acute cough - Advance Directives Does patient have a Living Will: No Does patient have a Durable POA for Healthcare: No
[2022-11-10] MEDS ORDERED: MAGNESIUM SULFATE 1 gm IVPB 1 GM/100 ML BAG IV ONE (16:06)
[2022-11-10] MEDS ORDERED: LORazepam 2 MG/ML VIAL ONE (16:59)
[2022-11-10] MEDS: IPRATROPIUM BROM 0.5MG/2.5ML NEB SCH (19:40)
[2022-11-10 21:10] LABS: Urine Blood Negative (Negative); Urine Glucose Negative (Negative); Urine Protein Negative (Negative); Urine pH 5.5 (5.0-7.0)
[2022-11-10 21:47] LABS: Urine Bacteria <20 /HPF (<20); Urine Mucus Slight /HPF (None Seen); Urine RBC <5 /HPF (None Seen)
[2022-11-10] MEDS ORDERED: MEMANTINE HCL 10 MG TABLET PO SCH (23:01)
[2022-11-10 23:17] VITALS: BMI 23.4
[2022-11-10] MEDS: AZITHROMYCIN 250 MG TAB PO SCH (23:28)
[2022-11-10] MEDS: DONEPEZIL HCL 5 MG TAB PO SCH (23:28)
[2022-11-11] MEDS: IPRATROPIUM BROM 0.5MG/2.5ML NEB SCH ×3 (01:50→14:38)
[2022-11-11 04:09] LABS: Absolute Lymphocytes (CBC) 0.5 K/uL (0.7-4.9); Hematocrit 31.4 % (36.0-45.0); Lymphocytes % 8.9 % (15.3-44.8); MCV 82.2 fL (80-100); MPV 8.2 fL (7.6-11.3); RBC Red Blood Cell Count 3.82 M/uL (3.86-4.86)
[2022-11-11 04:33] LABS: Albumin 2.8 g/dL (3.4-5.0); Bilirubin Total 0.3 mg/dL (0.2-1.0); Potassium 3.2 mmol/L (3.5-5.1); Protein, Total 6.7 g/dL (6.4-8.2)
[2022-11-11] MEDS ORDERED: POTASSIUM 25 MEQ EFFERV TAB PO ONE (07:39)
[2022-11-11] MEDS: AZITHROMYCIN 250 MG TAB PO SCH (08:32)
[2022-11-11] MEDS: METHYLPREDNISOLONE 40 MG INJ IV SCH (08:32)
[2022-11-11] MEDS: DONEPEZIL HCL 5 MG TAB PO SCH (08:32)
--- NOTE | 2022-11-11 09:31 | RAD REPORT ---
EXAM DESCRIPTION: RAD - Chest Single View - 11/11/2022 6:58 am CLINICAL HISTORY: Shortness of breath and cough Chest pain. COMPARISON: Chest Single View dated 11/10/2022; Chest Pa And Lat (2 Views) dated 05/21/2022; Chest Sin gle View dated 04/14/2020; Chest Single View dated 03/11/2020 FINDINGS: Portable technique limits examination quality. The lungs are emphysematous but grossly clear. The heart is normal in size. No displaced fractures. IMPRESSION: COPD.
[2022-11-11 10:00] VITALS: O2SAT 98
--- NOTE | 2022-11-11 13:39 | EKG ---
Test Date: 2022-11-10 Test Time: 17:50:58 In Home Nanny: SANIA MEASUREMENT RESULTS: Intervals: Rate: 77 UT: 148 QRSD: 78 QT: 390 QTc: 441 [place]: P: 70 UT: 148 QRS: 49 T: 62 INTERPRETIVE STATEMENTS: Normal sinus rhythm Normal ECG Compared to ECG 11/10/2022 17:50:29 No significant changes Electronically Signed On 11-11-22 13:37:34 FISHER OYSTER by Valentin Franco
--- NOTE | 2022-11-11 13:39 | EKG ---
Test Date: 2022-11-10 Test Time: 17:50:29 Auto Phone Installer: SANIA MEASUREMENT RESULTS: Intervals: Rate: 79 SC: 150 QRSD: 70 QT: 384 QTc: 440 [place]: P: 64 SC: 150 QRS: 43 T: 57 INTERPRETIVE STATEMENTS: Normal sinus rhythm Normal ECG Compared to ECG 10/30/2022 09:48:29 No significant changes Electronically Signed On 11-11-22 13:37:35 EDUCATION DIAGNOSTICIAN by Valentin Franco
[2022-11-11] MEDS ORDERED: ALBUTEROL 2.5 MG/3 ML NEB SOL NEB PRN (14:00)
[2022-11-11 15:48] VITALS: BP 154/78; TEMP 98.1
--- NOTE | 2022-11-11 16:00 | P.DS ---
Admission Date: 11/11/22 Discharge Date: 11/11/22 Disposition: DC HOME/HOME HEALTH CARE Discharge Condition: FAIR Reason for Admission: Cough and shortness of breath - Problems (1) COPD exacerbation Current Visit: Yes Status: Acute (2) Dementia with behavioral disturbance Current Visit: Yes Status: Acute (3) Cough Current Visit: Yes Status: Acute Qualifiers: Cough type: acute Qualified Code(s): R05.1 - Acute cough (4) Rheumatoid arthritis Onset Date: 03/17/18 Current Visit: No Status: Acute Brief History of Present Illness: 72 years of age with a history of dementia and rheumatoid arthritis was brought to the emergency department accompanied by her daughter with a complaint ofworsening cough and shortness of breath for 1 week. No fever or chills reported. She was treated outpatient with Cipro without any relief. she does not currently smoke able to speak without coughing and was treated with outpatient Cipro with no relief by her primary care doctor. Chest x-ray demonstrated COPD, no acute disease. Patient was hospitalized for further management. Hospital Course: Patient placed under observation on the medical floor and started on antibiotic- Zithromax and steroid for COPD exacerbation. Patient was initially maintained on 2 L oxygen by nasal cannula but this was weaned off. She was saturating at 98% on room air. She appeared to be hallucinating which could be secondary to the IV steroid. Patient currently tolerating room air, daughter states patient is fairly eating. Seen by pulmonary and deemed stable for discharge. She is discharged with short course prednisone, Zithromax and antitussives. Vital Signs/Physical Exam: Temp Pulse Resp BP Pulse Ox 98.1 F 101 H 16 154/78 H 94 11/11/22 15:47 11/11/22 15:47 11/11/22 15:47 11/11/22 15:47 11/11/22 15:47 General: In no apparent distress, Confused HEENT: Mucous membr. moist/pink Neck: JVD not distended Respiratory: Clear to auscultation bilaterally, Normal air movement Cardiovascular: No edema, Regular rate/rhythm, Normal S1 S2 Gastrointestinal: Soft and benign, Non-distended Musculoskeletal: No swelling Integumentary: No cyanosis Neurological: Other (No focal motor deficit) Laboratory Data at Discharge: WBC 5.30 K/uL (4.3-10.9) 11/11/22 03:40 Hgb 10.6 g/dL (12.0-15.0) L 11/11/22 03:40 Hct 31.4 % (36.0-45.0) L 11/11/22 03:40 Plt Count 193 K/uL (152-406) 11/11/22 03:40 PT 12.2 SECONDS (9.5-12.5) 11/10/22 13:20 INR 1.11 11/10/22 13:20 Sodium 135 mmol/L (136-145) L D 11/11/22 03:40 Potassium 3.2 mmol/L (3.5-5.1) L D 11/11/22 03:40 BUN 10 mg/dL (7-18) 11/11/22 03:40 Creatinine 0.60 mg/dL (0.55-1.02) 11/11/22 03:40 Glucose 155 mg/dL (74-106) H 11/11/22 03:40 Magnesium 1.7 mg/dL (1.6-2.4) 11/11/22 03:40 Total Bilirubin 0.3 mg/dL (0.2-1.0) 11/11/22 03:40 AST 26 U/L (15-37) 11/11/22 03:40 ALT 18 U/L (13-56) 11/11/22 03:40 Alkaline Phosphatase 66 U/L (45-117) 11/11/22 03:40 Home Medications: traMADol HCL [Ultram*] 50 mg PO DAILY PRN 01/11/16 Amlodipine [Norvasc*] 10 mg PO DAILY tab 03/18/18 Benazepril HCl [Lotensin*] 20 mg PO DAILY 60 Days #60 tab 03/18/18 Hydroxychloroquine [Plaquenil*] 200 mg PO BID tab 03/18/18 Alendronate Sodium 70 mg PO DAILY 11/10/22 Benzonatate [Tessalon Perle*] 100 mg PO TID PRN 11/10/22 Donepezil [Aricept*] 10 mg PO BID 11/10/22 Memantine HCl [Namenda*] 10 mg PO BEDTIME 11/10/22 Metoprolol Succinate [Toprol Xl] 50 mg PO DAILY 11/10/22 Albuterol Neb [Proventil 0.083% Neb Soln] 2.5 mg NEB [id number] PRN #120 amp 11/11/22 Azithromycin Tab [Zithromax*] 500 mg PO DAILY #4 tab 11/11/22 guaiFENesin [Robitussin 100MG/5ML] 5 ml PO QID PRN #237 ml 11/11/22 predniSONE [Deltasone] 20 mg PO DAILY #4 tab 11/11/22 New Medications: Albuterol Neb [Proventil 0.083% Neb Soln] 2.5 mg NEB [id number] PRN #120 amp PRN Reason: Shortness Of Breath predniSONE [Deltasone] 20 mg PO DAILY #4 tab guaiFENesin [Robitussin 100MG/5ML] 5 ml PO QID PRN #237 ml PRN Reason: Cough Azithromycin Tab [Zithromax*] 500 mg PO DAILY #4 tab Diet: Regular Activity: Fall precautions Followup: Jun Cornell FNP [Primary Care Provider] - 1-2 Weeks
== END 2022-11-11 16:55 | disposition home or self-care (01) ==
LOC: ER 12:20 → ERHOLD 15:26 → 2ND 20:28 → OBSVTOIN 11-11 12:07 → INTOOBSV 11-11 12:07
PROVIDERS: ADMIT Internal Medicine Sleep Medicine; ATTEND Internal Medicine
DX: J44.1 Chronic obstructive pulmonary disease with (acute) exacerbation (principal); R05.1 Acute cough; F03.918 Unspecified dementia, unspecified severity, with other behavioral disturbance; M06.9 Rheumatoid arthritis, unspecified; Z20.822 Contact with and (suspected) exposure to COVID-19
CPT/HCPCS: 0240U; 36415; 71045; 80048; 80053; 80076; 81003; 81015; 82805; 83605; 83735; 83880; 84132; 84484; 85025; 85610; 87040; 87077; 87086; 87088; 87186; 93005; 96365; 96366; 96367; 96375; 99285; G0378; J1720; J2920; J3475; J7030; J7614; J7644; Q0144

== ENCOUNTER 2023-07-24 09:26 | Inpatient (IN) | payer OTHER ==
[2023-07-24 10:18] LABS: SARS-CoV-2 Antigen Rapid Res Negative (Negative)
[2023-07-24] MEDS ORDERED: NA CHLORIDE 0.9% 1,000 ML ONE ×2 (10:57→12:52)
--- NOTE | 2023-07-24 11:00 | RAD REPORT ---
EXAM DESCRIPTION: RAD - Chest Single View - 07/24/2023 10:51 am CLINICAL HISTORY: COUGH Chest pain. COMPARISON: Chest Single View dated 11/11/2022; Chest Single View dated 11/10/2022; Chest Pa And Lat (2 Views) dated 05/21/2022; Chest Single View dated 04/14/2020 FINDINGS: Portable technique limits examination quality. The lungs are emphysematous but grossly clear. The heart is upper limit of normal in size. No displac ed fractures. IMPRESSION: No acute intrathoracic process suspected.
[2023-07-24 11:22] LABS: Absolute Lymphocytes (CBC) 0.5 K/uL (0.7-4.9); Hematocrit 31.6 % (36.0-45.0); Lymphocytes % 6.2 % (15.3-44.8); MCV 86.2 fL (80-100); MPV 9.8 fL (7.6-11.3); Platelets 165 thou/uL (152-406); RBC Red Blood Cell Count 3.67 M/uL (3.86-4.86)
[2023-07-24 11:43] LABS: Bilirubin Total 0.3 mg/dL (0.2-1.0); Magnesium 1.9 mg/dL (1.6-2.4); Potassium 3.6 mEq/L (3.5-5.1); Protein, Total 6.6 g/dL (6.4-8.2); Troponin High Sensitivity 4.9 pg/mL (<58.9)
[2023-07-24 13:11] LABS: Specific Gravity 1.018 (1.005-1.030); Urine Bacteria None Seen /HPF (<20); Urine Bilirubin NEGATIVE (Negative); Urine Blood Negative (Negative); Urine Clarity Clear (Clear); Urine Color Light-Yellow (Yellow); Urine Glucose NEGATIVE (Negative); Urine Mucus Slight /HPF (None Seen); Urine Protein NEGATIVE (Negative); Urine RBC <5 /HPF (None Seen); Urine Urobilinogen Normal (Normal); Urine pH 5.5 (5.0-7.0)
--- NOTE | 2023-07-24 13:46 | ER ---
Nurse's Notes [facility] Name: Mary Healy Age: 73 yrs Sex: Female : 1950 Arrival Date: 07/24/2023 Time: 09:26 Bed 14 Private MD: Diagnosis: Acute kidney failure, unspecified;Dehydration;Weakness Presentation: 07/24 09:45 Chief complaint: Daughter reports decreased appetite, generalized weakness, cough, hb congestion, and fever x 2 days. TMAX 100.4. Coronavirus screen: Client presents with at least one sign or symptom that may indicate coronavirus-19. Standard/surgical mask placed on the client. Provider contacted for isolation considerations. Ebola Screen: No symptoms or risks identified at this time. Initial Sepsis Screen: Does the patient meet any 2 criteria? No. Patient's initial sepsis screen is negative. Does the patient have a suspected source of infection? No. Patient's initial sepsis screen is negative. Risk Assessment: Do you want to hurt yourself or someone else? Patient reports no desire to harm self or others. Onset of symptoms was July 23, 2023. 09:45 Method Of Arrival: Wheelchair hb 09:45 Acuity: AASHISH 3 hb Historical: - Allergies: 09:46 PENICILLINS; hb - PMHx: 09:46 Alzheimers; Osteoporosis; VASCULAR DEMENTIA; Hypertension; Rheumatoid Arthritis; hb - Immunization history:: Adult Immunizations unknown. - Social history:: Smoking status: Patient denies any tobacco usage or history of. Screenin:11 [facility] ED Fall Risk Assessment (Adult) History of falling in the last 3 months, ph including since admission No falls in past 3 months (0 pts) Confusion or Disorientation No (0 pts) Intoxicated or Sedated No (0 pts) Impaired Gait Yes (1 pt) Mobility Assist Device Used Yes (1 pt) Altered Elimination Yes (1 pt) Score/Fall Risk Level 3 or more points = High Risk Oriented to surroundings, Maintained a safe environment, Hourly rounding (assess needs \T\ fall precautionary measures) done, Used ambulatory aids as needed (educated on \T\ assisted with). Abuse screen: Denies threats or abuse. Denies injuries from another. Nutritional screening: No deficits noted. Tuberculosis screening: No symptoms or risk factors identified. Assessment: 11:13 General: Appears in no apparent distress. comfortable, Behavior is calm, cooperative, ph appropriate for age, Reports chills for fever for 0-12 hours. Pain: Denies pain. Neuro: Level of Consciousness is awake, alert, obeys commands, Oriented to person, Reports dizziness, weakness. Cardiovascular: Capillary refill < 3 seconds in bilateral fingers Patient's skin is warm and dry. Respiratory: Reports cough that is Airway is patent Respiratory effort is even, unlabored, Respiratory pattern is regular, symmetrical. GI: No signs and/or symptoms were reported involving the gastrointestinal system. Derm: Skin is pink, warm \T\ dry. 17:41 Reassessment: Attempted to call report to Chidi, will call back, was in a room ph cleaning up a pt. Reassessment: Report given to Chidi DESIR. Vital Signs: 09:45 BP 116 / 54; Pulse 68; Resp 18; Temp 97.5(O); Pulse Ox 97% on R/A; Weight 44 kg; Height hb 4 ft. 11 in. ; Pain 0/10; 11:18 BP 103 / 54; Pulse 70; Resp 18; Pulse Ox 98% on R/A; ph 12:00 BP 98 / 52; Pulse 72; Resp 16; Pulse Ox 97% on R/A; ph 13:09 BP 106 / 50; Pulse 70; Resp 16; Pulse Ox 95% on R/A; ph 14:30 BP 108 / 58; Pulse 76; Resp 16; Pulse Ox 97% on R/A; ph 15:44 BP 114 / 61; Pulse 75; Resp 18; Pulse Ox 98% on R/A; ph 17:19 BP 127 / 61; Pulse 69; Resp 22; Temp 100.8; Pulse Ox 98% on R/A; ph 09:45 Body Mass Index 19.59 (44.00 kg, 149.86 cm) hb 09:45 Pain Scale: Adult hb ED Course: 09:31 Patient arrived in ED. mr 09:35 Lotus Michele PA-C is PHCP. sb4 09:35 Will Lockhart MD is Attending Physician. sb4 09:35 Florida Abel RN is Primary Nurse. ph 09:46 Triage completed. hb 09:47 Arm band placed on left wrist. hb 09:56 Flu Sent. bc6 09:56 SARS RAPID Sent. bc6 10:52 Chest Single View XRAY In Process Unspecified. EDMS 11:07 Lipase Sent. ph 11:07 BNP Sent. ph 11:08 Troponin High Sensitivity Sent. ph 11:08 Magnesium Sent. ph 11:08 CMP Sent. ph 11:08 CBC with Diff Sent. ph 11:10 Initial lab(s) drawn, by me, sent to lab. Inserted saline lock: 22 gauge in right ph forearm, using aseptic technique. Blood collected. 11:12 Patient has correct armband on for positive identification. Bed in low position. Call ph light in reach. Side rails up X 1. Pulse ox on. NIBP on. Door closed. Noise minimized. Warm blanket given. 13:09 No provider procedures requiring assistance completed. Straight cath inserted, using ph sterile technique, 16 Fr. Returned clear yellow urine. Patient tolerated well. 13:54 Anderson Garza is Hospitalizing Provider. sb4 Administered Medications: 11:07 Drug: NS 0.9% IV 1000 ml Route: IV; Rate: 1 bolus; Site: right forearm; ph 13:08 Drug: NS 0.9% IV 1000 ml Route: IV; Rate: 1 bolus; Site: right antecubital; ph Medication: 11:12 VIS not applicable for this client. ph Outcome: 13:45 Decision to Hospitalize by Provider. sb4 18:04 Patient left the ED. ph Signatures: Dispatcher [employer] [facility] Patti Magaña Florida Abel, RN RN Bonnie Sarabia RN RN Lotus Taylor, PA-C PABoni sb4 Rosa Roy bc6 Corrections: (The following items were deleted from the chart) 17:48 11:13 Neuro: Level of Consciousness is awake, alert, obeys commands, Oriented to ph person, place, time, situation, Reports dizziness, weakness ph 17:48 17:48 Reassessment: Patient appears in no apparent distress at this time. Patient ph and/or family updated on plan of care and expected duration. Pain level reassessed. Patient is alert, oriented x 3, equal unlabored respirations, skin warm/dry/pink. ph
--- NOTE | 2023-07-24 13:46 | EDPHYS ---
Physician Documentation [facility] Name: Mary Healy Age: 73 yrs Sex: Female : 1950 Arrival Date: 07/24/2023 Time: 09:26 Bed 14 Private MD: [place] Physician Will Lockhart HPI: 07/24 19:17 This 73 yrs old Female presents to ER via Wheelchair with complaints of Fever, sb4 Cough, General Weakness. 19:17 patient comes in with daughter who states that she has been declining ever since her sb4 about 2 months ago. however, the past few days she has been sick with cough, fever, congestion. states her caregiver has been sick, but stated it was allergies. patient has not been eating and has been very weak. Historical: - Allergies: 09:46 PENICILLINS; hb - PMHx: 09:46 Alzheimers; Osteoporosis; VASCULAR DEMENTIA; Hypertension; Rheumatoid Arthritis; hb - Immunization history:: Adult Immunizations unknown. - Social history:: Smoking status: Patient denies any tobacco usage or history of. ROS: 19:17 Abdomen/GI: Negative for abdominal pain, nausea, vomiting, diarrhea, and constipation. sb4 19:17 Constitutional: Positive for fatigue, fever. 19:17 ENT: Positive for sinus congestion. 19:17 Neuro: Positive for weakness. 19:17 All other systems are negative. Exam: 19:17 Head/Face: Normocephalic, atraumatic. Eyes: Extra-ocular motions intact. Periorbital sb4 areas with no swelling, redness, or edema. Cardiovascular: Regular rate and rhythm with a normal S1 and S2. Respiratory: Lungs have equal breath sounds bilaterally, clear to auscultation and percussion. No rales, rhonchi or wheezes noted. No increased work of breathing, no retractions or nasal flaring. Abdomen/GI: Soft, non-tender, no distension. Skin: Warm, dry with normal turgor. Normal color with no rashes, no lesions, and no evidence of cellulitis. MS/ Extremity: Pulses equal, no cyanosis. Neurovascular intact. Full, normal range of motion. 19:17 Constitutional: The patient appears alert, awake, frail, lethargic. 19:17 ENT: Mouth: Oral mucosa: dry. 19:17 Neuro: dementia, baseline. Vital Signs: 09:45 BP 116 / 54; Pulse 68; Resp 18; Temp 97.5(O); Pulse Ox 97% on R/A; Weight 44 kg; Height hb 4 ft. 11 in. ; Pain 0/10; 11:18 BP 103 / 54; Pulse 70; Resp 18; Pulse Ox 98% on R/A; ph 12:00 BP 98 / 52; Pulse 72; Resp 16; Pulse Ox 97% on R/A; ph 13:09 BP 106 / 50; Pulse 70; Resp 16; Pulse Ox 95% on R/A; ph 14:30 BP 108 / 58; Pulse 76; Resp 16; Pulse Ox 97% on R/A; ph 15:44 BP 114 / 61; Pulse 75; Resp 18; Pulse Ox 98% on R/A; ph 17:19 BP 127 / 61; Pulse 69; Resp 22; Temp 100.8; Pulse Ox 98% on R/A; ph 09:45 Body Mass Index 19.59 (44.00 kg, 149.86 cm) hb 09:45 Pain Scale: Adult hb MDM: 09:35 Patient medically screened. sb4 19:17 Differential diagnosis: viral Infection, bacterial infection, URI, bronchitis, sb4 pneumonia UTI. Data reviewed: vital signs, nurses notes, lab test result(s), radiologic studies, and as a result, I will admit patient. Consideration of Admission/Observation Patient was admitted/placed on observation. Management of patient was discussed with the following: Hospitalist: JERRY Rodríguez. Historians other than the Patient: Daughter/Son: daughter. Care significantly affected by the following chronic conditions: Hypertension. Counseling: I had a detailed discussion with the patient and/or guardian regarding the historical points, exam findings, and any diagnostic results supporting the discharge/admit diagnosis, lab results, radiology results, the need for further work-up and treatment in the hospital. 07/24 09:47 Order name: SARS RAPID; Complete Time: 10:19 sb4 07/24 09:47 Order name: Flu; Complete Time: 10:26 sb4 07/24 10:20 Order name: CBC with Diff; Complete Time: 11:28 sb4 07/24 10:20 Order name: CMP; Complete Time: 11:47 sb4 07/24 10:20 Order name: Magnesium; Complete Time: 11:47 sb4 07/24 10:20 Order name: Troponin High Sensitivity; Complete Time: 11:47 sb4 07/24 10:20 Order name: BNP; Complete Time: 11:47 sb4 07/24 10:20 Order name: Lipase; Complete Time: 11:47 sb4 07/24 10:20 Order name: UAM; Complete Time: 13:26 sb4 07/24 09:47 Order name: Chest Single View XRAY; Complete Time: 11:01 sb4 07/24 14:24 Order name: CONS Physician Consult EDNV 07/24 10:20 Order name: IV Start; Complete Time: 11:08 sb4 Administered Medications: 11:07 Drug: NS 0.9% IV 1000 ml Route: IV; Rate: 1 bolus; Site: right forearm; ph 13:08 Drug: NS 0.9% IV 1000 ml Route: IV; Rate: 1 bolus; Site: right antecubital; ph Disposition Summary: 07/24/23 13:45 Hospitalization Ordered Hospitalization Status: Inpatient Admission sb4 Location: Telemetry/[facility] (Inpatient) sb4 Condition: Fair sb4 Problem: new sb4 Symptoms: are unchanged sb4 Bed/Room Type: Standard sb4 Provider: Anderson Garza(07/24/23 13:54) sb4 Room Assignment: [facility](07/24/23 17:09) eb Diagnosis - Acute kidney failure, unspecified sb4 - Dehydration sb4 - Weakness sb4 Forms: - Medication Reconciliation Form sb4 - SBAR form sb4 - Leadership Thank You Letter sb4 Signatures: Dispatcher [employer] EDFlorida Domingo RN RN Bonnie Sarabia RN RN Donna Albarran Sophia, PA-C PA-Macho sb4 Corrections: (The following items were deleted from the chart) 13:54 13:45 Mariana Ontiveros sb4 sb4 17:09 13:45 sb4 eb
[2023-07-24] MEDS ORDERED: ACETAMINOPHEN 325 MG TABLET PO PRN (14:23)
[2023-07-24] MEDS ORDERED: ALBUTEROL 2.5 MG/3 ML NEB SOL NEB PRN (14:23)
[2023-07-24] MEDS ORDERED: ONDANSETRON 4 MG/2 ML VIAL IV PRN ×2 (14:23→19:26)
[2023-07-24] MEDS ORDERED: NA CHLORIDE 0.9% 1,000 ML IV SCH (15:00)
[2023-07-24] MEDS ORDERED: AZITHROMYCIN IV 500 MG in NA CHLORIDE 0.9% 250 ML IVPB SCH (15:00)
[2023-07-24] MEDS ORDERED: D5 0.45 NS 1,000 ML IV SCH (15:00)
[2023-07-24] MEDS ORDERED: HEPARIN 5000 UNIT/ML 1 ML VIAL SQ SCH (17:00)
[2023-07-24] MEDS ORDERED: ACETAMINOPHEN 500 MG TAB ONE (17:17)
[2023-07-24] MEDS ORDERED: NA CHLORIDE 0.9% 250 ML ONE (17:17)
[2023-07-24] MEDS ORDERED: AZITHROMYCIN 500 MG INJ IVPB ONE (17:17)
[2023-07-24] MEDS ORDERED: D5 0.45 NS 1,000 ML IV ONE (17:17)
--- NOTE | 2023-07-24 18:25 | P.HP ---
Certification for Inpatient With expected LOS: <2 Midnights Patient will require the following post-hospital care: None Practitioner: I am a practitioner with admitting privileges, knowledge of patient current condition, hospital course, and medical plan of care. Services: Services provided to patient in accordance with Admission requirements found in Title 42 Section 412.3 of the Code of Federal Regulations Patient History Date of Service: 07/24/23 History of Present Illness: 74-year-old female patient with a history of Alzheimer's disease osteoporosis hypertension rheumatoid arthritis with complaints of fever cough weakness . Fever started since 1 week. Associated with loss of appetite tiredness , more confused daughter reports that patient is not eating, had fever of 101.4, given [id number] medications. ED course vital signs blood pressure 116/54, pulse 68, respiration 18, temperature 97.5, pulse ox 97% on room air. Patient was given IV fluid normal saline 1 L bolus. Labs significant for hemoglobin 10.6 hematocrit 31.6 sodium 134, BUN 35, creatinine 1.30, blood glucose 136, BNP 491. Admitting the patient for weakness, acute kidney kidney injury, dehydration. Allergies Penicillins Allergy (Verified 09/12/19 09:41) Itching Home Medications: traMADol HCL [Ultram*] 50 mg PO DAILY PRN 01/11/16 Amlodipine [Norvasc*] 10 mg PO DAILY tab 03/18/18 Benazepril HCl [Lotensin*] 20 mg PO DAILY 60 Days #60 tab 03/18/18 Hydroxychloroquine [Plaquenil*] 200 mg PO BID tab 03/18/18 Alendronate Sodium 70 mg PO DAILY 11/10/22 Benzonatate [Tessalon Perle*] 100 mg PO TID PRN 11/10/22 Donepezil [Aricept*] 10 mg PO BID 11/10/22 Memantine HCl [Namenda*] 10 mg PO BEDTIME 11/10/22 Metoprolol Succinate [Toprol Xl] 50 mg PO DAILY 11/10/22 Albuterol Neb [Proventil 0.083% Neb Soln] 2.5 mg NEB [id number] PRN #120 amp 11/11/22 Azithromycin Tab [Zithromax*] 500 mg PO DAILY #4 tab 11/11/22 guaiFENesin [Robitussin 100MG/5ML] 5 ml PO QID PRN #237 ml 11/11/22 predniSONE [Deltasone] 20 mg PO DAILY #4 tab 11/11/22 Nebulizer 1 each MC Q6HP PRN #1 unit 11/14/22 - Past Medical/Surgical History Diabetic: No -: RA -: HTN -: hyperlipidemia -: osteoporosis -: hysterectomy -: TUBAL LIGATION -: CYST REMOVED from uterus - Family History Mother -: Heart disease, Hypertension Notes: alzheimers Father -: Hypertension, Cancer Brother -: Other (see notes) Notes: PARKINSONS SON -: Diabetes DAUGHTER -: Hypertension, Other (see notes) Notes: LUPUS - Social History Alcohol use: No CD- Drugs: No Caffeine use: Yes Review of Systems General: Fever, Weakness ENT: Nose Pain Respiratory: Cough, Shortness of Breath (Loss of appetite) Neurological: Weakness, Confusion (With dementia) Physical Examination - Physical Exam General: Demented HEENT: Atraumatic, Normocephalic, PERRLA Neck: Supple, 2+ carotid pulse no bruit Respiratory: Clear to auscultation bilaterally Cardiovascular: No edema, Regular rate/rhythm Capillary refill: <2 Seconds Gastrointestinal: Normal bowel sounds, Non-distended Musculoskeletal: No clubbing Integumentary: No rashes Neurological: Normal gait - Studies Laboratory Data (last 24 hrs) 07/24/23 07/24/23 11:00 11:00 WBC 7.50 Hgb 10.6 L Hct 31.6 L Plt Count 165 Sodium 134 L Potassium 3.6 BUN 35 H Creatinine 1.30 H Glucose 136 H Magnesium 1.9 Total Bilirubin 0.3 AST 17 ALT 17 Alkaline Phosphatase 59 Lipase 67 Microbiology Data (last 24 hrs): 07/24/23 09:55 Nasopharnyx Influenza Type A Antigen Screen - Final 07/24/23 09:55 Nasopharnyx Influenza Type B Antigen Screen - Final Assessment and Plan - Plan Assessment and plan Dehydration Acute kidney injury Weakness Fever Assessment and plan Dehydration Weakness Fever -Acute patient has been not eating or drinking due to increased fever last week. Chest x-ray done today shows no acute findings. Acute kidney injury. Patient had fever of 101.4 yesterday. BC counts are normal. -Admitted the patient for rehydration and empiric antibiotic started -Repeat labs tomorrow morning -IV fluids started Acute kidney injury: -Acute sodium 134, BUN 35, creatinine 1.30, blood glucose 136 -Fluid IV fluids started -Nephrology referral Dementia -Chronic , resume home medication CODE STATUS full code VTE prophylaxis-ordered Diet-regular diet Discharge Plan: Home Plan to discharge in: 72 Hours - Advance Directives Does patient have a Living Will: No Does patient have a Durable POA for Healthcare: No - Code Status/Comfort Care Code Status Assessed: Yes (full code) Code Status: Full Code Physician Review: Patient Assessed, Agree with Above Assessment and Plan Critical Care: No Time Spent Managing Pts Care (In Minutes): 55 (minutes)
[2023-07-24] MEDS: D5 0.9 NS 1,000 ML IV SCH (20:00)
[2023-07-24] MEDS: IPRATROPIUM BROM 0.5MG/2.5ML NEB SCH (20:30)
[2023-07-24] MEDS: ALBUTEROL 2.5 MG/3 ML NEB SOL NEB SCH (20:30)
[2023-07-24] MEDS: QUETIAPINE 100MG TAB PO SCH (20:34)
[2023-07-24] MEDS: guaiFENesin 100 MG/5 ML UCUP PO PRN (20:34)
[2023-07-24] MEDS: MEMANTINE HCL 10 MG TABLET PO SCH (20:34)
[2023-07-24] MEDS ORDERED: DONEPEZIL HCL 5 MG TAB PO SCH (21:00)
[2023-07-25 00:27] LABS: Urine Bacteria <20 /HPF (<20); Urine Bilirubin NEGATIVE (Negative); Urine Blood Negative (Negative); Urine Clarity Turbid (Clear); Urine Color Colorless (Yellow); Urine Glucose NEGATIVE (Negative); Urine Mucus Slight /HPF (None Seen); Urine Protein NEGATIVE (Negative); Urine RBC <5 /HPF (None Seen); Urine Urobilinogen Normal (Normal); Urine WBC Clump Rare /HPF (None Seen)
[2023-07-25] MEDS: HEPARIN 5000 UNIT/ML 1 ML VIAL SQ SCH ×3 (01:14→16:22)
[2023-07-25] MEDS: ALBUTEROL 2.5 MG/3 ML NEB SOL NEB SCH ×2 (01:25→08:01)
[2023-07-25] MEDS: IPRATROPIUM BROM 0.5MG/2.5ML NEB SCH ×4 (01:25→19:25)
[2023-07-25 04:05] LABS: Absolute Lymphocytes (CBC) 1.2 K/uL (0.7-4.9); Hematocrit 32.1 % (36.0-45.0); Lymphocytes % 16.6 % (15.3-44.8); MCV 86.7 fL (80-100); MPV 10.2 fL (7.6-11.3); Platelets 150 thou/uL (152-406); RBC Red Blood Cell Count 3.71 M/uL (3.86-4.86)
[2023-07-25 04:15] LABS: Albumin 2.7 g/dL (3.4-5.0); Bilirubin Total 0.2 mg/dL (0.2-1.0); Magnesium 1.7 mg/dL (1.6-2.4); Phosphorus 2.8 mg/dL (2.5-4.9); Potassium 3.5 mEq/L (3.5-5.1); Protein, Total 5.9 g/dL (6.4-8.2)
[2023-07-25] MEDS ORDERED: PNEUMOCOCCAL VACCINE 0.5 ML IMVAC ONE (07:00)
[2023-07-25] MEDS ORDERED: POTASSIUM 25 MEQ EFFERV TAB PO ONE (08:00)
[2023-07-25] MEDS: AZITHROMYCIN IV 500 MG in NA CHLORIDE 0.9% 250 ML IVPB SCH (08:35)
[2023-07-25] MEDS: MEMANTINE HCL 10 MG TABLET PO SCH ×3 (08:35→20:18)
[2023-07-25] MEDS: guaiFENesin 100 MG/5 ML UCUP PO PRN (08:36)
[2023-07-25] MEDS: D5 0.9 NS 1,000 ML IV SCH ×2 (08:37→16:26)
--- NOTE | 2023-07-25 11:39 | P.CNS ---
Date of Consult: 07/25/23 Reason for Consult: FIONA Requesting Physician: amanda grover Chief Complaint: Weakness History of Present Illness: 74-year-old female patient with a history of Alzheimer's disease osteoporosis hypertension rheumatoid arthritis with complaints of fever cough weakness . Fever started since 1 week. Associated with loss of appetite tiredness , more confused daughter reports that patient is not eating, had fever of 101.4, given [id number] medications. ED course vital signs blood pressure 116/54, pulse 68, respiration 18, temperature 97.5, pulse ox 97% on room air. Patient was given IV fluid normal saline 1 L bolus. Labs significant for hemoglobin 10.6 hematocrit 31.6 sodium 134, BUN 35, creatinine 1.30, blood glucose 136, BNP 491. Admitting the patient for weakness, acute kidney kidney injury, dehydration. Limited HPI/ ROS due to dementia. Case reviewed with daughter. Allergies Penicillins Allergy (Verified 09/12/19 09:41) Itching Home medications list reviewed: Yes Home Medications: traMADol HCL [Ultram*] 50 mg PO DAILY PRN 01/11/16 Amlodipine [Norvasc*] 10 mg PO DAILY tab 03/18/18 Benazepril HCl [Lotensin*] 20 mg PO DAILY 60 Days #60 tab 03/18/18 Benzonatate [Tessalon Perle*] 100 mg PO TID PRN 11/10/22 Donepezil [Aricept*] 10 mg PO BID 11/10/22 Memantine HCl [Namenda*] 10 mg PO Q12HP 11/10/22 Metoprolol Succinate [Toprol Xl] 50 mg PO DAILY 11/10/22 Albuterol Neb [Proventil 0.083% Neb Soln] 2.5 mg NEB [id number] PRN #120 amp 11/11/22 guaiFENesin [Robitussin 100MG/5ML] 5 ml PO QID PRN #237 ml 11/11/22 Alfuzosin HCl 10 mg PO DAILY 07/24/23 - Past Medical/Surgical History Diabetic: No -: RA -: HTN -: hyperlipidemia -: osteoporosis -: hysterectomy -: TUBAL LIGATION -: CYST REMOVED from uterus - Family History Mother Medical History: Heart disease, Hypertension Notes: alzheimers Father Medical History: Hypertension, Cancer Brother Medical History: Other (see notes) Notes: PARKINSONS SON Medical History: Diabetes DAUGHTER Medical History: Hypertension, Other (see notes) Notes: LUPUS - Social History Smoking Status: Unknown if ever smoked Alcohol use: No CD- Drugs: No Caffeine use: Yes Place of Residence: Home Review of Systems 10-point ROS is otherwise unremarkable General: Weakness Physical Examination Temp Pulse Resp BP Pulse Ox 97.9 F 75 16 135/60 94 07/25/23 08:00 07/25/23 08:00 07/25/23 08:00 07/25/23 08:00 07/25/23 08:00 General: In no apparent distress HEENT: Atraumatic Neck: Supple Respiratory: Clear to auscultation bilaterally, Normal air movement Cardiovascular: Regular rate/rhythm, Edema (Hip) Gastrointestinal: Soft and benign, Non-distended, No guarding Musculoskeletal: No clubbing, No contractures Integumentary: No rashes, No cyanosis Laboratory Data (last 24 hrs) 07/24/23 11:00 Sodium 134 L Potassium 3.6 BUN 35 H Creatinine 1.30 H Glucose 136 H Magnesium 1.9 Total Bilirubin 0.3 AST 17 ALT 17 Alkaline Phosphatase 59 Lipase 67 Imagings Data: EXAM DESCRIPTION: RAD - Chest Single View - 07/24/2023 10:51 am CLINICAL HISTORY: COUGH Chest pain. COMPARISON: Chest Single View dated 11/11/2022; Chest Single View dated 11/10/2022; Chest Pa And Lat (2 Views) dated 05/21/2022; Chest Single View dated 04/14/2020 FINDINGS: Portable technique limits examination quality. The lungs are emphysematous but grossly clear. The heart is upper limit of normal in size. No displaced fractures. IMPRESSION: No acute intrathoracic process suspected. Conclusions/Impression: Stage I FIONA likely dehydration -No NSAIDs -Change IVF to LR Hyponatremia resolved with NS -Continue IVF Hypokalemia -Replete potassium as ordered HTN -Continue Amlodipine and Benazipril -Continue Metoprolol Anemia in chronic illness -Monitor H&H Hospitalist note reviewed Thank you kindly for the consultation
[2023-07-25] MEDS ORDERED: BENZONATATE 100 MG CAP PO PRN (12:13)
[2023-07-25] MEDS ORDERED: TRAMADOL HCL 50 MG TAB PO PRN (12:13)
[2023-07-25] MEDS ORDERED: guaiFENesin 100 MG/5 ML UCUP PO PRN (12:13)
[2023-07-25] MEDS: METOPROLOL XL 50 MG TAB PO SCH (13:26)
[2023-07-25] MEDS: AMLODIPINE 10 MG TAB PO SCH (13:31)
[2023-07-25] MEDS: BENAZEPRIL 20 MG TAB PO SCH (13:33)
[2023-07-25] MEDS: DONEPEZIL HCL 5 MG TAB PO SCH ×2 (13:33→20:17)
[2023-07-25] MEDS: ALBUTEROL 2.5 MG/3 ML NEB SOL NEB PRN (13:55)
--- NOTE | 2023-07-25 14:16 | P.PN ---
Subjective Date of Service: 07/25/23 Patient has advanced dementia and not able to give any subjective complaint. No recorded fever today. Physical Examination - Vital Signs Temperature: 97.9 F Blood Pressure: 142/63 Pulse: 87 Respirations: 16 Pulse Ox (%): 94 - Studies Microbiology Data (last 24 hrs): 07/24/23 09:55 Nasopharnyx Influenza Type A Antigen Screen - Final 07/24/23 09:55 Nasopharnyx Influenza Type B Antigen Screen - Final Assessment And Plan - Plan Physical Exam General: Demented, NAD. Neck: Supple, no elevated JVD. Respiratory: Clear to auscultation bilaterally Cardiovascular: No edema, Regular rate/rhythm Gastrointestinal: Normal bowel sounds, Non-distended, nontender Musculoskeletal: No clubbing Integumentary: No rashes Neurological: No focal motor deficits. Diagnosis Dehydration Acute kidney injury Weakness Fever Plan Dehydration Weakness Fever Patient has been not eating or drinking due to increased fever last week. Chest x-ray done today shows no acute findings. Acute viral syndrome suspected. Continue supportive measures. Follow urine culture. Blood culture shows no growth. PT consult. IV hydration Acute kidney injury: -Acute sodium 134, BUN 35, creatinine 1.30, blood glucose 136 -FIONA resolved with IV fluid -Nephrology Dr. Jackson input appreciated Dementia -Chronic , resume home medication Essential hypertension Resume home antihypertensives. CODE STATUS full code VTE prophylaxis-ordered Diet-regular diet
[2023-07-25] MEDS ORDERED: D5 0.9 NS 1,000 ML IV SCH (17:10)
[2023-07-25] MEDS: ACETAMINOPHEN 500 MG TAB PO PRN (17:43)
[2023-07-25] MEDS: Ringers Lactate 1,000 ML IV SCH (18:20)
[2023-07-25] MEDS: QUETIAPINE 100MG TAB PO SCH (20:18)
[2023-07-26] MEDS: IPRATROPIUM BROM 0.5MG/2.5ML NEB SCH ×4 (01:00→20:00)
[2023-07-26] MEDS: HEPARIN 5000 UNIT/ML 1 ML VIAL SQ SCH ×3 (03:57→16:03)
[2023-07-26 04:44] LABS: Potassium 3.6 mEq/L (3.5-5.1)
[2023-07-26] MEDS: DONEPEZIL HCL 5 MG TAB PO SCH ×2 (08:48→21:00)
[2023-07-26] MEDS: AZITHROMYCIN IV 500 MG in NA CHLORIDE 0.9% 250 ML IVPB SCH (08:49)
[2023-07-26] MEDS: MEMANTINE HCL 10 MG TABLET PO SCH ×2 (08:50→21:00)
[2023-07-26] MEDS: BENAZEPRIL 20 MG TAB PO SCH (08:55)
[2023-07-26] MEDS: AMLODIPINE 10 MG TAB PO SCH (08:56)
[2023-07-26] MEDS: METOPROLOL XL 50 MG TAB PO SCH (08:56)
[2023-07-26] MEDS: ALFUZOSIN HCL 10 MG PO SCH (08:56)
[2023-07-26] MEDS ORDERED: CEFTRIAXONE 1,000 MG in NA CHLORIDE 0.9% 50 ML IVPB SCH (12:15)
--- NOTE | 2023-07-26 13:37 | P.PN ---
Subjective Date of Service: 07/26/23 Chief Complaint: Weakness Family report patient has been mute and less responsive today. Fever up to 102.8 recorded yesterday evening. Family reports poor oral intake. Physical Examination - Vital Signs Temperature: 98.2 F Blood Pressure: 90/52 Pulse: 77 Respirations: 16 Pulse Ox (%): 94 Assessment And Plan - Plan Physical Exam General: Demented, NAD. Neck: Supple, no elevated JVD. Respiratory: Clear to auscultation bilaterally Cardiovascular: No edema, Regular rate/rhythm Gastrointestinal: Normal bowel sounds, Non-distended, nontender Musculoskeletal: No clubbing Integumentary: No rashes Neurological: No focal motor deficits. Diagnosis Dehydration Acute kidney injury Weakness Fever UTI Plan Dehydration Weakness Fever UTI Patient has been not eating or drinking due to increased fever last week. Chest x-ray done today shows no acute findings. Acute viral syndrome suspected. UA suggest UTI Blood culture shows no growth. Start IV Rocephin. Continue Zithromax PT consult. IV hydration Acute kidney injury: Acute sodium 134, BUN 35, creatinine 1.30, blood glucose 136 FIONA resolved with IV fluid Nephrology Dr. Jackson is following. Continue IV fluid Dementia -Chronic , continue home medication Essential hypertension Blood pressure has been borderline low. Hold home antihypertensives for now CODE STATUS full code VTE prophylaxis-ordered Diet-regular diet
[2023-07-26] MEDS: ACETAMINOPHEN 500 MG TAB PO PRN ×2 (16:03→17:18)
[2023-07-26] MEDS ORDERED: NA CHLORIDE 0.9% 1,000 ML IV ONE ×2 (16:32→19:37)
[2023-07-26] MEDS ORDERED: NA CHLORIDE 0.9% 500 ML IV ONE (16:35)
[2023-07-26] MEDS ORDERED: NA CHLORIDE 0.9% 1,000 ML ONE (16:42)
[2023-07-26] MEDS ORDERED: VANCOMYCIN 1 GM in NA CHLORIDE 0.9% 250 ML IVPB SCH ×4 (17:00)
[2023-07-26] MEDS ORDERED: VANCOMYCIN 750 MG in NA CHLORIDE 0.9% 150 ML IVPB SCH (17:00)
[2023-07-26] MEDS ORDERED: CEFEPIME 1 GM in NA CHLORIDE 0.9% 100 ML IV SCH (17:00)
[2023-07-26] MEDS ORDERED: VANCOMYCIN 500 MG/VIAL ONE (18:13)
[2023-07-26 18:14] LABS: Blood O2 Saturation 97.4 % (92-98.5)
[2023-07-26] MEDS ORDERED: NA CHLORIDE 0.9% 250 ML ONE (18:19)
[2023-07-26] MEDS: Ringers Lactate 1,000 ML IV SCH (19:16)
[2023-07-26] MEDS: NOREPINEPHRINE BITARTRATE/D5W 4 MG/250 ML BAG IV SCH (20:12)
--- NOTE | 2023-07-26 21:07 | P.PN ---
Date of Service: 07/26/23 Vital Signs Temp Pulse Resp BP Pulse Ox 100.5 F 104 H 19 96/54 L 100 07/26/23 18:34 07/26/23 18:00 07/26/23 18:00 07/26/23 18:00 07/26/23 18:00 Medications Acetaminophen (Acetaminophen 500 Mg Tab) 500 mg PO Q4HP PRN PRN Reason: TEMP > 100' F Last Admin: 07/26/23 17:18 Dose: 500 mg Albuterol Sulfate (Albuterol 2.5 Mg/3 Ml Neb Nivia) 2.5 mg NEB [id number] PRN PRN Reason: SHORTNESS OF BREATH Last Admin: 07/25/23 13:55 Dose: 2.5 mg Benzonatate (Benzonatate 100 Mg Cap) 100 mg PO TID PRN PRN Reason: COUGH Last Admin: 07/26/23 08:50 Dose: 100 mg Donepezil HCl (Donepezil Hcl 5 Mg Tab) 10 mg PO BID [facility] Last Admin: 07/26/23 08:48 Dose: 10 mg Guaifenesin (Guaifenesin 100 Mg/5 Ml Ucup) 100 mg PO QID PRN PRN Reason: COUGH Last Admin: 07/25/23 13:33 Dose: 100 mg Heparin Sodium (Porcine) (Heparin 5000 Unit/Ml 1 Ml Vial) 5,000 unit SQ Q8HR [facility] Last Admin: 07/26/23 16:03 Dose: 5,000 unit Home Med (Alfuzosin Hcl [Alfuzosin Hcl]) 10 mg PO DAILY [facility] Last Admin: 07/26/23 08:56 Dose: Not Given Lactated Ringer's (Lactated Ringers) 1,000 mls @ 50 mls/hr IV .Q20H [facility] Last Admin: 07/26/23 19:16 Dose: 1,000 mls Cefepime HCl 1 gm/ Sodium (Chloride) 100 mls @ 200 mls/hr IV DAILY [facility]; Protocol Last Admin: 07/26/23 17:54 Dose: 100 mls Vancomycin HCl 750 mg/ Sodium (Chloride) 150 mls @ 150 mls/hr IVPB Q36H [facility] Last Admin: 07/26/23 18:18 Dose: 150 mls Norepinephrine/Dextrose (Levophed 4 Mg/250 Ml-D5w) 4 mg in 250 mls @ 18.711 mls/hr IV TITR [facility]; Protocol Last Titration: 07/26/23 20:36 Dose: 0.2 mcg/kg/min, 37.4 mls/hr Ipratropium [place] (Ipratropium Brom 0.5mg/2.5ml) 0.5 mg NEB [id number] [facility] Last Admin: 07/26/23 14:55 Dose: 0.5 mg Memantine (Memantine Hcl 10 Mg Tablet) 10 mg PO Q12HR [facility] Last Admin: 07/26/23 08:50 Dose: 10 mg Ondansetron HCl (Ondansetron 4 Mg/2 Ml Vial) 4 mg IV Q6HP PRN PRN Reason: NAUSEA / VOMITING Sodium Chloride (Flush Normal Saline 10 Ml) 10 ml IV BID [facility] Last Admin: 07/26/23 08:51 Dose: 10 ml Tramadol HCl (Tramadol Hcl 50 Mg Tab) 50 mg PO DAILY PRN PRN Reason: Pain scale 5-7 (Moderate) Microbiology Results 07/24/23 09:55 Nasopharnyx Influenza Type A Antigen Screen - Final 07/24/23 09:55 Nasopharnyx Influenza Type B Antigen Screen - Final Assessment/ Plan: Nephrology No dyspnea No chest pain No acute events overnight Vitals, medications, blood work and imaging reviewed in the chart. General: In no apparent distress HEENT: Atraumatic Neck: Supple Respiratory: Clear to auscultation bilaterally, Normal air movement Cardiovascular: Regular rate/rhythm, Edema (Hip) Gastrointestinal: Soft and benign, Non-distended, No guarding Musculoskeletal: No clubbing, No contractures Integumentary: No rashes, No cyanosis Laboratory Data (last 24 hrs) 07/24/23 11:00 Sodium 134 L Potassium 3.6 BUN 35 H Creatinine 1.30 H Glucose 136 H Magnesium 1.9 Total Bilirubin 0.3 AST 17 ALT 17 Alkaline Phosphatase 59 Lipase 67 Imagings Data: EXAM DESCRIPTION: RAD - Chest Single View - 07/24/2023 10:51 am CLINICAL HISTORY: COUGH Chest pain. COMPARISON: Chest Single View dated 11/11/2022; Chest Single View dated 11/10/2022; Chest Pa And Lat (2 Views) dated 05/21/2022; Chest Single View dated 04/14/2020 FINDINGS: Portable technique limits examination quality. The lungs are emphysematous but grossly clear. The heart is upper limit of normal in size. No displaced fractures. IMPRESSION: No acute intrathoracic process suspected. Conclusions/Impression: Stage I FIONA likely dehydration -No NSAIDs -Continue IVF Hyponatremia resolved with NS -Continue IVF Hypokalemia -Replete prn HTN -Continue Amlodipine and Benazipril -Continue Metoprolol Anemia in chronic illness -Monitor H&H Hospitalist note reviewed Case reviewed with Dr. Garza
[2023-07-27] MEDS: NOREPINEPHRINE BITARTRATE/D5W 4 MG/250 ML BAG IV SCH ×2 (01:07→07:51)
[2023-07-27] MEDS: HEPARIN 5000 UNIT/ML 1 ML VIAL SQ SCH ×3 (01:07→17:30)
[2023-07-27] MEDS: IPRATROPIUM BROM 0.5MG/2.5ML NEB SCH ×4 (01:49→19:40)
[2023-07-27 06:03] LABS: Magnesium 1.1 mg/dL (1.6-2.4); Phosphorus 2.5 mg/dL (2.5-4.9); Potassium 2.9 mEq/L (3.5-5.1)
[2023-07-27 06:15] LABS: Absolute Lymphocytes (CBC) 0.7 K/uL (0.7-4.9); Hematocrit 26.4 % (36.0-45.0); Lymphocytes % 2.2 % (15.3-44.8); MCV 85.8 fL (80-100); MPV 10.2 fL (7.6-11.3); Platelets 91 thou/uL (152-406); RBC Red Blood Cell Count 3.08 M/uL (3.86-4.86)
[2023-07-27 06:41] LABS: Blood Morphology Comment NOT SEEN (NOT SEEN); Dohle Bodies PRESENT; Platelet Estimate DECR
[2023-07-27] MEDS: KCL 20 MEQ/100 mL IVPB 20 MEQ/100 ML BAG IV SCH ×3 (06:55→11:47)
[2023-07-27] MEDS ORDERED: Magnesium Sulfate 2gm IVPB 2 G/50 ML BAG IV ONE (07:00)
[2023-07-27] MEDS ORDERED: POTASSIUM PHOS IN 0.9 % NACL 15 MMOL/250 ML BAG IV ONE (07:00)
[2023-07-27] MEDS: ALFUZOSIN HCL 10 MG PO SCH (09:00)
[2023-07-27] MEDS: MEMANTINE HCL 10 MG TABLET PO SCH ×2 (09:00→20:21)
[2023-07-27] MEDS: DONEPEZIL HCL 5 MG TAB PO SCH ×2 (09:00→20:20)
[2023-07-27] MEDS: CEFEPIME 2 GM in NA CHLORIDE 0.9% 100 ML IV SCH (09:16)
[2023-07-27] MEDS: VANCOMYCIN 750 MG in NA CHLORIDE 0.9% 150 ML IVPB SCH (09:16)
[2023-07-27] MEDS: Mupirocin NASAL 2 APPL/1 GM TUBE NAS SCH ×2 (09:16→20:27)
[2023-07-27] MEDS: Ringers Lactate 1,000 ML IV SCH (09:20)
--- NOTE | 2023-07-27 10:51 | P.PN ---
Subjective Date of Service: 07/27/23 Chief Complaint: Weakness Patient developed fever up to 104 yesterday. She became hypotensive, sepsis protocol initiated, patient given 1500 ml and transferred to the ICU. She was started on Levophed drip overnight. Fever has improved, patient remain confused. Physical Examination - Vital Signs Temperature: 98.7 F Blood Pressure: 89/51 Pulse: 99 Respirations: 17 Pulse Ox (%): 95 Assessment And Plan - Plan Physical Exam General: Confused, looks sick, NAD. Neck: Supple, no elevated JVD. Respiratory: Clear to auscultation bilaterally, adequate breath sounds bilaterally. Cardiovascular: No edema, Regular rate/rhythm Gastrointestinal: Normal bowel sounds, Non-distended, nontender Integumentary: No rashes Neurological: No focal motor deficits. Diagnosis Dehydration Acute kidney injury Weakness Septic shock UTI Plan Dehydration Weakness Septic shock UTI Patient has been not eating or drinking due to increased fever last week. Chest x-ray done today showed no acute findings. Acute viral syndrome suspected. UA suggest UTI, urine culture showed mixed growth Blood culture: Pending. Previously on IV Zithromax, then added Rocephin. Patient became septic, so antibiotics changed to IV cefepime and vancomycin. Currently on low-dose Levophed drip. Severe leukocytosis now. Wean off Levophed. Continue IV hydration. Follow cultures. Acute kidney injury: Acute sodium 134, BUN 35, creatinine 1.30, blood glucose 136 FIONA resolved with IV fluid Nephrology Dr. Jackson is following. Continue IV fluid Dementia -Chronic. -Continue oral home medications once patient can tolerate p.o. Essential hypertension Blood pressure has been borderline low. Hold home antihypertensives for now. Generalized weakness PT once clinically stable. CODE STATUS full code VTE prophylaxis-ordered Diet-regular diet
--- NOTE | 2023-07-27 10:55 | RAD REPORT ---
EXAM DESCRIPTION: RAD - Chest Single View - 07/27/2023 2:49 am CLINICAL HISTORY: The patient is 73 years old and is Female; PICC insertion TECHNIQUE: Frontal view of the chest. COMPARISON: No relevant prior studies available. FINDINGS: Lungs: Prominent interstitial markings which may represent chronic changes and/or inters titial edema. No consolidation. Pleural space: Unremarkable. No pneumothorax. Heart: Unremarkable. Mediastinum: Unremarkable. Bones/joints: Unremarkable. Tubes, lines and devices: Left PICC with tip at the cavoatrial junction. IMPRESSION: 1. Left PICC with tip at the cavoatrial junction. 2. Prominent interstitial markings which may represent chronic changes and/or interstitial edema. N o consolidation. Electronically signed by: Alan Kenney MD 07/27/2023 3:01 AM CDT Due to temporary technical issues with the PACS/Fluency reporting system, reports are being signed by the in house radiologist without review as a courtesy to ensure prompt reporting. The interpreting r adiologist is fully responsible for the content of the report.
[2023-07-27 15:38] LABS: Magnesium 2.1 mg/dL (1.6-2.4)
[2023-07-27] MEDS: ENSURE ENLIVE 237 ML CAN PO SCH (20:27)
--- NOTE | 2023-07-27 22:10 | P.PN ---
Date of Service: 07/27/23 Vital Signs Temp Pulse Resp BP Pulse Ox 97 F 101 H 21 H 91/50 L 94 07/27/23 16:00 07/27/23 19:45 07/27/23 19:45 07/27/23 19:45 07/27/23 19:45 Medications Acetaminophen (Acetaminophen 500 Mg Tab) 500 mg PO Q4HP PRN PRN Reason: TEMP > 100' F Last Admin: 07/26/23 17:18 Dose: 500 mg Albuterol Sulfate (Albuterol 2.5 Mg/3 Ml Neb Nivia) 2.5 mg NEB [id number] PRN PRN Reason: SHORTNESS OF BREATH Last Admin: 07/25/23 13:55 Dose: 2.5 mg Benzonatate (Benzonatate 100 Mg Cap) 100 mg PO TID PRN PRN Reason: COUGH Last Admin: 07/26/23 08:50 Dose: 100 mg Donepezil HCl (Donepezil Hcl 5 Mg Tab) 10 mg PO BID [facility] Last Admin: 07/27/23 20:20 Dose: Not Given Guaifenesin (Guaifenesin 100 Mg/5 Ml Ucup) 100 mg PO QID PRN PRN Reason: COUGH Last Admin: 07/25/23 13:33 Dose: 100 mg Heparin Sodium (Porcine) (Heparin 5000 Unit/Ml 1 Ml Vial) 5,000 unit SQ Q8HR [facility] Last Admin: 07/27/23 17:30 Dose: 5,000 unit Home Med (Alfuzosin Hcl [Alfuzosin Hcl]) 10 mg PO DAILY [facility] Last Admin: 07/27/23 09:00 Dose: Not Given Lactated Ringer's (Lactated Ringers) 1,000 mls @ 50 mls/hr IV .Q20H [facility] Last Admin: 07/27/23 09:20 Dose: 1,000 mls Norepinephrine/Dextrose (Levophed 4 Mg/250 Ml-D5w) 4 mg in 250 mls @ 18.711 mls/hr IV TITR [facility]; Protocol Last Titration: 07/27/23 21:44 Dose: 0.02 mcg/kg/min, 3.7 mls/hr Vancomycin HCl 750 mg/ Sodium (Chloride) 150 mls @ 150 mls/hr IVPB Q24H [facility] Last Admin: 07/27/23 09:16 Dose: 150 mls Cefepime HCl 2 gm/ Sodium (Chloride) 100 mls @ 200 mls/hr IV DAILY [facility]; Protocol Last Admin: 07/27/23 09:16 Dose: 100 mls Ipratropium [place] (Ipratropium Brom 0.5mg/2.5ml) 0.5 mg NEB [id number] [facility] Last Admin: 07/27/23 13:29 Dose: 0.5 mg Memantine (Memantine Hcl 10 Mg Tablet) 10 mg PO Q12HR [facility] Last Admin: 07/27/23 20:21 Dose: Not Given Mupirocin (Mupirocin Nasal 2 Appl/1 Gm Tube) 1 appl ARTI BID [facility] Stop: 07/31/23 21:01 Last Admin: 07/27/23 20:27 Dose: 1 appl Nutritional Formula (Ensure Enlive 237 Ml Can) 237 ml PO BID [facility] Last Admin: 07/27/23 20:27 Dose: Not Given Ondansetron HCl (Ondansetron 4 Mg/2 Ml Vial) 4 mg IV Q6HP PRN PRN Reason: NAUSEA / VOMITING Sodium Chloride (Flush Normal Saline 10 Ml) 10 ml IV BID [facility] Last Admin: 07/27/23 20:27 Dose: 10 ml Tramadol HCl (Tramadol Hcl 50 Mg Tab) 50 mg PO DAILY PRN PRN Reason: Pain scale 5-7 (Moderate) Microbiology Results 07/24/23 09:55 Nasopharnyx Influenza Type A Antigen Screen - Final 07/24/23 09:55 Nasopharnyx Influenza Type B Antigen Screen - Final Assessment/ Plan: Nephrology No dyspnea No chest pain No acute events overnight Limited IH/ ROS due to dementia Vitals, medications, blood work and imaging reviewed in the chart. General: In no apparent distress HEENT: Atraumatic Neck: Supple Respiratory: Clear to auscultation bilaterally, Normal air movement Cardiovascular: Regular rate/rhythm, Edema (Hip) Gastrointestinal: Soft and benign, Non-distended, No guarding Musculoskeletal: No clubbing, No contractures Integumentary: No rashes, No cyanosis Laboratory Data (last 24 hrs) 07/24/23 11:00 Sodium 134 L Potassium 3.6 BUN 35 H Creatinine 1.30 H Glucose 136 H Magnesium 1.9 Total Bilirubin 0.3 AST 17 ALT 17 Alkaline Phosphatase 59 Lipase 67 Imagings Data: EXAM DESCRIPTION: RAD - Chest Single View - 07/24/2023 10:51 am CLINICAL HISTORY: COUGH Chest pain. COMPARISON: Chest Single View dated 11/11/2022; Chest Single View dated 11/10/2022; Chest Pa And Lat (2 Views) dated 05/21/2022; Chest Single View dated 04/14/2020 FINDINGS: Portable technique limits examination quality. The lungs are emphysematous but grossly clear. The heart is upper limit of normal in size. No displaced fractures. IMPRESSION: No acute intrathoracic process suspected. Conclusions/Impression: Stage I FIONA likely dehydration -No NSAIDs -Continue IVF Hyponatremia resolved with NS -Continue IVF Hypokalemia -Replete as ordered Hypomagnesemia -Replete as ordered Hypophosphatemia -Replete as ordered HTN complicated by hypotension -Hold antihypertensives Anemia in chronic illness -Monitor H&H -PRBC prn Sepsis/ Septic Shock -Continue Abx -Continue IVF -Vasopressor as ordered -KUB ordered due to abd tenderness Hospitalist note reviewed Case reviewed with Dr. Garza >30min patient care
[2023-07-28] MEDS: HEPARIN 5000 UNIT/ML 1 ML VIAL SQ SCH ×2 (01:00→09:00)
[2023-07-28] MEDS: IPRATROPIUM BROM 0.5MG/2.5ML NEB SCH ×4 (01:45→19:49)
[2023-07-28 05:18] LABS: Absolute Lymphocytes (CBC) 1.2 K/uL (0.7-4.9); Hematocrit 27.7 % (36.0-45.0); Lymphocytes % 2.9 % (15.3-44.8); MCV 84.6 fL (80-100); MPV 10.1 fL (7.6-11.3); Platelets 79 thou/uL (152-406); RBC Red Blood Cell Count 3.28 M/uL (3.86-4.86)
[2023-07-28 05:46] LABS: Albumin 1.8 g/dL (3.4-5.0); Phosphorus 2.5 mg/dL (2.5-4.9); Potassium 3.7 mEq/L (3.5-5.1)
--- NOTE | 2023-07-28 06:45 | P.PN ---
Date of Service: 07/28/23 Subjective: states she is doing "ok", confused - oriented to self only +lower left Abdominal / flank pain off levo since ~1 am this morning afebrile does not recall much of recent events ROS: 10 point ROS as noted above, otherwise negative Physical Exam: GEN: Alert, oriented x1, dementia HEENT: Normal conjunctiva, sclera anicteric CV: Regular rate and rhythm, no edema Pulm: Nonlabored respirations on 2L NC ABD: Soft, suprapubic and LLQ tenderness, nondistended Integumentary: Ecchymosis of dorsal left hand Neuro: Normal speech, normal affect vitals reviewed Problem List: Septic shock likely secondary to UTI Gram-positive Bacteremia thrombocytopenia FIONA, resolved Generalized weakness Dementia Hypertension Septic shock likely secondary to UTI Gram-positive Bacteremia thrombocytopenia Patient has been not eating or drinking much due to increased fever last week. CXR (07/27) negative for any acute findings KUB (07/28): non-obstructive bowel gas pattern check CT given abd pain and clinically worsened in last 24hrs, CT chest/abd/pelvis (07/28): pending UA suggest UTI, urine cx(07/25): with multiple organisms Blood cx (07/26): +GPC Pulm consulted 07/28 Previously on IV Zithromax / Rocephin. abx changed to IV cefepime / vancomycin after patient became septic continue IV cefepime / vancomycin (07/26-) +leukocytosis (30k -> 42k); elevated CRP off levophed since ~1 am this morning unclear etiology of thrombocytopenia - sepsis vs DIC, vs HIT; DIC labs ordered 07/28 FIONA, resolved likely secondary to dehydration Nephrology consulted resolved / improved with IV fluids Generalized weakness PT once clinically stable. Dementia Hypertension continue home medications as appropriate Hold home antihypertensives for now. VTE: Heparin held due to low platelets Code: DNR Dispo: Home Continue ICU level of care
[2023-07-28] MEDS: Ringers Lactate 1,000 ML IV SCH (07:02)
--- NOTE | 2023-07-28 07:48 | RAD REPORT ---
EXAM DESCRIPTION: RAD - Abdomen 1 View (KUB) - 07/28/2023 6:01 am CLINICAL HISTORY: Abdominal Tenderness COMPARISON: Renal Ultrasound-Complete dated 06/25/2023; Chest Single View dated 07/27/2023; Chest Sing le View dated 07/24/2023 FINDINGS: Nonobstructive bowel gas pattern. No acute osseous abnormality.Visualized lungs are unrema rkable.No abnormal calcifications. Carotid calcifications overlying the left lower quadrant may be wi thin the fecal stream. IMPRESSION: Nonobstructive bowel gas pattern.
[2023-07-28] MEDS: CEFEPIME 2 GM in NA CHLORIDE 0.9% 100 ML IV SCH (08:52)
[2023-07-28] MEDS: Mupirocin NASAL 2 APPL/1 GM TUBE NAS SCH ×2 (08:52→20:53)
[2023-07-28] MEDS: DONEPEZIL HCL 5 MG TAB PO SCH ×2 (09:00→20:53)
[2023-07-28] MEDS: ALFUZOSIN HCL 10 MG PO SCH (09:00)
[2023-07-28] MEDS: ENSURE ENLIVE 237 ML CAN PO SCH ×2 (09:00→20:54)
[2023-07-28] MEDS: MEMANTINE HCL 10 MG TABLET PO SCH ×2 (09:01→20:54)
[2023-07-28] MEDS: VANCOMYCIN 750 MG in NA CHLORIDE 0.9% 150 ML IVPB SCH (09:33)
--- NOTE | 2023-07-28 09:38 | RAD REPORT ---
EXAM DESCRIPTION: CTChest Abdomen Pelvis W Cont - 07/28/2023 9:24 am CLINICAL HISTORY: sepsis, abdominal pain, cough COMPARISON: Renal Ultrasound-Complete dated 06/25/2023; Chest For Pe Angio dated 03/11/2020 TECHNIQUE: CT of the chest, abdomen, and pelvis was performed. IV contrast was administered. All CT scans are performed using dose optimization technique as appropriate and may include automated exposure control or mA/KV adjustment according to patient size. FINDINGS: Thorax: Chest Wall: No abnormal mass left subclavian approach PICC. Lungs: Moderate widespread bilateral interlobular septal thickening and ground-glass opacities in a c razy paving pattern. Dependent consolidation that is mild. Motion limited. Pleura: Small pleural effusions. Malissa/Mediastinum: No lymphadenopathy. Aorta/Pulmonary Arteries: Unremarkable Heart: Normal size. Aortic root calcifications. Abdomen/Pelvis: Liver: No acute abnormality or suspicious lesions. Biliary: No biliary ductal dilatation. Stomach: No significant focal abnormality. Duodenum: No significant focal abnormality. Pancreas: No significant abnormality. Spleen: No significant abnormality. Adrenal: No suspicious lesions. Kidney/ureter: Bilateral hydroureteronephrosis. No obstructing stones identified. Retroperitoneum: No retroperitoneal adenopathy. Vascular: Atherosclerosis. Bowel: Rectal catheter.. No bowel obstruction. Peritoneum: Trace free fluid. Bladder: Distended bladder. Reproductive: No adnexal masses. Bones: T3 and T4 compression fractures. The T3 compression fracture appears chronic. The T4 compressi on fracture appears either subacute or chronic. Other: Body wall edema. IMPRESSION: 1. Moderate bilateral airspace disease with crazy paving that could reflect pulmonary ed camacho and/or pneumonia. 2. Bilateral hydroureteronephrosis with distended bladder. This could be secondary to bladder outlet obstruction. Consider Leonard catheter placement.
[2023-07-28] MEDS ORDERED: KCL 20 MEQ/100 mL IVPB 20 MEQ/100 ML BAG IV SCH (10:00)
[2023-07-28 10:47] LABS: Protime INR 1.18
[2023-07-28 16:00] LABS: Calcium Oxalate Crystals- Ur Few /HPF (None Seen); Specific Gravity 1.028 (1.005-1.030); Urine Bacteria <20 /HPF (<20); Urine Bilirubin NEGATIVE (Negative); Urine Blood 3+ (OVER) (Negative); Urine Clarity Extremely Turbid (Clear); Urine Color Light-Brown (Yellow); Urine Glucose NEGATIVE (Negative); Urine Mucus Slight /HPF (None Seen); Urine Protein TRACE (Negative); Urine RBC >50 /HPF (None Seen); Urine Urobilinogen Normal (Normal)
[2023-07-28] MEDS: CEFTRIAXONE 2,000 MG in NA CHLORIDE 0.9% 100 ML IV SCH (16:11)
[2023-07-28] MEDS: CLINDAMYCIN 900MG/D5W 900 MG/50 ML IVPB IV SCH (16:12)
--- NOTE | 2023-07-28 18:54 | P.PN ---
Date of Service: 07/28/23 Vital Signs Temp Pulse Resp BP Pulse Ox 97.5 F 107 H 24 H 120/67 92 07/28/23 18:00 07/28/23 18:30 07/28/23 18:30 07/28/23 18:30 07/28/23 18:30 Medications Acetaminophen (Acetaminophen 500 Mg Tab) 500 mg PO Q4HP PRN PRN Reason: TEMP > 100' F Last Admin: 07/26/23 17:18 Dose: 500 mg Albuterol Sulfate (Albuterol 2.5 Mg/3 Ml Neb Nivia) 2.5 mg NEB [id number] PRN PRN Reason: SHORTNESS OF BREATH Last Admin: 07/25/23 13:55 Dose: 2.5 mg Benzonatate (Benzonatate 100 Mg Cap) 100 mg PO TID PRN PRN Reason: COUGH Last Admin: 07/26/23 08:50 Dose: 100 mg Donepezil HCl (Donepezil Hcl 5 Mg Tab) 10 mg PO BID [facility] Last Admin: 07/28/23 09:00 Dose: 10 mg Guaifenesin (Guaifenesin 100 Mg/5 Ml Ucup) 100 mg PO QID PRN PRN Reason: COUGH Last Admin: 07/25/23 13:33 Dose: 100 mg Heparin Sodium (Porcine) (Heparin 5000 Unit/Ml 1 Ml Vial) 5,000 unit SQ Q8HR [facility] Last Admin: 07/28/23 09:00 Dose: Not Given Home Med (Alfuzosin Hcl [Alfuzosin Hcl]) 10 mg PO DAILY [facility] Last Admin: 07/28/23 09:00 Dose: Not Given Norepinephrine/Dextrose (Levophed 4 Mg/250 Ml-D5w) 4 mg in 250 mls @ 18.711 mls/hr IV TITR [facility]; Protocol Last Titration: 07/28/23 01:15 Dose: 0 mcg/kg/min, 0 mls/hr Ceftriaxone Sodium 2,000 mg/ (Sodium Chloride) 100 mls @ 200 mls/hr IV DAILY [facility] Last Admin: 07/28/23 16:11 Dose: 100 mls Clindamycin HCl/Dextrose (Cleocin 900 Mg/D5w 50 Ml Iv) 900 mg in 50 mls @ 50 mls/hr IV Q8H [facility] Last Admin: 07/28/23 16:12 Dose: 50 mls Ipratropium [place] (Ipratropium Brom 0.5mg/2.5ml) 0.5 mg NEB H2OMIDS [facility] Last Admin: 07/28/23 13:30 Dose: 0.5 mg Memantine (Memantine Hcl 10 Mg Tablet) 10 mg PO Q12HR [facility] Last Admin: 07/28/23 09:01 Dose: 10 mg Mupirocin (Mupirocin Nasal 2 Appl/1 Gm Tube) 1 appl ARTI BID [facility] Stop: 07/31/23 21:01 Last Admin: 07/28/23 08:52 Dose: 1 appl Nutritional Formula (Ensure Enlive 237 Ml Can) 237 ml PO BID [facility] Last Admin: 07/28/23 09:00 Dose: 237 ml Ondansetron HCl (Ondansetron 4 Mg/2 Ml Vial) 4 mg IV Q6HP PRN PRN Reason: NAUSEA / VOMITING Sodium Chloride (Flush Normal Saline 10 Ml) 10 ml IV BID [facility] Last Admin: 07/28/23 08:52 Dose: 10 ml Tramadol HCl (Tramadol Hcl 50 Mg Tab) 50 mg PO DAILY PRN PRN Reason: Pain scale 5-7 (Moderate) Microbiology Results 07/24/23 09:55 Nasopharnyx Influenza Type A Antigen Screen - Final 07/24/23 09:55 Nasopharnyx Influenza Type B Antigen Screen - Final Assessment/ Plan: Nephrology No dyspnea No chest pain No acute events overnight Limited IH/ ROS due to dementia Vitals, medications, blood work and imaging reviewed in the chart. General: In no apparent distress HEENT: Atraumatic Neck: Supple Respiratory: Clear to auscultation bilaterally, Normal air movement Cardiovascular: Regular rate/rhythm, Edema (Hip) Gastrointestinal: Soft and benign, Non-distended, No guarding Musculoskeletal: No clubbing, No contractures Integumentary: No rashes, No cyanosis Laboratory Data (last 24 hrs) 07/24/23 11:00 Sodium 134 L Potassium 3.6 BUN 35 H Creatinine 1.30 H Glucose 136 H Magnesium 1.9 Total Bilirubin 0.3 AST 17 ALT 17 Alkaline Phosphatase 59 Lipase 67 Imagings Data: EXAM DESCRIPTION: RAD - Chest Single View - 07/24/2023 10:51 am CLINICAL HISTORY: COUGH Chest pain. COMPARISON: Chest Single View dated 11/11/2022; Chest Single View dated 11/10/2022; Chest Pa And Lat (2 Views) dated 05/21/2022; Chest Single View dated 04/14/2020 FINDINGS: Portable technique limits examination quality. The lungs are emphysematous but grossly clear. The heart is upper limit of normal in size. No displaced fractures. IMPRESSION: No acute intrathoracic process suspected. EXAM DESCRIPTION: CTChest Abdomen Pelvis W Cont - 07/28/2023 9:24 am CLINICAL HISTORY: sepsis, abdominal pain, cough COMPARISON: Renal Ultrasound-Complete dated 06/25/2023; Chest For Pe Angio dated 03/11/2020 TECHNIQUE: CT of the chest, abdomen, and pelvis was performed. IV contrast was administered. All CT scans are performed using dose optimization technique as appropriate and may include automated exposure control or mA/KV adjustment according to patient size. FINDINGS: Thorax: Chest Wall: No abnormal mass left subclavian approach PICC. Lungs: Moderate widespread bilateral interlobular septal thickening and ground- glass opacities in a crazy paving pattern. Dependent consolidation that is mild. Motion limited. Pleura: Small pleural effusions. Malissa/Mediastinum: No lymphadenopathy. Aorta/Pulmonary Arteries: Unremarkable Heart: Normal size. Aortic root calcifications. Abdomen/Pelvis: Liver: No acute abnormality or suspicious lesions. Biliary: No biliary ductal dilatation. Stomach: No significant focal abnormality. Duodenum: No significant focal abnormality. Pancreas: No significant abnormality. Spleen: No significant abnormality. Adrenal: No suspicious lesions. Kidney/ureter: Bilateral hydroureteronephrosis. No obstructing stones identified. Retroperitoneum: No retroperitoneal adenopathy. Vascular: Atherosclerosis. Bowel: Rectal catheter.. No bowel obstruction. Peritoneum: Trace free fluid. Bladder: Distended bladder. Reproductive: No adnexal masses. Bones: T3 and T4 compression fractures. The T3 compression fracture appears chronic. The T4 compression fracture appears either subacute or chronic. Other: Body wall edema. IMPRESSION: 1. Moderate bilateral airspace disease with crazy paving that could reflect pulmonary edema and/or pneumonia. 2. Bilateral hydroureteronephrosis with distended bladder. This could be secondary to bladder outlet obstruction. Consider Bernardo catheter placement. Conclusions/Impression: Stage I FIONA likely dehydration complicated by bladder outlet obstruction -No NSAIDs -Hold IVF at this time due to pulmonary edema -Continue bernardo for urinary retention with hydroureteronephrosis Hyponatremia resolved with NS -Encourage nutrition Hypokalemia -Replete prn Hypomagnesemia -Replete prn Hypophosphatemia -Replete prn HTN complicated by hypotension -Hold antihypertensives Severe hypoalbuminemia -Continue Ensure Anemia in chronic illness -Monitor H&H -PRBC prn Sepsis/ Septic Shock with GPC Acute Cystitis -Continue Abx -Vasopressor prn Atherosclerosis of the Aorta -Consider statin Hospitalist note reviewed >30min patient care
[2023-07-28] MEDS: ALBUTEROL 2.5 MG/3 ML NEB SOL NEB PRN (19:50)
[2023-07-28] MEDS ORDERED: FUROSEMIDE 40 MG/4 ML VIAL IV ONE (20:41)
[2023-07-28] MEDS ORDERED: ALBUMIN HUMAN 25% 100 ML IV ONE (20:42)
[2023-07-28] MEDS ORDERED: FUROSEMIDE 40 MG/4 ML VIAL ONE (21:01)
[2023-07-29] MEDS: CLINDAMYCIN 900MG/D5W 900 MG/50 ML IVPB IV SCH ×2 (00:16→07:18)
[2023-07-29] MEDS: IPRATROPIUM BROM 0.5MG/2.5ML NEB SCH ×4 (00:59→19:45)
[2023-07-29 05:22] LABS: Absolute Lymphocytes (CBC) 0.8 K/uL (0.7-4.9); Hematocrit 23.7 % (36.0-45.0); Lymphocytes % 2.5 % (15.3-44.8); MCV 83.5 fL (80-100); MPV 10.2 fL (7.6-11.3); Platelets 63 thou/uL (152-406); RBC Red Blood Cell Count 2.84 M/uL (3.86-4.86)
[2023-07-29 05:40] LABS: Albumin 2.3 g/dL (3.4-5.0); Bilirubin Total 0.7 mg/dL (0.2-1.0); Magnesium 1.7 mg/dL (1.6-2.4); Phosphorus 3.1 mg/dL (2.5-4.9); Protein, Total 5.7 g/dL (6.4-8.2)
[2023-07-29 05:41] LABS: Potassium 2.4 mEq/L (3.5-5.1)
[2023-07-29] MEDS: KCL 20 MEQ/100 mL IVPB 20 MEQ/100 ML BAG IV SCH ×6 (06:32→20:10)
--- NOTE | 2023-07-29 06:45 | P.PN ---
Date of Service: 07/29/23 Subjective: wore BiPAP overnight for work of breathing/hypoxia 3L emptied via bernardo overnight per nurse report remains of levophed ROS: 10 point ROS as noted above, otherwise negative Physical Exam: GEN: lethargic, opens eyes to verbal stimuli, oriented x1, dementia, HEENT: Normal conjunctiva, sclera anicteric CV: Regular rate and rhythm, no edema Pulm: mildly-labored respirations on 3L NC at rest, +b/l crackles ABD: Soft, suprapubic and LLQ tenderness, nondistended Integumentary: Ecchymosis of dorsal left hand Neuro: Normal speech, normal affect Bernardo in place vitals reviewed Problem List: Septic shock likely secondary to UTI Bacteremia - MDR Enterococcus Faecium thrombocytopenia acute hypoxemic respiratory failure secondary to ARDS FIONA, resolved Generalized weakness Dementia Hypertension Septic shock likely secondary to UTI Bacteremia - MDR Enterococcus Faecium thrombocytopenia Patient has been not eating or drinking much due to increased fever last week. KUB (07/28): non-obstructive bowel gas pattern CT chest/abd/pelvis (07/28): Moderate bilateral airspace disease with crazy paving that could reflect pulmonary edema and/or pneumonia CXR (07/29): Mild worsening in the diffuse bilateral alveolar pulmonary opacities UA suggest UTI, urine cx(07/25): with multiple organisms; repeat urine cx: pending Blood cx (07/26): MDR Enterococcus Faecium Pulm consulted Previously on IV Zithromax(07/24-07/26) / Rocephin x1 (07/26 and 07/28). abx changed to IV cefepime / vancomycin (07/26-07/28) after patient became septic; cefepime switched to merrem (07/28-) / clindamycin (07/28-07/29) continue IV merrem (07/28-) / vancomycin (07/26-) +leukocytosis (42k -> 34k); CRP improving off levophed since 07/28 am unclear etiology of thrombocytopenia - sepsis vs DIC, vs HIT; DIC labs ordered 07/28 Start TPN acute hypoxemic respiratory failure secondary to ARDS CXR 07/29 with increased pulm opacities bilaterally, suspect ARDS respiratory status worsened 07/28, given albumin and lasix that evening and placed on BIPAP pulm following FIONA, resolved CT chest/abd/pelvis (07/28): Bilateral hydroureteronephrosis with distended bladder. Bernardo placed 07/28 likely secondary to dehydration Nephrology consulted resolved / improved with IV fluids Generalized weakness PT once clinically stable. Dementia Hypertension continue home medications as appropriate Hold home antihypertensives for now. VTE: Heparin held due to low platelets Code: DNR Dispo: guarded prognosis, LTACH likely once stable Continue ICU level of care
[2023-07-29] MEDS ORDERED: MAGNESIUM SULFATE 1 gm IVPB 1 GM/100 ML BAG IV ONE ×2 (07:30→16:36)
[2023-07-29] MEDS ORDERED: VANCOMYCIN 1 GM in NA CHLORIDE 0.9% 250 ML IVPB SCH (08:12)
[2023-07-29] MEDS: CEFTRIAXONE 2,000 MG in NA CHLORIDE 0.9% 100 ML IV SCH (08:12)
[2023-07-29] MEDS: HEPARIN 5000 UNIT/ML 1 ML VIAL SQ SCH (08:13)
[2023-07-29] MEDS: ENSURE ENLIVE 237 ML CAN PO SCH ×2 (08:13→20:10)
[2023-07-29] MEDS: Mupirocin NASAL 2 APPL/1 GM TUBE NAS SCH ×2 (08:13→20:10)
[2023-07-29] MEDS: ALFUZOSIN HCL 10 MG PO SCH (08:13)
[2023-07-29] MEDS: MEMANTINE HCL 10 MG TABLET PO SCH ×2 (08:19→20:10)
--- NOTE | 2023-07-29 08:19 | P.CNS ---
Date of Consult: 07/29/23 Reason for Consult: Respiratory failure Chief Complaint: Weakness History of Present Illness: Patient is 74 years of age with end-stage dementia osteoporosis hypertension rheumatoid was admitted with fever cough weakness week before she came into the hospital also experiencing altered mental status not eating with fever continued to deteriorate ended up here in the hospital patient today is unresponsive was started on a BiPAP last night Allergies Penicillins Allergy (Verified 09/12/19 09:41) Itching Home Medications: traMADol HCL [Ultram*] 50 mg PO DAILY PRN 01/11/16 Amlodipine [Norvasc*] 10 mg PO DAILY tab 03/18/18 Benazepril HCl [Lotensin*] 20 mg PO DAILY 60 Days #60 tab 03/18/18 Benzonatate [Tessalon Perle*] 100 mg PO TID PRN 11/10/22 Donepezil [Aricept*] 10 mg PO BID 11/10/22 Memantine HCl [Namenda*] 10 mg PO Q12HP 11/10/22 Metoprolol Succinate [Toprol Xl] 50 mg PO DAILY 11/10/22 Albuterol Neb [Proventil 0.083% Neb Soln] 2.5 mg NEB [id number] PRN #120 amp 11/11/22 guaiFENesin [Robitussin 100MG/5ML] 5 ml PO QID PRN #237 ml 11/11/22 Alfuzosin HCl 10 mg PO DAILY 07/24/23 - Past Medical/Surgical History Diabetic: No -: RA -: HTN -: hyperlipidemia -: osteoporosis -: hysterectomy -: TUBAL LIGATION -: CYST REMOVED from uterus - Family History Mother Medical History: Heart disease, Hypertension Notes: alzheimers Father Medical History: Hypertension, Cancer Brother Medical History: Other (see notes) Notes: PARKINSONS SON Medical History: Diabetes DAUGHTER Medical History: Hypertension, Other (see notes) Notes: LUPUS - Social History Smoking Status: Unknown if ever smoked Alcohol use: No CD- Drugs: No Caffeine use: Yes Place of Residence: Home Review of Systems is unable to be obtained Physical Examination Temp Pulse Resp BP Pulse Ox 97 F 97 H 26 H 124/70 98 07/29/23 04:00 07/29/23 06:00 07/29/23 06:00 07/29/23 06:00 07/29/23 06:00 General: Unresponsive Respiratory: Crackles/rales Cardiovascular: No edema (Extensive crackles) Gastrointestinal: Normal bowel sounds, Soft and benign - Problems (1) Respiratory failure Current Visit: Yes Status: Acute Plan: Patient is 73 years of age admitted with sepsis she is got extensive bilateral infiltrates bilateral pleural effusions possible toxic shock syndrome patient was on cefepime and vancomycin continue with vancomycin changed to meropenem continue with clindamycin for now right count is declining patient is also hypokalemic potassium replacement will be started on TPN not eating and drinking may be developing a DIC is becoming thrombocytopenic agree with TPN patient is DNR gnosis very poor use high flow oxygen procalcitonin and CRP are significantly elevated Qualifiers: Chronicity: acute
[2023-07-29] MEDS: DONEPEZIL HCL 5 MG TAB PO SCH ×2 (08:20→20:09)
[2023-07-29] MEDS ORDERED: Meropenem 500 MG in NA CHLORIDE 0.9% 100 ML IV SCH (09:00)
--- NOTE | 2023-07-29 09:08 | P.CNS ---
Date of Consult: 07/29/23 Reason for Consult: septic shock, bacteremia Chief Complaint: Weakness History of Present Illness: Patient is a 74-year-old female with a past medical history of hypertension, rheumatoid arthritis and Alzheimer's disease who presented to the ED with complaints of fever, cough and weakness. In the ED vital signs were within normal limits. WBC 7.5, hemoglobin 10.6, sodium 134, BUN 35, creatinine 1.3, BNP 491. Patient was admitted for acute kidney injury, dehydration. On 07/27, patient developed severe leukocytosis with white blood cell count 30.9. Blood cultures with alpha strep. Infectious disease consulted for septic shock and bacteremia. Allergies Penicillins Allergy (Verified 09/12/19 09:41) Itching Home medications list reviewed: Yes Home Medications: traMADol HCL [Ultram*] 50 mg PO DAILY PRN 01/11/16 Amlodipine [Norvasc*] 10 mg PO DAILY tab 03/18/18 Benazepril HCl [Lotensin*] 20 mg PO DAILY 60 Days #60 tab 03/18/18 Benzonatate [Tessalon Perle*] 100 mg PO TID PRN 11/10/22 Donepezil [Aricept*] 10 mg PO BID 11/10/22 Memantine HCl [Namenda*] 10 mg PO Q12HP 11/10/22 Metoprolol Succinate [Toprol Xl] 50 mg PO DAILY 11/10/22 Albuterol Neb [Proventil 0.083% Neb Soln] 2.5 mg NEB [id number] PRN #120 amp 11/11/22 guaiFENesin [Robitussin 100MG/5ML] 5 ml PO QID PRN #237 ml 11/11/22 Alfuzosin HCl 10 mg PO DAILY 07/24/23 - Past Medical/Surgical History Diabetic: No -: RA -: HTN -: hyperlipidemia -: osteoporosis -: hysterectomy -: TUBAL LIGATION -: CYST REMOVED from uterus - Family History Mother Medical History: Heart disease, Hypertension Notes: alzheimers Father Medical History: Hypertension, Cancer Brother Medical History: Other (see notes) Notes: PARKINSONS SON Medical History: Diabetes DAUGHTER Medical History: Hypertension, Other (see notes) Notes: LUPUS - Social History Smoking Status: Unknown if ever smoked Alcohol use: No CD- Drugs: No Caffeine use: Yes Place of Residence: Home Review of Systems is unable to be obtained (sedated) Physical Examination Temp Pulse Resp BP Pulse Ox 97 F 97 H 26 H 124/70 98 07/29/23 04:00 07/29/23 06:00 07/29/23 06:00 07/29/23 06:00 07/29/23 06:00 General: In no apparent distress, Oriented x1 HEENT: Atraumatic, Normocephalic Neck: Supple, JVD not distended Respiratory: Diminished, Rhonchi/gurgles, Other (on BiPAP) Cardiovascular: Normal pulses, Edema Gastrointestinal: Normal bowel sounds, No tenderness Musculoskeletal: No clubbing Integumentary: No rashes Urinary: Leonard catheter Laboratory data reviewed Microbiology data reviewed Imagings Data: Reviewed Conclusions/Impression: Problem list Septic shock Gram-positive bacteremia Urinary tract infection Anemia Thrombocytopenia Hypokalemia Moderate PCM Septic shock secondary to suspected urinary tract infection Gram-positive bacteremia -Previously on ceftriaxone (07/26 to 07/29) and azithromycin (07/24 to 07/26) which was switched to Cefepime and Vancomycin (07/26 to 07/28) when patient became septic -Currently on meropenem (07/29-) and clindamycin (07/28-) -Blood culture 07/26: Enterococcus faecium -Leukocytosis (WBC 33.9) - CT chest abdomen pelvis 07/28: "Moderate bilateral airspace disease with crazy paving that could reflect pulmonary edema and/or pneumonia. Bilateral hydroureteronephrosis with distended bladder. This could be secondary to bladder outlet obstruction." -Urinalysis 07/28: LE 250, RBC > 50, WBC 20-50, bacteria < 20, occasional yeast, trace urine protein -Urine culture 07/25: 3 or more organisms, possible contamination. Repeat urine culture -Urine culture 07/28: Pending - PICC line placed 07/27 Influenza A and B negative COVID negative Procalcitonin 109.31 CRP 302 D-dimer 2360 Recommendations - Blood culture with enterococcus faecium: started on Vancomycin 07/29. Discontinue clindamycin. - Follow up with urine culture results. - obtain repeat blood cultures - Monitor WBC and fever trends - Supportive care and nutritional supplementation Case discussed with Maria Del Carmen Alejandro
[2023-07-29] MEDS: Meropenem 1,000 MG in NA CHLORIDE 0.9% 100 ML IV SCH ×2 (09:24→16:45)
--- NOTE | 2023-07-29 09:25 | RAD REPORT ---
EXAM DESCRIPTION: Cristy Single View07/29/2023 9:19 am CLINICAL HISTORY: Hypoxia COMPARISON: July 28, 2023 FINDINGS: Mild worsening in the diffuse bilateral alveolar pulmonary opacities which are most marked in the upper lobes. Small pleural effusions Heart is mildly to moderately enlarged IMPRESSION: Mild worsening in the diffuse bilateral alveolar pulmonary opacities which may represent pulmonary edema or pneumonia
[2023-07-29] MEDS ORDERED: VANCOMYCIN 750 MG in NA CHLORIDE 0.9% 150 ML IVPB ONE (11:00)
[2023-07-29] MEDS ORDERED: D10W 250 ML BAG IV PRN (13:46)
[2023-07-29] MEDS ORDERED: GLUCAGON 1 MG/VIAL IM PRN (13:46)
[2023-07-29] MEDS ORDERED: SODIUM CHLORIDE 0.9% 10ML INJ IV PRN (15:20)
[2023-07-29 17:00] LABS: Magnesium 1.8 mg/dL (1.6-2.4); Phosphorus 2.7 mg/dL (2.5-4.9)
[2023-07-29] MEDS ORDERED: AA 5%/D20W/ELECTROLYTES-TPN 2,000 ML, Lipids 20% 250 ML with MULTIVITAMINS INJ 10 ML IV SCH ×3 (17:00)
[2023-07-29] MEDS: INSULIN -REGULAR HUMAN 50 UNIT/0.5 ML ML SQ SCH ×2 (17:08→23:37)
[2023-07-29] MEDS: PANTOPRAZOLE 40 MG INJ IVP SCH (20:12)
--- NOTE | 2023-07-29 21:55 | P.PN ---
Date of Service: 07/29/23 Vital Signs Temp Pulse Resp BP Pulse Ox 98 F 108 H 36 H 154/85 H 92 07/29/23 20:44 07/29/23 21:00 07/29/23 21:00 07/29/23 21:00 07/29/23 21:00 Medications Acetaminophen (Acetaminophen 500 Mg Tab) 500 mg PO Q4HP PRN PRN Reason: TEMP > 100' F Last Admin: 07/26/23 17:18 Dose: 500 mg Albuterol Sulfate (Albuterol 2.5 Mg/3 Ml Neb Nivia) 2.5 mg NEB [id number] PRN PRN Reason: SHORTNESS OF BREATH Last Admin: 07/28/23 19:50 Dose: 2.5 mg Benzonatate (Benzonatate 100 Mg Cap) 100 mg PO TID PRN PRN Reason: COUGH Last Admin: 07/26/23 08:50 Dose: 100 mg Dextrose (D10w 250 Ml Bag) 125 ml IV PRN PRN; Protocol PRN Reason: HYPOGLYCEMIA Donepezil HCl (Donepezil Hcl 5 Mg Tab) 10 mg PO BID [facility] Last Admin: 07/29/23 20:09 Dose: Not Given Glucagon (Glucagon 1 Mg/Vial) 1 mg IM 1X PRN PRN Reason: HYPOGLYCEMIA Guaifenesin (Guaifenesin 100 Mg/5 Ml Ucup) 100 mg PO QID PRN PRN Reason: COUGH Last Admin: 07/25/23 13:33 Dose: 100 mg Home Med (Alfuzosin Hcl [Alfuzosin Hcl]) 10 mg PO DAILY [facility] Last Admin: 07/29/23 08:13 Dose: Not Given Norepinephrine/Dextrose (Levophed 4 Mg/250 Ml-D5w) 4 mg in 250 mls @ 18.711 mls/hr IV TITR [facility]; Protocol Last Titration: 07/28/23 01:15 Dose: 0 mcg/kg/min, 0 mls/hr Meropenem 1,000 mg/ Sodium (Chloride) 100 mls @ 200 mls/hr IV Q8HR [facility] Last Admin: 07/29/23 16:45 Dose: 100 mls Multivitamins 10 ml/ Amino Acids/Electrolytes/ Fat Emulsion Intravenous 2,260 mls @ 30 mls/hr IV [id number] [facility] Last Admin: 07/29/23 17:40 Dose: 2,260 mls Vancomycin HCl 750 mg/ Sodium (Chloride) 150 mls @ 150 mls/hr IVPB Q24H [facility] Potassium Chloride (Kcl 20 Meq/100 Ml Ivpb (Premix)) 20 meq in 100 mls @ 50 mls/hr IV Q2H [facility]; Protocol Stop: 07/29/23 22:59 Last Admin: 07/29/23 20:10 Dose: 100 mls Amino Acids/Electrolytes (Clinimix E 5%-20% Solution) 2,000 mls @ 30 mls/hr IV [id number] [facility]IAJO[facility] Insulin Human Regular (Insulin -Regular Human 50 Unit/0.5 Ml Ml) 0 unit SQ Q6H [facility]; Protocol Last Admin: 07/29/23 17:08 Dose: Not Given Ipratropium [place] (Ipratropium Brom 0.5mg/2.5ml) 0.5 mg NEB [id number] [facility] Last Admin: 07/29/23 19:45 Dose: 0.5 mg Memantine (Memantine Hcl 10 Mg Tablet) 10 mg PO Q12HR [facility] Last Admin: 07/29/23 20:10 Dose: Not Given Mupirocin (Mupirocin Nasal 2 Appl/1 Gm Tube) 1 appl ARTI BID [facility] Stop: 07/31/23 21:01 Last Admin: 07/29/23 20:10 Dose: 1 appl Nutritional Formula (Ensure Enlive 237 Ml Can) 237 ml PO BID [facility] Last Admin: 07/29/23 20:10 Dose: Not Given Ondansetron HCl (Ondansetron 4 Mg/2 Ml Vial) 4 mg IV Q6HP PRN PRN Reason: NAUSEA / VOMITING Pantoprazole Sodium (Pantoprazole 40 Mg Inj) 40 mg IVP Q12HR [facility]; Protocol Last Admin: 07/29/23 20:12 Dose: 40 mg Sodium Chloride (Flush Normal Saline 10 Ml) 10 ml IV BID [facility] Last Admin: 07/29/23 20:10 Dose: 10 ml Sodium Chloride (Sodium Chloride 0.9% 10ml Inj) 10 ml IV UD PRN PRN Reason: Diluant Tramadol HCl (Tramadol Hcl 50 Mg Tab) 50 mg PO DAILY PRN PRN Reason: Pain scale 5-7 (Moderate) Microbiology Results 07/24/23 09:55 Nasopharnyx Influenza Type A Antigen Screen - Final 07/24/23 09:55 Nasopharnyx Influenza Type B Antigen Screen - Final Assessment/ Plan: Nephrology No dyspnea No chest pain No acute events overnight Limited IH/ ROS due to dementia Vitals, medications, blood work and imaging reviewed in the chart. General: In no apparent distress HEENT: Atraumatic Neck: Supple Respiratory: Clear to auscultation bilaterally, Normal air movement Cardiovascular: Regular rate/rhythm, Edema (Hip) Gastrointestinal: Soft and benign, Non-distended, No guarding Musculoskeletal: No clubbing, No contractures Integumentary: No rashes, No cyanosis Laboratory Data (last 24 hrs) 07/24/23 11:00 Sodium 134 L Potassium 3.6 BUN 35 H Creatinine 1.30 H Glucose 136 H Magnesium 1.9 Total Bilirubin 0.3 AST 17 ALT 17 Alkaline Phosphatase 59 Lipase 67 Imagings Data: EXAM DESCRIPTION: RAD - Chest Single View - 07/24/2023 10:51 am CLINICAL HISTORY: COUGH Chest pain. COMPARISON: Chest Single View dated 11/11/2022; Chest Single View dated 11/10/2022; Chest Pa And Lat (2 Views) dated 05/21/2022; Chest Single View dated 04/14/2020 FINDINGS: Portable technique limits examination quality. The lungs are emphysematous but grossly clear. The heart is upper limit of normal in size. No displaced fractures. IMPRESSION: No acute intrathoracic process suspected. EXAM DESCRIPTION: CTChest Abdomen Pelvis W Cont - 07/28/2023 9:24 am CLINICAL HISTORY: sepsis, abdominal pain, cough COMPARISON: Renal Ultrasound-Complete dated 06/25/2023; Chest For Pe Angio dated 03/11/2020 TECHNIQUE: CT of the chest, abdomen, and pelvis was performed. IV contrast was administered. All CT scans are performed using dose optimization technique as appropriate and may include automated exposure control or mA/KV adjustment according to patient size. FINDINGS: Thorax: Chest Wall: No abnormal mass left subclavian approach PICC. Lungs: Moderate widespread bilateral interlobular septal thickening and ground- glass opacities in a crazy paving pattern. Dependent consolidation that is mild. Motion limited. Pleura: Small pleural effusions. Malissa/Mediastinum: No lymphadenopathy. Aorta/Pulmonary Arteries: Unremarkable Heart: Normal size. Aortic root calcifications. Abdomen/Pelvis: Liver: No acute abnormality or suspicious lesions. Biliary: No biliary ductal dilatation. Stomach: No significant focal abnormality. Duodenum: No significant focal abnormality. Pancreas: No significant abnormality. Spleen: No significant abnormality. Adrenal: No suspicious lesions. Kidney/ureter: Bilateral hydroureteronephrosis. No obstructing stones identified. Retroperitoneum: No retroperitoneal adenopathy. Vascular: Atherosclerosis. Bowel: Rectal catheter.. No bowel obstruction. Peritoneum: Trace free fluid. Bladder: Distended bladder. Reproductive: No adnexal masses. Bones: T3 and T4 compression fractures. The T3 compression fracture appears chronic. The T4 compression fracture appears either subacute or chronic. Other: Body wall edema. IMPRESSION: 1. Moderate bilateral airspace disease with crazy paving that could reflect pulmonary edema and/or pneumonia. 2. Bilateral hydroureteronephrosis with distended bladder. This could be secondary to bladder outlet obstruction. Consider Bernardo catheter placement. Conclusions/Impression: Stage I FIONA likely dehydration complicated by bladder outlet obstruction -No NSAIDs -Continue bernardo for urinary retention with hydroureteronephrosis Hyponatremia resolved with NS -Encourage nutrition Hypokalemia -Replete as ordered Hypomagnesemia -Replete prn Hypophosphatemia -Replete prn HTN complicated by hypotension -Hold antihypertensives Severe hypoalbuminemia -Continue Ensure Anemia in chronic illness -Monitor H&H -PRBC prn Sepsis/ Septic Shock with Enterococcus faecium Acute Cystitis -Continue Abx -Vasopressor prn Atherosclerosis of the Aorta -Consider statin Hospitalist & Pulmonary notes reviewed Case reviewed with Dr. Jimenez >30min patient care
[2023-07-30] MEDS: IPRATROPIUM BROM 0.5MG/2.5ML NEB SCH ×4 (00:25→20:00)
[2023-07-30] MEDS: Meropenem 1,000 MG in NA CHLORIDE 0.9% 100 ML IV SCH ×3 (00:38→16:43)
[2023-07-30] MEDS ORDERED: KCL 20 MEQ/100 mL IVPB 20 MEQ/100 ML BAG IV SCH (02:00)
[2023-07-30 04:28] LABS: Absolute Lymphocytes (CBC) 0.7 K/uL (0.7-4.9); Hematocrit 24.3 % (36.0-45.0); Lymphocytes % 3.7 % (15.3-44.8); MCV 84.6 fL (80-100); MPV 9.7 fL (7.6-11.3); Platelets 61 thou/uL (152-406); RBC Red Blood Cell Count 2.88 M/uL (3.86-4.86)
[2023-07-30 05:14] LABS: Albumin 2.1 g/dL (3.4-5.0); Phosphorus 2.2 mg/dL (2.5-4.9); Potassium 3.8 mEq/L (3.5-5.1)
[2023-07-30] MEDS: INSULIN -REGULAR HUMAN 50 UNIT/0.5 ML ML SQ SCH ×3 (05:33→18:00)
[2023-07-30] MEDS ORDERED: POTASSIUM PHOS IN 0.9 % NACL 15 MMOL/250 ML BAG IV ONE (06:00)
--- NOTE | 2023-07-30 06:52 | P.PN ---
Date of Service: 07/30/23 Subjective: BiPAP most of the day yesterday / today FiO2 increased from 60 -> 85% d/t patient desatting this morning remains off levo CXR worse afebrile ROS: 10 point ROS as noted above, otherwise negative Physical Exam: GEN: lethargic, opens eyes to verbal stimuli, groans in discomfort HEENT: Normal conjunctiva, sclera anicteric CV: Regular rate and rhythm with intermittent tachycardia, no edema Pulm: mildly-labored respirations on BiPAP FiO2: 85%, tachypnea, +b/l crackles ABD: Soft, suprapubic and LLQ tenderness, nondistended Integumentary: Ecchymosis of dorsal left hand Neuro: Normal speech, normal affect Leonard in place vitals reviewed Problem List: Septic shock secondary to UTI and bacteremia Bacteremia - MDR Enterococcus Faecium thrombocytopenia acute hypoxemic respiratory failure secondary to ARDS FIONA, resolved Generalized weakness Dementia Hypertension Septic shock likely secondary to UTI Bacteremia - MDR Enterococcus Faecium thrombocytopenia Patient has been not eating or drinking much due to increased fever last week. CT chest/abd/pelvis (07/28): Moderate bilateral airspace disease with crazy paving that could reflect pulmonary edema and/or pneumonia CXR (07/29): Mild worsening in the diffuse bilateral alveolar pulmonary opacities CXR (07/30): worsening patchy airspace in both upper lungs and left midlung UA suggest UTI, urine cx(07/25): with multiple organisms; repeat urine cx (07/28): no growth Blood cx (07/26): MDR Enterococcus Faecium Pulm consulted Previously on IV Zithromax (07/24-07/26) / Rocephin x1 (07/26 and 07/28). abx changed to IV cefepime / vancomycin (07/26-07/28) after patient became septic; cefepime switched to merrem (07/28-) / clindamycin (07/28-07/29) continue IV merrem (07/28-) / vancomycin (07/26-) afebrile, leukocytosis improving; CRP improving unclear etiology of thrombocytopenia - sepsis vs DIC ; DIC labs ordered 07/28 remains off levo since 07/28 continue TPN acute hypoxemic respiratory failure secondary to ARDS CXR 07/29 with increased pulm opacities bilaterally, suspect ARDS respiratory status worsened 07/28, given albumin and lasix that evening and placed on BIPAP pulm following wore BiPAP most of the day yesterday / today - FiO2 increased from 60 -> 85% d/t patient desat this morning CXR 07/30 worse additional lasix given 07/30 FIONA, resolved CT chest/abd/pelvis (07/28): Bilateral hydroureteronephrosis with distended bladder. Leonard placed 07/28 likely secondary to dehydration Nephrology consulted resolved with IV fluids Generalized weakness PT once clinically stable. Dementia Hypertension continue home medications as appropriate Hold home antihypertensives for now. VTE: Heparin held due to thrombocytopenia Code: DNR Dispo: guarded prognosis, LTACH likely once stable Continue ICU level of care discussed with family regarding worsening CXR and goals of care 07/30
--- NOTE | 2023-07-30 07:30 | RAD REPORT ---
EX[facility] DES[facility] 4[facility]38 am CLINICAL HISTORY: f/u pulm opacities, hypoxia COMPARISON: Chest Single View dated 07/29/2023; Abdomen 1 View (KUB) dated 07/28/2023; Chest Single Vi ew dated 07/27/2023; Chest Single View dated 07/24/2023 TECHNIQUE: Portable AP view of the chest. FINDINGS: Patchy airspace opacities, progressive in both upper lungs and left mid lung since the cherry or exam. Retrocardiac opacity shows partial improvement. Background interstitial thickening again see n. No pneumothorax or effusion. The cardiomediastinal contours are unremarkable. IMPRESSION: Worsening patchy airspace opacities in both upper lungs and left midlung. Findings may r elate to worsening edema or progressive pneumonia.
[2023-07-30] MEDS ORDERED: FUROSEMIDE 20 MG/ 2ML VIAL IV ONE (08:30)
[2023-07-30] MEDS ORDERED: VANCOMYCIN 750 MG in NA CHLORIDE 0.9% 150 ML IVPB SCH (09:00)
[2023-07-30] MEDS: ALFUZOSIN HCL 10 MG PO SCH (09:00)
[2023-07-30] MEDS: ENSURE ENLIVE 237 ML CAN PO SCH ×2 (09:00→19:11)
[2023-07-30] MEDS: MEMANTINE HCL 10 MG TABLET PO SCH (09:00)
[2023-07-30] MEDS: DONEPEZIL HCL 5 MG TAB PO SCH (09:00)
[2023-07-30] MEDS: Mupirocin NASAL 2 APPL/1 GM TUBE NAS SCH ×2 (09:25→21:36)
[2023-07-30] MEDS: PANTOPRAZOLE 40 MG INJ IVP SCH ×2 (09:26→21:35)
--- NOTE | 2023-07-30 13:31 | P.PN ---
Subjective Date of Service: 07/30/23 Chief Complaint: Respiratory failure No change in patient's condition patient has still extensive bilateral infiltrate he is on BiPAP alert hemodynamically stable Review of Systems is unable to be obtained Physical Examination - Vital Signs Temperature: 98.2 F Blood Pressure: 132/84 Pulse: 99 Respirations: 29 Pulse Ox (%): 98 - Physical Exam General: Alert Neck: Supple (On the upper zone) Respiratory: Crackles/rales Gastrointestinal: Normal bowel sounds, Soft and benign Musculoskeletal: No clubbing, No swelling Assessment And Plan - Current Problems (Diagnosis) (1) Respiratory failure Current Visit: Yes Status: Acute Plan: Patient admitted with respiratory failure there is been a progression of her infiltrates on the chest x-ray patient has developed ARDS White count is declining pancytopenic with thrombocytopenia patient is on Merrem and vancomycin blood cultures positive for Enterococcus patient's oxygen requirements have increased to 80% prognosis poor patient is DNR Qualifiers: Chronicity: acute Physician Review: Patient Assessed, Agree with Above Assessment and Plan
--- NOTE | 2023-07-30 15:39 | P.PN ---
Date of Service: 07/30/23 Chief Complaint: Weakness Subjective: Patient seen and examined at bedside. ROS unable to obtain at this time. Remains on BiPAP, increased Oxygen requirements overnight. No acute events reported overnight. Physical Examination Temp Pulse Resp BP Pulse Ox 98.2 F 99 H 29 H 132/84 98 07/30/23 13:30 07/30/23 13:30 07/30/23 13:30 07/30/23 13:30 07/30/23 13:30 General: In no apparent distress. HEENT: Atraumatic, Normocephalic Neck: Supple, JVD not distended Respiratory: Diminished, Rhonchi/gurgles. on BiPAP. Cardiovascular: trace BLE edema. Gastrointestinal: Normal bowel sounds, No tenderness. Musculoskeletal: No clubbing Integumentary: Device-related pressure injury bridge of nose. Pressure injury sacrum stage 1. Urinary: Leonard catheter Laboratory data - reviewed Microbiology data - reviewed Imagings Data: - Reviewed Medications List - Reviewed Assessment and Plan Problem list Septic shock Gram-positive bacteremia Urinary tract infection Anemia Thrombocytopenia Hypokalemia Moderate PCM Septic shock Gram-positive bacteremia -Previously on ceftriaxone (07/26 to 07/29) and azithromycin (07/24 to 07/26) which was switched to Cefepime and Vancomycin (07/26 to 07/28) when patient became septic -Currently on meropenem (07/29-) and clindamycin (07/28-) -Blood culture 07/26: Enterococcus faecium -Leukocytosis (WBC 33.9) - CT chest abdomen pelvis 07/28: "Moderate bilateral airspace disease with crazy paving that could reflect pulmonary edema and/or pneumonia. Bilateral hydroureteronephrosis with distended bladder. This could be secondary to bladder outlet obstruction." -Urinalysis 07/28: LE 250, RBC > 50, WBC 20-50, bacteria < 20, occasional yeast, trace urine protein -Urine culture 07/25: 3 or more organisms, possible contamination. Repeat urine culture -Urine culture 07/28: no growth to date - PICC line placed 07/27 Influenza A and B negative COVID negative Recommendations - Blood culture with enterococcus faecium: started on Vancomycin 07/29. Continue antibiotic therapy x 14 days. - Monitor WBC and fever trends - Supportive care and nutritional supplementation - Sacrum: apply barrier cream. Pressure offloading measures. - Device related pressure injury nasal bridge: apply DuoDerm Case discussed with Maria Del Carmen Alejandro
[2023-07-30] MEDS ORDERED: AA 5%/D20W/ELECTROLYTES-TPN 2,000 ML IV SCH ×2 (17:00)
--- NOTE | 2023-07-30 19:39 | P.PN ---
Date of Service: 07/30/23 Vital Signs Temp Pulse Resp BP Pulse Ox 100.0 F 99 H 26 H 136/82 97 07/30/23 16:00 07/30/23 18:00 07/30/23 18:00 07/30/23 17:00 07/30/23 18:00 Medications Acetaminophen (Acetaminophen 500 Mg Tab) 500 mg PO Q4HP PRN PRN Reason: TEMP > 100' F Last Admin: 07/26/23 17:18 Dose: 500 mg Albuterol Sulfate (Albuterol 2.5 Mg/3 Ml Neb Nivia) 2.5 mg NEB [id number] PRN PRN Reason: SHORTNESS OF BREATH Last Admin: 07/28/23 19:50 Dose: 2.5 mg Benzonatate (Benzonatate 100 Mg Cap) 100 mg PO TID PRN PRN Reason: COUGH Last Admin: 07/26/23 08:50 Dose: 100 mg Dextrose (D10w 250 Ml Bag) 125 ml IV PRN PRN; Protocol PRN Reason: HYPOGLYCEMIA Glucagon (Glucagon 1 Mg/Vial) 1 mg IM 1X PRN PRN Reason: HYPOGLYCEMIA Guaifenesin (Guaifenesin 100 Mg/5 Ml Ucup) 100 mg PO QID PRN PRN Reason: COUGH Last Admin: 07/25/23 13:33 Dose: 100 mg Home Med (Alfuzosin Hcl [Alfuzosin Hcl]) 10 mg PO DAILY [facility] Last Admin: 07/30/23 09:00 Dose: Not Given Norepinephrine/Dextrose (Levophed 4 Mg/250 Ml-D5w) 4 mg in 250 mls @ 18.711 mls/hr IV TITR [facility]; Protocol Last Titration: 07/28/23 01:15 Dose: 0 mcg/kg/min, 0 mls/hr Meropenem 1,000 mg/ Sodium (Chloride) 100 mls @ 200 mls/hr IV Q8HR [facility] Last Admin: 07/30/23 16:43 Dose: 100 mls Multivitamins 10 ml/ Amino Acids/Electrolytes/ Fat Emulsion Intravenous 2,260 mls @ 30 mls/hr IV [id number] MARIAJOSE Last Admin: 07/29/23 17:40 Dose: 2,260 mls Amino Acids/Electrolytes (Clinimix E 5%-20% Solution) 2,000 mls @ 30 mls/hr IV [id number] [facility] Last Admin: 07/30/23 16:44 Dose: 2,000 mls Vancomycin HCl 750 mg/ Sodium (Chloride) 150 mls @ 150 mls/hr IVPB Q12HR [facility] Insulin Human Regular (Insulin -Regular Human 50 Unit/0.5 Ml Ml) 0 unit SQ Q6H [facility]; Protocol Last Admin: 07/30/23 18:00 Dose: Not Given Ipratropium [place] (Ipratropium Brom 0.5mg/2.5ml) 0.5 mg NEB [id number] [facility] Last Admin: 07/30/23 13:36 Dose: 0.5 mg Mupirocin (Mupirocin Nasal 2 Appl/1 Gm Tube) 1 appl ARTI BID [facility] Stop: 07/31/23 21:01 Last Admin: 07/30/23 09:25 Dose: 1 appl Nutritional Formula (Ensure Enlive 237 Ml Can) 237 ml PO BID [facility] Last Admin: 07/30/23 19:11 Dose: Not Given Ondansetron HCl (Ondansetron 4 Mg/2 Ml Vial) 4 mg IV Q6HP PRN PRN Reason: NAUSEA / VOMITING Pantoprazole Sodium (Pantoprazole 40 Mg Inj) 40 mg IVP Q12HR [facility]; Protocol Last Admin: 07/30/23 09:26 Dose: 40 mg Sodium Chloride (Flush Normal Saline 10 Ml) 10 ml IV BID [facility] Last Admin: 07/30/23 09:31 Dose: 10 ml Sodium Chloride (Sodium Chloride 0.9% 10ml Inj) 10 ml IV UD PRN PRN Reason: Diluant Tramadol HCl (Tramadol Hcl 50 Mg Tab) 50 mg PO DAILY PRN PRN Reason: Pain scale 5-7 (Moderate) Microbiology Results 07/24/23 09:55 Nasopharnyx Influenza Type A Antigen Screen - Final 07/24/23 09:55 Nasopharnyx Influenza Type B Antigen Screen - Final Assessment/ Plan: Nephrology Dyspnea on bipap Limited IH/ ROS due to dementia Vitals, medications, blood work and imaging reviewed in the chart. General: In no apparent distress HEENT: Atraumatic Neck: Supple Respiratory: Clear to auscultation bilaterally, Normal air movement Cardiovascular: Regular rate/rhythm, Edema (Hip) Gastrointestinal: Soft and benign, Non-distended, No guarding Musculoskeletal: No clubbing, No contractures Integumentary: No rashes, No cyanosis Laboratory Data (last 24 hrs) 07/24/23 11:00 Sodium 134 L Potassium 3.6 BUN 35 H Creatinine 1.30 H Glucose 136 H Magnesium 1.9 Total Bilirubin 0.3 AST 17 ALT 17 Alkaline Phosphatase 59 Lipase 67 Imagings Data: EXAM DESCRIPTION: RAD - Chest Single View - 07/24/2023 10:51 am CLINICAL HISTORY: COUGH Chest pain. COMPARISON: Chest Single View dated 11/11/2022; Chest Single View dated 11/10/2022; Chest Pa And Lat (2 Views) dated 05/21/2022; Chest Single View dated 04/14/2020 FINDINGS: Portable technique limits examination quality. The lungs are emphysematous but grossly clear. The heart is upper limit of normal in size. No displaced fractures. IMPRESSION: No acute intrathoracic process suspected. EXAM DESCRIPTION: CTChest Abdomen Pelvis W Cont - 07/28/2023 9:24 am CLINICAL HISTORY: sepsis, abdominal pain, cough COMPARISON: Renal Ultrasound-Complete dated 06/25/2023; Chest For Pe Angio dated 03/11/2020 TECHNIQUE: CT of the chest, abdomen, and pelvis was performed. IV contrast was administered. All CT scans are performed using dose optimization technique as appropriate and may include automated exposure control or mA/KV adjustment according to patient size. FINDINGS: Thorax: Chest Wall: No abnormal mass left subclavian approach PICC. Lungs: Moderate widespread bilateral interlobular septal thickening and ground- glass opacities in a crazy paving pattern. Dependent consolidation that is mild. Motion limited. Pleura: Small pleural effusions. Malissa/Mediastinum: No lymphadenopathy. Aorta/Pulmonary Arteries: Unremarkable Heart: Normal size. Aortic root calcifications. Abdomen/Pelvis: Liver: No acute abnormality or suspicious lesions. Biliary: No biliary ductal dilatation. Stomach: No significant focal abnormality. Duodenum: No significant focal abnormality. Pancreas: No significant abnormality. Spleen: No significant abnormality. Adrenal: No suspicious lesions. Kidney/ureter: Bilateral hydroureteronephrosis. No obstructing stones identified. Retroperitoneum: No retroperitoneal adenopathy. Vascular: Atherosclerosis. Bowel: Rectal catheter.. No bowel obstruction. Peritoneum: Trace free fluid. Bladder: Distended bladder. Reproductive: No adnexal masses. Bones: T3 and T4 compression fractures. The T3 compression fracture appears chronic. The T4 compression fracture appears either subacute or chronic. Other: Body wall edema. IMPRESSION: 1. Moderate bilateral airspace disease with crazy paving that could reflect pulmonary edema and/or pneumonia. 2. Bilateral hydroureteronephrosis with distended bladder. This could be secondary to bladder outlet obstruction. Consider Bernardo catheter placement. Conclusions/Impression: Stage I FIONA likely dehydration complicated by bladder outlet obstruction, improved -No NSAIDs -Continue bernardo for urinary retention with hydroureteronephrosis Hyponatremia/ Hypernatremia -Will increase free water prn Hypokalemia -Replete as ordered Hypomagnesemia -Replete prn Hypophosphatemia -Replete as ordered HTN complicated by hypotension -Hold antihypertensives -Vasopressor prn Severe hypoalbuminemia -Continue Ensure Anemia in chronic illness -Monitor H&H -PRBC prn Sepsis/ Septic Shock with MDR Enterococcus faecium Acute hypoxic respiratory failure Acute Cystitis -Continue Abx -Vasopressor prn -Continue Bipap with Oxygen supplementation Atherosclerosis of the Aorta -Consider statin Hospitalist & Pulmonary notes reviewed Case reviewed with Dr. Jimenez Case reviewed with the daughter at the bedside >30min patient care
[2023-07-30] MEDS: VANCOMYCIN 750 MG in NA CHLORIDE 0.9% 150 ML IVPB SCH (21:35)
[2023-07-30] MEDS ORDERED: VANCOMYCIN 500 MG/VIAL ONE (21:42)
[2023-07-31] MEDS: Meropenem 1,000 MG in NA CHLORIDE 0.9% 100 ML IV SCH ×3 (00:34→17:28)
[2023-07-31] MEDS: IPRATROPIUM BROM 0.5MG/2.5ML NEB SCH ×4 (02:30→20:25)
[2023-07-31 05:27] LABS: Magnesium 1.5 mg/dL (1.6-2.4); Phosphorus 2.3 mg/dL (2.5-4.9); Potassium 2.9 mEq/L (3.5-5.1)
[2023-07-31 05:36] LABS: Absolute Lymphocytes (CBC) 1.4 K/uL (0.7-4.9); Hematocrit 25.1 % (36.0-45.0); Lymphocytes % 8.1 % (15.3-44.8); MCV 85.4 fL (80-100); MPV 11.3 fL (7.6-11.3); Platelets 74 thou/uL (152-406); RBC Red Blood Cell Count 2.94 M/uL (3.86-4.86)
[2023-07-31] MEDS: INSULIN -REGULAR HUMAN 50 UNIT/0.5 ML ML SQ SCH ×4 (06:00→17:28)
[2023-07-31] MEDS ORDERED: POTASSIUM PHOS IN 0.9 % NACL 15 MMOL/250 ML BAG IV ONE (06:09)
[2023-07-31] MEDS ORDERED: Magnesium Sulfate 2gm IVPB 2 G/50 ML BAG IV ONE (06:09)
--- NOTE | 2023-07-31 06:54 | P.PN ---
Date of Service: 07/31/23 Subjective: continues with BiPAP; FiO2 down to 45% not following commands; groaning occasionally no acute events overnight afebrile ROS: 10 point ROS as noted above, otherwise negative Physical Exam: GEN: lethargic groans in discomfort HEENT: Normal conjunctiva, sclera anicteric CV: Regular rate and rhythm with intermittent tachycardia, edema of right hand Pulm: mildly-labored respirations on BiPAP FiO2: 45%, tachypnea, +b/l crackles ABD: Soft, suprapubic , nondistended Integumentary: Ecchymosis of dorsal left hand Neuro: Normal speech, normal affect Leonard in place vitals reviewed Problem List: Septic shock secondary to UTI and bacteremia Bacteremia - MDR Enterococcus Faecium thrombocytopenia acute hypoxemic respiratory failure secondary to ARDS FIONA, resolved Generalized weakness Dementia Hypertension Septic shock likely secondary to UTI Bacteremia - MDR Enterococcus Faecium thrombocytopenia UA suggest UTI, urine cx(07/25): with multiple organisms; repeat urine cx (07/28): no growth Blood cx (07/26): MDR Enterococcus Faecium Pulm consulted Previously on IV Zithromax (07/24-07/26) / Rocephin x1 (07/26 and 07/28). abx changed to IV cefepime / vancomycin (07/26-07/28) after patient became septic; cefepime switched to merrem (07/28-) / clindamycin (07/28-07/29) continue IV merrem (07/28-) / vancomycin (07/26-) afebrile, leukocytosis improving; CRP improving unclear etiology of thrombocytopenia - sepsis vs DIC ; DIC labs ordered 07/28 suspect some component of DIC remains off levo since 07/28 continue TPN acute hypoxemic respiratory failure secondary to ARDS CT chest/abd/pelvis (07/28): Moderate bilateral airspace disease with crazy paving that could reflect pulmonary edema and/or pneumonia CXR (07/29): increased pulm opacities bilaterally, suspect ARDS CXR (07/30): worsening patchy airspace in both upper lungs and left midlung CXR (07/31): pending pulm following respiratory status worsened 07/28, given albumin and lasix that evening and placed on BIPAP continues with BiPAP - FiO2 down 45% additional lasix given 07/30 FIONA, resolved CT chest/abd/pelvis (07/28): Bilateral hydroureteronephrosis with distended bladder. Leonard placed 07/28 likely secondary to dehydration Nephrology consulted resolved with IV fluids Generalized weakness PT once clinically stable. Dementia Hypertension continue home medications as appropriate Hold home antihypertensives for now. VTE: Heparin held due to thrombocytopenia Code: DNR Dispo: guarded prognosis, LTACH likely once stable Continue ICU level of care discussed with family regarding worsening CXR and goals of care 07/30
[2023-07-31] MEDS: ALFUZOSIN HCL 10 MG PO SCH (09:00)
[2023-07-31] MEDS: ENSURE ENLIVE 237 ML CAN PO SCH ×2 (09:00→21:00)
--- NOTE | 2023-07-31 09:00 | RAD REPORT ---
[facility] DES[facility] 6[facility]31 am CLINICAL HISTORY: f/u pulm opacities COMPARISON: Chest Single View dated 07/30/2023; Chest Single View dated 07/29/2023; Abdomen 1 View ([facility]) dated 07/28/2023; Chest Single View dated 07/27/2023 TECHNIQUE: Portable AP view of the chest. FINDINGS: Left arm PICC unchanged in position. Patient rotation somewhat limits evaluation. Patchy b ilateral airspace opacities with background interstitial thickening. There is mild interval improveme nt in aeration in the right mid to lower lung. No pneumothorax or effusion. The cardiomediastinal co ntours are unremarkable. IMPRESSION: Mild interval improvement of aeration in the right mid to lower lung.
[2023-07-31] MEDS: KCL 20 MEQ/100 mL IVPB 20 MEQ/100 ML BAG IV SCH ×3 (10:00→13:12)
[2023-07-31] MEDS: PANTOPRAZOLE 40 MG INJ IVP SCH ×2 (10:02→21:52)
[2023-07-31] MEDS: Mupirocin NASAL 2 APPL/1 GM TUBE NAS SCH ×2 (10:02→21:51)
[2023-07-31] MEDS: VANCOMYCIN 750 MG in NA CHLORIDE 0.9% 150 ML IVPB SCH ×2 (10:02→21:51)
--- NOTE | 2023-07-31 11:19 | P.PN ---
Nephrology (S) Pt remains on BIPAP, remains lethargic/obtunded, remains on TPN, case reviewed with nursing staff/Dr. Jimenez/family at bedside (O) Vitals, medications, blood work and imaging reviewed in the chart. General: NAD HEENT: Atraumatic, BIPAP mask present Respiratory: Non tachypnec, b/l air entry, reduced at bases Cardiovascular: Mildly tachy, regular mostly Gastrointestinal: Soft and benign, Non-distended, No guarding Musculoskeletal: Muscle mass loss, shins are non tender Neuro: Lethargic, obtunded, not responding to verbal stimuli Imagings Data: EXAM DESCRIPTION: RAD - Chest Single View - 07/24/2023 10:51 am CLINICAL HISTORY: COUGH Chest pain. COMPARISON: Chest Single View dated 11/11/2022; Chest Single View dated 11/10/2022; Chest Pa And Lat (2 Views) dated 05/21/2022; Chest Single View dated 04/14/2020 FINDINGS: Portable technique limits examination quality. The lungs are emphysematous but grossly clear. The heart is upper limit of normal in size. No displaced fractures. IMPRESSION: No acute intrathoracic process suspected. EXAM DESCRIPTION: CTChest Abdomen Pelvis W Cont - 07/28/2023 9:24 am CLINICAL HISTORY: sepsis, abdominal pain, cough COMPARISON: Renal Ultrasound-Complete dated 06/25/2023; Chest For Pe Angio dated 03/11/2020 TECHNIQUE: CT of the chest, abdomen, and pelvis was performed. IV contrast was administered. All CT scans are performed using dose optimization technique as appropriate and may include automated exposure control or mA/KV adjustment according to patient size. FINDINGS: Thorax: Chest Wall: No abnormal mass left subclavian approach PICC. Lungs: Moderate widespread bilateral interlobular septal thickening and ground- glass opacities in a crazy paving pattern. Dependent consolidation that is mild. Motion limited. Pleura: Small pleural effusions. Malissa/Mediastinum: No lymphadenopathy. Aorta/Pulmonary Arteries: Unremarkable Heart: Normal size. Aortic root calcifications. Abdomen/Pelvis: Liver: No acute abnormality or suspicious lesions. Biliary: No biliary ductal dilatation. Stomach: No significant focal abnormality. Duodenum: No significant focal abnormality. Pancreas: No significant abnormality. Spleen: No significant abnormality. Adrenal: No suspicious lesions. Kidney/ureter: Bilateral hydroureteronephrosis. No obstructing stones identified. Retroperitoneum: No retroperitoneal adenopathy. Vascular: Atherosclerosis. Bowel: Rectal catheter.. No bowel obstruction. Peritoneum: Trace free fluid. Bladder: Distended bladder. Reproductive: No adnexal masses. Bones: T3 and T4 compression fractures. The T3 compression fracture appears chronic. The T4 compression fracture appears either subacute or chronic. Other: Body wall edema. IMPRESSION: 1. Moderate bilateral airspace disease with crazy paving that could reflect pulmonary edema and/or pneumonia. 2. Bilateral hydroureteronephrosis with distended bladder. This could be secondary to bladder outlet obstruction. Consider Bernardo catheter placement. Conclusions/Impression: Stage I FIONA 2nd to volume depletion, b/l hydroureteronephrosis 2nd retention of urine unspecified -Renal function tests have normalized, maintain bernardo for now, pt will need to see Urology as OP to assess Hypernatremia, hypokalemia, hypomagnesemia, hypophosphatemia -Receiving potassium, Mg & Phos replacement, will place on gentle D5W for the water deficit which has developed and ask pharmacy to adjust TPN Sepsis/ Septic Shock with MDR Enterococcus faecium Acute hypoxic respiratory failure Acute Cystitis with microscopic hematuria, unspecified retention of urine -Continue Abx -NIPPV management per primary Nick Francois MD, NICOLASN
[2023-07-31] MEDS ORDERED: D5W 1,000 ML IV SCH (12:00)
--- NOTE | 2023-07-31 14:58 | P.PN ---
Date of Service: 07/31/23 Chief Complaint: Weakness Subjective: Patient seen and examined in ICU. Remains on BiPAP. In no apparent distress. No acute events reported overnight. Physical Examination Temp Pulse Resp BP Pulse Ox 98.4 F 103 H 23 H 135/97 H 97 07/31/23 12:00 07/31/23 12:00 07/31/23 12:00 07/31/23 12:00 07/31/23 12:00 General: In no apparent distress. Remains on BiPAP. Does not follow commands. HEENT: Atraumatic, Normocephalic Neck: Supple, JVD not distended Respiratory: Diminished. Rhonchi. on BiPAP. Cardiovascular: trace BLE edema. tachycardic. Gastrointestinal: Normal bowel sounds, No tenderness. Musculoskeletal: No clubbing Integumentary: Device-related pressure injury bridge of nose. Pressure injury sacrum stage 1. Urinary: Leonard catheter Laboratory data - Reviewed Microbiology data - Reviewed Imagings Data: -CT chest abdomen pelvis 07/28: "1. Moderate bilateral airspace disease with crazy paving that could reflect pulmonary edema and/or pneumonia. 2. Bilateral hydroureteronephrosis with distended bladder. This could be secondary to bladder outlet obstruction. Consider Leonard catheter placement." Medications List - Reviewed Assessment and Plan Problem list Septic shock Gram-positive bacteremia Urinary tract infection Anemia Thrombocytopenia Hypokalemia Moderate PCM Septic shock Gram-positive bacteremia -Previously on ceftriaxone (07/26 to 07/29) and azithromycin (07/24 to 07/26), then Cefepime (07/26-07/28) and vancomycin -Currently on meropenem (07/29-) and Vancomycin (07/26-) -Blood culture 07/26: Enterococcus faecium - CT chest abdomen pelvis 07/28: "Moderate bilateral airspace disease with crazy paving that could reflect pulmonary edema and/or pneumonia. Bilateral hydroureteronephrosis with distended bladder. This could be secondary to bladder outlet obstruction." -Urinalysis 07/28: LE 250, RBC > 50, WBC 20-50, bacteria < 20, occasional yeast, trace urine protein -Urine culture 07/25: 3 or more organisms, possible contamination. -Repeat Urine culture 07/28: no growth to date - PICC line placed 07/27 Leukocytosis continues to improve (WBC 19.3 -> 17). Afebrile. Pneumonia -CT chest abdomen pelvis 07/28: "Moderate bilateral airspace disease with crazy paving that could reflect pulmonary edema and/or pneumonia. - XR Chest 07/29: "Mild worsening in the diffuse bilateral alveolar pulmonary opacities which may represent pulmonary edema or pneumonia" - XR Chest 07/30: "Worsening patchy airspace opacities in both upper lungs and left midlung. Findings may relate to worsening edema or progressive pneumonia." - XR Chest 07/31: Mild interval improvement of aeration in the right mid to lower lung. - Influenza A and B negative - COVID negative - On BiPAP - Pulmonology on case Recommendations - enterococcus faecium Bacteremia: On Vancomycin (started 07/26). Continue antibiotic therapy x 14 days. - PNA: Continue meropenem for now (started 07/29) - Monitor WBC and fever trends - Supportive care and nutritional supplementation - Sacrum: apply barrier cream. Pressure offloading measures. - Device related pressure injury nasal bridge: apply DuoDerm Case discussed with Maria Del Carmen Alejandro
[2023-07-31] MEDS ORDERED: MORPHINE 2 MG/ML SYR IV PRN (15:56)
[2023-07-31] MEDS ORDERED: AMINO ACIDS 5 %/DEXTROSE 20 % 2,000 ML, Lipids 20% 250 ML with MULTIVITAMINS INJ 10 ML IV SCH ×3 (17:00)
[2023-08-01] MEDS: Meropenem 1,000 MG in NA CHLORIDE 0.9% 100 ML IV SCH ×3 (00:29→17:00)
[2023-08-01] MEDS: IPRATROPIUM BROM 0.5MG/2.5ML NEB SCH ×2 (01:00→07:10)
[2023-08-01 04:54] LABS: Absolute Lymphocytes (CBC) 1.5 K/uL (0.7-4.9); Hematocrit 24.3 % (36.0-45.0); Lymphocytes % 9.8 % (15.3-44.8); MPV 10.9 fL (7.6-11.3); Platelets 72 thou/uL (152-406); RBC Red Blood Cell Count 2.82 M/uL (3.86-4.86)
[2023-08-01 05:11] LABS: Albumin 1.9 g/dL (3.4-5.0); Bilirubin Total 0.6 mg/dL (0.2-1.0); Magnesium 1.6 mg/dL (1.6-2.4); Potassium 3.4 mEq/L (3.5-5.1); Protein, Total 5.3 g/dL (6.4-8.2)
[2023-08-01] MEDS: INSULIN -REGULAR HUMAN 50 UNIT/0.5 ML ML SQ SCH ×2 (06:00)
[2023-08-01 06:21] VITALS: BMI 20.9
--- NOTE | 2023-08-01 06:55 | P.PN ---
Date of Service: 08/01/23 Subjective: continues on BiPAP - up to 55% FiO2 moans/groans with movement, not having any meaningful communication Family have been discussing the last 2 days and have decided to pursue comfort care only at this point ROS: 10 point ROS as noted above, otherwise negative Physical Exam: GEN: lethargic, responds to painful stimuli, groans in discomfort HEENT: Normal conjunctiva, sclera anicteric CV: sinus tachycardia, edema of right hand Pulm: mildly-labored respirations on BiPAP FiO2: 55%, tachypnea, +b/l crackles throughout ABD: Soft, nondistended Integumentary: Ecchymosis of dorsal left hand Neuro: lethargic, responds to painful stimuli Leonard in place vitals reviewed Problem List: Septic shock secondary to UTI and bacteremia Bacteremia - MDR Enterococcus Faecium acute hypoxemic respiratory failure secondary to ARDS thrombocytopenia FIONA, resolved Generalized weakness Dementia, severe Hypertension Septic shock likely secondary to UTI Bacteremia - MDR Enterococcus Faecium thrombocytopenia UTI, urine cx(07/25): with multiple organisms; repeat urine cx (07/28): no growth Blood cx (07/26): MDR Enterococcus Faecium; repeat blood cx (08/01): pending Pulm consulted Previously on IV Zithromax (07/24-07/26) / Rocephin x1 (07/26 & 07/28). abx changed to IV cefepime / vancomycin (07/26-07/28) after patient became septic; cefepime switched to merrem (07/28-) / clindamycin (07/28-07/29) continue IV merrem (07/28-) / vancomycin (07/26-) x2 weeks total abx afebrile, leukocytosis mildly improved, CRP improved unclear etiology of thrombocytopenia - sepsis vs DIC ; DIC labs ordered 07/28; mild prolonged PT, elevated INR, high d-dimer, fibrinogen send out lab suspect some component of DIC remains off levo since 07/28 developed ARDS acute hypoxemic respiratory failure secondary to ARDS CT chest/abd/pelvis (07/28): Moderate bilateral airspace disease with crazy paving that could reflect pulmonary edema and/or pneumonia CXR (07/29): increased pulm opacities bilaterally, suspect ARDS CXR (07/30): worsening patchy airspace in both upper lungs and left midlung CXR (07/31): Mild interval improvement of aeration in the right mid to lower lung CXR (08/01): mild worsening of upper airway opacities, minimal improvement at left lower lung vann respiratory status worsened 07/28, given albumin and lasix that evening and placed on BIPAP continues with BiPAP - FiO2 up to 55% intermittent lasix as tolerated no significant improvement patient less responsive, appears more uncomfortable family voiced she stated she wouldn't want to be going through all of this; patient requiring BIPAP, TPN, and uncomfortable, not following commands; DNR family have discussed and decided to pursue comfort measures - in line with the patients wishes Code: DNR Dispo: comfort measures initiated 08/01 AM; dc BIPAP, changed to NC, morphine/ativan / nausea medications ordered transfer to floor if bed available inpatient hospice consulted
[2023-08-01] MEDS ORDERED: VANCOMYCIN 500 MG/VIAL ONE (08:33)
[2023-08-01] MEDS: PANTOPRAZOLE 40 MG INJ IVP SCH (08:46)
[2023-08-01] MEDS: ENSURE ENLIVE 237 ML CAN PO SCH (09:00)
[2023-08-01] MEDS: VANCOMYCIN 750 MG in NA CHLORIDE 0.9% 150 ML IVPB SCH (09:00)
[2023-08-01] MEDS: ALFUZOSIN HCL 10 MG PO SCH (09:00)
--- NOTE | 2023-08-01 09:03 | RAD REPORT ---
EXAM DESCRIPTION: [facility] Single View08/01/2023 8:34 am CLINICAL HISTORY: Chest pain COMPARISON: July 31, 2023 FINDINGS: Minimal worsening the bilateral upper lobe consolidations Mild improvement in additional bilateral pulmonary opacities. Heart is normal size IMPRESSION: These findings could represent pneumonia or pulmonary edema
[2023-08-01] MEDS ORDERED: VANCOMYCIN 1 GM in NA CHLORIDE 0.9% 250 ML IVPB SCH (09:11)
[2023-08-01] MEDS ORDERED: IPRATROPIUM BROM 0.5MG/2.5ML NEB PRN (10:38)
[2023-08-01] MEDS ORDERED: LORazepam 2 MG/ML VIAL IV PRN (10:41)
[2023-08-01] MEDS: MORPHINE 2 MG/ML SYR IV PRN ×4 (10:55→21:24)
--- NOTE | 2023-08-01 11:36 | P.PN ---
Subjective Date of Service: 08/01/23 Chief Complaint: Respiratory failure Patient's condition is stable oxygen requirements have declined to 40% however chest x-ray still shows significant bilateral changes Review of Systems is unable to be obtained Physical Examination - Vital Signs Temperature: 98.6 F Blood Pressure: 137/85 Pulse: 101 Respirations: 21 Pulse Ox (%): 97 - Physical Exam General: Unresponsive Respiratory: Clear to auscultation bilaterally Cardiovascular: No edema, Regular rate/rhythm Assessment And Plan - Current Problems (Diagnosis) (1) Respiratory failure Current Visit: Yes Status: Acute Plan: Patient has ARDS secondary to sepsis Enterococcus isolated in the blood continue with meropenem White count is declining it is sensitive to penicillin patient is on TPN labs reviewed mildly hypernatremic all papers have been signed agree with comfort care Qualifiers: Chronicity: acute Physician Review: Patient Assessed, Agree with Above Assessment and Plan
[2023-08-01] MEDS ORDERED: AMINO ACIDS 5 %/DEXTROSE 20 % 2,000 ML IV SCH (17:00)
[2023-08-02] MEDS: MORPHINE 2 MG/ML SYR IV PRN ×6 (00:26→14:48)
[2023-08-02] MEDS ORDERED: SCOPOLAMINE HYDROBROMIDE PATCH TD ONE (00:32)
[2023-08-02 01:37] VITALS: O2SAT 86
[2023-08-02] MEDS ORDERED: METHYLPREDNISOLONE 40 MG INJ IV SCH (09:00)
[2023-08-02 09:57] VITALS: BP 143/68; TEMP 99.4
--- NOTE | 2023-08-02 14:19 | P.DS ---
Admission Date: 07/24/23 Discharge Date: 08/02/23 Disposition: HOSPICE-HOME Reason for Admission: Respiratory failure Consultations: Nephrology - Dr. Jackson, Dr. Francois Infectious Disease - Dr. Denis Pulmonology - Dr. Saeed Brief History of Present Illness: 74yo F, PMH: Alzheimer's disease osteoporosis hypertension rheumatoid arthritis Patient presents to the ED with complaints of fever cough weakness. Fever started since 1 week. Associated with loss of appetite tiredness , more confused daughter reports that patient is not eating, had fever of 101.4, given [id number] medications. ED course vital signs blood pressure 116/54, pulse 68, respiration 18, temperature 97.5, pulse ox 97% on room air. Patient was given IV fluid normal saline 1 L bolus. Labs significant for hemoglobin 10.6 hematocrit 31.6 sodium 134, BUN 35, creatinine 1.30, blood glucose 136, BNP 491. Admitting the patient for weakness, acute kidney kidney injury, dehydration. Hospital Course: Problem List: Septic shock secondary to UTI and bacteremia Bacteremia - MDR Enterococcus Faecium acute hypoxemic respiratory failure secondary to ARDS thrombocytopenia FIONA, resolved Generalized weakness Dementia, severe Hypertension Physical Exam: GEN: lethargic, responds to painful stimuli, groans in discomfort HEENT: Normal conjunctiva, sclera anicteric CV: sinus tachycardia, edema of right hand Pulm: mildly-labored respirations on 3L NC, tachypnea, +b/l crackles throughout ABD: Soft, nondistended Integumentary: Ecchymosis of dorsal left hand Neuro: lethargic, responds to painful stimuli Vital Signs/Physical Exam: Temp Pulse Resp BP Pulse Ox 99.4 F 97 H 18 143/68 H 90 L 08/02/23 08:00 08/02/23 08:00 08/02/23 13:02 08/02/23 08:00 08/02/23 12:32 Laboratory Data at Discharge: WBC 15.60 thou/uL (4.3-10.9) H 08/01/23 04:35 Hgb 8.1 g/dL (12.0-15.0) L 08/01/23 04:35 Hct 24.3 % (36.0-45.0) L 08/01/23 04:35 Plt Count 72 thou/uL (152-406) L 08/01/23 04:35 PT 13.0 SECONDS (9.5-12.5) H 07/28/23 10:15 INR 1.18 07/28/23 10:15 APTT 34.2 SECONDS (24.3-36.9) 07/28/23 10:15 Sodium 147 mEq/L (136-145) H 08/01/23 04:35 Potassium 3.4 mEq/L (3.5-5.1) L 08/01/23 04:35 BUN 25 mg/dL (7-18) H 08/01/23 04:35 Creatinine 0.45 mg/dL (0.55-1.02) L 08/01/23 04:35 Glucose 131 mg/dL (74-106) H 08/01/23 04:35 Phosphorus 2.0 mg/dL (2.5-4.9) L 08/01/23 04:35 Magnesium 1.6 mg/dL (1.6-2.4) 08/01/23 04:35 Total Bilirubin 0.6 mg/dL (0.2-1.0) 08/01/23 04:35 AST 58 U/L (15-37) H 08/01/23 04:35 ALT 66 U/L (13-56) H 08/01/23 04:35 Alkaline Phosphatase 95 U/L (45-117) 08/01/23 04:35 Lipase 67 U/L (13-75) 07/24/23 11:00 Home Medications: traMADol HCL [Ultram*] 50 mg PO DAILY PRN 01/11/16 Amlodipine [Norvasc*] 10 mg PO DAILY tab 03/18/18 Benazepril HCl [Lotensin*] 20 mg PO DAILY 60 Days #60 tab 03/18/18 Benzonatate [Tessalon Perle*] 100 mg PO TID PRN 11/10/22 Donepezil [Aricept*] 10 mg PO BID 11/10/22 Memantine HCl [Namenda*] 10 mg PO Q12HP 11/10/22 Metoprolol Succinate [Toprol Xl] 50 mg PO DAILY 11/10/22 Albuterol Neb [Proventil 0.083% Neb Soln] 2.5 mg NEB O4PCLNS PRN #120 amp 11/11/22 guaiFENesin [Robitussin 100MG/5ML] 5 ml PO QID PRN #237 ml 11/11/22 Alfuzosin HCl 10 mg PO DAILY 07/24/23 Followup: Jun Cornell FNP [Primary Care Provider] - Time spent managing pt's care (in minutes): 45
== END 2023-08-02 16:00 | disposition hospice, home (50) | DRG 682 ==
LOC: ER 09:26 → ERHOLD 14:19 → 2ND 17:55 → 3RD-ICU 07-26 17:28 → 4TH 08-01 14:00
PROVIDERS: ADMIT Internal Medicine; ATTEND Hospitalist
PROC: 02HV33Z Insertion of Infusion Device into Superior Vena Cava, Percutaneous Approach (ICD-10-PCS; 2023-07-27)
PROC: 3E0336Z Introduction of Nutritional Substance into Peripheral Vein, Percutaneous Approach (ICD-10-PCS; 2023-07-27)
PROC: 5A09457 Assistance with Respiratory Ventilation, 24-96 Consecutive Hours, Continuous Positive Airway Pressure (ICD-10-PCS; principal; 2023-07-28)
DX: N17.9 Acute kidney failure, unspecified (principal); A41.81 Sepsis due to Enterococcus; J18.9 Pneumonia, unspecified organism; J80 Acute respiratory distress syndrome; R65.21 Severe sepsis with septic shock; E87.1 Hypo-osmolality and hyponatremia; E44.0 Moderate protein-calorie malnutrition; N13.6 Pyonephrosis; I10 Essential (primary) hypertension; M06.9 Rheumatoid arthritis, unspecified; F01.50 Vascular dementia, unspecified severity, without behavioral disturbance, psychotic disturbance, mood disturbance, and anxiety; D63.8 Anemia in other chronic diseases classified elsewhere; E86.0 Dehydration; E83.42 Hypomagnesemia; D69.6 Thrombocytopenia, unspecified; E83.39 Other disorders of phosphorus metabolism; E87.6 Hypokalemia; E88.09 Other disorders of plasma-protein metabolism, not elsewhere classified; M81.0 Age-related osteoporosis without current pathological fracture; G30.9 Alzheimer's disease, unspecified; F02.80 Dementia in other diseases classified elsewhere, unspecified severity, without behavioral disturbance, psychotic disturbance, mood disturbance, and anxiety; R33.9 Retention of urine, unspecified; R58 Hemorrhage, not elsewhere classified; Z66 Do not resuscitate; Z88.0 Allergy status to penicillin; Z63.4 Disappearance and death of family member; Z98.51 Tubal ligation status; Z68.22 Body mass index [BMI] 22.0-22.9, adult; Z79.899 Other long term (current) drug therapy; Z20.822 Contact with and (suspected) exposure to COVID-19
CPT/HCPCS: 36415; 36569; 36600; 51702; 71045; 71260; 74018; 74177; 80048; 80053; 80069; 80202; 81001; 82805; 82947; 83605; 83690; 83735; 83880; 84100; 84132; 84145; 84484; 85025; 85379; 85384; 85610; 85730; 86140; 87040; 87077; 87086; 87088; 87186; 87205; 87804; 87811; 90732; 94640; 94660; 94760; 97110; 97116; 97161; 97530; 99285; C9113; J0692; J0696; J1644; J1940; J2185; J2270; J3475; J3480; J7030; J7040; J7042; J7050; J7120; J7613; J7644; J7799; P9047; Q9967